=== PATIENT | female | born 1990 | race Caucasian/White ===

== ENCOUNTER → 2017-10-23 09:37 | Outpatient (CLI) | payer MEDICARE, SELFPAY ==
[2017-10-23 10:25] LABS: Hematocrit 46.7 % (37-47); Hemoglobin 15.1 g/dl (12.0-15.0); Mean Corp Hgb Conc 32.3 g/gl (32-36); Mean Corpuscular Hgb 29.6 pg (27.0-32.0); Mean Corpuscular Volume 91.6 fL (81-99); Mean Platelet Vol. 9.8 fl (6.2-12.0); Platelet Count 320 K/mm3 (150-450); RBC Distribution Width CV 13.2 % (11.6-14.6); RBC Distribution Width SD 44.4 fl (35.1-43.9); White Blood Count 12.5 K/mm3 (4.4-11.0)
[2017-10-23 10:26] LABS: Scan Indicated on CBC? Y/N NO
[2017-10-23 11:00] LABS: ALB/GLOB Ratio 0.9 RATIO (0.9-2.4); AST(SGOT) 14 U/L (15-37); Alanine Aminotransfer ALT/SGPT 19 U/L (13-56); Albumin, Serum 3.5 g/dL (3.2-5.0); Alkaline Phosphatase 57 U/L (45-117); Anion Gap 5 (5-15); BUN 8 mg/dL (7-18); Calcium,Total 8.6 mg/dL (8.5-10.1); Chloride 109 mmol/L (98-107); Creatinine, Serum 0.73 mg/dL (0.55-1.02); EST Glomerular Filtration Rate 102 mL/min (>60); Est Glom Filt Rate - Afr Amer 124 mL/min (>60); Globulin 3.8 g/dL (2.2-4.2); Glucose 81 mg/dL (74-106); Magnesium 2.1 mg/dL (1.6-2.6); Phosphorus 2.5 mg/dL (2.5-4.9); Potassium 3.7 mmol/L (3.5-5.1); Protein, Total 7.3 g/dL (6.4-8.2); Sodium Level 140 mmol/L (136-145)
[2017-10-24 09:52] LABS: Erythrocyte Sedimentation Rate 28 mm/hr (0-20)
== END ==
PROVIDERS: Family Provider Family Medicine; PCP Family Medicine; Visit Provider Nurse Practitioner Acute Care
DX: R56.9 Unspecified convulsions (principal); Z79.899 Other long term (current) drug therapy
CPT/HCPCS: 36415; 80053; 83735; 84100; 85027; 85652; 86140

== ENCOUNTER → 2017-11-02 13:11 | Outpatient (CLI) | payer MEDICARE, SELFPAY | PROVIDERS: Family Provider Family Medicine; PCP Family Medicine; Visit Provider Nurse Practitioner Acute Care | DX: G47.33 Obstructive sleep apnea (adult) (pediatric) (principal) | CPT/HCPCS: 98960; G0463 ==

== ENCOUNTER 2017-12-18 14:11 | Emergency (ER) | payer MEDICARE, SELFPAY ==
[2017-12-18 14:12] VITALS: BP 166/105; PULSE 104; RESP 16; TEMP 37; O2SAT 99
--- NOTE | 2017-12-18 15:58 | ED.DCSUM_ITS ---
- ER Visit Summary Date of Service: 12/18/17 Chief Complaint: Hand laceration History of Present Illness: The patient is a 27 F single laceration to lateral aspect of her right hand due to a broken glass. Unknown last tetanus. Physical Examination: Afebrile vital signs are stable There is a 3 cm flap-like laceration to the medial aspect of the right hand along the proximal little finger. Neurovascular intact distally no active bleeding Emergency Department Course and Treatment: Wound was locally anesthetized using 1% lidocaine. Is washed with Shur-Clens irrigated and explored. No foreign bodies were noted. The wound was closed using a total of 5 4-0 simple interrupted Ethilon sutures. Patient was advised that given the flap like laceration that some of the skin may not survive due to blood supply issues and she was okay with this. Stitches will need to be removed 10-14 days. Tetanus was updated with Adacel Impression: 1. 3 cm right hand laceration with repair 2. Tetanus update This note was generated with VoterTide dictation software. It may contain incorrect words, spelling, and punctuation that were not noted in review of the chart prior to signing ED Disposition - Plan for ED Patient: Disposition: Home or Assisted Living Chief Complaint: Laceration Instructions: ED Laceration Hand Referrals: Radha Calloway MD [Primary Care Provider] - 10-14 Days suture removal
[2017-12-18] MEDS: Diphth,Pertuss(Acell),Tet Vac 0.5 ML Vial IM (16:06)
[2017-12-18 16:16] VITALS: BP 108/63; PULSE 68; RESP 18; O2SAT 100
== END 2017-12-18 16:37 | disposition home or self-care (01) ==
PROVIDERS: Emergency Provider Emergency Medicine; Family Provider Family Medicine; PCP Family Medicine
DX: S61.411A Laceration without foreign body of right hand, initial encounter (principal); W25.XXXA Contact with sharp glass, initial encounter; Y93.9 Activity, unspecified; Y92.9 Unspecified place or not applicable; Y99.9 Unspecified external cause status; Z23 Encounter for immunization; R56.9 Unspecified convulsions; F31.9 Bipolar disorder, unspecified; Z72.0 Tobacco use; Z79.899 Other long term (current) drug therapy
CPT/HCPCS: 12002; 90471; 90715; 99284

== ENCOUNTER → 2018-05-21 07:24 | Outpatient (CLI) | payer MEDICARE, SELFPAY ==
--- NOTE | 2018-05-21 07:27 | CT_ITS ---
STUDY: CT ENTEROGRAPHY OF THE ABDOMEN AND PELVIS WITH CONTRAST REASON FOR EXAM: Female, 28 years old. Crohn's disease. RADIATION DOSAGE (If Supplied By Facility): CTDIvol = ( 22.35 ) mGy, DLP = ( 3172.10 ) mGycm TECHNIQUE: Transaxial images were obtained from the dome of the diaphragm to the symphysis pubis with Volumen oral contrast. 100CC ml of Isovue 370 contrast was administered. Sagittal and coronal images were reconstructed. Individualized dose optimization techniques were used for this CT. COMPARISON: CT of the abdomen and pelvis, June 08, 2014. FINDINGS: The visualized lung bases are unremarkable. The visualized portions of the heart are within normal limits. Normal liver. The gallbladder is partially contracted but otherwise unremarkable. There is no biliary ductal dilatation. Normal spleen. Normal pancreas. Normal bilateral adrenal glands. Normal right kidney. Normal left kidney. Normal bilateral ureters. Stomach is well distended. There is no evidence of wall thickening or mass. Small bowel is well-distended. There is no evidence of marked dilatation or focal stricture. The terminal ileum demonstrates mild wall thickening without stranding of the surrounding mesenteric fat there are scattered subcentimeter lymph nodes within the mesentery about the terminal ileum and within the cecal mesocolon. Normal colon. The appendix is visualized and appears normal. Normal abdominal aorta. Normal inferior vena cava. There is a single prominent retroperitoneal lymph node seen just low the left adrenal gland measuring 1.1 x 0.9 x 1.6 cm. Other smaller subcentimeter lymph nodes are seen in the region of the renal arteries. Normal urinary bladder. Ureter is is anteverted and tilted to the left. There are bilateral ovarian cysts. The right measures 2.1 x 1.4 x 1.7 cm. The left measures 2 x 1.4 x 1.7 cm. There is no pelvic lymphadenopathy. No free air or free fluid is seen within the peritoneal cavity. Normal abdominal wall. Minimal degenerative changes of the lower lumbar spine. CT/Abdomen/Pelvis WITH Contrast IMPRESSION: 1. Mild wall thickening of the terminal ileum. Findings suggest mild Crohn's disease. There is no evidence of stricture or dilatation. 2. Multiple small lymph nodes in the small bowel mesentery adjacent the terminal ileum. 3. Bilateral ovarian cysts. 4. Minimal degenerative changes of the lumbar spine. Electronically Signed: Kobe Cloud DO at 22:22 EDT Tel [phone], Service support ,
== END ==
PROVIDERS: Family Provider Family Medicine; PCP Family Medicine; Referring Provider Internal Medicine Gastroenterology; Visit Provider Internal Medicine Gastroenterology
DX: K50.019 Crohn's disease of small intestine with unspecified complications (principal)
CPT/HCPCS: 74177; Q9967

== ENCOUNTER → 2018-05-21 14:00 | Outpatient (CLI) | payer MEDICARE, SELFPAY | PROVIDERS: Family Provider Family Medicine; PCP Family Medicine; Visit Provider Nurse Practitioner Acute Care | DX: G47.33 Obstructive sleep apnea (adult) (pediatric) (principal) ==

== ENCOUNTER → 2019-01-17 20:14 | Outpatient (CLI) | payer MEDICARE, SELFPAY | PROVIDERS: Family Provider Family Medicine; PCP Family Medicine; Visit Provider Clinical Nurse Specialist Acute Care | DX: G47.33 Obstructive sleep apnea (adult) (pediatric) (principal); G47.10 Hypersomnia, unspecified | CPT/HCPCS: 95810 ==

== ENCOUNTER 2019-02-25 10:30 | Outpatient (RCR) | payer MEDICARE, SELFPAY ==
--- NOTE | 2019-01-17 14:08 | HP.PTEVAL_ITS ---
Patient's Visit Information CONY POWERS is a 28 year old F referred to Physical Therapy by Radha Calloway MD with a diagnosis of Recurrent L ankle sprains. Date of Evaluation: 01/17/19 Physical Therapist: Jg Stallworth, PT, ATC - Visit Plan Frequency: 2-3x /Week Duration: 4-6 Weeks Plan: L ankle stretching and strengthening, balance and prorio ex's, bike, and HEP - Subjective Findings: Pt reports she sprained her L ankle approximately one month ago. Pt reports she has sprained her ankles at least 11 tolled her times in the past. Pt reports she has had PT in the past for strengthening of her ankles, but she continues to sprain them bilaterally. Pt reports she is an [employer] by [employer] and has to stand on her feet for several days. Pt reports this episode occurred when she stepped onto a tree root and rolled her ankle. Pt reports she has had recent xrays that reveal no fractures. No tingling or numbness in LE's. No sleep difficulty secondary to pain. Pt reports she is back to work now and feeling much better. 2/10 pain at rest, 10/10 at worst. - Pain L ankle sprain Pain Intensity (Out of 10): 2 Pain Intensity Range: 10 - Objective Neuro: B LE sensation is WNL to lgiht touch. B LE patellar reflex= 1/3. Palpation: Pt is very sore on the ant talofib ligament. No obvious deformity. Minor swelling noted. Pt is also very sore on achilles tendon. ROM: R ankle DF= 0, PF= 65; L ankle DF= -8, PF= 55. MMT: R ankle 5/5 throughout, L ankle 4+/5 throughout. Girth at joint line: L ankle 28 cm, R ankle 26.5 cm - Goals Goal 1:: Decrease L ankle pain x 50% to aid with increasing tolerance for ambulation Goal Time Frame: 4-6 Weeks Goal 2:: Increase L ankle strength x 1 grade to aid with preventing future ankle sprains Goal Time Frame: 4-6 Weeks Goal 3:: Increase L ankle DF ROM x 10 degrees to aid with retoring a more normal gait Goal Time Frame: 4-6 Weeks Goal 4:: I with HEP Goal Time Frame: 4-6 Weeks - Rehabilitation Potential Physical Therapy Diagnosis: L ankle pain, weakness, and limited ROM secondary to recurrent L ankle sprains Rehabilitation Potential: Good - Anticipated Interventions Patient/Client Instruction: Educate patient on: Condition, Plan of Care For the Purpose of:: To improve self management Therapeutic Exercise to Include: Strength training, Endurance training, Balance training, Flexibilty training, Active ROM, Dynamic Lumbar Stabilization For the Purpose of:: To decrease pain, To increase ROM, To improve muscle performance and motor function Cryotherapy (ice pack, ice massage): Yes For the Purpose of:: To decrease pain Thank you for the opportunity to evaluate your patient. For Medicare and Medicare HMO plans, please review the plan of care and approve it. It will need to be FAXED BACK to us at [phone] for Medicare purposes. For Medicare only, by signing this I certify the plan of care. Please let me know if there are questions or concerns regarding this plan of care. Physician Signature: Date:
--- NOTE | 2019-02-25 10:52 | HP.PTDCSUM_ITS ---
HP - PT D/C Summary It has been my pleasure to treat CONY POWERS under orders from Radha Calloway MD, for the diagnosis of Recurrent L ankle sprains for a total of 7 visit(s). Discharge Date: Please see the following information for a summary of their discharge status. - Subjective Subjective: No pain this date. Pt is ready for discharge - Pain L ankle sprain Pain Intensity (Out of 10): 0 - Overall Improvement % Improvement: 100 - Objective Objective/Function: L ankle pain 0/10. L ankle ROM: DF= 10 degrees. L ankle MMT: 5/5 throughout. I with HEP. Rx goals achieved - Goals Goal 1:: Decrease L ankle pain x 50% to aid with increasing tolerance for ambulation Goal Progress: Goal Met Goal 2:: Increase L ankle strength x 1 grade to aid with preventing future ankle sprains Goal Progress: Goal Met Goal 3:: Increase L ankle DF ROM x 10 degrees to aid with retoring a more normal gait Goal Progress: Goal Met Goal 4:: I with HEP Goal Progress: Goal Met - Plan Plan: Discharge - D/C Information If there are questions or concerns regarding this patient's physical therapy, pl ease feel free to call me at [phone]. Thank you for the referral of this patient. Sincerely, Jg Stallworth, PT, ATC
== END 2019-02-25 11:02 | disposition home or self-care (01) ==
LOC: PT 10:30
PROVIDERS: Family Provider Family Medicine; PCP Family Medicine; Referring Provider Family Medicine; Visit Provider Family Medicine
DX: S93.409D Sprain of unspecified ligament of unspecified ankle, subsequent encounter (principal)
CPT/HCPCS: 97110; 97161; 97530

== ENCOUNTER → 2019-02-25 20:00 | Outpatient (CLI) | payer MEDICARE, SELFPAY | PROVIDERS: Family Provider Family Medicine; PCP Family Medicine; Referring Provider Clinical Nurse Specialist Acute Care; Visit Provider Clinical Nurse Specialist Acute Care | DX: G47.33 Obstructive sleep apnea (adult) (pediatric) (principal) | CPT/HCPCS: 95811 ==

== ENCOUNTER 2019-03-02 17:58 | Emergency (ER) | payer SELFPAY ==
[2019-03-02 17:59] VITALS: BP 114/91; PULSE 99; RESP 20; TEMP 36.3; O2SAT 97; BMI 40.5
--- NOTE | 2019-03-02 18:16 | ED.VIS.GEN ---
History of Present Illness Chief Complaint: Upper Extremity Injury Detail of Chief Complaint: Left shoulder pain Informant: Patient Onset: Days Context: Gradual Onset Current Severity: Mild Maximum Severity: Moderate Worsened by: Movement or palpation Narrative: Patient presents with left shoulder pain over the last 2 days. She states she woke Vishnu morning with pain. 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 She has difficulty with abduction. No paresthesias into the arm. She is right-hand dominant. Past Medical History - Allergies and Home Meds Allergies/Adverse Reactions: Allergies ALMONDS Allergy (Uncoded 03/02/19 17:59) Hives Primary Care Physician: Radha Calolway MD [Primary Care Provider] - Prior records reviewed: Yes Past Medical History: - - Reviewed Surgical History: no surgical history Smoking Status: Current every day smoker - Family History Maternal Family History: Reports: No pertinent history Review of Systems General: Denies: Chills, Fever Eyes: Denies: Visual changes - bilaterally ENT: Denies: Bilateral ear pain Cardiovascular: Denies: Chest pain Respiratory: Denies: Dyspnea, Cough Gastrointestinal: Denies: Abdominal pain Genitourinary: Denies: Dysuria Musculoskeletal: Reports: Myalgias, Arthralgias Skin: Denies: Rash Neurological: Denies: Headache Endocrine: Denies: Polyuria, Polydipsia Hematologic: Denies: Easy bruising Allergy: Denies: Uticaria Physical Exam Vital Signs/Narrative: Vital Signs Temp Pulse Resp BP Pulse Ox 03/02/19 17:59 97.4 F L 99 20 H 114/91 H 97 Inital Vital Signs reviewed: Yes General: Well nourished, Well developed ENT: Moist mucous membranes Cardiovascular: Regular rate, Regular rhythm Respiratory: No distress, CTA bilaterally Abdomen: Soft, Nontender Extremities: Tenderness - She has reproducible tenderness over the anterior, superior, and posterior shoulder. She has increased pain with abduction. She has strong distal pulses. There is no tenderness along the mid to distal humerus, elbow, or forearm. Skin: Normal color Neurological: Alert, Oriented x3 Psychological: Normal affect Diagnostic/Tx/Re-eval Impressions Shoulder X-Ray 03/02/19 18:20 IMPRESSION: Normal x-ray examination of the shoulder. Electronically Signed: Daniel Rudd MD at 18:37 EDT , Service support , 03/02/19 18:20 Shoulder min 2 Views [RAD] Stat - Medical Decision Making Patient states that she was seen in urgent care couple days ago for the same. They told her to watch for signs of chest pain or shortness of breath but she has not had any of these. She was given prescriptions for pain medication and muscle spasm medicine but patient states she has not yet filled these were taken them. Test results discussed with the patient. I instructed the importance of getting her prescriptions filled. She now states that she lost her insurance card and has to go to job [facility] family services tomorrow morning to get a copy of a new one. She will be given a single dose of naproxen and Flexeril here. ED Disposition - Plan for ED Patient: Disposition: Home or Assisted Living Diagnosis: Sprain of left shoulder Instructions: Shoulder Sprain Referrals: Radha Calloway MD [Primary Care Provider] - 1 Week if not improving
--- NOTE | 2019-03-02 18:20 | RAD_ITS ---
STUDY: X-RAY - LEFT SHOULDER REASON FOR EXAM: Female, 28 years old. Pain TECHNIQUE: 4 view(s) of the shoulder. COMPARISON: None. FINDINGS: Normal glenohumeral articulation. Normal acromioclavicular joint. Normal acromion. Normal humeral head and visualized proximal humerus. The soft tissue structures are unremarkable. Normal visualized pulmonary apex. RAD/Shoulder min 2 Views IMPRESSION: Normal x-ray examination of the shoulder. Electronically Signed: Daniel Rudd MD at 18:37 EDT , Service support ,
[2019-03-02] MEDS: cycloBENZAPRine HCl 10 MG Tablet PO (19:11)
[2019-03-02] MEDS: Naproxen 500 MG Tablet PO (19:11)
[2019-03-02 19:13] VITALS: BP 116/75; PULSE 82; RESP 16; O2SAT 98
== END 2019-03-02 19:14 | disposition home or self-care (01) ==
PROVIDERS: Emergency Provider Emergency Medicine; Family Provider Family Medicine; PCP Family Medicine
DX: S43.402A Unspecified sprain of left shoulder joint, initial encounter (principal); X58.XXXA Exposure to other specified factors, initial encounter; Y93.9 Activity, unspecified; Y92.9 Unspecified place or not applicable; Y99.9 Unspecified external cause status; F17.200 Nicotine dependence, unspecified, uncomplicated; Z79.899 Other long term (current) drug therapy
CPT/HCPCS: 73030; 99283

== ENCOUNTER 2019-03-30 06:47 | Emergency (ER) | payer MEDICARE, MEDICAID, SELFPAY ==
[2019-03-30 06:48] VITALS: BP 103/70; PULSE 75; RESP 18; TEMP 36.7; O2SAT 100; BMI 43.2
--- NOTE | 2019-03-30 07:30 | ED.VISSUMM ---
- ER Visit Summary Date of Service: 03/30/19 Chief Complaint: Back pain History of Present Illness: The patient is a 28 F history of degenerative disc disease in the lumbar spine, Crohn's, seizure history and mental illness. Patient states this morning she had low back pain. Denies any radiation to her legs. No bowel or bladder incontinence or retention. No fever. No weakness or numbness in her legs. No trauma. She is on no blood thinners. She is never had back surgery. Physical Examination: Young female no acute distress. Vital signs are stable and afebrile. H EENT exam unremarkable. Neck nontender. Lungs clear to auscultation bilaterally. Heart regular rhythm no murmur. Abdomen is soft and nontender. Normal bowel sounds no peritoneal signs. Patient is moving all 4 extremities. Neurovascular intact. 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 Normal 5 out of 5 dorsi plantar flexion. Full range of motion both upper and lower extremities. Normal sensation. No cauda equina. No saddle anesthesia. Negative straight leg raise bilaterally lower extremities. Back she has some mild reproducible tenderness of her lumbar spine. There is no ecchymosis or bruising. No redness or warmth. No deformity. No signs of trauma. Neurologic exam is normal. With again normal strength and sensation. No cauda equina. Test Results: None Emergency Department Course and Treatment: Examined history consistent with musculoskeletal back pain. Treatment Plan: Motrin for pain. Follow-up with your doctor if not improving. Disposition: Discharge Impression: Musculoskeletal low back pain History degenerative disc disease This note was generated with AdviseHub dictation software. It may contain incorrect words, spelling, and punctuation that were not noted in review of the chart prior to signing ED Disposition - Plan for ED Patient: Referrals: Radha Calloway MD [Primary Care Provider] -
--- NOTE | 2019-03-30 07:32 | ED.DEP ---
ED Disposition - Plan for ED Patient: Disposition: Home or Assisted Living Instructions: BACK AND NECK PAIN, General Referrals: Radha Calloway MD [Primary Care Provider] - 1 Week if not improving Additional Instructions: Motrin or ibuprofen 600 mg 3 times a day for pain. Follow-up with your doctor if not improving. Return if fever, leg weakness or numbness, bowel or bladder incontinence or unable to urinate or move your bowels.
== END 2019-03-30 07:40 | disposition home or self-care (01) ==
LOC: ED 07:33
PROVIDERS: Emergency Provider Emergency Medicine; Family Provider Family Medicine; PCP Family Medicine
DX: M54.5 Low back pain (principal); M51.36 Other intervertebral disc degeneration, lumbar region; K50.90 Crohn's disease, unspecified, without complications; R56.9 Unspecified convulsions; Z72.0 Tobacco use; Z79.899 Other long term (current) drug therapy
CPT/HCPCS: 99282

== ENCOUNTER → 2019-06-23 15:28 | Outpatient (CLI) | payer MEDICARE, MEDICAID, SELFPAY ==
--- NOTE | 2019-06-23 15:37 | RAD_ITS ---
STUDY: X-RAY - PELVIS REASON FOR EXAM: Female, 29 years old. Posterior and mid pelvic pain. TECHNIQUE: One view of the pelvis was obtained. COMPARISON: None. FINDINGS: There is a non-specific bowel gas pattern. Normal visualized soft tissue structures. Portions of the sacrum and iliac wings are obscured by bowel gas and/or stool. Normal visualized bilateral superior and inferior pubic rami. Normal pubic symphysis. Normal ischial tuberosities. Normal visualized right femoral head. Normal right acetabulum. Normal right hip joint. Normal visualized left femoral head. Normal left acetabulum. Normal left hip joint. RAD/Pelvis 1 or 2 Views IMPRESSION: Normal x-ray examination of the pelvis. Electronically Signed: Rocío Tovar MD at 1:29 EST , Service support ,
== END ==
PROVIDERS: Family Provider Family Medicine; PCP Family Medicine; Referring Provider Family Medicine; Visit Provider Family Medicine
DX: M54.9 Dorsalgia, unspecified (principal)
CPT/HCPCS: 72170

== ENCOUNTER 2019-08-06 11:30 | Outpatient (RCR) | payer MEDICARE, MEDICAID, SELFPAY ==
--- NOTE | 2019-07-03 16:29 | HP.PTEVAL ---
Patient's Visit Information CONY POWERS is a 29 year old F referred to Physical Therapy by Radha Calloway MD with a diagnosis of LOW BACK PAIN. Date of Evaluation: 07/03/19 Physical Therapist: Ilia Howard, PT, Cert MDT, OCS - Visit Plan Frequency: 2x /Week Duration: 4 Weeks Plan: NO ESTIM H/O SEIZURES. PT INTERVENTIONS CHARITY EX'S,DLS ABD/BACK,POSTURAL EX'S ,US /CP/MHO - Subjective Findings: This 29 y/o female presents to physical therapy with low back pain. Patient has had low back pain 6 weeks ,and had to go to ER twice due to pain.Located symmtrical pain worse on right side > than left. Aggraveting factors bending ,lifting,squatting,sitting. Alleviating factors walking,MEDS. Denies parathesia/tingling. Bowel/bladder -. Pain affects sleeping. No trauma, No prior treatment. Coughing/sneezing-. Patient pain affects ADLS',housework tasks. 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 Seen Dr Jarrell tried cortizone. SOCIAL: single. VOCATION: unemployed - Pain Bilateral Back Pain Intensity (Out of 10): 2 Pain Intensity Range: 10 - Objective POSTURE: mild foward posture. GAIT: reciprocal pattern. PALPATION: tender L-S. NEURO: denies parathesia/tingling,reflexes L3-4,L4-5,L5-S1 2/3. FLEXABLITY: hams miild hams tight. MMT: quads/hams 4/5,hip flexion 4-/5,ankle 4/5. LUMBAR ROM: flexion min loss ,extension min loss,side glides min loss. SYMMTRIES: alighn. MUSCULAR ENDURANCE TESTING: unble - Special Tests L/S Slump test left side: Negative L/S Slump test right side: Negative L/S Left Straight Leg Raise: Negative L/S Right Straight Leg Raise: Negative Lumbar Standing: Flexion - Mechanical Response: No effect Lumbar Standing: Flexion - Symptoms During Testing: Increases Lumbar Standing: Flexion - Symptoms After Testing: No worse Lumbar Standing: Extension - Mechanical Response: No effect Lumbar Standing: Extension - Symptoms During Testing: No effect Lumbar Standing: Extension - Symptoms After Testing: No effect Lumbar Standing: Right Side Glides - Mechanical Response: No effect Lumbar Standing: Right Side [place] - Symptoms During Testing: No effect Lumbar Standing: Right Side [place] - Symptoms After Testing: No effect Lumbar Standing: Left Side [place] - Mechanical Response: No effect Lumbar Standing: Left Side [place] - Symptoms During Testing: No effect Lumbar Standing: Left Side [place] - Symptoms After Testing: No effect Lumbar Lying: Flexion - Mechanical Response: No effect Lumbar Lying: Flexion - Symptoms During Testing: Increases Lumbar Lying: Flexion - Symptoms After Testing: No worse Lumbar Lying: Extension - Mechanical Response: No effect Lumbar Lying: Extension - Symptoms During Testing: Decreases Lumbar Lying: Extension - Symptoms After Testing: Better - Goals Goal 1:: Independant wiith HEP Goal Time Frame: 4-6 Weeks Goal 2:: Improve posture/body mechanics for ADL'S Goal Time Frame: 4-6 Weeks Goal 3:: Patient to decrease pain by 50% or > to improve function. Goal Time Frame: 4-6 Weeks Goal 4:: Patient to improve lumbar ROM for function of recovery. Goal Time Frame: 4-6 Weeks Goal 5:: Patient to improve back oestry score by 5 points or> to improve QOL. Goal Time Frame: 4-6 Weeks - Rehabilitation Potential Physical Therapy Diagnosis: This patient has possible lumbar derrangement with pain with bending ,better with extension,poor core muscular endurance impairs ADL's and housework tasks. Rehabilitation Potential: Good - Anticipated Interventions Patient/Client Instruction: Educate patient on: Condition, Plan of Care For the Purpose of:: To decrease pain, To increase ROM, To improve muscle performance and motor function, To improve ability to perform ADL's, To increase tolerance to activity/condition/position, To improve ability of physical actions for home/community/work/leisure, To improve health of tissue, To decrease soft tissue restriction, To increase flexibility/ROM, To improve ability to perform tasks related to life management Therapeutic Exercise to Include: Strength training, Body mechanics, Dynamic Lumbar Stabilization, Charity Exercises For the Purpose of:: To decrease pain, To increase ROM, To improve muscle performance and motor function, To improve ability to perform ADL's, To increase tolerance to activity/condition/position, To improve ability of physical actions for home/community/work/leisure, To improve health of tissue, To decrease soft tissue restriction, To increase flexibility/ROM, To improve ability to perform tasks related to life management Cryotherapy (ice pack, ice massage): Yes Thermo therapy (hot pack): Yes Ultrasound (thermal/non thermal): Yes For the Purpose of:: To decrease pain, To increase ROM, To improve nutrient delivery to tissue, To increase oxygenation perfusion, To improve health of tissue, To decrease soft tissue restriction Thank you for the opportunity to evaluate your patient. For Medicare and Medicare HMO plans, please review the plan of care and approve it. It will need to be FAXED BACK to us at [phone] for Medicare purposes. For Medicare only, by signing this I certify the plan of care. Please let me know if there are questions or concerns regarding this plan of care. Physician Signature: Date:
--- NOTE | 2019-10-28 09:04 | HP.PTDCSUM ---
It has been my pleasure to treat CONY POWERS referred by Dr. Radha Calloway MD, with the diagnosis of LOW BACK PAIN for a total of 9 visit(s). Discharge Date: Please see the following information for a summary of their discharge status. Subjective: This patient reports doing much better .. no PAIN Bilateral Back Pain Intensity (Out of 10): 0 % Improvement: 100 Objective/Function: POSTURE: MILD FOWARD POSTURE. GAIT: RECIPROCAL PATTERN. MMT: 4/5 BLE. LUMBAR ROM: WNL Goal 1:: Independant wiith HEP Goal 2:: Improve posture/body mechanics for ADL'S Goal 3:: Patient to decrease pain by 50% or > to improve function. Goal 4:: Patient to improve lumbar ROM for function of recovery. Goal 5:: Patient to improve back oestry score by 5 points or> to improve QOL. Plan: D/C TO [facility] If there are questions or concerns regarding this patient's physical therapy, please feel free to call me at [phone]. Thank you for the referral of this patient. Sincerely, Ilia Howard, PT, Cert MDT, OCS
== END 2019-08-06 19:00 | disposition home or self-care (01) ==
LOC: PT 11:30
PROVIDERS: Family Provider Family Medicine; PCP Family Medicine; Referring Provider Family Medicine; Visit Provider Family Medicine
DX: M54.5 Low back pain (principal)
CPT/HCPCS: 97035; 97110; 97162

== ENCOUNTER 2019-08-20 15:09 | Emergency (ER) | payer MEDICARE, MEDICAID, SELFPAY ==
[2019-08-20 15:10] VITALS: BP 131/81; PULSE 94; RESP 15; TEMP 36.1; O2SAT 94; BMI 43.2
--- NOTE | 2019-08-20 15:35 | RAD_ITS ---
STUDY: X-RAY CHEST REASON FOR EXAM: Female, 29 years old. COUGH TECHNIQUE: Single AP portable view of the chest. COMPARISON: None. FINDINGS: The lungs are clear and expanded. There is no demonstrated pleural abnormality. Normal size heart. Normal mediastinum and rosalie. Normal visualized pulmonary arteries. Normal visualized aortic arch and descending thoracic aorta. Normal visualized thoracic spine. Normal visualized ribs, clavicles, and shoulders. There is no demonstrated abnormality of the visualized soft tissue structures of the upper abdomen. RAD/Chest 1 View (Portable) IMPRESSION: Normal x-ray examination of the chest. Electronically Signed: Shady Butt, at 15:53 EST , Service support ,
[2019-08-20 16:51] VITALS: O2SAT 94
--- NOTE | 2019-08-20 17:17 | ED.DCSUM_ITS ---
- ER Visit Summary Date of Service: 08/20/19 Chief Complaint: Cough and back pain History of Present Illness: The patient is a [address] Calloway. She reports she has a cough began 1 week ago. She denies any fever, chills, shortness of breath. She reports her cough is productive yellow sputum without blood. She does report she has a slight sore throat. Patient reports that she has back pain again approximately 9 weeks ago. Is gradually gotten worse. States ripping/stabbing that is 7 out of 10 currently 10 out of 10 at worst. Is increased with movement. Is decreased with sitting down and Tylenol. States that it radiates to the front of her right leg. She denies any problems with her bowels or bladder. No groin numbness. Denies any history of back problems. She reports that August 07 she finished 6 weeks of physical therapy for her back and has not gotten any relief. She has not followed up with her primary care physician regarding this. Patient denies any injury to the onset of this. No fall, MVA, or change in activity. Physical Examination: Vitals: Stable. Afebrile. General: A&O x 3. NAD. Cardiovascular exam: Regular rate and rhythm, no murmur, rub or gallop. Respiratory exam: Clear to auscultation bilaterally. No wheezes or stridor. Abdominal exam: Soft, nontender, nondistended, normal bowel sounds. No peritoneal signs. Back: Diffuse moderate tenderness to palpation over the lumbar spine and the paraspinous musculature in the lumbar region. No point tenderness. Negative straight leg bilaterally. 5/5 DF, PF, EHL bilaterally. Normal sensation to light touch throughout. Extremity: No clubbing, cyanosis, or edema. Test Results: Clinical Impression(s) from Imaging Studies Chest X-Ray 08/20/19 15:35 IMPRESSION: Normal x-ray examination of the chest. Electronically Signed: Shady Butt, at 15:53 EST , Service support , Emergency Department Course and Treatment: Patient was treated with prednisone and naproxen. She is resting comfortably. Treatment Plan: This time I do not see an indication for antibiotics. She will be discharged on a 2-week taper of prednisone in hopes that this will help with her pain to her right leg that is radiating from her back. Also help with her wheezing. She has an inhaler at home already. She is instructed to use Tylenol and ibuprofen for pain. She instructed to use a TENS unit and moist heat. Follow-up Dr. Calloway in 1 week if not improving. The signs and symptoms of cauda equina syndrome were discussed. She was instructed return for these. Disposition: To home in improved and stable condition. Impression: 1. URI. 2. Low back pain, chronic. This note was generated with [employer] dictation software. It may contain incorrect words, spelling, and punctuation that were not noted in review of the chart prior to signing ED Disposition - Plan for ED Patient: Instructions: URI, Viral w/ Wheezing (Adult), BACK PAIN (Acute or Chronic) Prescriptions: Naproxen [Naprosyn] 500 mg PO BID #14 tablet Prednisone 10 mg PO DAILY #63 tablet Referrals: Radha Calloway MD [Primary Care Provider] - 1 Week if not improving
[2019-08-20] MEDS: Naproxen 250 MG Tablet 500 MG PO (17:23)
[2019-08-20] MEDS: predniSONE 20 MG Tablet 60 MG PO (17:24)
[2019-08-20 17:26] VITALS: O2SAT 94
[2019-08-20 18:05] VITALS: RESP 14
== END 2019-08-20 18:06 | disposition home or self-care (01) ==
PROVIDERS: Emergency Provider Emergency Medicine; PCP Family Medicine
DX: J06.9 Acute upper respiratory infection, unspecified (principal); M54.5 Low back pain; G89.29 Other chronic pain; G40.909 Epilepsy, unspecified, not intractable, without status epilepticus; Z72.0 Tobacco use
CPT/HCPCS: 71045; 94760; 99283

== ENCOUNTER 2019-09-21 10:10 | Emergency (ER) | payer MEDICARE, MEDICAID, SELFPAY ==
[2019-09-21 10:12] VITALS: BP 102/72; PULSE 84; RESP 17; TEMP 36.6; O2SAT 97; BMI 41.1
--- NOTE | 2019-09-21 10:23 | ED.DCSUM_ITS ---
- ER Visit Summary Date of Service: 09/21/19 Chief Complaint: [Neck pain] History of Present Illness: The patient is a 29 F [presents the emergency department complaining of pain was noted this morning when she woke up. Patient denies any trauma to her neck other than she was helping a friend move a dresse r as well as a mattress and box frame yesterday. Patient denies any direct trauma or falls. She states that the pain radiates around towards her right shoulder. At times the pain goes to the base of her skull. She denies any weakness in the extremities or paresthesias. Patient has pain with movement of the head especially to the left. Has not had symptoms like this before. Most recent illness was 3 to 4 weeks ago when she had a URI that she has gotten over she had been on 2 antibiotics at that point. Patient has history of PTSD, bipolar disorder, anxiety, depression, seizures, and history of Crohn's disease.] Physical Examination: [HEENT-PERRLA, EOMI. Cranial nerves II through XII grossly intact. TMs clear. Mucous membranes moist. No adenopathy. Neck-tiffanie ent has tenderness palpation over the right cervical paraspinal musculature and trapezius with spasm noted. Palpation reproduces her pain. Patient has pain with head rotation to the left and side bending to the left. No bony tenderness on exam. Cardiovascular-regular rate and rhythm without murmur or ectopy Lungs-clear to auscultation, chest wall stable without crepitus or subcu emphysema Abdomen-normoactive bowel sounds, soft, nontender, no rebound or rigidity, no peritoneal signs. Extremities-intact ?4, normal range of motion, normal pulses, atraumatic. Deep tendon reflexes are plus 2 out of 4 bilaterally in the upper and lower extremities. Normal strength.] Test Results: [None indicated] Emergency Department Course and Treatment: [] Treatment Plan: [Patient will be given a prescription for Flexeril, Naprosyn, and a few Wanchese for severe pain. Patient advised to follow-up with her primary care physician within next 5 to 7 days.] Disposition: [Discharged home in stable condition] Impression: [Torticollis] This note was generated with [employer] software. It may contain incorrect words, spelling, and punctuation that were not noted in review of the chart prior to signing ED Disposition - Plan for ED Patient: Referrals: Radha Calloway MD [Primary Care Provider] -
--- NOTE | 2019-09-21 10:26 | ED.DEP ---
ED Disposition - Plan for ED Patient: Instructions: NECK SPASM, No Trauma Prescriptions: cycloBENZAPRine HCl [Flexeril] 10 mg PO TID PRN #20 tab PRN Reason: Muscle Spasm Transmission Status: Pending to [facility] Naproxen [Naprosyn] 500 mg PO BID PRN #20 tab Transmission Status: Pending to [facility] Hydrocodone Bitart/Apap 5-325 [[place] 5MG-325MG] 1 tablet PO Q4H PRN PRN 2 Days #10 tablet PRN Reason: Pain Transmission Status: Received by [facility] Referrals: Radha Calloway MD [Primary Care Provider] - 5-7 Days
[2019-09-21 10:35] VITALS: RESP 16
--- NOTE | 2019-09-21 10:35 | ED.RN ---
REVIEWED D/C INSTRUCTIONS, FOLLOW UP CARE, PRESCRIPTIONS, AND S/S THAT WOULD WARRANT A RETURN TO THE ED WITH PT. PT VERBALIZED AN UNDERSTANDING AND DENIES FURTHER QUESTIONS FOR THIS RN. PT SKIN P/W/D, RESP EVEN AND UNLABORED, PT A&O X 3, NO DISTRESS NOTED. PT AMBULATED OUT OF ED, GAIT STEADY.
== END 2019-09-21 10:36 | disposition home or self-care (01) ==
LOC: ED 10:30
PROVIDERS: Emergency Provider Emergency Medicine; PCP Family Medicine
DX: M43.6 Torticollis (principal); K50.90 Crohn's disease, unspecified, without complications; G40.909 Epilepsy, unspecified, not intractable, without status epilepticus; F31.9 Bipolar disorder, unspecified; F43.10 Post-traumatic stress disorder, unspecified; Z72.0 Tobacco use
CPT/HCPCS: 99282

== ENCOUNTER → 2020-01-29 07:49 | Outpatient (CLI) | payer MEDICARE, MEDICAID, SELFPAY ==
[2019-10-30 16:06] VITALS: BMI 41.1
[2020-01-29 08:19] LABS: Hematocrit 44.7 % (37-47); Hemoglobin 14.4 g/dL (12.0-15.0); Mean Corp Hgb Conc 32.2 g/dL (32-36); Mean Corpuscular Hgb 30.3 pg (27.0-32.0); Mean Corpuscular Volume 94.1 fL (81-99); Platelet Count 309 K/mm3 (150-450); RBC Distribution Width CV 12.9 % (11.6-14.6); RBC Distribution Width SD 44.2 fl (35.1-43.9); Red Blood Count 4.75 M/mm3 (4.2-5.4); White Blood Count 13.8 K/mm3 (4.4-11.0)
[2020-01-29 09:11] LABS: ALB/GLOB Ratio 0.9 RATIO (0.9-2.4); AST(SGOT) 13 U/L (15-37); Alanine Aminotransfer ALT/SGPT 22 U/L (13-56); Albumin, Serum 3.3 g/dL (3.2-5.0); Alkaline Phosphatase 43 U/L (45-117); Anion Gap 6 (5-15); BUN 14 mg/dL (7-18); BUN/Creat Ratio 16.4 RATIO (10-20); Calcium,Total 8.5 mg/dL (8.5-10.1); Chloride 108 mmol/L (98-107); Creatinine, Serum 0.85 mg/dL (0.55-1.02); EST Glomerular Filtration Rate 84 mL/min (>60); Est Glom Filt Rate - Afr Amer 102 mL/min (>60); Globulin 3.8 g/dL (2.2-4.2); Glucose 87 mg/dL (74-106); Potassium 3.9 mmol/L (3.5-5.1); Protein, Total 7.1 g/dL (6.4-8.2); Sodium Level 141 mmol/L (136-145)
== END ==
PROVIDERS: PCP Family Medicine; Referring Provider Psychiatry & Neurology Neurology; Visit Provider Psychiatry & Neurology Neurology
DX: G40.909 Epilepsy, unspecified, not intractable, without status epilepticus (principal)
CPT/HCPCS: 36415; 80053; 85027

== ENCOUNTER 2020-01-30 14:14 | Emergency (ER) | payer MEDICARE, MEDICAID, SELFPAY ==
[2020-01-29 14:12] VITALS: BMI 41.1
[2020-01-30 14:15] VITALS: BP 136/67; PULSE 87; RESP 16; TEMP 36.2; O2SAT 97; BMI 38.0
--- NOTE | 2020-01-30 14:29 | ED.VIS.GEN ---
History of Present Illness Chief Complaint: Other, Pain/Inj Informant: Patient Onset: Days Context: Gradual Onset Current Severity: Mild Maximum Severity: Mild Narrative: Patient present secondary to right lower back pain, groin pain, and numbness to the right knee. She reports problems with her back and groin in the past. A few days ago it seemed to flareup on her again. Over the past 24 hours she has now developed numbness around her right knee. This is what prompted her visit today. She denies any recent trauma to her back. She states in the past has been on naproxen and Flexeril which helped her pain. - Past Medical History (1) Bipolar disorder Status: Chronic (2) Crohns disease Status: Chronic Comment: Diagnosing 2006 (3) Posttraumatic stress disorder Status: Chronic (4) Seizures Status: Chronic Past Medical History - Allergies and Home Meds Allergies/Adverse Reactions: Allergies ALMONDS Allergy (Uncoded 09/21/19 10:11) Hives Primary Care Physician: Radha Calloway MD [Primary Care Provider] - Prior records reviewed: Yes Surgical History: no surgical history Smoking Status: Current every day smoker - Family History Maternal Family History: Family History (Last Updated 10/30/19 @ 14:43 by Janine Green) Father Suicide Mother Diabetes OCD (obsessive compulsive disorder) Grandmother Diabetes Other Anxiety Arthritis Bowel disease Depression Epilepsy Family History: Reports: No pertinent history Review of Systems General: Denies: Chills, Fever Eyes: Denies: Visual changes - bilaterally ENT: Denies: Bilateral ear pain Cardiovascular: Denies: Chest pain Respiratory: Denies: Dyspnea, Cough Gastrointestinal: Denies: Abdominal pain, Nausea, Vomiting, Diarrhea Genitourinary: Denies: Dysuria Musculoskeletal: Reports: Back pain. Denies: Extremity Pain Neurological: Reports: Parasthesia. Denies: Weakness Hematologic: Denies: Easy bruising, Easy bleeding Allergy: Denies: Uticaria Physical Exam Vital Signs/Narrative: Vital Signs Temp Pulse Resp BP Pulse Ox 01/30/20 14:15 97.2 F L 87 16 136/67 H 97 Inital Vital Signs reviewed: Yes General: Well nourished, Well developed Head: Normocephalic ENT: Moist mucous membranes Neck: Supple Cardiovascular: Regular rate, Regular rhythm Respiratory: No distress, CTA bilaterally Abdomen: Soft, Nontender Back: - - Patient has reproducible tenderness over the right lower lumbar paraspinal muscles under the sciatic notch. Extremities: Nontender Skin: Normal color Neurological: Alert, Oriented x3, Normal Strength, - - Patient reports decreased incision to light touch around the right knee. She has good strength throughout. Strong distal pulses noted. Normal reflexes. Psychological: Normal affect Diagnostic/Tx/Re-eval - Medical Decision Making Patient appears to have lumbar radiculopathy symptoms. She will be treated with naproxen, Flexeril, and prednisone. ED Disposition - Plan for ED Patient: Disposition: Home or Assisted Living Diagnosis: Lumbar radiculopathy Instructions: ED LUMBAR RADICULOPATHY Prescriptions: Prednisone [Deltasone] 40 mg PO DAILY #10 tab Transmission Status: Pending to [facility] cycloBENZAPRine HCl [Flexeril] 10 mg PO TID PRN #20 tab PRN Reason: Muscle Spasm Transmission Status: Pending to [facility] Naproxen [Naprosyn] 500 mg PO BID PRN PRN #20 tab PRN Reason: Pain Score 4-10/10 Transmission Status: Pending to [facility] Referrals: Radha Calloway MD [Primary Care Provider] - 1 Week
[2020-01-30] MEDS: Naproxen 500 MG Tablet PO (14:38)
[2020-01-30] MEDS: cycloBENZAPRine HCl 10 MG Tablet PO (14:38)
[2020-01-30] MEDS: predniSONE 20 MG Tablet 60 MG PO (14:38)
[2020-01-30 14:44] VITALS: PULSE 66; RESP 17; O2SAT 95
== END 2020-01-30 14:47 | disposition home or self-care (01) ==
LOC: ED 14:42
PROVIDERS: Emergency Provider Emergency Medicine; PCP Family Medicine
DX: M54.16 Radiculopathy, lumbar region (principal); F31.9 Bipolar disorder, unspecified; F43.10 Post-traumatic stress disorder, unspecified; G40.909 Epilepsy, unspecified, not intractable, without status epilepticus; F17.200 Nicotine dependence, unspecified, uncomplicated
CPT/HCPCS: 99283

== ENCOUNTER 2020-02-05 15:04 | Emergency (ER) | payer MEDICARE, MEDICAID, SELFPAY ==
[2020-02-05 15:05] VITALS: BP 108/48; PULSE 83; RESP 18; TEMP 36.3; O2SAT 97; BMI 38.0
--- NOTE | 2020-02-05 16:11 | ED.VISSUMM ---
- ER Visit Summary Date of Service: 02/05/20 Chief Complaint: Lower back pain radiating down the right posterior leg. History of Present Illness: The patient is a 29 F 3 of PTSD, bipolar, Crohn's, degenerative disc disease and seizures. Patient states since January 29 she has had pain in her lower back and radiates down her right leg. Denies any bowel or bladder incontinence or retention. Denies any prior back surgery. She has had fall since this started due to her leg giving out. She is not on any blood thinners. Denies any IV drug abuse. She denies any fevers. Physical Examination: Young female no acute distress vital signs stable afebrile. H EENT exam unremarkable. Neck nontender. Lungs clear to auscultation bilateral. Heart regular rhythm no murmur. Abdomen soft nontender no bowel sounds no peritoneal signs. Extremities moves all 4. Neurovascular intact. Back spine nontender right SI joint tender. Neurologically she is awake alert with no focal motor or sensory deficits. Dorsi plantarflexion intact 5-5 with both feet. No cauda equina. No saddle anesthesia. Normal medial thigh sensation. She is able to lift either leg off the bed. There is no muscular atrophy. Straight leg raise bilaterally is negative. Test Results: None Emergency Department Course and Treatment: Patient previously diagnosed with sciatica which I agree with. She is already on Naprosyn and prednisone. She will follow-up with her primary care physician if this is not improving she may need an MRI to rule out herniated disc. There is no weakness currently in her right lower extremity and no signs of cauda equina. She was seen by her primary care physician several days ago we will follow-up with her next week. Treatment Plan: Naprosyn for pain inflammation. Prednisone for sciatica. Follow-up with your doctor. Return if bowel or bladder incontinence or feeling worse or fever. Disposition: Discharge Impression: Acute right sciatica This note was generated with [employer] dictation software. It may contain incorrect words, spelling, and punctuation that were not noted in review of the chart prior to signing ED Disposition - Plan for ED Patient: Referrals: Radha Calloway MD [Primary Care Provider] -
--- NOTE | 2020-02-05 16:13 | ED.DEP ---
ED Disposition - Plan for ED Patient: Disposition: Home or Assisted Living Instructions: Understanding Sciatica Referrals: Radha Calloway MD [Primary Care Provider] - 3-5 Days if not improving Additional Instructions: Your Naprosyn for pain and inflammation. Continue your prednisone to decrease inflammation in your back and sciatica. Follow-up with your doctor next week if not improving you may need an MRI of your lumbar spine to rule out acute disc inflammation impinging on your sciatic nerve. Follow-up with emergency [facility] if you have bowel or bladder incontinence or are unable to urinate or have a bowel movement.
== END 2020-02-05 16:28 | disposition home or self-care (01) ==
LOC: ED 16:15
PROVIDERS: Emergency Provider Emergency Medicine; PCP Family Medicine
DX: M54.41 Lumbago with sciatica, right side (principal); F31.9 Bipolar disorder, unspecified; F43.10 Post-traumatic stress disorder, unspecified; Z72.0 Tobacco use
CPT/HCPCS: 99282

== ENCOUNTER → 2020-09-23 13:00 | Outpatient (CLI) | payer MEDICAID, SELFPAY ==
[2020-09-17 10:40] VITALS: BMI 41.3
== END ==
PROVIDERS: PCP Family Medicine; Visit Provider Nurse Practitioner Acute Care
DX: G47.33 Obstructive sleep apnea (adult) (pediatric) (principal)
CPT/HCPCS: 98960; G0463

== ENCOUNTER 2020-11-13 15:50 | Emergency (ER) | payer MEDICARE, MEDICAID, SELFPAY ==
[2020-11-05 10:16] VITALS: BMI 41.3
[2020-11-13 15:50] VITALS: BP 116/68; PULSE 90; RESP 20; TEMP 36.1; O2SAT 99; BMI 39.4
--- NOTE | 2020-11-13 16:05 | RAD_ITS ---
STUDY: X-RAY - LEFT ANKLE REASON FOR EXAM: Female, 30 years old. Lateral ankle pain and swelling after twisting injury TECHNIQUE: 3 view(s) of the ankle. COMPARISON: None. FINDINGS: Normal visualized distal tibia and fibula. Normal medial and lateral malleoli. Normal tibiotalar articulation and ankle mortise. Normal visualized talus and calcaneus. The visualized subtalar, talonavicular, calcaneocuboid and tarsal articulations are normal. Lateral ankle soft tissue swelling. RAD/Ankle min 3 Views IMPRESSION: Lateral ankle soft tissue swelling without demonstrated fracture. Electronically Signed: Andrew Yañez MD ([place]) at 16:21 EDT , Service support ,
--- NOTE | 2020-11-13 16:11 | ED.DCSUM_ITS ---
History of Present Illness Chief Complaint: Lower Extremity Injury Narrative: Patient presents with left ankle pain. She sustained an inversion mechanism trying to step down from her camper. No knee pain no proximal fibular tenderness no foot pain no other injury. Past medical history: none Medications: Reviewed Social history: Noncontributory Review of systems: Musculoskeletal: Ankle pain as in HPI Skin: No abrasions or lacerations Neurological: No weakness or paresthesias Hematologic: No easy bleeding or easy bruising Physical exam General: Patient does not appear in significant distress . Head: Normocephalic, Atraumatic Neck: No C-spine tenderness Cardiovascular: Regular rate, Regular rhythm Respiratory: No distress, CTA bilaterally Back: Nontender, Normal Inspection. Extremities: There is left ankle lateral malleolus pain and edema. No proximal fibular tenderness. No proximal fifth metatarsal tenderness no foot pain. Skin: No abrasions, no lacerations Neurological: Normal strength and sensation Past Medical History - Allergies and Home Meds Allergies/Adverse Reactions: Allergies ALMONDS Allergy (Severe, Uncoded 11/13/20 15:50) [facility] Primary Care Physician: Radha Calloway MD [Primary Care Provider] - Surgical History: no surgical history Smoking Status: Heavy Smoker (>10/day) - Family History Maternal Family History: Family History (Last Reviewed 11/05/20 @ 10:23 by Iona Abraham NP, SURGERY ASSISTANT-C) Father Suicide Mother Diabetes OCD (obsessive compulsive disorder) Depression Bipolar disorder (manic depression) Grandmother Diabetes Uncle Bowel disease Grandfather Colon cancer Other Anxiety Arthritis Epilepsy Family History: Reports: No pertinent history Physical Exam Vital Signs/Narrative: Vital Signs Temp Pulse Resp BP Pulse Ox 11/13/20 15:50 96.9 F L 90 20 H 116/68 99 Diagnostic/Tx/Re-eval Left ankle x-ray interpreted by emergency doctor does not show any fracture there is normal alignment. - Medical Decision Making Patient has a normal x-ray. I will treat her symptomatically for an ankle sprain. ED Disposition - Plan for ED Patient: Disposition: Home or Assisted Living Diagnosis: Ankle sprain Instructions: ED Sprain Ankle W X Ray Prescriptions: Naproxen [Naprosyn] 500 mg PO BID PRN #20 tablet Transmission Status: Pending to [facility] Referrals: Radha Calloway MD [Primary Care Provider] - 2 Days
[2020-11-13 16:53] VITALS: BP 149/74; PULSE 88; RESP 18; O2SAT 98
== END 2020-11-13 16:54 | disposition home or self-care (01) ==
PROVIDERS: Emergency Provider Emergency Medicine; PCP Family Medicine
DX: S93.402A Sprain of unspecified ligament of left ankle, initial encounter (principal); X50.1XXA Overexertion from prolonged static or awkward postures, initial encounter; Y93.01 Activity, walking, marching and hiking; Y92.89 Other specified places as the place of occurrence of the external cause; Y99.9 Unspecified external cause status
CPT/HCPCS: 73610; 99282

== ENCOUNTER 2020-12-20 06:14 | Emergency (ER) | payer MEDICARE, MEDICAID, SELFPAY ==
[2020-12-20 06:15] VITALS: BP 153/125; PULSE 87; RESP 16; TEMP 36.1; O2SAT 98; BMI 40.9
--- NOTE | 2020-12-20 06:27 | EX.ED.DYSGE1 ---
HPI History of Present Illness Chief Complaint: Back Narrative Narrative: 30-year-old female presenting with right gluteal pain. She states it started yesterday while she was sitting around. She denies any injury. She states she was not doing any physical labor. She states that she has had back problems in the past but her back does not hurt today. It is only her gluteal region. Patient denies numbness or tingling. Patient states she did try Tylenol yesterday but this did not help. She has not tried ice, heat, stretching. She has no other complaints at this time [facility] Medical History Anemia Anxiety Arthritis Back problem Depression Dysmenorrhea Enuresis, nonorganic Lumbago Seizures Home Medications citalopram 20 mg PO DAILY 09/21/19 [History Last Taken Unknown] naproxen 500 mg PO BID PRN PRN #20 tab 01/30/20 [Rx Last Taken Unknown] albuterol sulfate 90 mcg/actuation aerosol inhaler 2 puff INHALATION Q4H PRN #8.5 g 07/15/20 [Rx Last Taken Unknown] cyclobenzaprine 10 mg PO TID PRN #20 tablet 12/20/20 [Rx Last Taken Unknown] naproxen [Naprosyn] 500 mg PO BID PRN #20 tab 12/20/20 [Rx Last Taken Unknown] Allergy/AdvReac Type Severity Reaction Status Date / Time ALMONDS Allergy Severe Hives Uncoded 12/20/20 06:20 Family History Father Suicide Mother Diabetes OCD (obsessive compulsive disorder) Depression Bipolar disorder (manic depression) Grandmother Diabetes Uncle Bowel disease Grandfather Colon cancer maternal - 2004 Other Anxiety Arthritis Epilepsy Surgical History History of cystoscopy History of wisdom tooth extraction Social History Smoking Status: Heavy Smoker (>10/day) Tobacco: How many years used: 5 alcohol intake: current details: social on weekends ROS ROS ED Constitutional Constitutional ED: Denies chills, fever(s) or sweats Eyes Eyes: Denies blurry vision or change in vision ENT ENT ED: Denies ear pain, rhinorrhea or sore throat Cardiovascular Cardiovascular: Denies chest pain, palpitations or racing heartbeat Respiratory/Chest Respiratory/Chest: Denies cough, dyspnea or sputum Gastrointestinal Gastrointestinal: Denies abdominal pain, constipation, diarrhea or vomiting Genitourinary Genitourinary ED: Denies dysuria, hematuria or urinary frequency Musculoskeletal Musculoskeletal: Reports other Details: Right gluteal pain ; Denies arthralgias, myalgias or neck pain Integumentary Denies abscess, Abrasions or rash Neurologic Neurologic: Denies headache(s), paresthesias or weakness Psychiatric Psychiatric: Denies anxiety, depression, suicidal ideation or suicidal thoughts Endocrine Endocrinology: Denies polydipsia or polyuria EXAM Physical Exam Const Vital Signs: 12/20/20 06:15 Temperature 96.9 F L Temperature Source Temporal Pulse Rate 87 Respiratory Rate 16 Blood Pressure 153/125 H Blood Pressure Mean 134 Pulse Ox 98 Oxygen Delivery Method Room Air General Appearance ED: Negative for pallor HEENT Reports normocephalic, head/scalp atraumatic and moist mucous membranes Eyes PERRL and EOMs intact bilaterally Resp normal respiratory effort and clear to auscultation bilaterally Auscultation: Negative for rales, rhonchi or wheezes Cardio regular rate and regular rhythm GI normal to inspection, nondistended, normoactive bowel sounds and non-distended Auscultation: normoactive bowel sounds Palpation: soft Narrative: Deferred Back/Spine Thoracic Spine / Upper Back: Negative for thoracic spinal tenderness Lumbar Spine / Lower Back: Negative for lumbar spinal tenderness Extremity normal to inspection Extremity Narrative: Focal tenderness and right gluteal region. No ecchymosis or rash. Patient has 5/5 strength in the bilateral lower extremities. Sensation is intact. Neuro oriented x3 and CN's II-XII intact bilaterally Sensorium / Orientation: alert Motor Exam: strength 5/5 throughout Psych mental status grossly normal Attitude: No agitated Skin no rashes or lesions noted and no wounds General Skin Exam: Negative for jaundice or pallor MDM MDM MDM Narrative Medical decision making narrative: Patient presenting with right gluteal pain. She has focal tenderness in this area. She does not have any back pain. She has minimal difficulty with straight leg raise test. He is ambulatory without antalgic gait. This could possibly be early sciatica. I do not believe the patient needs any tests or imaging. I will start her on Naprosyn and Flexeril. She is given instructions to ice, heat, stretch as well. She should follow-up with her PCP to ensure resolution. Impression 1. Sciatica Discharge Plan Triage Chief Complaint: Back ED Provider: Provider,Ed Physician Dx/Rx/DC Orders Instructions: ED Sciatica Prescriptions: New cyclobenzaprine 10 mg tablet 10 mg PO TID PRN (Reason: Muscle Spasm) Qty: 20 RF: 0 naproxen [Naprosyn] 500 mg tablet 500 mg PO BID PRN (Reason: pain) Qty: 20 RF: 0 No Action albuterol sulfate 90 mcg/actuation HFA aerosol inhaler 2 puff INHALATION Q4H PRN (Reason: shortness of breath or wheezing) Qty: 8.5 RF: 3 citalopram 20 MG tablet 20 mg PO DAILY RF: 0 naproxen 500 MG tablet 500 mg PO BID PRN PRN (Reason: Pain Score 4-10/10) Qty: 20 RF: 0 Primary Care Provider: Radha Calloway Referrals: Radha Calloway MD [Primary Care Provider] - Disposition Disposition: Home, self care
[2020-12-20] MEDS: Naproxen 500 MG Tablet PO (06:29)
[2020-12-20] MEDS: cycloBENZAPRine HCl 10 MG Tablet PO (06:29)
[2020-12-20 06:58] VITALS: BP 148/90; PULSE 82; RESP 18; O2SAT 97
== END 2020-12-20 06:59 | disposition home or self-care (01) ==
LOC: ED 06:54
PROVIDERS: Emergency Provider Student in an Organized Health Care Education/Training Program; PCP Family Medicine
DX: M54.41 Lumbago with sciatica, right side (principal); F17.200 Nicotine dependence, unspecified, uncomplicated
CPT/HCPCS: 99283

== ENCOUNTER 2021-01-26 16:00 | Outpatient (RCR) | payer MEDICAID, MEDICARE, SELFPAY ==
--- NOTE | 2020-12-29 09:26 | HP.PTEVAL ---
Patient's Visit Information CONY POWERS is a 30 year old F referred to Physical Therapy by Dr. Radha Calloway MD with a diagnosis of Left Ankle Sprain. Date of Evaluation: 12/29/20 Physical Therapist: Barbara Hughes DPT - Visit Plan Frequency: 2x /Week Duration: 4 Weeks Plan: Focus on ankle stabilization and stability. HEP Given IE: ankle ROM- DF/PF/Inv/Ever/Circles/Alphabet- VASO with ice for edema - Subjective Chronic ankle sprainer between the two she has had 14 ankle sprains. This time she was helping a friend open a camper and twisted the left ankle- happened November 13. Had a few x-rays taken at the ER- pt her in a CAM walker. Then was told by Dr. Calloway who put her in an air cast. 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 Does not wear it at home or sleep with it on. Worst: 4/10 Agg: over doing it, inversion. Best: 0/10 Eases: lift it up off the ground and hold it there. The pain is on the lateral malleolus and the medial heel. Describes the pain as whacking toe into a corner. No N/T in the foot. Goals: get the pain to go away and get movement back. Sleep: not disturbed. PMHx/Meds: no changes. - Objective Posture: Fh, RS- can correct with verbal cues but does not maintain. Gait: slightly antalgic- decreased stance on the left with poor heel/toe pattern. HR/TR: able but reports discomfort with toe raise. SLS: weight shift but unable to SLS without UE A. Sensation: WFL to gross touch bilateral. Girth: Malls: 26.5 cm Figure 4: 54 cm Mets: 23 cm. Flex: Gastroc: severe, Solues: severe, Hamstring: severe. ROM: DF: 5 degrees from neutral, PF: 60 degrees, Inv: 30 degrees Ever: 20 degrees. Strength: Core: fair, Hip: 4-/5, Knee:5/5, Ankle: 4/5 throughout with discomfort - Goals Goal 1:: Patient will be I with HEP and progression Goal Time Frame: 4-6 Weeks Goal 2:: Patient will ambulate >300 feet with a normalized gait pattern Goal Time Frame: 4-6 Weeks Goal 3:: Patient will SLS for 30 sec without LOB Goal Time Frame: 4-6 Weeks Goal 4:: Patient will report no pain for 1 week with all ADL's and work related tasks Goal Time Frame: 4-6 Weeks - Rehabilitation Potential Physical Therapy Diagnosis: Patient presents with hypomobility s/p ankle sprain. She has decreased ROM, strength, proprioception, flexibility and muscular endurance leading to abnormal gait and decreased ability to perform ADL's. Rehabilitation Potential: Fair - Anticipated Interventions Patient/Client Instruction: Educate patient on: Benefits of Fitness Program Therapeutic Exercise to Include: Strength training, Endurance training, Balance training, Agility training, Body mechanics, Postural training, Flexibilty training, Gait and locomotor training, Neuromotor development, Dynamic Lumbar Stabilization For the Purpose of:: To improve muscle performance and motor function TENS: Yes Cryotherapy (ice pack, ice massage): Yes Thermo therapy (hot pack): Yes Ultrasound (thermal/non thermal): Yes Thank you for the opportunity to evaluate your patient. For Medicare and Medicare HMO plans, please review the plan of care and approve it. It will need to be FAXED BACK to us at [phone] for Medicare purposes. For Medicare only, by signing this I certify the plan of care. Please let me know if there are questions or concerns regarding this plan of care. Physician Signature: Date:
--- NOTE | 2021-01-26 16:17 | HP.PTDCSUM ---
It has been my pleasure to treat CONY POWERS referred by Dr. Radha Calloway MD, with the diagnosis of Left Ankle Sprain for a total of 12 visit(s). Discharge Date: Please see the following information for a summary of their discharge status. Subjective: Patient reports that she is back to all normal stuff without the brace. She has little pains in the lateral ankle- Worst: 3/10 goes away quickly. Left ankle Pain Intensity (Out of 10): 0 % Improvement: 100 Objective/Function: Posture: Fh, RS- can correct with verbal cues but does not maintain. Gait: no deviation noted- good arm swing and trunk rotation. HR/TR: able without weight shift. SLS: 30 sec without LOB Sensation: WFL to gross touch bilateral. Flex: Gastroc: moderate, Solues: moderate Hamstring: moderate. ROM: DF: 10 degrees, PF: 60 degrees, Inv: 30 degrees Ever: 20 degrees. Strength: Core: fair, Hip: 4/5, Knee:5/5, Ankle: 5/5 Goal 1:: Patient will be I with HEP and progression Goal Progress: Goal Met Goal 2:: Patient will ambulate >300 feet with a normalized gait pattern Goal Progress: Goal Met Goal 3:: Patient will SLS for 30 sec without LOB Goal Progress: Goal Met Goal 4:: Patient will report no pain for 1 week with all ADL's and work related tasks Goal Progress: Goal Met Plan: 01/26/2021: Discharge to home exercise program. Focus on ankle stabilization and stability - VASO with ice for edema If there are questions or concerns regarding this patient's physical therapy, please feel free to call me at [phone]. Thank you for the referral of this patient. Sincerely, HERMAN AranaT
== END 2021-01-26 19:00 | disposition home or self-care (01) ==
LOC: PT 16:00
PROVIDERS: PCP Family Medicine; Referring Provider Family Medicine; Visit Provider Family Medicine
DX: S93.402D Sprain of unspecified ligament of left ankle, subsequent encounter (principal)
CPT/HCPCS: 97016; 97110; 97161; 97164

== ENCOUNTER 2021-02-03 07:51 | Emergency (ER) | payer MEDICARE, MEDICAID, SELFPAY ==
[2021-02-03 07:52] VITALS: BP 117/63; PULSE 89; RESP 16; TEMP 36.7; O2SAT 99; BMI 39.2
--- NOTE | 2021-02-03 08:06 | EX.ED.GENINJ ---
HPI History of Present Illness Chief Complaint: Back Narrative Narrative: 30-year-old female presenting for complaint of neck and upper back pain radiating to the trapezius and left shoulder. She states she has limited range of motion of the left shoulder secondary to spasming in the trapezius. Patient states she fell a few weeks ago and landed on the shoulder and since that time she has had some symptoms but recently she has been packing to move and this is exacerbated it. She denies any head injury. She states that she sprained her ankle but this is resolved. [facility] Medical History Anemia Anxiety Arthritis Back problem Depression Dysmenorrhea Enuresis, nonorganic Lumbago Seizures Home Medications citalopram 20 mg PO DAILY 09/21/19 [History Last Taken Unknown] naproxen 500 mg PO BID PRN PRN #20 tab 01/30/20 [Rx Last Taken Unknown] albuterol sulfate 90 mcg/actuation aerosol inhaler 2 puff INHALATION Q4H PRN #8.5 g 07/15/20 [Rx Last Taken Unknown] cyclobenzaprine 10 mg PO TID PRN #20 tablet 12/20/20 [Rx Last Taken Unknown] adalimumab [Humira] 40 mg SUBCUT QWEEK 02/03/21 [History Last Taken Unknown] tizanidine [Zanaflex] 4 mg PO QHS PRN #14 cap 02/03/21 [Rx Last Taken Unknown] Allergy/AdvReac Type Severity Reaction Status Date / Time ALMONDS Allergy Severe Hives Uncoded 02/03/21 07:54 Family History Father Suicide Mother Diabetes OCD (obsessive compulsive disorder) Depression Bipolar disorder (manic depression) Grandmother Diabetes Uncle Bowel disease Grandfather Colon cancer maternal - 2004 Other Anxiety Arthritis Epilepsy Surgical History History of cystoscopy History of wisdom tooth extraction Social History Smoking Status: Heavy Smoker (>10/day) Tobacco: How many years used: 5 alcohol intake: current details: social on weekends ROS ROS ED Constitutional Constitutional ED: Denies fever(s) or subjective Eyes Eyes: Denies blurry vision or change in vision ENT ENT ED: Denies rhinorrhea or sore throat Cardiovascular Cardiovascular: Denies chest pain or palpitations Respiratory/Chest Respiratory/Chest: Denies cough or dyspnea Gastrointestinal Gastrointestinal: Denies abdominal pain, nausea or vomiting Genitourinary Genitourinary ED: Denies dysuria or hematuria Musculoskeletal Musculoskeletal: Reports back pain, neck pain and other Details: Left shoulder pain Integumentary Denies abscess or rash Neurologic Neurologic: Reports paresthesias LUE; Denies headache(s) Psychiatric Psychiatric: Denies anxiety or depression EXAM Physical Exam Const Vital Signs: 02/03/21 07:52 Temperature 98.1 F Temperature Source Temporal Pulse Rate 89 Respiratory Rate 16 Blood Pressure 117/63 Blood Pressure Mean 81 Pulse Ox 99 Oxygen Delivery Method Room Air Positive well nourished General Appearance ED: NAD HEENT atraumatic; Negative for tenderness Eyes PERRL and EOMs intact bilaterally Neck full ROM Neck Narrative: Tenderness palpation left cervical paraspinal musculature extending into the trapezius. Resp normal respiratory effort and clear to auscultation bilaterally Cardio regular rhythm Rate: regular rate Back/Spine Thoracic Spine / Upper Back: paraspinal muscle tenderness left Lumbar Spine / Lower Back: normal to inspection Extremity normal to inspection Extremity Narrative: Patient has limited range of motion in flexion of the left shoulder as well as abduction. Sensation is intact. Neuro oriented x3 Sensorium / Orientation: alert Psych mental status grossly normal and thought process normal Skin no rashes or lesions noted and no wounds MDM MDM MDM Narrative Medical decision making narrative: Patient presents with left upper back and shoulder pain. On exam she does have tenderness in the trapezius and the left paraspinal cervical musculature as well as the left thoracic paraspinal musculature. I did obtain x-rays of the cervical spine, left shoulder, thoracic spine and on my interpretation these are all negative for acute pathophysiology. The radiologist does agree patient counseled on findings. Patient will be given a prescription for muscle relaxers for home. She is counseled to follow-up with her primary care physician for physical therapy. She is given return precautions. Impression: 1. Cervical radiculopathy 2. Thoracic strain 3. Shoulder contusion Lab Data Attestation: I reviewed the patient's lab results. Radiography Diagnostic Testing: Radiology Impression Cervical Spine X-Ray 02/03/21 08:15 IMPRESSION: Normal x-ray examination of the visualized cervical spine. Electronically Signed: Prateek Ramos MD at 8:52 EDT Tel , Service support , Shoulder X-Ray 02/03/21 08:15 IMPRESSION: Normal x-ray examination of the shoulder. Electronically Signed: Prateek Ramos MD at 8:55 EDT Tel , Service support , Thoracic Spine X-Ray 02/03/21 08:15 IMPRESSION: Mild dextro scoliosis. Electronically Signed: Prateek Ramos MD at 8:56 EDT Tel , Service support , Discharge Plan Triage Chief Complaint: Back ED Provider: Tom Chau Dx/Rx/DC Orders Instructions: ED Back and Neck Pain, General, ED Radiculopathy, Cervical Prescriptions: New tizanidine [Zanaflex] 4 mg capsule 4 mg PO QHS PRN (Reason: muscle spasticity) Qty: 14 RF: 0 No Action albuterol sulfate 90 mcg/actuation HFA aerosol inhaler 2 puff INHALATION Q4H PRN (Reason: shortness of breath or wheezing) Qty: 8.5 RF: 3 citalopram 20 MG tablet 20 mg PO DAILY RF: 0 naproxen 500 MG tablet 500 mg PO BID PRN PRN (Reason: Pain Score 4-10/10) Qty: 20 RF: 0 cyclobenzaprine 10 mg tablet 10 mg PO TID PRN (Reason: Muscle Spasm) Qty: 20 RF: 0 Humira 40 mg/0.8 mL Syringe Kit 40 mg SUBCUT QWEEK RF: 0 Primary Care Provider: Radha Calloway Referrals: Radha Calloway MD [Primary Care Provider] - Disposition Disposition: Home, Self Care
--- NOTE | 2021-02-03 08:15 | RAD_ITS ---
STUDY: X-RAY - LEFT SHOULDER REASON FOR EXAM: Female, 30 years old. shoulder pain TECHNIQUE: 4 view(s) of the shoulder. COMPARISON: 03/02/2019 FINDINGS: Normal glenohumeral articulation. Normal acromioclavicular joint. Normal acromion. Normal humeral head and visualized proximal humerus. The soft tissue structures are unremarkable. Normal visualized pulmonary apex. RAD/Shoulder min 2 Views IMPRESSION: Normal x-ray examination of the shoulder. Electronically Signed: Prateek Ramos MD at 8:55 EDT Tel , Service support ,
--- NOTE | 2021-02-03 08:15 | RAD_ITS ---
STUDY: X-RAY - THORACIC SPINE REASON FOR EXAM: Female, 30 years old. back pain TECHNIQUE: 3 view(s) of the thoracic spine were obtained. COMPARISON: None. FINDINGS: Normal kyphosis of the thoracic spine. Mild dextroscoliosis of lower thoracic spine. Normal thoracic vertebrae and endplates. Normal disc space heights. The soft tissue structures are unremarkable. RAD/Thoracic Spine 3 Views IMPRESSION: Mild dextro scoliosis. Electronically Signed: Prateek Ramos MD at 8:56 EDT Tel , Service support ,
--- NOTE | 2021-02-03 08:15 | RAD_ITS ---
STUDY: X-RAY - CERVICAL SPINE REASON FOR EXAM: Female, 30 years old. neck pain TECHNIQUE: 5 view(s) of the cervical spine were obtained. COMPARISON: None FINDINGS: Normal anterior atlantoaxial articulation. Normal odontoid process. Normal cervical lordosis. Normal vertebral bodies and endplates. Normal disc space heights. Normal visualized intervertebral neuroforamina. The soft tissue structures are unremarkable. RAD/Cerv Spine 4 or 5 Views IMPRESSION: Normal x-ray examination of the visualized cervical spine. Electronically Signed: Prateek Ramos MD at 8:52 EDT Tel , Service support ,
== END 2021-02-03 09:39 | disposition home or self-care (01) ==
PROVIDERS: Emergency Provider Student in an Organized Health Care Education/Training Program; PCP Family Medicine
DX: M54.12 Radiculopathy, cervical region (principal); S29.012A Strain of muscle and tendon of back wall of thorax, initial encounter; S40.012A Contusion of left shoulder, initial encounter; F32.9 Major depressive disorder, single episode, unspecified; F17.200 Nicotine dependence, unspecified, uncomplicated; X58.XXXA Exposure to other specified factors, initial encounter; Z79.899 Other long term (current) drug therapy
CPT/HCPCS: 72050; 72072; 73030; 99282

== ENCOUNTER → 2021-04-07 20:00 | Outpatient (CLI) | payer MEDICARE, SELFPAY | PROVIDERS: PCP Family Medicine; Visit Provider Nurse Practitioner Acute Care | DX: G47.33 Obstructive sleep apnea (adult) (pediatric) (principal) | CPT/HCPCS: 95811 ==

== ENCOUNTER 2021-06-19 15:00 | Emergency (ER) | payer MEDICARE, MEDICAID, SELFPAY ==
[2021-06-19 15:01] VITALS: BP 115/98; PULSE 91; RESP 18; TEMP 36.8; O2SAT 99; BMI 38.5
--- NOTE | 2021-06-19 15:22 | EX.ED.DYSGE1 ---
HPI History of Present Illness Chief Complaint: Chest Other Narrative Narrative: Patient presents with chest wall pain that has been constant for a week worse with movement. She was helping someone load a big toilet into a truck before this started. She also has some thoracic back pain. She has no fever chills cough or congestion, she has no pleuritic component. No radiation of the pain. No other injuries. PFSH PFS Medical History Anemia Anxiety Arthritis Back problem Bipolar disorder Crohns disease Depression Dysmenorrhea Enuresis, nonorganic Lumbago Seizures Home Medications citalopram 20 mg PO DAILY 09/21/19 [History Last Taken Unknown] naproxen 500 mg PO BID PRN PRN #20 tab 01/30/20 [Rx Last Taken Unknown] albuterol sulfate 90 mcg/actuation aerosol inhaler 2 puff INHALATION Q4H PRN #8.5 g 07/15/20 [Rx Last Taken Unknown] cyclobenzaprine 10 mg PO TID PRN #20 tablet 12/20/20 [Rx Last Taken Unknown] adalimumab [Humira] 40 mg SUBCUT QWEEK 02/03/21 [History Last Taken Unknown] tizanidine [Zanaflex] 4 mg PO QHS PRN #14 cap 02/03/21 [Rx Last Taken Unknown] prednisone 40 mg PO DAILY #10 tab 06/19/21 [Rx Last Taken Unknown] tizanidine 4 mg PO Q8H PRN #20 tab 06/19/21 [Rx Last Taken Unknown] Allergy/AdvReac Type Severity Reaction Status Date / Time ALMONDS Allergy Severe Hives Uncoded 03/24/21 13:39 Family History Father Suicide Mother Diabetes OCD (obsessive compulsive disorder) Depression Bipolar disorder (manic depression) Grandmother Diabetes Uncle Bowel disease Grandfather Colon cancer maternal - 2003 Other Anxiety Arthritis Epilepsy Surgical History History of cystoscopy History of wisdom tooth extraction Social History Smoking Status: Heavy Smoker (>10/day) Tobacco: How many years used: 5 alcohol intake: current details: social on weekends substance use type: does not use what type of physical activity do you participate in: none ROS ROS ED ROS Narrative Past medical history: Reviewed, consistent for history of seizures, history of Crohn's disease Medications: Reviewed Social history: Noncontributory Review of systems: All systems negative except as indicated General: No fever Eyes: No visual changes ENT: No upper airway congestion, normal voice Neck: No neck pain Cardiovascular: No palpitations or near syncope Chest wall: Chest wall pain as in HPI Respiratory: No shortness of breath or cough Gastrointestinal: No abdominal pain, nausea vomiting or diarrhea Genitourinary: No dysuria Musculoskeletal: Upper back pain as in HPI Skin: No rash Neurological: No memory loss, confusion or any focal weakness Psych: No recent behavioral changes Hematologic: No easy bleeding or easy bruising EXAM Physical Exam Narrative Exam Narrative: Physical exam General: Well nourished, Well developed, No Acute Distress Head: Normocephalic, Atraumatic Eyes: Conjunctiva not pale ENT: Moist mucous membranes Neck: Supple, Nontender, No lymphadenopathy Cardiovascular: Regular rate, Regular rhythm Chest wall: She has reproducible chest wall pain bilateral chest wall region. No obvious contusions seen. Respiratory: No distress, CTA bilaterally Abdomen: Soft, Nontender, Nondistended Back: Bilateral upper thoracic, upper trapezius tenderness to palpation. Extremities: Nontender, No edema Skin: Normal color, No rash Neurological: Alert, Normal Strength, Normal Sensation Psychological: Normal affect Const Vital Signs: 06/19/21 15:01 Temperature 98.3 F Temperature Source Temporal Pulse Rate 91 Respiratory Rate 18 Blood Pressure 115/98 H Blood Pressure Mean 103 Pulse Ox 99 Oxygen Delivery Method Room Air MDM MDM MDM Narrative Medical decision making narrative: Patient has an unremarkable exam, this is all chest wall related I will treat as such. She does have Crohn's and intermittent epigastric pain I am reluctant to give her NSAIDs. Thus I will treat with muscle relaxants and a small amount of prednisone. Discharge Plan Triage Chief Complaint: Chest Other Other Complaint: Abd Pain ED Provider: Yunior Jain Dx/Rx/DC Orders Clinical Impression: Acute chest wall pain, Acute thoracic myofascial strain Instructions: ED Back Sprain/Strain Prescriptions: New prednisone 20 mg tablet 40 mg PO DAILY Qty: 10 RF: 0 tizanidine 4 mg tablet 4 mg PO Q8H PRN (Reason: muscle spasticity) Qty: 20 RF: 0 No Action albuterol sulfate 90 mcg/actuation HFA aerosol inhaler 2 puff INHALATION Q4H PRN (Reason: shortness of breath or wheezing) Qty: 8.5 RF: 3 citalopram 20 MG tablet 20 mg PO DAILY RF: 0 naproxen 500 MG tablet 500 mg PO BID PRN PRN (Reason: Pain Score 4-10/10) Qty: 20 RF: 0 cyclobenzaprine 10 mg tablet 10 mg PO TID PRN (Reason: Muscle Spasm) Qty: 20 RF: 0 Humira 40 mg/0.8 mL Syringe Kit 40 mg SUBCUT QWEEK RF: 0 tizanidine [Zanaflex] 4 mg capsule 4 mg PO QHS PRN (Reason: muscle spasticity) Qty: 14 RF: 0 Primary Care Provider: Radha Calloway Referrals: Radha Calloway MD [Primary Care Provider] - 3-5 Days Disposition Disposition: Home, Self Care
[2021-06-19 15:46] VITALS: RESP 16
== END 2021-06-19 15:47 | disposition home or self-care (01) ==
PROVIDERS: Emergency Provider Emergency Medicine; PCP Family Medicine
DX: R07.89 Other chest pain (principal); S29.012A Strain of muscle and tendon of back wall of thorax, initial encounter; X50.0XXA Overexertion from strenuous movement or load, initial encounter; Y93.89 Activity, other specified; Y92.9 Unspecified place or not applicable; Y99.9 Unspecified external cause status; K50.90 Crohn's disease, unspecified, without complications; M19.90 Unspecified osteoarthritis, unspecified site; F31.9 Bipolar disorder, unspecified; F41.9 Anxiety disorder, unspecified; F17.200 Nicotine dependence, unspecified, uncomplicated; Z79.899 Other long term (current) drug therapy
CPT/HCPCS: 99282

== ENCOUNTER → 2021-07-13 14:27 | Outpatient (CLI) | payer MEDICARE, MEDICAID, SELFPAY | PROVIDERS: PCP Family Medicine; Referring Provider Family Medicine; Visit Provider Family Medicine | DX: L03.119 Cellulitis of unspecified part of limb (principal) | CPT/HCPCS: 87070; 87205 ==

== ENCOUNTER → 2021-07-13 14:28 | Outpatient (CLI) | payer MEDICARE, MEDICAID, SELFPAY ==
[2021-07-13 17:54] LABS: Absolute Lymphocyte Count 3.13 X10^3/uL (0.83-4.51); Absolute Neutrophil Count 12.4 X10^3/uL (2.0-7.7); Basophil# 0.05 X10^3/uL; Basophil% 0.3 % (0-1); Eosinophil# 0.32 X10^3/uL; Eosinophils% 1.9 % (0-5); Hematocrit 42.5 % (37-47); Hemoglobin 13.7 g/dL (12.0-15.0); Lymphocyte # 3.13 X10^3/ul (0.83-4.51); Lymphocyte % 18.2 % (19-41); Mean Corp Hgb Conc 32.2 g/dL (32-36); Mean Corpuscular Hgb 28.8 pg (27.0-32.0); Mean Corpuscular Volume 89.3 fL (81-99); Mean Platelet Vol. 9.6 fl (6.2-12.0); Monocyte# 1.23 X10^3/uL; Monocyte% 7.1 % (0-10); NRBC Flagged by Analyzer 0 % (0-5); Neutrophil # 12.39 X10^3/uL (2.7-7.7); Platelet Count 522 K/mm3 (150-450); RBC Distribution Width CV 12.2 % (11.6-14.6); RBC Distribution Width SD 40.2 fl (35.1-43.9); Red Blood Count 4.76 M/mm3 (4.2-5.4); White Blood Count 17.2 K/mm3 (4.4-11.0)
[2021-07-13 18:05] LABS: Erythrocyte Sedimentation Rate 46 mm/hr (0-30)
[2021-07-13 18:28] LABS: ALB/GLOB Ratio 0.6 RATIO (0.9-2.4); AST(SGOT) 5 U/L (15-37); Alanine Aminotransfer ALT/SGPT 19 U/L (13-56); Alkaline Phosphatase 57 U/L (45-117); Anion Gap 7 (5-15); BUN 7 mg/dL (7-18); Calcium,Total 9.4 mg/dL (8.5-10.1); Chloride 105 mmol/L (98-107); Creatinine, Serum 0.87 mg/dL (0.55-1.02); EST Glomerular Filtration Rate 81 mL/min (>60); Est Glom Filt Rate - Afr Amer 98 mL/min (>60); Globulin 4.7 g/dL (2.2-4.2); Glucose 76 mg/dL (74-106); LDH 122 U/L (84-246); Potassium 3.7 mmol/L (3.5-5.1); Protein, Total 7.7 g/dL (6.4-8.2); Sodium Level 140 mmol/L (136-145)
[2021-07-16 11:08] LABS: Cytoplasmic Ab (C-ANCA) <1:20 titer (Neg:<1:20); Endomysial Antibody IgA Negative (Negative); Immunoglobulin A 167 mg/dL (87-352)
[2021-07-16 11:46] LABS: Perinuclear Ab (P-ANCA) <1:20 titer (Neg:<1:20); t-Transglutaminase IgA <2 U/mL (0-3)
== END ==
PROVIDERS: PCP Family Medicine; Referring Provider Internal Medicine Gastroenterology; Visit Provider Internal Medicine Gastroenterology
DX: K50.90 Crohn's disease, unspecified, without complications (principal); F43.10 Post-traumatic stress disorder, unspecified; L03.119 Cellulitis of unspecified part of limb
CPT/HCPCS: 36415; 80053; 82784; 83516; 83615; 85025; 85652; 86140; 86255; 86256; 87070; 87205

== ENCOUNTER → 2021-07-21 | Outpatient (CLI) | payer MEDICARE, MEDICAID, SELFPAY ==
[2021-07-26 09:28] LABS: Calprotectin, Stool 1229 ug/g (0-120)
== END | disposition home or self-care (01) ==
LOC: LABSPEC 16:08
PROVIDERS: PCP Family Medicine; Referring Provider Internal Medicine Gastroenterology; Visit Provider Internal Medicine Gastroenterology
DX: K50.90 Crohn's disease, unspecified, without complications (principal); R19.7 Diarrhea, unspecified
CPT/HCPCS: 83630; 83993; 87177; 87209; 87329; 87493; 87506

== ENCOUNTER 2021-07-28 09:43 | Day surgery (SDC) | payer MEDICARE, MEDICAID, SELFPAY ==
[2021-07-28] VITALS (7 sets, daily range): BP systolic 86–135; BP diastolic 49–84; PULSE 56–77; RESP 15–18; TEMP 35.6–36.4; O2SAT 99–100; BMI 36.3
--- NOTE | 2021-07-28 | IMM_PTH ---
PATIENT: CONY POWERS LOC: EN U#:[id number] AGE/SX: 31/F ROOM: RE07/28/[address]: Dr. Juan Alberto King DO : 1990 BED: DIS: 07/28/2021 SPEC #: [id number] RECD: 08/01/21 12:28 STATUS: NARCISA REQ #: [id number] PILAR: 07/28/21 00:[address]: Juan Alberto King DEPT: IMMUNOHISTOCHEMISTRY RECD BY: Ivory Goncalves ENTERED: 08/01/21 12:28 SP TYPE: IMMUNO OTHR DR: Dr. Radha Calloway MD Tissues: B - Pylorus Procedures: H Pylori (initial) PHYSICIAN & INSTITUTION [place] [id number] SPECIMEN INFORMATION: Tissue Source: B ? Pylorus biopsy Clinical Info: Crohn?s disease Specimen Number: [id number] CPT code: 16986 METHODOLOGY: Deparaffinized sections of prefer/formalin-fixed tissue or PAP/DQ stained slides are incubated with monoclonal/polyclonal antibodies/oligonucleotide probes. Localization is made via biotin free immunoperoxidase method. Appropriate controls are performed and reacted as expected. Results on target cell population are indicated in the following table: RESULTS: ANTIBODY / CLONE RESULT Block B H Pylori (polyclonal) negative These tests were developed and their performance characteristics determined by [facility]. They may not have been cleared or approved by the U.S. Food and Drug Administration. The FDA has determined that such clearance or approval is not necessary. The above immunohistochemical/dualISH markers are ordered and reviewed by the Pathologist. INTERPRETATION: B. Pylorus biopsy: Negative for Helicobacter pylori organisms. ANNY:mary 08/02/2021
[2021-07-28 10:19] LABS: Internal QC Validated? YES +Cl - CLEAR BKGD
[2021-07-28] MEDS: Lactated Ringers 1,000 ML 15 ML IV (10:19)
[2021-07-28 10:20] LABS: Pregnancy, Urine Negative Negative
--- NOTE | 2021-07-28 10:29 | PCM.HP.BLA ---
History and Physical Date of Admission: 07/28/21 1 F who presents to the office today for further management of Crohn's disease. She was diagnosed with Crohn's disease in 2009. She was on oral medicines such as mesalamine based medicines and she has been on prednisone. When those medicines stopped working she was put on Humira. She has a history of migraine headaches and her original home theater specialist was not put her on Entyvio. However due to her history of migraines that option was not pursued. Apparently she may have disease in the stomach as well as her small bowel and colon.. Three weeks ago she began having loose stools with mucous and some blood, stomach discomfort. She is a little concerned about her appetite is much reduced. Pepto-bismol helps control symptoms during flare. Was previously being seen by home theater specialist who had her using Humira. She has two pens left and she takes every two weeks. She did have an eight week break in treatment, restarted injection two weeks prior to today. She also has a seizure disorder that caused previous GI to be very selective in treatment options. Last colonoscopy 05/2020 with finding of mild flare that GI was not concerned about. Sees Dr. 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 ROS Gastro GI: Positive for abdominal pain, bloating, change in bowel habits, constipation, diarrhea and Blood in stool Musc Musculoskeletal: Positive for joint pain, back pain, muscle cramps, stiffness and Arthritis Psych Psychiatric: Positive for anxiety, Positive for depression, Positive for Behavioral Problems and Positive for obsessions/compulsions Exam Const General: cooperative and comfortable Nutritional Appearance: average body habitus and well nourished [facility] Head: normal to inspection Ears: hearing grossly normal bilaterally Nose: external nose normal Face and sinus: normal facial exam Mouth: oral mucosae normal Throat: posterior oropharynx normal Eyes General: appearance normal, both eyes and all related structures Neck Neck: normal visual inspection Chest Chest palpation & inspection: normal inspection of the chest and normal palpation of entire chest wall Resp Effort & Inspection: normal respiratory effort Auscultation: Bilateral: Clear to Auscultation Cardio Palpation: normal PMI Rate: regular rate Rhythm: regular rhythm GI Inspection: normal to inspection Auscultation: normal bowel sounds Percussion: normal to percussion Palpation: no hepatosplenomegaly Skin General: no rashes or lesions noted Neuro General: patient alert Extrem General: normal to inspection Psych Affect: normal affect Quality Reporting Tobacco Screening ([facility] 138) Smoking Status: Heavy Smoker (>10/day) Assessment and Plan Assessment and Plan (1) Crohns disease: Status: Chronic Comment: Diagnosing 2006 Orders: Orders: Comprehensive Metabolic Profil Today CRP Today LDH Today CBC W/Diff, Automated Today Erythrocyte Sed Rate Today ANCA Today Celiac Disease Profile Today Plan - Dr. Avendano Friend, DO: We will get a EGD and colonoscopy. Today we will get a CBC, CMP, LDH, CRP, fecal lactoferrin, ANCA, celiac profile, IBD SGI. He may put her back on steroids prior to us undergone colonoscopy and we will possibly increase her Humira to weekly pending her lab work today. I have re-examined the patient. There are no clinical changes since date of exam.
--- NOTE | 2021-07-28 10:45 | EGD_PTH ---
PATIENT: CONY POWERS LOC: EN U#:[id number] AGE/SX: 31/F ROOM: RE07/28/[address]: Dr. Juan Alberto King DO : 1990 BED: DIS: 07/28/2021 SPEC #: [id number] RECD: 07/28/21 12:48 STATUS: NARCISA REJanay #: [id number] PILAR: 07/28/21 10:[address]: Juan Alberto King DEPT: SURGICAL PATHOLOGY RECD BY: Cheyenne Veras ENTERED: 07/28/21 13:21 SP TYPE: EGD BIOPSY [facility] DR: Dr. Radha Calloway MD Tissues: A - Duodenum, NOS B - Pylorus C - Esophagus, NOS D - Ileum, NOS E - COLON BIOPSY F - Sigmoid colon biopsy Procedures: Special Stain Group II Surgery Specimen Level IV Alcian Blue/PAS (control) HEADER OPERATION: Colonoscopy, EGD ([facility] [place]) PRE-OP DIAGNOSIS: Crohn?s disease TISSUE SUBMITTED: A ? Duodenum biopsy, B ? Pylorus biopsy, C ? Distal esophagus biopsy, D ? Terminal ileum biopsy, E ? Random colon biopsy, F ? Rectosigmoid polyp MICROSCOPIC DIAGNOSIS A. Duodenum, biopsy: Fragments of small intestinal mucosa, no pathologic diagnosis. B. Pylorus, biopsy: Chronic active gastritis. Focal granuloma formation. See comment. C. Distal esophagus, biopsy: Fragments of gastroesophageal mucosa with moderate chronic inflammation. Intestinal metaplasia (goblet cell metaplasia) not identified. See comment. D. Terminal ileum, biopsy: Moderate chronic active ileitis. See microscopic description and comment. E. Colon, random biopsy: Focal moderate chronic active colitis. See microscopic description and comment. F. Rectosigmoid polyp, biopsy: Fragments of hyperplastic polyp with focal chronic active colitis and granuloma formation. SJ:mary 08/01/2021 COMMENT B. The results of immunohistochemistry for Helicobacter pylori will be reported separately ([id number]). C. Alcian blue/PAS stain with matched control is used in the evaluation of the specimen. D & E. The findings are consistent with inflammatory bowel disease (Crohn?s disease). Correlation with clinical, endoscopic findings and appropriate follow up are necessary. MICROSCOPIC DESCRIPTION Slides are reviewed. D. The specimen shows fragments of small intestinal mucosa with focal ulceration, lymphoid aggregate formation, acute and chronic inflammatory cell infiltrates in the lamina propria, cryptitis and crypt abscesses. Granulomas are not seen. No evidence of dysplasia. E. The specimen shows fragments of colonic mucosa with moderate acute and chronic inflammatory cell infiltrate in the lamina propria, cryptitis, crypt abscesses, granuloma formation and lymphoid aggregates. Minimal glandular distortion is noted. No evidence of dysplasia. GROSS DESCRIPTION A - Received in fixative is one container labeled with the patient's name and designated duodenum biopsy. The specimen consists of multiple irregular fragments of light ferguson soft tissue that in aggregate measure 1 x 0.3 x 0.1 cm. The specimen is totally submitted in one cassette. B - Received in fixative is one container labeled with the patient's name and designated pylorus biopsy. The specimen consists of two irregular fragments of light ferguson soft tissue that in aggregate measure 0.5 x 0.3 x 0.1 cm. The specimen is totally submitted in one cassette. C - Received in fixative is one container labeled with the patient's name and designated distal esophagus biopsy. The specimen consists of two irregular fragments of light ferguson soft tissue that in aggregate measure 0.8 x 0.3 x 0.1 cm. The specimen is totally submitted in one cassette. D - Received in fixative is one container labeled with the patient's name and designated terminal ileum biopsy. The specimen consists of multiple irregular fragments of light ferguson soft tissue that in aggregate measure 2 x 0.5 x 0.1 cm. The specimen is totally submitted in one cassette. E - Received in fixative is one container labeled with the patient's name and designated random colonic biopsy. The specimen consists of multiple irregular fragments of light ferguson soft tissue that in aggregate measure 2 x 0.5 x 0.1 cm. The specimen is totally submitted in one cassette. F - Received in fixative is one container labeled with the patient's name and designated rectosigmoid polyp. The specimen consists of a piece of ferguson-pink polyp measuring 0.5 x 0.5 x 0.3 cm. Also present in the container is a smaller piece of ferguson-pink soft tissue measuring 0.3 x 0.2 x 0.1 cm. The entire specimen is submitted in one cassette. / ANNY:mary 07/28/21 TC:2 CPT: 53719 x6, 38802
--- NOTE | 2021-07-28 11:28 | OP.EGD_ITS ---
Patient Name: Penny Hart Procedure Date: 07/28/2021 10:34 AM Date of : 1990 Age: 31 Procedure: Upper GI endoscopy Indications: Epigastric abdominal pain Providers: Juan Alberto King DO Referring MD: Juan Alberto King DO Medicines: See the Anesthesia note for documentation of the administered medications Patient Profile: This is a 31 year old female. Refer to note in patient chart for documentation of history and physical. Patient has symptoms of acute abdominal cramping. She is status post colonoscopy for biopsy within the past three years. Complications: No immediate complications. Procedure: Pre-Anesthesia Assessment: - Prior to the procedure, a History and Physical was performed, and patient medications and allergies were reviewed. The patient is competent. The risks and benefits of the procedure and the sedation options and risks were discussed with the patient. All questions were answered and informed consent was obtained. Patient identification and proposed procedure were verified by the physician in the pre-procedure area. Mental Status Examination: alert and oriented. Airway Examination: normal oropharyngeal airway and neck mobility. Respiratory Examination: clear to auscultation. CV Examination: normal. Prophylactic Antibiotics: The patient does not require prophylactic antibiotics. Prior Anticoagulants: The patient has taken no previous anticoagulant or antiplatelet agents. ASA Grade Assessment: II - A patient with mild systemic disease. After reviewing the risks and benefits, the patient was deemed in satisfactory condition to undergo the procedure. The anesthesia plan was to use moderate sedation / analgesia (conscious sedation). Immediately prior to administration of medications, the patient was re-assessed for adequacy to receive sedatives. The heart rate, respiratory rate, oxygen saturations, blood pressure, adequacy of pulmonary ventilation, and response to care were monitored throughout the procedure. The physical status of the patient was re-assessed after the procedure. After obtaining informed consent, the endoscope was passed under direct vision. Throughout the procedure, the patient's blood pressure, pulse, and oxygen saturations were monitored continuously. The colonoscope was introduced through the mouth, and advanced to the second part of duodenum. The upper GI endoscopy was accomplished without difficulty. The patient tolerated the procedure well. Moderate Sedation: Moderate (conscious) sedation was administered by the endoscopy nurse and supervised by the endoscopist. The patient's oxygen saturation, heart rate, blood pressure and response to care were monitored. Total physician intraservice time was 15 minutes. Scope In: 10:48:32 AM Scope Out: 10:55:46 AM Total Procedure Duration Time 0 hours 7 minutes 14 seconds Findings: LA Grade A (one or more mucosal breaks less than 5 mm, not extending between tops of 2 mucosal folds) esophagitis with no bleeding was found 34 to 35 cm from the incisors. Biopsies were taken with a cold forceps for histology. Verification of patient identification for the specimen was done. Estimated blood loss was minimal. Diffuse moderately erythematous mucosa without bleeding was found in the stomach. Biopsies were taken with a cold forceps for histology. Patchy mildly erythematous mucosa without active bleeding and with no stigmata of bleeding was found in the duodenal bulb. Biopsies were taken with a cold forceps for histology. Verification of patient identification for the specimen was done. Estimated blood loss was minimal. Impression: - LA Grade A reflux esophagitis. Biopsied. - Erythematous mucosa in the stomach. Biopsied. - Erythematous duodenopathy. Biopsied. Recommendation: - Discharge patient to home. - Resume previous diet. - Continue present medications. - Await pathology results. - Repeat upper endoscopy in 1 year for surveillance. - Return to GI office in 1 week. Procedure Code(s): --- Professional --- 61351, Esophagogastroduodenoscopy, flexible, transoral; with biopsy, single or multiple 52451, 59, Moderate sedation services provided by the same physician or other qualified health healthcare social worker performing the diagnostic or therapeutic service that the sedation supports, requiring the presence of an independent trained observer to assist in the monitoring of the patient's level of consciousness and physiological status; initial 15 minutes of intraservice time, patient age 5 years or older CPT copyright 2017 [employer]. All rights reserved. The codes documented in this report are preliminary and upon district manager in training review may be revised to meet current compliance requirements. Juan Alberto King DO 07/28/2021 11:28:10 AM This report has been signed electronically. Number of Addenda: 1 Note Initiated On: 07/28/2021 10:34 AM Addendum Number: 1 Addendum Date: 04/05/2022 7:32:02 AM MAC was used instead of moderate sedation for the patient. Juan Alberto King DO 04/05/2022 7:32:16 AM This report has been signed electronically.
--- NOTE | 2021-07-28 11:29 | OP.CCLET_ITS ---
04/05/2022 Radha Calloway [address] [place] [address] Re : Upper GI endoscopy procedure for Penny Hart Dear Dr. Calloway This procedure was performed on June. My impressions and recommendations are as follows: Impressions : - LA Grade A reflux esophagitis. Biopsied. - Erythematous mucosa in the stomach. Biopsied. - Erythematous duodenopathy. Biopsied. Recommendations : - Discharge patient to home. - Resume previous diet. - Continue present medications. - Await pathology results. - Repeat upper endoscopy in 1 year for surveillance. - Return to GI office in 1 week. My findings are described in the full procedure note, which is enclosed. If I can be of further assistance, please feel free to contact me at . Sincerely, Juan Alberto King, 07/28/2021 11:28:10 AM This report has been signed electronically.
--- NOTE | 2021-07-28 11:45 | OP.CCLET_ITS ---
04/05/2022 Radha [address]ay [address] [place] [address] Re : Colonoscopy procedure for Penny Farfanterson Dear Dr. Calloway This procedure was performed on June. My impressions and recommendations are as follows: Impressions : - Simple Endoscopic Score for Crohn's Disease: 40, mucosal inflammatory changes secondary to Crohn's disease, with ileitis and colitis. Biopsied. - Multiple ulcers in the terminal ileum. Biopsied. Recommendations : - Discharge patient to home. - Resume previous diet today. - Use Imuran (azathioprine) 1 mg/kg PO daily for 3 months. - Repeat colonoscopy in 1 year for surveillance based on pathology results. - Continue present medications. My findings are described in the full procedure note, which is enclosed. If I can be of further assistance, please feel free to contact me at . Sincerely, Juan Alberto King, 07/28/2021 11:44:53 AM This report has been signed electronically.
--- NOTE | 2021-07-28 11:45 | OP.COLON_ITS ---
Patient Name: Penny Hart Procedure Date: 07/28/2021 10:55 AM Date of : 1990 Age: 31 Procedure: Colonoscopy Indications: Ulcerative colitis Providers: Juan Alberto King DO Referring MD: Juan Alberto King DO Medicines: See the Anesthesia note for documentation of the administered medications Patient Profile: This is a 31 year old female. Refer to note in patient chart for documentation of history and physical. Patient has symptoms of acute abdominal cramping. She is status post colonoscopy for biopsy within the past three years. She is status post colonoscopy for biopsy. Last Colonoscopy: 3 years ago. Complications: No immediate complications. Procedure: Pre-Anesthesia Assessment: - Prior to the procedure, a History and Physical was performed, and patient medications and allergies were reviewed. The patient is competent. The risks and benefits of the procedure and the sedation options and risks were discussed with the patient. All questions were answered and informed consent was obtained. Patient identification and proposed procedure were verified by the physician in the pre-procedure area. Mental Status Examination: alert and oriented. Airway Examination: normal oropharyngeal airway and neck mobility. Respiratory Examination: clear to auscultation. CV Examination: normal. Prophylactic Antibiotics: The patient does not require prophylactic antibiotics. Prior Anticoagulants: The patient has taken no previous anticoagulant or antiplatelet agents. ASA Grade Assessment: II - A patient with mild systemic disease. After reviewing the risks and benefits, the patient was deemed in satisfactory condition to undergo the procedure. The anesthesia plan was to use moderate sedation / analgesia (conscious sedation). Immediately prior to administration of medications, the patient was re-assessed for adequacy to receive sedatives. The heart rate, respiratory rate, oxygen saturations, blood pressure, adequacy of pulmonary ventilation, and response to care were monitored throughout the procedure. The physical status of the patient was re-assessed after the procedure. After I obtained informed consent, the scope was passed under direct vision. Throughout the procedure, the patient's blood pressure, pulse, and oxygen saturations were monitored continuously. The colonoscope was introduced through the anus and advanced to 15 cm into the ileum. The colonoscopy was performed without difficulty. The patient tolerated the procedure well. The quality of the bowel preparation was good. Moderate Sedation: Moderate (conscious) sedation was administered by the endoscopy nurse and supervised by the endoscopist. The patient's oxygen saturation, heart rate, blood pressure and response to care were monitored. Total physician intraservice time was 15 minutes. Scope In: 10:59:36 AM Scope Withdrawal Time 0 hours 16 minutes 16 seconds Scope Out: 11:19:43 AM Total Procedure Duration Time 0 hours 20 minutes 7 seconds Findings: The perianal and digital rectal examinations were normal. The Simple Endoscopic Score for Crohn's Disease was determined based on the endoscopic appearance of the mucosa in the following segments: - Ileum: Findings include ulcers greater than 2 cm in size, greater than 30% ulcerated surfaces, greater than 75% of surfaces affected and multiple narrowings that can be passed. Segment score: 11. - Right Colon: Findings include ulcers greater than 2 cm in size, greater than 30% ulcerated surfaces, greater than 75% of surfaces affected and a single narrowing that can be passed. Segment score: 10. - Transverse Colon: Findings include ulcers greater than 2 cm in size, greater than 30% ulcerated surfaces, 50-75% of surfaces affected and multiple narrowings that can be passed. Segment score: 10. - Left Colon: Findings include large ulcers 0.5-2 cm in size, greater than 30% ulcerated surfaces, 50-75% of surfaces affected and multiple narrowings that can be passed. Segment score: 9. - Rectum: Findings include no ulcers present, no ulcerated surfaces, no affected surfaces and no narrowings. Segment score: 0. - Total SES-CD aggregate score: 40. Biopsies were taken with a cold forceps for histology. Verification of patient identification for the specimen was done. Estimated blood loss was minimal. The terminal ileum contained multiple eight mm ulcers. No bleeding was present. No stigmata of recent bleeding were seen. Biopsies were taken with a cold forceps for histology. Estimated blood loss was minimal. A 9 mm polyp was found in the recto-sigmoid colon. The polyp was sessile. The polyp was removed with a hot snare. Resection and retrieval were complete. Verification of patient identification for the specimen was done. Estimated blood loss was minimal. Impression: - Simple Endoscopic Score for Crohn's Disease: 40, mucosal inflammatory changes secondary to Crohn's disease, with ileitis and colitis. Biopsied. - Multiple ulcers in the terminal ileum. Biopsied. Recommendation: - Discharge patient to home. - Resume previous diet today. - Use Imuran (azathioprine) 1 mg/kg PO daily for 3 months. - Repeat colonoscopy in 1 year for surveillance based on pathology results. - Continue present medications. Procedure Code(s): --- Professional --- 91908, Colonoscopy, flexible; with removal of tumor(s), polyp(s), or other lesion(s) by snare technique 23302, 59, Colonoscopy, flexible; with biopsy, single or multiple 86379, 59, Moderate sedation services provided by the same physician or other qualified health infant caregiver performing the diagnostic or therapeutic service that the sedation supports, requiring the presence of an independent trained observer to assist in the monitoring of the patient's level of consciousness and physiological status; initial 15 minutes of intraservice time, patient age 5 years or older CPT copyright 2017 [employer] [place] [employer]. All rights reserved. The codes documented in this report are preliminary and upon medical field representative review may be revised to meet current compliance requirements. Juan Alberto King DO 07/28/2021 11:44:53 AM This report has been signed electronically. Number of Addenda: 1 Note Initiated On: 07/28/2021 10:55 AM Addendum Number: 1 Addendum Date: 04/05/2022 7:32:26 AM MAC was used instead of moderate sedation for the patient. Juan Alberto King DO 04/05/2022 7:32:30 AM This report has been signed electronically.
== END 2021-07-28 12:35 | disposition home or self-care (01) ==
LOC: EN 09:45 → AC 09:45
PROVIDERS: Anesthesiology; PCP Family Medicine; Referring Provider Internal Medicine Gastroenterology; Visit Provider Internal Medicine Gastroenterology
PROC: 0DJD8ZZ Inspection of Lower Intestinal Tract, Via Natural or Artificial Opening Endoscopic (ICD-10-PCS; CPT 45378; principal; 2021-07-28 10:40)
DX: K21.00 Gastro-esophageal reflux disease with esophagitis, without bleeding (principal); K29.50 Unspecified chronic gastritis without bleeding; K50.80 Crohn's disease of both small and large intestine without complications; K31.89 Other diseases of stomach and duodenum; K63.5 Polyp of colon; K62.1 Rectal polyp; G40.909 Epilepsy, unspecified, not intractable, without status epilepticus; M19.90 Unspecified osteoarthritis, unspecified site; F31.9 Bipolar disorder, unspecified; F41.9 Anxiety disorder, unspecified; F17.200 Nicotine dependence, unspecified, uncomplicated; Z79.899 Other long term (current) drug therapy; Z20.822 Contact with and (suspected) exposure to COVID-19
CPT/HCPCS: 43239; 45380; 45385; 81025; 87426; 88305; 88313; 88342; C9803; J7120; J2405

== ENCOUNTER 2021-08-11 15:33 | Outpatient (CLI) | payer MEDICARE, MEDICAID, SELFPAY ==
[2021-08-11 16:11] LABS: Erythrocyte Sedimentation Rate 26 mm/hr (0-30)
[2021-08-11 16:13] LABS: Absolute Neutrophil Count 14.8 X10^3/uL (2.0-7.7); Basophil# 0.07 X10^3/uL; Basophil% 0.4 % (0-1); Eosinophil# 0.21 X10^3/uL; Eosinophils% 1.1 % (0-5); Hematocrit 42.4 % (37-47); Hemoglobin 13.2 g/dL (12.0-15.0); Lymphocyte % 13.6 % (19-41); Mean Corp Hgb Conc 31.1 g/dL (32-36); Mean Corpuscular Hgb 28.6 pg (27.0-32.0); Mean Platelet Vol. 9.9 fl (6.2-12.0); Monocyte# 1.25 X10^3/uL; Monocyte% 6.5 % (0-10); NRBC Flagged by Analyzer 0 % (0-5); Neutrophil # 14.78 X10^3/uL (2.7-7.7); Platelet Count 394 K/mm3 (150-450); RBC Distribution Width CV 14.7 % (11.6-14.6); RBC Distribution Width SD 49.2 fl (35.1-43.9); Red Blood Count 4.61 M/mm3 (4.2-5.4); White Blood Count 19.2 K/mm3 (4.4-11.0)
[2021-08-11 16:58] LABS: ALB/GLOB Ratio 0.8 RATIO (0.9-2.4); AST(SGOT) 7 U/L (15-37); Alanine Aminotransfer ALT/SGPT 35 U/L (13-56); Albumin, Serum 3.2 g/dL (3.2-5.0); Alkaline Phosphatase 46 U/L (45-117); Amylase 39 U/L (25-115); Anion Gap 6 (5-15); BUN 14 mg/dL (7-18); BUN/Creat Ratio 17.7 RATIO (10-20); Calcium,Total 8.9 mg/dL (8.5-10.1); Chloride 107 mmol/L (98-107); Creatinine, Serum 0.79 mg/dL (0.55-1.02); EST Glomerular Filtration Rate 91 mL/min (>60); Est Glom Filt Rate - Afr Amer 110 mL/min (>60); Glucose 97 mg/dL (74-106); Lipase 101 U/L (73-393); Potassium 4.2 mmol/L (3.5-5.1); Protein, Total 7.2 g/dL (6.4-8.2); Sodium Level 140 mmol/L (136-145)
== END 2021-08-11 23:59 | disposition short-term general hospital (02) ==
LOC: LAB 15:35
PROVIDERS: PCP Family Medicine; Visit Provider Internal Medicine Gastroenterology
DX: K50.90 Crohn's disease, unspecified, without complications (principal); F43.10 Post-traumatic stress disorder, unspecified
CPT/HCPCS: 36415; 80053; 82150; 83690; 85025; 85652

== ENCOUNTER 2021-08-12 11:57 | Outpatient (CLI) | payer MEDICARE, MEDICAID, SELFPAY | END 2021-08-12 23:59 | disposition short-term general hospital (02) | LOC: LAB 11:59 | PROVIDERS: PCP Family Medicine; Visit Provider Internal Medicine Gastroenterology | DX: K50.90 Crohn's disease, unspecified, without complications (principal) ==

== ENCOUNTER 2021-08-13 07:10 | Outpatient (CLI) | payer MEDICARE, MEDICAID, SELFPAY | END 2021-08-13 23:59 | disposition short-term general hospital (02) | PROVIDERS: PCP Family Medicine; Visit Provider Internal Medicine Gastroenterology | DX: R56.9 Unspecified convulsions (principal) ==

== ENCOUNTER 2021-09-23 11:32 | Outpatient (CLI) | payer MEDICARE, MEDICAID, SELFPAY ==
[2021-09-23 12:31] LABS: Absolute Lymphocyte Count 2.98 X10^3/uL (0.83-4.51); Absolute Neutrophil Count 9.7 X10^3/uL (2.0-7.7); Basophil# 0.05 X10^3/uL; Basophil% 0.4 % (0-1); Eosinophil# 0.23 X10^3/uL; Eosinophils% 1.6 % (0-5); Hematocrit 43.9 % (37-47); Hemoglobin 14.6 g/dL (12.0-15.0); Lymphocyte # 2.98 X10^3/ul (0.83-4.51); Lymphocyte % 21.3 % (19-41); Mean Corp Hgb Conc 33.3 g/dL (32-36); Mean Corpuscular Hgb 31.6 pg (27.0-32.0); Mean Platelet Vol. 10.4 fl (6.2-12.0); Monocyte# 0.94 X10^3/uL; Monocyte% 6.7 % (0-10); NRBC Flagged by Analyzer 0 % (0-5); Neutrophil # 9.71 X10^3/uL (2.7-7.7); Neutrophil % 69.2 % (47-70); Platelet Count 315 K/mm3 (150-450); RBC Distribution Width CV 17.2 % (11.6-14.6); RBC Distribution Width SD 59.4 fl (35.1-43.9); Red Blood Count 4.62 M/mm3 (4.2-5.4)
[2021-09-23 12:49] LABS: Hemoglobin A1c 5.2 % (3.8-5.6)
[2021-09-23 12:53] LABS: AST(SGOT) 13 U/L (15-37); Alanine Aminotransfer ALT/SGPT 27 U/L (13-56); Albumin, Serum 3.5 g/dL (3.2-5.0); Alkaline Phosphatase 42 U/L (45-117); Amylase 26 U/L (25-115); Anion Gap 3 (5-15); BUN 12 mg/dL (7-18); BUN/Creat Ratio 14.1 RATIO (10-20); CRP 7.97 mg/L (0.0-3.0); Calcium,Total 8.7 mg/dL (8.5-10.1); Chloride 107 mmol/L (98-107); Creatinine, Serum 0.85 mg/dL (0.55-1.02); EST Glomerular Filtration Rate 83 mL/min (>60); Est Glom Filt Rate - Afr Amer 100 mL/min (>60); Globulin 3.6 g/dL (2.2-4.2); Glucose 108 mg/dL (74-106); Lipase 60 U/L (73-393); Potassium 3.5 mmol/L (3.5-5.1); Protein, Total 7.1 g/dL (6.4-8.2); Sodium Level 141 mmol/L (136-145)
== END 2021-09-23 23:59 | disposition home or self-care (01) ==
PROVIDERS: PCP Family Medicine; Referring Provider Internal Medicine Gastroenterology; Visit Provider Internal Medicine Gastroenterology
DX: K50.90 Crohn's disease, unspecified, without complications (principal); E11.9 Type 2 diabetes mellitus without complications; F43.10 Post-traumatic stress disorder, unspecified
CPT/HCPCS: 36415; 80053; 82150; 83036; 83690; 85025; 86140

== ENCOUNTER 2022-01-05 12:30 | Outpatient (RCR) | payer MEDICARE, MEDICAID, SELFPAY ==
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
--- NOTE | 2022-01-05 12:45 | HP.PTDCSUM_ITS ---
It has been my pleasure to treat CONY POWERS referred by CHILO Howe, with the diagnosis of Right Hip Pain for a total of 8 visit(s). Discharge Date: Please see the following information for a summary of their discharge status. Subjective: Patient reports that she is doing okay, the hip pain comes and goes. She feels better when she is here- she is doing exercises and it helps but it comes back. She plans to go back to the [facility] on the 10 of January- and she is seeing Dr. Gold and ortho. R hip Pain Intensity (Out of 10): 4 % Improvement: 50 Objective/Function: Posture: FH, RS- can correct with verbal and tactile cues. Gait: no deviation noted. Transfers: sit to stand without UE A. HR/TR: able without UE A. SLS: 30 sec without LOB with mild hip drop. ROM: Lumbar: WFL in all planest, Hip/Knee/Ankle: WFL- no pain. Strength: Core: Fair, Hip: 4+/5 Knee: 5/5 Ankle: 5/5. Flex: HS: severe, Gastroc: mod. Palpation: tender along PSOAS, ASIS and glut med. - Special Tests. R Hip Scour: Positive. R Hip AVERY - Intraarticular Pathology: Positive. R Hip FADDIR - Labrum: Positive. R Hip Trendelenberg - Glut Medius: Positive Goal 1:: Patient will be I with HEP and progression Goal Progress: Goal Met Goal 2:: Patient will demo full lumbar ROM without pain Goal Progress: Goal Met Goal 3:: Patient will maintain proper posture t/o tx session to demo increased core s/s Goal Progress: Progressing Goal 4:: Patient will report 80% improvement Goal Progress: Progressing Plan: Discharge to [facility] If there are questions or concerns regarding this patient's physical therapy, please feel free to call me at [phone]. Thank you for the referral of this patient. Sincerely, Barbara Hughes, ODALIS Balance/Gait/Functional tests - Balance/Special Test Scores Lower Extremity Functional Score: 79
== END 2022-01-05 19:00 | disposition home or self-care (01) ==
LOC: PT 12:30
PROVIDERS: PCP Family Medicine; Referring Provider Physician Assistant; Visit Provider Physician Assistant
DX: M25.551 Pain in right hip (principal); M53.3 Sacrococcygeal disorders, not elsewhere classified
CPT/HCPCS: 97110; 97140; 97161; 97164

== ENCOUNTER 2022-01-28 11:23 | Emergency (ER) | payer MEDICARE, MEDICAID, SELFPAY ==
[2022-01-28 11:24] VITALS: BP 116/65; PULSE 82; RESP 17; TEMP 36.3; O2SAT 97; BMI 36.3
--- NOTE | 2022-01-28 11:58 | CT_ITS ---
STUDY: CT BRAIN WITHOUT CONTRAST REASON FOR EXAM: Female, 31 years old. Severe headache RADIATION DOSAGE (If Supplied By Facility): CTDIvol = ( 44.99 ) mGy, DLP = ( 762.36 ) mGycm TECHNIQUE: Transaxial CT imaging of the brain was performed without administration of intravenous contrast material. Individualized dose optimization techniques were used for this CT. COMPARISON: No relevant priors. FINDINGS: Normal soft tissue structures. Normal calvarium. Normal size ventricles and extra-axial spaces for the patient''s age. Normal white matter tracts of the cerebral hemispheres. Normal basal ganglia and thalami. Normal brainstem. Normal cerebellum. There is no intracranial hemorrhage. There are no findings of an acute ischemic infarction. Normal visualized paranasal sinuses. CT/Brain/Head without Contrast IMPRESSION: Normal unenhanced CT scan of the brain. Electronically Signed: Slim Gonzalez MD at 13:09 EDT ,
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
[2022-01-28] MEDS: Ketorolac 60 MG/2 ML Vial IM (13:36)
== END 2022-01-28 13:55 | disposition home or self-care (01) ==
PROVIDERS: Emergency Provider Emergency Medicine; PCP Family Medicine; Visit Provider Emergency Medicine
DX: R51.9 Headache, unspecified (principal); F17.200 Nicotine dependence, unspecified, uncomplicated
CPT/HCPCS: 70450; 96372; 99283

== ENCOUNTER → 2022-02-13 | Outpatient (CLI) | payer MEDICARE, MEDICAID, SELFPAY ==
[2022-02-13 17:29] LABS: Absolute Neutrophil Count 7.1 X10^3/uL (2.0-7.7); Basophil# 0.02 X10^3/uL; Basophil% 0.2 % (0-1); Eosinophil# 0.13 X10^3/uL; Eosinophils% 1.1 % (0-5); Hematocrit 46.1 % (37-47); Mean Corp Hgb Conc 32.5 g/dL (32-36); Mean Corpuscular Hgb 30.1 pg (27.0-32.0); Mean Corpuscular Volume 92.6 fL (81-99); Mean Platelet Vol. 10.7 fl (6.2-12.0); Monocyte# 0.95 X10^3/uL; Monocyte% 7.8 % (0-10); NRBC Flagged by Analyzer 0 % (0-5); Neutrophil # 7.13 X10^3/uL (2.7-7.7); Neutrophil % 58.3 % (47-70); Platelet Count 306 K/mm3 (150-450); RBC Distribution Width CV 13.2 % (11.6-14.6); RBC Distribution Width SD 45.1 fl (35.1-43.9); Red Blood Count 4.98 M/mm3 (4.2-5.4); White Blood Count 12.2 K/mm3 (4.4-11.0)
[2022-02-13 18:05] LABS: Blast 12.2 % (0-0); Erythrocyte Sedimentation Rate 12 mm/hr (0-30)
[2022-02-13 21:39] LABS: ALB/GLOB Ratio 1.1 RATIO (0.9-2.4); AST(SGOT) 15 U/L (15-37); Alanine Aminotransfer ALT/SGPT 26 U/L (13-56); Albumin, Serum 3.8 g/dL (3.2-5.0); Alkaline Phosphatase 50 U/L (45-117); Anion Gap 9 (5-15); BUN 10 mg/dL (7-18); BUN/Creat Ratio 12.5 RATIO (10-20); CRP 9.63 mg/L (0.0-3.0); Calcium,Total 9.2 mg/dL (8.5-10.1); Chloride 107 mmol/L (98-107); EST Glomerular Filtration Rate 89 mL/min (>60); Est Glom Filt Rate - Afr Amer 108 mL/min (>60); Globulin 3.6 g/dL (2.2-4.2); Glucose 70 mg/dL (74-106); Potassium 4.1 mmol/L (3.5-5.1); Protein, Total 7.4 g/dL (6.4-8.2); Sodium Level 142 mmol/L (136-145)
== END | disposition home or self-care (01) ==
LOC: LAB 14:38
PROVIDERS: PCP Family Medicine; Visit Provider Internal Medicine Gastroenterology
DX: D72.9 Disorder of white blood cells, unspecified (principal); K50.90 Crohn's disease, unspecified, without complications
CPT/HCPCS: 36415; 80053; 85025; 85652; 86140

== ENCOUNTER 2022-02-14 10:01 | Emergency (ER) | payer MEDICARE, MEDICAID, SELFPAY ==
[2022-02-14 10:01] VITALS: BP 119/75; PULSE 78; RESP 18; TEMP 36.8; O2SAT 98
[2022-02-14 10:02] VITALS: BP 114/79; PULSE 85; RESP 20; TEMP 36.2; O2SAT 98; BMI 36.4
--- NOTE | 2022-02-14 10:23 | EDS_ITS ---
HPI History of Present Illness Chief Complaint: Abn Labs Informant: patient Narrative Narrative: Patient is a 31-year-old female with history of Crohn's disease, seizures, PTSD, epilepsy and bipolar disorder presenting with abnormal lab values. Patient had routine CBC performed by Dr. King, her fashion designer, because of chronic Imuran and Humira therapy which showed elevated blast cells, 12%. He had spoken to Dr. Mccracken, hematology oncology, who states that he would be repeated and if her blast cells were greater than 5% she would need to be transferred for assessment of acute myelocytic leukemia. Patient herself has no complaints. She states she been feeling well. Denies any night sweats, weight loss appetite changes or any other acute complaints. [facility] Medical History Anemia Anxiety Arthritis Asthma Back problem Bipolar disorder CPAP (continuous positive airway pressure) dependence Crohns disease Depression Dysmenorrhea Enuresis, nonorganic Epilepsy, unspecified, not intractable, without status epilepticus History of Crohn's disease Juvenile arthritis Lumbago Seizures Seizures Sleep apnea Wears glasses Home Medications sucralfate 100 mg/mL oral suspension (Carafate) 10 ml PO QAC #1,000 mL 08/01/21 [Rx Last Taken Unknown] azathioprine 100 mg tablet 150 mg PO DAILY 30 days #45 tabs 08/11/21 [Rx Last Taken Unknown] albuterol sulfate 90 mcg/actuation aerosol inhaler 2 puff inhalation Q4H PRN shortness of breath or wheezing #8.5 grams 12/15/21 [Rx Last Taken Unknown] Humira 40 mg/0.8 mL subcutaneous syringe kit (adalimumab) See Rx Instructions .Route .COMPLEX #2 ea 01/16/22 [Rx Last Taken 02/07/22] naproxen 500 mg tablet 500 mg PO BID #14 tabs 01/28/22 [Rx Last Taken Unknown] Allergy/AdvReac Type Severity Reaction Status Date / Time ALMONDS Allergy Severe Hives Uncoded 02/14/22 10:33 Family History Father Suicide Mother Diabetes OCD (obsessive compulsive disorder) Depression Bipolar disorder (manic depression) Grandmother Diabetes Uncle Bowel disease Grandfather Colon cancer maternal - 2003 Other Anxiety Arthritis Epilepsy Surgical History History of cystoscopy History of wisdom tooth extraction Social History Smoking Status: Current every day smoker tobacco type: cigarettes Tobacco: How many years used: 5 alcohol intake: current details: social on weekends substance use type: does not use what type of physical activity do you participate in: none ROS ROS ED Constitutional Constitutional ED: Denies chills, fever(s), subjective, sweats or weight loss Eyes Eyes: Denies change in vision ENT ENT ED: Denies sore throat Cardiovascular Cardiovascular: Denies chest pain Respiratory/Chest Respiratory/Chest: Denies cough Gastrointestinal Gastrointestinal: Denies abdominal pain, nausea or vomiting Genitourinary Genitourinary ED: Denies dysuria Musculoskeletal Musculoskeletal: Denies arthralgias or myalgias Integumentary Denies rash Neurologic Neurologic: Denies headache(s) or weakness Psychiatric Psychiatric: Denies anxiety Hematologic/Lymphatic Hematologic/Lymphatic: Denies easy bleeding or easy bruising EXAM Physical Exam Const Vital Signs: 02/14/22 10:02 02/14/22 10:01 02/14/22 10:31 Temperature 97.2 F L 98.2 F Temperature Source Oral Oral Pulse Rate 85 78 Respiratory Rate 20 H 18 Respiratory Effort Normal Non-Labored Respiratory Pattern Normal Blood Pressure 114/79 119/75 Blood Pressure Mean 90 89 Pulse Ox 98 98 Oxygen Delivery Method Room Air Room Air 02/14/22 12:05 Temperature Temperature Source Pulse Rate Respiratory Rate 16 Respiratory Effort Respiratory Pattern Blood Pressure 122/49 H Blood Pressure Mean Pulse Ox Oxygen Delivery Method Positive well nourished and well developed General Appearance ED: well developed and NAD HEENT Reports moist mucous membranes Eyes PERRL and EOMs intact bilaterally Neck no lymphadenopathy and supple Chest Wall inspection of chest normal and palpation of chest normal Resp normal respiratory effort and clear to auscultation bilaterally Cardio regular rate, regular rhythm and no murmurs GI normal to inspection, nondistended, normoactive bowel sounds Extremity normal to inspection General Extremety ED: Negative for edema or tenderness General Extremity: Negative for edema Neuro oriented x3 Sensory Exam: No sensory level loss detected Motor Exam: Negative for general weakness Psych mental status grossly normal Skin no rashes or lesions noted and no wounds MDM MDM MDM Narrative Medical decision making narrative: Patient is evaluated for abnormal blasts cells on outpatient laboratory findings. She is at increased risk of AML because of her Imuran therapy. Repeat manual differential however is normal with no circulating blasts jo-ann reciated. Case discussed with Manisha Emery, practitioner on-call for oncology hematology. She reviewed the results as well. Agree that this time patient does not have findings concerning for AML. Will discharge with outpatient hematology follow-up. Patient informed of these findings as well as her GI doctor. She is counseled return precautions. She is discharged home in stable condition. Lab Data Attestation: I reviewed the patient's lab results. Labs: Laboratory Results - last 24 hr 02/14/22 02/14/22 10:25 10:25 WBC 11.1 H RBC 4.95 Hgb 15.0 Hct 45.3 MCV 91.5 MCH 30.3 MCHC 33.1 RDW Std Deviation 43.8 RDW Coeff of Lauren 13.1 Plt Count 286 MPV 10.0 Immature Gran % (Auto) 0.400 Neut % (Auto) 57.3 Lymph % (Auto) 32.0 [place] % (Auto) 8.9 Eos % (Auto) 1.1 Baso % (Auto) 0.3 Absolute Neuts (auto) 6.4 Absolute Lymphs (auto) 3.54 Nucleated RBC % 0 Diff Path Review Reviewed Sodium 140 Potassium 3.9 Chloride 107 Carbon Dioxide 27.0 Anion Gap 6 BUN 11 Creatinine 0.84 Estim Creat Clear Calc 105.90 Est GFR (MDRD) Af Amer 103 Est GFR (MDRD) Non-Af 85 BUN/Creatinine Ratio 13.2 Glucose 91 Uric Acid 6.2 H Calcium 9.3 Discharge Plan Triage Chief Complaint: Abn Labs ED Provider: Megan Toledo Dx/Rx/DC Orders Clinical Impression: Abnormal laboratory test Instructions: ED No Diagnosis Prescriptions: No Action azathioprine 100 mg tablet 150 mg PO DAILY 30 Days Qty: 45 3RF albuterol sulfate 90 mcg/actuation HFA aerosol inhaler 2 puff INHALATION Q4H PRN (Reason: shortness of breath or wheezing) Qty: 8.5 3RF Rx Instructions: administer with spacer naproxen 500 mg tablet 500 mg PO BID Qty: 14 0RF sucralfate [Carafate] 100 mg/mL suspension 10 ml PO QAC Qty: 1000 0RF Rx Instructions: take three times a day, one hour prior to meals on an empty stomach for thirty days. Humira 40 mg/0.8 mL syringe kit See Rx Instructions .ROUTE .COMPLEX Qty: 2 12RF Dose Instruction: Give 40mg as a subcutaneous injection every 14 days. Use as directed by prescriber. *See Enclosed Instructions for Use of Injection Device* PROTECT FROM LIGHT Rx Instructions: Give 40mg as a subcutaneous injection every 14 days. Use as directed by prescriber. *See Enclosed Instructions for Use of Injection Device* PROTECT FROM LIGHT Primary Care Provider: Radha Calloway Referrals: Rad[facility]alloway MD [Primary Care Provider[facility] - 1-2 Weeks Activity Restrictions/Additional Instructions: Your blast cells were normal on the lab work today. Please follow-up outpatient with hematology for further monitoring. You have been given the information to call. You are safe to go home today. No signs of cancer in your blood work today. Disposition Disposition: Home, Self Care Discharge Date/Time: 02/14/22 12:05
[2022-02-14 10:32] LABS: Absolute Lymphocyte Count 3.54 X10^3/uL (0.83-4.51); Absolute Neutrophil Count 6.4 X10^3/uL (2.0-7.7); Basophil# 0.03 X10^3/uL; Basophil% 0.3 % (0-1); Eosinophil# 0.12 X10^3/uL; Eosinophils% 1.1 % (0-5); Hematocrit 45.3 % (37-47); Lymphocyte # 3.54 X10^3/ul (0.83-4.51); Mean Corp Hgb Conc 33.1 g/dL (32-36); Mean Corpuscular Hgb 30.3 pg (27.0-32.0); Mean Corpuscular Volume 91.5 fL (81-99); Monocyte# 0.98 X10^3/uL; Monocyte% 8.9 % (0-10); NRBC Flagged by Analyzer 0 % (0-5); Neutrophil # 6.35 X10^3/uL (2.7-7.7); Neutrophil % 57.3 % (47-70); Platelet Count 286 K/mm3 (150-450); RBC Distribution Width CV 13.1 % (11.6-14.6); RBC Distribution Width SD 43.8 fl (35.1-43.9); Red Blood Count 4.95 M/mm3 (4.2-5.4); White Blood Count 11.1 K/mm3 (4.4-11.0)
[2022-02-14 10:49] LABS: Anion Gap 6 (5-15); BUN 11 mg/dL (7-18); BUN/Creat Ratio 13.2 RATIO (10-20); Calcium,Total 9.3 mg/dL (8.5-10.1); Chloride 107 mmol/L (98-107); Creatinine, Serum 0.84 mg/dL (0.55-1.02); EST Glomerular Filtration Rate 85 mL/min (>60); Est Glom Filt Rate - Afr Amer 103 mL/min (>60); Glucose 91 mg/dL (74-106); Potassium 3.9 mmol/L (3.5-5.1); Sodium Level 140 mmol/L (136-145); Uric Acid 6.2 mg/dL (2.6-6.0)
[2022-02-14 11:26] LABS: Pathologist Review Reviewed
--- NOTE | 2022-02-14 11:39 | NURSING ---
PAGED DR TAYLOR FOR DR HERRING
[2022-02-14 12:05] VITALS: BP 122/49; RESP 16
== END 2022-02-14 12:05 | disposition home or self-care (01) ==
PROVIDERS: Emergency Provider Emergency Medicine; PCP Family Medicine; Visit Provider Emergency Medicine
DX: R79.89 Other specified abnormal findings of blood chemistry (principal); F31.9 Bipolar disorder, unspecified; G40.909 Epilepsy, unspecified, not intractable, without status epilepticus; J45.909 Unspecified asthma, uncomplicated; F17.210 Nicotine dependence, cigarettes, uncomplicated; Z79.899 Other long term (current) drug therapy
CPT/HCPCS: 80048; 84550; 85025; 99282

== ENCOUNTER 2022-03-31 16:27 | Emergency (ER) | payer MEDICARE, SELFPAY ==
[2022-03-31 16:28] VITALS: BP 110/69; PULSE 80; RESP 16; TEMP 36.1; O2SAT 98; BMI 36.3
[2022-03-31 17:19] LABS: Anion Gap 5 (5-15); BUN 11 mg/dL (7-18); BUN/Creat Ratio 10.2 RATIO (10-20); Calcium,Total 10.2 mg/dL (8.5-10.1); Chloride 109 mmol/L (98-107); Creatinine, Serum 1.08 mg/dL (0.55-1.02); EST Glomerular Filtration Rate 63 mL/min (>60); Est Glom Filt Rate - Afr Amer 76 mL/min (>60); Estimated Creatinine Clearance 82.37 ml/min; Glucose 138 mg/dL (74-106); Sodium Level 141 mmol/L (136-145)
[2022-03-31 17:23] LABS: Absolute Neutrophil Count 28.5 X10^3/uL (2.0-7.7); Basophil# 0.13 X10^3/uL; Basophil% 0.4 % (0-1); Eosinophil# 0.14 X10^3/uL; Eosinophils% 0.4 % (0-5); Hemoglobin 17.8 g/dL (12.0-15.0); Lymphocyte % 7.1 % (19-41); Mean Corpuscular Hgb 30.6 pg (27.0-32.0); Mean Corpuscular Volume 92.8 fL (81-99); Mean Platelet Vol. 9.8 fl (6.2-12.0); Monocyte# 2.18 X10^3/uL; Monocyte% 6.5 % (0-10); NRBC Flagged by Analyzer 0 % (0-5); Neutrophil # 28.45 X10^3/uL (2.7-7.7); Neutrophil % 84.5 % (47-70); POSITIVE COUNT YES; POSITIVE DIFFERENTIAL YES; Platelet Count 410 K/mm3 (150-450); RBC Distribution Width SD 43.8 fl (35.1-43.9); Red Blood Count 5.82 M/mm3 (4.2-5.4)
[2022-03-31 17:38] LABS: White Blood Count 33.7 K/mm3 (4.4-11.0)
[2022-03-31 17:41] LABS: Differential Indicated SCAN CRITERIA MET
[2022-03-31 18:10] LABS: Internal QC Validated? YES +Cl - CLEAR BKGD; Pregnancy, Serum, hCG Quali. NEGATIVE Negative
[2022-03-31 18:16] LABS: Color, Urine Yellow (Yellow); Glucose, Dipstick Normal (Normal); Ketone-Dipstick 15 mg/dl (Negative); Leukocyte Esterase-Dipstick 25 /ul (Negative); Nitrite-Dipstick Negative (Negative); Occult Blood-Urine 150 /ul (Negative); Protein-Dipstick 30 mg/dl (Negative); Urine Clarity Cloudy (Clear); Urine Urobilinogen 1 mg/dl (Normal)
[2022-03-31 18:17] LABS: Differential Comment SCANNED
[2022-03-31 18:19] LABS: Urine Bilirubin Dipstick 1 mg/dL (Negative)
[2022-03-31 18:26] LABS: Bacteria 2+ /hpf (None Seen); Red Blood Cells-Urine 10-25 SEEN /hpf (0-5); Squamous Epithelial Cells - UA 5-10 SEEN /hpf (5-10); White Blood Cells 0-5 SEEN /hpf (0-5)
[2022-03-31 18:27] LABS: Mucous, Urine 3+ /hpf (<or=2+)
--- NOTE | 2022-03-31 19:13 | CT_ITS ---
STUDY: CT ABDOMEN AND PELVIS WITH CONTRAST REASON FOR EXAM: Female, 31 years old. abdominal pain RADIATION DOSAGE (If Supplied By Facility): CTDIvol = ( 19.91 ) mGy, DLP = ( 1196.80 ) mGycm TECHNIQUE: Transaxial images were obtained from the dome of the diaphragm to the symphysis pubis without oral contrast. IV 100mL Isovue-[id number] was administered. Sagittal and coronal images were reconstructed. Individualized dose optimization techniques were used for this CT. COMPARISON: None. FINDINGS: The visualized lung bases are unremarkable. The visualized portions of the heart are within normal limits. Normal liver. Normal gallbladder and extrahepatic biliary system. Normal spleen. Normal pancreas. Normal bilateral adrenal glands. Normal right kidney. Normal left kidney. Normal visualized stomach. Normal small intestine. Normal colon. The appendix is visualized and appears normal. Normal abdominal aorta. Normal inferior vena cava. Normal retroperitoneum. Normal urinary bladder. Normal abdominal wall. Normal osseous structures. CT/Abdomen/Pelvis W IV Cont ONLY IMPRESSION: Normal enhanced CT of the abdomen and pelvis. Electronically Signed: Prateek Ramos MD at 19:57 EDT ,
--- NOTE | 2022-03-31 19:14 | EDS_ITS ---
HPI History of Present Illness Chief Complaint: General Illness Informant: patient Narrative Narrative: 31-year-old female with history of Crohn's disease, neutrophilic leukocytosis, PTSD, bipolar disorder and seizure disorder on chronic Humira and azathioprine presenting with diarrhea. Patient states that on Sunday of this week (4 days ago) she had sudden onset of extensive watery diarrhea. She was better throughout the week but then again had an episode of profuse watery diarrhea but this time she also had sweating, chills, nausea and dry heaves. Patient notes that she was on a course of prednisone a week ago and before that was on a course of antibiotics for cyst on her buttocks that her primary care doctor had lanced. Patient spoke to her GI office of Dr. King and was instructed to come to the ER for further evaluation. Patient states she has no pain or discomfort at this time. Does feel dehydrated. No other complaints. Denies any history of any abdominal surgeries. Denies any known history of C. difficile. 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 [facility] Medical History Anemia Anxiety Arthritis Asthma Back problem Bipolar disorder CPAP (continuous positive airway pressure) dependence Crohns disease Depression Dysmenorrhea Enuresis, nonorganic Epilepsy, unspecified, not intractable, without status epilepticus History of Crohn's disease Juvenile arthritis Lumbago Seizures Seizures Sleep apnea Wears glasses Home Medications albuterol sulfate 90 mcg/actuation aerosol inhaler 2 puff inhalation Q4H PRN shortness of breath or wheezing #8.5 grams 12/15/21 [Rx Last Taken Unknown] Humira 40 mg/0.8 mL subcutaneous syringe kit (adalimumab) See Rx Instructions .Route .COMPLEX #2 ea 01/16/22 [Rx Last Taken 02/07/22] naproxen 500 mg tablet 500 mg PO BID #14 tabs 01/28/22 [Rx Last Taken Unknown] hyoscyamine sulfate 0.125 mg tablet 0.125 mg PO Q6H PRN dyspepsia #60 tabs 03/28/22 [Rx Last Taken Unknown] ondansetron HCl 4 mg tablet 4 mg PO Q6H PRN nausea and vomiting #60 tabs 03/28/22 [Rx Last Taken Unknown] vancomycin 250 mg capsule 500 mg PO Q6H 14 days #112 caps 03/31/22 [Rx Last Taken Unknown] Allergy/AdvReac Type Severity Reaction Status Date / Time Food Allergies: Uncoded Allergy Hives Verified 03/31/22 18:00 Family History Father Suicide Mother Diabetes OCD (obsessive compulsive disorder) Depression Bipolar disorder (manic depression) Grandmother Diabetes Uncle Bowel disease Grandfather Colon cancer maternal - 2004 Other Anxiety Arthritis Epilepsy Surgical History History of cystoscopy History of wisdom tooth extraction Social History Smoking Status: Current every day smoker tobacco type: cigarettes Tobacco: How many years used: 5 alcohol intake: current details: social on weekends substance use type: does not use what type of physical activity do you participate in: none ROS ROS ED Constitutional Constitutional ED: Reports chills and sweats; Denies fever(s) Eyes Eyes: Denies blurry vision ENT ENT ED: Denies rhinorrhea Cardiovascular Cardiovascular: Denies chest pain or palpitations Respiratory/Chest Respiratory/Chest: Denies cough Gastrointestinal Gastrointestinal: Reports diarrhea, nausea and vomiting; Denies abdominal pain Genitourinary Genitourinary ED: Denies dysuria or hematuria Musculoskeletal Musculoskeletal: Denies arthralgias or myalgias Integumentary Denies rash Neurologic Neurologic: Denies headache(s) or weakness Psychiatric Psychiatric: Reports anxiety EXAM Physical Exam Const Vital Signs: 03/31/22 16:28 03/31/22 18:27 Temperature 96.9 F L Temperature Source Temporal Pulse Rate 80 Respiratory Rate 16 Respiratory Pattern Normal Blood Pressure 110/69 Blood Pressure Mean 82 Pulse Ox 98 Oxygen Delivery Method Room Air Positive well nourished and well developed General Appearance ED: well developed and NAD; Negative for pallor HEENT Reports dry mucous membranes Negative for trauma Mouth ED: Yes dry mucous membranes Mouth: dry mucous membranes Eyes PERRL and EOMs intact bilaterally Neck supple Neck Narrative: No meningeal signs Chest Wall inspection of chest normal Resp normal respiratory effort and clear to auscultation bilaterally Cardio regular rate, regular rhythm and no murmurs GI non-tender and non-distended GI Narrative: Normal rectum. No perirectal abscess appreciated. Auscultation: hyperactive bowel sounds Palpation: soft; Negative for tender Back/Spine no CVA tenderness Extremity normal to inspection General Extremety ED: Negative for edema or tenderness General Extremity: Negative for edema Neuro oriented x3 Sensorium / Orientation: alert Motor Exam: Negative for general weakness Psych mental status grossly normal Skin no rashes or lesions noted and no wounds General Skin Exam: Negative for jaundice or pallor MDM MDM MDM Narrative Medical decision making narrative: Evaluated for intermittent episodes of diarrhea. She really has no other complaints. Her medical history slightly complicated as she is on immunosuppressants and has Crohn's disease. Physical exam is remarkable only for some signs of dehydration. Abdomen is soft and nontender. She has hyperactive bowel sounds. Lab work shows significant leukocytosis of with a white blood cell count of 33.7. She is also slightly hemoconcentrated with a hemoglobin of 17.8. Platelets are 410. Creatinine minimally elevated at 1.08 which is mildly above her baseline of 0.8. Patient is given IV fluids in the ER. Urinalysis shows contamination as well as some red blood cells but otherwise normal. Lactate is normal at 0.8. CT the abdomen pelvis does not show any acute intra-abdominal pathology especially no signs of colitis, diverticulitis or abdominal abscess. Stool studies sent as I have a high suspicion for C. difficile given her leukocytosis, diarrhea and recent antibiotics. Lactoferrin is elevated. Case discussed with her GI doctor, Dr. King, we will empirically start her on oral vancomycin. Stool studies are pending. She is given return precautions to the ER. She will follow-up with her GI doctor otherwise. She is counseled on drinking lots of fluids as well as electrolytes given her diarrhea. She verbalizes agreement understand this plan and states she prefer to start treatment outpatient. Patient discharged home in stable condition. Lab Data Attestation: I reviewed the patient's lab results. Labs: Laboratory Results - last 24 hr 03/31/22 03/31/22 03/31/22 17:02 17:02 17:02 WBC 33.7 H* RBC 5.82 H Hgb 17.8 H Hct 54.0 H MCV 92.8 MCH 30.6 MCHC 33.0 RDW Std Deviation 43.8 RDW Coeff of Lauren 13.0 Plt Count 410 MPV 9.8 Immature Gran % (Auto) 1.100 H Neut % (Auto) 84.5 H Lymph % (Auto) 7.1 L Frederick % (Auto) 6.5 Eos % (Auto) 0.4 Baso % (Auto) 0.4 Absolute Neuts (auto) 28.5 H Absolute Lymphs (auto) 2.40 Nucleated RBC % 0 Differential Comment SCANNED Diff Path Review May foll Sodium 141 Potassium 4.0 Chloride 109 H Carbon Dioxide 27.0 Anion Gap 5 BUN 11 Creatinine 1.08 H Estim Creat Clear Calc 82.37 Est GFR (MDRD) Af Amer 76 Est GFR (MDRD) Non-Af 63 BUN/Creatinine Ratio 10.2 Glucose 138 H Lactic Acid Calcium 10.2 H Serum , Qual NEGATIVE Urine Color Urine Clarity Urine pH Ur Specific [place] Urine Protein Urine Glucose (UA) Urine Ketones Urine Occult Blood Urine Nitrite Urine Bilirubin Urine Urobilinogen Ur Leukocyte Esterase Urine RBC Urine WBC Ur Squamous Epith Cells Urine Bacteria Urine Mucus 03/31/22 03/31/22 18:00 19:20 WBC RBC Hgb Hct MCV MCH MCHC RDW Std Deviation RDW Coeff of Lauren Plt Count MPV Immature Gran % (Auto) Neut % (Auto) Lymph % (Auto) Frederick % (Auto) Eos % (Auto) Baso % (Auto) Absolute Neuts (auto) Absolute Lymphs (auto) Nucleated RBC % Differential Comment Diff Path Review Sodium Potassium Chloride Carbon Dioxide Anion Gap BUN Creatinine Estim Creat Clear Calc Est GFR (MDRD) Af Amer Est GFR (MDRD) Non-Af BUN/Creatinine Ratio Glucose Lactic Acid 0.8 Calcium Serum , Qual Urine Color Yellow Urine Clarity Cloudy Urine pH 5.0 Ur Specific Stoughton 1.030 Urine Protein 30 H Urine Glucose (UA) Normal Urine Ketones 15 H Urine Occult Blood 150 H Urine Nitrite Negative Urine Bilirubin 1 H Urine Urobilinogen 1 H Ur Leukocyte Esterase 25 H Urine RBC 10-25 SEEN Urine WBC 0-5 SEEN Ur Squamous Epith Cells 5-10 SEEN Urine Bacteria 2+ Urine Mucus 3+ Radiography Diagnostic Testing: Clinical Impression(s) from Imaging Studies Abdomen/Pelvis CT 03/31/22 19:13 IMPRESSION: Normal enhanced CT of the abdomen and pelvis. Electronically Signed: Prateek Ramos MD at 19:57 EDT , Discharge Plan Triage Chief Complaint: General Illness ED Provider: Megan Toledo Dx/Rx/DC Orders Clinical Impression: Diarrhea, Leukocytosis (leucocytosis), History of Crohn's disease Instructions: C diff, ED Diarrhea, Unknown Cause Prescriptions: New vancomycin 250 mg capsule 500 mg PO Q6H 14 Days Qty: 112 0RF No Action albuterol sulfate 90 mcg/actuation HFA aerosol inhaler 2 puff INHALATION Q4H PRN (Reason: shortness of breath or wheezing) Qty: 8.5 3RF Rx Instructions: administer with spacer naproxen 500 mg tablet 500 mg PO BID Qty: 14 0RF Humira 40 mg/0.8 mL syringe kit See Rx Instructions .ROUTE .COMPLEX Qty: 2 12RF Dose Instruction: Give 40mg as a subcutaneous injection every 14 days. Use as directed by prescriber. *See Enclosed Instructions for Use of Injection Device* PROTECT FROM LIGHT Rx Instructions: Give 40mg as a subcutaneous injection every 14 days. Use as directed by prescriber. *See Enclosed Instructions for Use of Injection Device* PROTECT FROM LIGHT ondansetron HCl 4 mg tablet 4 mg PO Q6H PRN (Reason: nausea and vomiting) Qty: 60 2RF Rx Instructions: take every six hours until symptoms are controlled then just as needed. hyoscyamine sulfate 0.125 mg tablet 0.125 mg PO Q6H PRN (Reason: dyspepsia) Qty: 60 2RF Primary Care Provider: Radha Calloway Referrals: Radha Calloway MD [Primary Care Provider] - Juan Alberto King DO [Med Staff - Active Staff] - 3-5 Days if not improving Activity Restrictions/Additional Instructions: Take Pepto-Bismol as needed for diarrhea. You will be treated for C. difficile even though your stool culture is not back. Follow-up with Dr. King. Do not take Imodium unless instructed to by Dr. King. Make sure you are drinking lots of fluids and electrolyte solution with potassium in it. Disposition Disposition: Home, Self Care
[2022-03-31] MEDS: 0.9% Normal Saline 1,000 ML 999 ML IV (19:20)
[2022-03-31 20:03] LABS: Lactic Acid 0.8 mmol/L (0.4-1.9)
[2022-03-31] MEDS: Vancomycin HCl 250 MG Capsule 500 MG PO (21:49)
[2022-03-31 21:52] VITALS: BP 115/67; PULSE 72; RESP 16; O2SAT 97
[2022-04-04 13:41] LABS: Pathologist Review Reviewed
== END 2022-03-31 21:52 | disposition home or self-care (01) ==
PROVIDERS: Emergency Provider Emergency Medicine; PCP Family Medicine; Visit Provider Emergency Medicine
DX: R19.7 Diarrhea, unspecified (principal); K50.90 Crohn's disease, unspecified, without complications; D72.829 Elevated white blood cell count, unspecified; F17.210 Nicotine dependence, cigarettes, uncomplicated; G47.30 Sleep apnea, unspecified; Z79.899 Other long term (current) drug therapy
CPT/HCPCS: 74177; 80048; 81001; 83605; 83630; 84703; 85025; 87177; 87209; 87493; 87506; 99284; J7030; A4216

== ENCOUNTER → 2022-04-24 | Outpatient (CLI) | payer MEDICARE, MEDICAID, SELFPAY ==
--- NOTE | 2022-04-24 10:40 | RAD_ITS ---
CLINICAL HISTORY: Female, 31 years old. Chronic right hip pain. PROCEDURE: ARTHROGRAM - RIGHT HIP. CONSENT: The procedure as well as the benefits and possible complications including infection and bleeding were explained to the patient. Informed consent was obtained. FLUOROSCOPY TIME (if supplied): (1 minute and 12 seconds) minutes/seconds Injection Information: 10 cc of dilute MRI contrast. Number of images obtained: 1 TECHNIQUE: (All elements of maximal sterile barrier technique followed, including US elements as applicable) The patient was in the supine position. The overlying skin was prepped and draped in the usual sterile fashion. Following local anesthetic application and under direct fluoroscopic guidance, a 22-gauge spinal needle was placed into the hip joint. 2 cc of ISOVUE 300 was injected for confirmation. Following this, 10 cc of dilute MRI contrast was injected. The patient tolerated the procedure well. RAD/Arthrogram Hip w/ MRI IMPRESSION: Right hip arthrogram for MRI imaging. The patient tolerated the procedure well. Electronically Signed: Shady Butt MD at 12:14 EDT ,
--- NOTE | 2022-04-24 10:50 | MRI_ITS ---
STUDY: MR RIGHT HIP ARTHROGRAPHY REASON FOR EXAM: Right hip pain and catching for 6 months or more. TECHNIQUE: Standardized fat and water weighted pulse sequences were obtained in all 3 orthogonal planes after intra-articular instillation of 0.8 mL of dilute gadolinium. COMPARISON: Radiographs 12/05/2021. FINDINGS: Normal hip joint without articular joint space narrowing. Normal acetabulum. There is a tear of the anterosuperior labrum (T1 sagittal images 8-10) and superior labrum (T1 coronal images 12, 13). Normal femoral head. Normal femoral neck and intratrochanteric region. Normal gluteus minimus, medius and iliopsoas tendons and distal insertions. There is no trochanteric, iliopsoas or iliopectineal bursitis. Normal visualized superior and inferior pubic rami. Normal ischial tuberosity. Normal origin of the hamstring tendons. Normal visualized iliac wing. Normal visualized soft tissue structures of the pelvis. MRI/Lower Ext/Jt Only/W Contrast IMPRESSION: Right labral tear. Electronically Signed: Nishant West MD at 13:43 EDT ,
[2022-04-24] MEDS: Lidocaine 2% (5ml sdv) 5 ML VIAL.MPF INFILT (11:01)
[2022-04-24] MEDS: Gadoterate Meglumine Diluted 10 ML, Iopamidol 5 ML, Lidocaine 1% (20 ml mdv) 5 ML, Epin... INTRAARTIC (11:03)
== END | disposition home or self-care (01) ==
LOC: RAD 10:35
PROVIDERS: PCP Family Medicine; Referring Provider Physician Assistant; Visit Provider Physician Assistant
DX: S73.191A Other sprain of right hip, initial encounter (principal); X58.XXXA Exposure to other specified factors, initial encounter; G89.29 Other chronic pain
CPT/HCPCS: 27093; 73722; 77002; Q9967

== ENCOUNTER → 2022-04-26 | Outpatient (CLI) | payer MEDICARE, MEDICAID, SELFPAY ==
[2022-04-26 16:21] LABS: Absolute Lymphocyte Count 3.95 X10^3/uL (0.83-4.51); Absolute Neutrophil Count 8.2 X10^3/uL (2.0-7.7); Basophil# 0.04 X10^3/uL; Basophil% 0.3 % (0-1); Eosinophil# 0.16 X10^3/uL; Eosinophils% 1.2 % (0-5); Hematocrit 44.3 % (37-47); Hemoglobin 14.9 g/dL (12.0-15.0); Lymphocyte # 3.95 X10^3/ul (0.83-4.51); Lymphocyte % 29.3 % (19-41); Mean Corp Hgb Conc 33.6 g/dL (32-36); Mean Corpuscular Hgb 30.8 pg (27.0-32.0); Mean Corpuscular Volume 91.7 fL (81-99); Mean Platelet Vol. 9.8 fl (6.2-12.0); Monocyte# 1.06 X10^3/uL; Monocyte% 7.9 % (0-10); NRBC Flagged by Analyzer 0 % (0-5); Neutrophil # 8.21 X10^3/uL (2.7-7.7); Neutrophil % 60.9 % (47-70); Platelet Count 316 K/mm3 (150-450); RBC Distribution Width CV 13.2 % (11.6-14.6); RBC Distribution Width SD 44.3 fl (35.1-43.9); Red Blood Count 4.83 M/mm3 (4.2-5.4); White Blood Count 13.5 K/mm3 (4.4-11.0)
[2022-04-26 16:30] LABS: Erythrocyte Sedimentation Rate 22 mm/hr (0-30)
[2022-04-26 16:53] LABS: ALB/GLOB Ratio 0.9 RATIO (0.9-2.4); AST(SGOT) 15 U/L (15-37); Alanine Aminotransfer ALT/SGPT 21 U/L (13-56); Albumin, Serum 3.5 g/dL (3.2-5.0); Alkaline Phosphatase 49 U/L (45-117); Anion Gap 6 (5-15); BUN 11 mg/dL (7-18); BUN/Creat Ratio 12.7 RATIO (10-20); Calcium,Total 9.3 mg/dL (8.5-10.1); Chloride 107 mmol/L (98-107); Creatinine, Serum 0.87 mg/dL (0.55-1.02); EST Glomerular Filtration Rate 81 mL/min (>60); Est Glom Filt Rate - Afr Amer 98 mL/min (>60); Globulin 3.7 g/dL (2.2-4.2); Glucose 81 mg/dL (74-106); Protein, Total 7.2 g/dL (6.4-8.2); Sodium Level 142 mmol/L (136-145)
== END | disposition home or self-care (01) ==
PROVIDERS: PCP Family Medicine; Visit Provider Internal Medicine Gastroenterology
DX: D72.9 Disorder of white blood cells, unspecified (principal); K50.90 Crohn's disease, unspecified, without complications
CPT/HCPCS: 36415; 80053; 85025; 85652; 86140

== ENCOUNTER → 2022-08-02 | Outpatient (CLI) | payer MEDICARE, MEDICAID, SELFPAY ==
--- NOTE | 2022-08-02 16:18 | RAD_ITS ---
STUDY: XR Hand Min 3 Views REASON FOR EXAM: Female, 32 years old. rheumatoid arthritis TECHNIQUE: XR Hand Min 3 Views LEFT COMPARISON: None. FINDINGS: Normal radiocarpal articulation. Normal distal radioulnar joint. Normal visualized carpal bones. Normal carpal articulations Normal carpometacarpal articulation of the thumb. Normal second through fifth carpometacarpal joints. Normal metacarpi. Normal metacarpophalangeal joint of the thumb. Normal interphalangeal joint of the thumb. Normal proximal and distal phalanges of the thumb. Normal metacarpophalangeal joints of the second through fifth fingers. Normal proximal and distal interphalangeal joints of the second through fifth fingers. Normal phalanges of the second through fifth fingers. The soft tissue structures are unremarkable. RAD/Hand Min 3 Views IMPRESSION: There are no acute findings. Electronically Signed: Jg Lopez MD at 18:09 EST ,
--- NOTE | 2022-08-02 16:28 | RAD_ITS ---
STUDY: XR Hand Min 3 Views REASON FOR EXAM: Female, 32 years old. rheumatoid arthritis TECHNIQUE: XR Hand Min 3 Views RIGHT COMPARISON: None. FINDINGS: Normal radiocarpal articulation. Normal distal radioulnar joint. Normal visualized carpal bones. Normal carpal articulations Normal carpometacarpal articulation of the thumb. Normal second through fifth carpometacarpal joints. Normal metacarpi. Normal metacarpophalangeal joint of the thumb. Normal interphalangeal joint of the thumb. Normal proximal and distal phalanges of the thumb. Normal metacarpophalangeal joints of the second through fifth fingers. Normal proximal and distal interphalangeal joints of the second through fifth fingers. Normal phalanges of the second through fifth fingers. The soft tissue structures are unremarkable. RAD/Hand Min 3 Views IMPRESSION: There are no acute findings. Electronically Signed: Jg Lopez MD at 18:09 EST ,
[2022-08-02 17:12] LABS: Absolute Lymphocyte Count 3.26 X10^3/uL (0.83-4.51); Basophil# 0.03 X10^3/uL; Basophil% 0.2 % (0-1); Eosinophil# 0.19 X10^3/uL; Eosinophils% 1.5 % (0-5); Hemoglobin 14.4 g/dL (12.0-15.0); Lymphocyte # 3.26 X10^3/ul (0.83-4.51); Lymphocyte % 25.9 % (19-41); Mean Corp Hgb Conc 32.7 g/dL (32-36); Mean Corpuscular Volume 94.8 fL (81-99); Mean Platelet Vol. 10.1 fl (6.2-12.0); Monocyte# 1.08 X10^3/uL; Monocyte% 8.6 % (0-10); NRBC Flagged by Analyzer 0 % (0-5); Neutrophil # 7.97 X10^3/uL (2.7-7.7); Neutrophil % 63.5 % (47-70); Platelet Count 321 K/mm3 (150-450); RBC Distribution Width CV 13.1 % (11.6-14.6); RBC Distribution Width SD 45.7 fl (35.1-43.9); Red Blood Count 4.64 M/mm3 (4.2-5.4); White Blood Count 12.6 K/mm3 (4.4-11.0)
[2022-08-02 17:24] LABS: Erythrocyte Sedimentation Rate 15 mm/hr (0-30)
[2022-08-02 17:32] LABS: CRP 7.01 mg/L (0.0-3.0)
== END | disposition home or self-care (01) ==
PROVIDERS: PCP Family Medicine; Referring Provider Internal Medicine Gastroenterology; Visit Provider Internal Medicine Gastroenterology
DX: D72.9 Disorder of white blood cells, unspecified (principal); K50.90 Crohn's disease, unspecified, without complications; M06.9 Rheumatoid arthritis, unspecified
CPT/HCPCS: 36415; 73130; 85025; 85652; 86140

== ENCOUNTER → 2022-11-20 | Outpatient (CLI) | payer MEDICARE, MEDICAID, SELFPAY | END | disposition home or self-care (01) | LOC: LABSPEC 16:13 | PROVIDERS: PCP Family Medicine; Visit Provider Internal Medicine Gastroenterology | DX: L02.31 Cutaneous abscess of buttock (principal) | CPT/HCPCS: 87070; 87075; 87077; 87205 ==

== ENCOUNTER 2023-06-14 19:56 | Emergency (ER) | payer MEDICARE, MEDICAID, SELFPAY ==
[2023-06-14 19:58] VITALS: BP 101/60; PULSE 70; RESP 18; TEMP 36.8; O2SAT 99; BMI 33.6
--- NOTE | 2023-06-14 20:01 | RAD_ITS ---
INDICATION: PAIN EXAMINATION/TECHNIQUE: X-RAY - RIGHT XR Wrist Min 3 Views COMPARISON: XR right hand August 02, 2022. FINDINGS: 3 views of the right wrist were obtained. No acute fracture identified. RAD/Wrist min 3 Views IMPRESSION: No acute fracture identified. Electronically Signed: Vick Dial MD at 20:43 EST ,
--- NOTE | 2023-06-14 23:59 | ED.RN ---
CALLED AT [phone], NO ANSWER
== END 2023-06-14 23:56 | disposition left against medical advice (07) ==
LOC: ED 06-15 00:05
PROVIDERS: PCP Family Medicine
DX: Z53.21 Procedure and treatment not carried out due to patient leaving prior to being seen by health care provider (principal)
CPT/HCPCS: 73110

== ENCOUNTER → 2023-09-26 | Outpatient (CLI) | payer MEDICARE, MEDICAID, SELFPAY ==
[2023-09-26 14:52] LABS: Erythrocyte Sedimentation Rate 13 mm/hr (0-30)
[2023-09-26 14:54] LABS: Absolute Lymphocyte Count 3.25 X10^3/uL (0.83-4.51); Absolute Neutrophil Count 8.1 X10^3/uL (2.0-7.7); Basophil# 0.04 X10^3/uL; Basophil% 0.3 % (0-1); Eosinophil# 0.18 X10^3/uL; Eosinophils% 1.4 % (0-5); Hematocrit 45.5 % (37-47); Hemoglobin 14.4 g/dL (12.0-15.0); Lymphocyte # 3.25 X10^3/ul (0.83-4.51); Lymphocyte % 25.9 % (19-41); Mean Corp Hgb Conc 31.6 g/dL (32-36); Mean Corpuscular Hgb 29.3 pg (27.0-32.0); Mean Corpuscular Volume 92.7 fL (81-99); Mean Platelet Vol. 9.5 fl (6.2-12.0); Monocyte% 7.2 % (0-10); NRBC Flagged by Analyzer 0 % (0-5); Neutrophil # 8.12 X10^3/uL (2.7-7.7); Neutrophil % 64.8 % (47-70); Platelet Count 404 K/mm3 (150-450); RBC Distribution Width CV 13.2 % (11.6-14.6); RBC Distribution Width SD 45.2 fl (35.1-43.9); Red Blood Count 4.91 M/mm3 (4.2-5.4); White Blood Count 12.5 K/mm3 (4.4-11.0)
[2023-09-26 15:09] LABS: ALB/GLOB Ratio 0.8 RATIO (0.9-2.4); AST(SGOT) 8 U/L (15-37); Alanine Aminotransfer ALT/SGPT 14 U/L (13-56); Albumin, Serum 3.3 g/dL (3.2-5.0); Alkaline Phosphatase 55 U/L (45-117); Anion Gap 4 (5-15); BUN 9 mg/dL (7-18); BUN/Creat Ratio 10.1 RATIO (10-20); CRP 9.03 mg/L (0.0-3.0); Calcium,Total 8.8 mg/dL (8.5-10.1); Chloride 108 mmol/L (98-107); Creatinine, Serum 0.89 mg/dL (0.55-1.02); EST Glomerular Filtration Rate 78 mL/min (>60); Est Glom Filt Rate - Afr Amer 94 mL/min (>60); Globulin 3.9 g/dL (2.2-4.2); Glucose 65 mg/dL (74-106); LDH 144 U/L (84-246); Protein, Total 7.2 g/dL (6.4-8.2); Sodium Level 141 mmol/L (136-145)
--- OUTSIDE RECORDS SUMMARY | 2023-09-26 23:13 | XMS RPT_ITS | CCD ---
Author Name Unknown Address [address] [place] [address] Organization [facility] Care Team Providers Care Spot Worker Name Role Phone Radha Calloway Primary Care Provider [phone] Allergies Allergy Classification Reported Allergen(s) Allergy Type Date of Onset Reaction(s) Facility (2 sources) almond allergenic extract; Translations: [ALMOND] Drug Allergy 01-24-2012 [facility] Work Phone: Medications Completed/Discontinued Medications Medication Drug Class(es) Dates Sig (Normalized) Sig (Original) 0.8 ml adalimumab 50 mg/ml auto-injector (1 source) Tumor Necrosis Factor Tiffany Start: 07-07-2021 Adalimumab (HUMIRA PEN) 40 mg/0.8 mL Indications: Crohn's disease of small intestine without complication (HCC) Inject 1 pen (40mg) subcutaneously every other week. 2 Each 2 07/07/2021 Active Problems Active Problems Problem Classification Problem Date Documented Da te Episodic/Chronic Asthma (1 source) Exercise-induced asthma; Translations: [Exercise induced bronchospasm] Onset: 06-24-2018 06-24-2018 Chronic Genitourinary symptoms and ill-defined conditions (1 source) Nocturnal enuresis; Translations: [Nocturnal enuresis] Onset: 03-08-2015 03-08-2015 Chronic Mood disorders (1 source) Bipolar I disorder; Translations: [Bipolar disorder, unspecified] Onset: 06-24-2018 08-25-2020 Chronic Osteoarthritis (1 source) Arthritis; Translations: [Unspecified osteoarthritis, unspecified site] Onset: 06-24-2018 06-24-2018 Chronic Other nervous system disorders (1 source) Paresthesia of hand ; Translations: [Anesthesia of skin] 06-14-2023 Episodic Other nutritional; endocrine; and metabolic disorders (1 source) Morbid obesity; Translations: [Morbid (severe) obesity due to excess calories] Onset: 08-25-2020 08-25-2020 Chronic Regional enteritis and ulcerative colitis (1 source) Crohn's disease of colon; Translations: [Crohn's disease of large intestine without complications] Onset: 06-24-2018 06-24-2018 Chronic Residual codes; unclassified (1 source) Sleep apnea; Translations: [Sleep apnea, unspecified] Onset: 06-24-2018 06-24-2018 Chronic Past or Other Problems Problem Classification Problem Date Documented Da te Episodic/Chronic Epilepsy; convulsions (1 source) Seizure; Translations: [Unspecified convulsions] Onset: 06-24-2018 06-24-2018 Episodic Residual codes; unclassified (1 source) FH: Malignant hyperpyrexia; Translations: [Family history of other specified conditions] Onset: 08-25-2020 08-25-2020 Episodic Results Test Name Value Interpretation Reference Range Facil ity Encounters Encounter Date Encounter Type Care Provider Facility Start: 06-14-2023 End: 06-14-2023 ambulatory RADHA PRAKASH CALLOWAY Facility:[facility] Start: 06-14-2023 End: 06-14-2023 Patient encounter procedure Joanna Freitas APRN.GYM MANAGER Work Phone: [facility] Plan of Treatment Date Care Activity Detail Author Start: 12-19-2027 Urine microalbumin profile DTa P,Tdap,Td Vaccine (8 - Td or Tdap) [facility] Start: 03-30-2023 Influenza vaccination Influenza Vacc ine (#1) [facility] Start: 07-30-2022 Depression Assessment Depression Ass essment [facility] Start: 2021 HPV Testing HPV Testing [facility] Start: 2012 Pap Testing Pap Testing [facility] Start: 2010 Hepatitis A Vaccine (1 of 2 - Risk 2-dose series) Hepatitis A Vaccine (1 of 2 - Risk 2-dose series) [facility] Start: 2010 Shingrix Vaccine (1 of 2) Shingrix V accine (1 of 2) [facility] Start: 2009 Annual PCP Team Watch Train Inspector meño Disease Visit Annual PCP Team Chronic Disease Visit [facility] Start: 2009 Hepatitis C Screening Hepatitis C Sc reening [facility] Start: 2009 HIV Screening HIV Screening [facility] Start: 2009 Spirometry Spirometry [facility] Start: 2001 Meningococcal B Vacc ine: Consider Based On Risk (1 of 4 - Increased Risk) Meningococcal B Vaccine: Consider Based On Risk (1 of 4 - Increased Risk) [facility] Start: 1997 Pneumococcal vaccination Pneum ococcal Vaccine (1 - PCV) [facility] Start: 1996 Covid-19 Vaccine (#1) Covid-19 Vacci ne (#1) [facility] Immunizations Immunization Date Immunization Notes Care Provider Fa wilner 12-18-2017 tetanus toxoid, redu khalif diphtheria toxoid, and acellular pertussis vaccine, adsorbed Joanna Zena WATCH BAND ASSEMBLER.GYM MANAGER Work Phone: [facility] 06-24-2007 influenza virus vacc ine, whole virus Joanna Zena WATCH BAND ASSEMBLER.GYM MANAGER Work Phone: [facility] 06-24-2007 influenza virus vacc ine, unspecified formulation Joanna Zena WATCH BAND ASSEMBLER.GYM MANAGER Work Phone: [facility] 02-16-2006 tetanus toxoid, redu khalif diphtheria toxoid, and acellular pertussis vaccine, adsorbed Joanna Zena WATCH BAND ASSEMBLER.GYM MANAGER Work Phone: [facility] 02-16-2006 varicella virus vaccine Peyman a Zena WATCH BAND ASSEMBLER.GYM MANAGER Work Phone: [facility] 01-03-2006 varicella virus vaccine Peyman a Zena WATCH BAND ASSEMBLER.GYM MANAGER Work Phone: [facility] 12-04-2005 hepatitis B vaccine, pediatric or pediatric/adolescent dosage Joanna Zena WATCH BAND ASSEMBLER.GYM MANAGER Work Phone: [facility] 07-07-2005 hepatitis B vaccine, pediatric or pediatric/adolescent dosage Joanna Zena WATCH BAND ASSEMBLER.GYM MANAGER Work Phone: [facility] 06-05-2005 hepatitis B vaccine, pediatric or pediatric/adolescent dosage Joanna Zena WATCH BAND ASSEMBLER.GYM MANAGER Work Phone: [facility] 09-12-1996 diphtheria, tetanus toxoids and acellular pertussis vaccine, unspecified formulation Joanna Zena WATCH BAND ASSEMBLER.GYM MANAGER Work Phone: [facility] 09-12-1996 measles, mumps and rubella virus vaccine Joanna Zena WATCH BAND ASSEMBLER.GYM MANAGER Work Phone: [facility] 09-12-1996 trivalent poliovirus vaccine, live, oral Joanna Zena WATCH BAND ASSEMBLER.GYM MANAGER Work Phone: [facility] 03-31-1993 diphtheria, tetanus toxoids and pertussis vaccine Joanna Zena WATCH BAND ASSEMBLER.GYM MANAGER Work Phone: [facility] 03-31-1993 trivalent poliovirus vaccine, live, oral Joanna Zena WATCH BAND ASSEMBLER.GYM MANAGER Work Phone: [facility] 09-02-1992 diphtheria, tetanus toxoids and pertussis vaccine Joanna Zena WATCH BAND ASSEMBLER.GYM MANAGER Work Phone: [facility] 09-02-1992 haemophilus influenz ae type b vaccine, conjugate unspecified formulation Joanna Zena WATCH BAND ASSEMBLER.GYM MANAGER Work Phone: [facility] 09-02-1992 measles, mumps and rubella virus vaccine Joanna Zena WATCH BAND ASSEMBLER.GYM MANAGER Work Phone: [facility] 1991 diphtheria, tetanus toxoids and pertussis vaccine Joanna Zena WATCH BAND ASSEMBLER.GYM MANAGER Work Phone: [facility] 1991 haemophilus influenz ae type b vaccine, conjugate unspecified formulation Joanna Zena WATCH BAND ASSEMBLER.GYM MANAGER Work Phone: [facility] 1991 trivalent poliovirus vaccine, live, oral Joanna Zena WATCH BAND ASSEMBLER.GYM MANAGER Work Phone: [facility] 1991 diphtheria, tetanus toxoids and pertussis vaccine Joanna Zena WATCH BAND ASSEMBLER.GYM MANAGER Work Phone: [facility] 1991 haemophilus influenz ae type b vaccine, conjugate unspecified formulation Joanna Zena WATCH BAND ASSEMBLER.GYM MANAGER Work Phone: [facility] 1991 trivalent poliovirus vaccine, live, oral Joanna Zena WATCH BAND ASSEMBLER.GYM MANAGER Work Phone: [facility] Payers Date Payer Category Payer Medicaid [facility] MEDICAID [employer]C ARE [facility] MEDICAID [id number] 2020-Present [phone] [address] [place] [address] Medicaid [id number] 2020 Medicare [facility] MEDICARE MYC ARE [facility] MEDICARE [id number] 2020-Present [phone] [address] [place] [address] Medicare [id number] 2020 Medicare [id number] Social History Date Type Detail Facility Start: 10-22-2020 [facility] History of tobacco use Cigarette Smoker [facility] Start: 07-07-2020 End: 10-22-2020 Cigarettes smoked current (pack per day) - Reported 1 [facility] Start: 10-22-2020 Tobacco use and exposure Smoke less tobacco non-user [facility] Start: 10-22-2020 Alcohol intake Current drinke r of alcohol (finding) [facility] Start: 07-07-2020 End: 10-22-2020 Tobacco use panel [facility] National Score (1-10 0), lower number is lower risk Not on file [facility] Start: 10-22-2020 Tobacco Comment Pt has cut claritza k to 1/2 pack daily. [facility] Start: 06-24-2018 Alcohol Comment on weekends only [facility] Start: 1991 Sex Assigned At Not on file [facility] Progress note 06-14-2023 Note Date & Type Note Facility 06-14-2023 Note HNO ID: [id number] Author: Joanna Freitas APRN.GYM MANAGER Service: ? Author Type: Nurse Practitioner Type: Progress Notes Filed: 06/14/2023 7:37 PM Note Text: Triage Note: WOO Powers is a 33 year old female who presents today for CC of numbness, tingling, and lack of function of right hand. Patient has full use of left hand, and no ROM, cold to touch. Cap refill delayed. LMP 07/27/2020 Social History Tobacco Use Smoking status: Every Day Packs/day: 1.00 Years: 10.00 Additional pack years: 0.00 Total pack years: 10.00 Types: Cigarettes Smokeless tobacco: Never Tobacco comments: Pt has cut back to 1/2 pack daily. Vaping Use Vaping Use: Never used Substance Use Topics Alcohol use: Yes Alcohol/week: 25.0 standard drinks of alcohol Types: 10 Cans of Beer (12oz) per week Comment: on weekends only Drug use: No PAST MEDICAL HISTORY Diagnosis Date Arthritis Asthma Complication of anesthesia Crohn's colitis (HCC) Depression Manic depression (HCC) Seizure disorder (HCC) Seizures (HCC) Sleep apnea 06/24/2018 Snoring I have confirmed and edited as necessary, the [facility] ASSESSMENT/PLAN: 1. Numbness and tingling in right hand - ICD9: 782.0, ICD10: R20.0, R20.2 Due to nature of patient's complaint and lack of investigative tools available at [facility], recommend patient be seen at nearest ED for further work up of right hand numbness, lack of ROM, cold to touch. Patient given directions to [place] ED. Diagnosis and treatment plan were discussed and questions were answered to the patient's satisfaction. Pt acknowledged understanding of concepts and follow up plan. Specific signs and symptoms that would indicate the need for higher level of care were discussed in detail warranting prompt ER evaluation. Joanna Freitas APRN.HOMER [facility] History of Present illness Narrative 06-14-2023 Joanna Freitas APRN.GYM MANAGER - 06/14/2023 7:30 PM EST Note Date & Type Note Facility 06-14-2023 History of Presen t illness Narrative Triage Note: WOO Powers is a 33 year old female who presents today for CC of numbness, tingling, and lack of function of right hand. Patient has full use of left hand, and no ROM, cold to touch. Cap refill delayed. LMP 07/27/2020 Social History Tobacco Use Smoking status: Every Day Packs/day: 1.00 Years: 10.00 Additional pack years: 0.00 Total pack years: 10.00 Types: Cigarettes Smokeless tobacco: Never Tobacco comments: Pt has cut back to 1/2 pack daily. Vaping Use Vaping Use: Never used Substance Use Topics Alcohol use: Yes Alcohol/week: 25.0 standard drinks of alcohol Types: 10 Cans of Beer (12oz) per week Comment: on weekends only Drug use: No PAST MEDICAL HISTORY Diagnosis Date Arthritis Asthma Complication of anesthesia Crohn's colitis (HCC) Depression Manic depression (HCC) Seizure disorder (HCC) Seizures (HCC) Sleep apnea 06/24/2018 Snoring I have confirmed and edited as necessary, the [facility] ASSESSMENT/PLAN: 1. Numbness and tingling in right hand - ICD9: 782.0, ICD10: R20.0, R20.2 Due to nature of patient's complaint and lack of investigative tools available at [facility], recommend patient be seen at nearest ED for further work up of right hand numbness, lack of ROM, cold to touch. Patient given directions to [place] ED. Diagnosis and treatment plan were discussed and questions were answered to the patient's satisfaction. Pt acknowledged understanding of concepts and follow up plan. Specific signs and symptoms that would indicate the need for higher level of care were discussed in detail warranting prompt ER evaluation. Joanna Freitas APRN.CNP documented in this encounter [facility] Evaluation note Note Date & Type Note Facility documented in this encounter [facility] Summary Purpose Family History No Family History Records Found Advance Directives No Advanced Directives Records Found Additional Source Comments Source Comments (unrecognize d section and content) In the event this informatio n is protected by the Federal Confidentiality of Alcohol and Drug Abuse Patient Records regulations: The Federal rules restrict any use of the information to criminally investigate or prosecute any alcohol or drug abuse patient.[facility] Care Teams (unrecognized sec tion and content) INFORMATION SOURCE (unrecogn ized section and content) FOR RECORDS PERTAINING TO PATIENTS WHO ARE OR HAVE BEEN ENROLLED IN A CHEMICAL DEPENDENCY/SUBSTANCEABUSE PROGRAM, SOME INFORMATION MAY BE OMITTED. This clinical summary was aggregated from multiple sources. Caution should be exercised in using it in the provision of clinical care. This summary normalizes information from multiple sources, and as a consequence, information in this document may materially change the coding, format and clinical context of patient data. In addition, data may be omitted in some cases. CLINICAL DECISIONS SHOULD BE BASED ON THE PRIMARY CLINICAL RECORDS. [employer] [facility]. provides no warranty or guarantee of the accuracy or completeness of information in this document.
[2023-09-28 17:07] LABS: QNTFERON TB Mitogen Value > 10.00 IU/mL (.); QNTFERON TB Nil Value 0 IU/mL (.); QNTFERON TB1+ Ag Value 0 IU/mL (.); QNTFERON TB2+ Ag Value 0 IU/mL (.); QNTIFERON TB Positive Criteria Negative (Negative)
[2023-10-02 01:07] LABS: Calprotectin, Stool 609 ug/g (0-120)
== END | disposition home or self-care (01) ==
PROVIDERS: PCP Family Medicine; Referring Provider Internal Medicine Gastroenterology; Visit Provider Internal Medicine Gastroenterology
DX: K50.90 Crohn's disease, unspecified, without complications (principal); D72.9 Disorder of white blood cells, unspecified
CPT/HCPCS: 36415; 80053; 83615; 83630; 83993; 85025; 85652; 86140; 86480

== ENCOUNTER → 2024-01-23 | Outpatient (CLI) | payer MEDICARE, MEDICAID, SELFPAY ==
[2024-01-23 12:29] LABS: Erythrocyte Sedimentation Rate 4 mm/hr (0-30)
[2024-01-23 12:58] LABS: CRP 5.58 mg/L (0.0-3.0)
== END | disposition home or self-care (01) ==
PROVIDERS: PCP Family Medicine; Referring Provider Internal Medicine Gastroenterology; Visit Provider Internal Medicine Gastroenterology
DX: K50.90 Crohn's disease, unspecified, without complications (principal)
CPT/HCPCS: 36415; 85652; 86140

== ENCOUNTER → 2024-04-24 | Outpatient (CLI) | payer MEDICARE, MEDICAID, SELFPAY ==
[2024-02-18] VITALS (16 sets, daily range): BP systolic 72–101; BP diastolic 53–77; PULSE 38–68; RESP 14–18; TEMP 36.1–36.4; O2SAT 99–100; BMI 32.5
--- NOTE | 2024-02-18 09:32 | PCM.PRE.AN2 ---
ASA Classification* ASA Classification ASA Classification: 2 Assessment & Plan Anesthesia* Anesthesia Assessment Anesthesia Assessment: Discussed sedation and/or anesthesia options, risks, benefits, and alternatives with patient/parents/legal guardian/POA. Questions invited. The patient/parents/legal guardian/POA seems to understand and agrees to proceed with anesthesia plan. Reviewed the physical assessment, medical history, allergy history and patient home medications list prior to surgery/procedure/anesthetic and documented any changes. Performed airway and anesthesia risk assessments. Anesthesia Type Anesthesia Type: MAC Anesthesia Focused Assessment* Temperature: 97 F Pulse Rate: 68 Blood Pressure: 101/76 Respiratory Rate: 16 Pulse Ox: 100 Airway Assessment Mouth opens: >3 cm Mallampati Score: II Focused Labs Anesthesia Preop lab: CBC WBC 12.5 K/mm3 (4.4-11.0) H 09/26/23 14:06 RBC 4.91 M/mm3 (4.2-5.4) 09/26/23 14:06 Hgb 14.4 g/dL (12.0-15.0) 09/26/23 14:06 Hct 45.5 % (37-47) 09/26/23 14:06 Plt Count 404 K/mm3 (150-450) 09/26/23 14:06 CHEMISTRY Potassium 4.0 mmol/L (3.5-5.1) 09/26/23 14:06 Sodium 141 mmol/L (136-145) 09/26/23 14:06 Magnesium 2.1 mg/dL (1.6-2.6) 10/23/17 09:46 Phosphorus 2.5 mg/dL (2.5-4.9) 10/23/17 09:46 BUN 9 mg/dL (7-18) 09/26/23 14:06 Creatinine 0.89 mg/dL (0.55-1.02) 09/26/23 14:06 Glucose 65 mg/dL (74-106) L 09/26/23 14:06 TSH 2.24 uIU/mL (0.358-3.74) 06/25/15 11:29 COAG PT 12.3 SECONDS (11.7-14.9) 12/21/15 10:00 Urine Test Negative Negative 07/28/21 10:00 Pre-Assessment Diagnosis/Proposed Procedure Planned Operative Procedure(s): Colonoscopy,EGD Anesthesia History Anesthesia History - contact center manager: Anesthesia History - contact center manager Hx Hospitalization No 02/14/24 10:44 Any Problems With Anesthesia No 02/14/24 10:44 Cholinesterase deficiency No 02/14/24 10:44 You/Your Family Experience Yes: COUSIN 4 GENERATIONS 02/14/24 10:44 fever (hyperthermia) with AGO Relationship MAT UNCLE & GRANDMOTHERS 12/05/23 12:55 SIDE Recent Exposure to Contagious No 02/18/24 09:29 Disease Does patient have nerve No 02/14/24 10:44 stimulator Patient instructed to have device shut off --Does patient have Pacemaker No 02/18/24 09:29 or ICD? When Was Last Pacemaker Check QUESTION #4 FULL TEXT: You/Your Family Experience fever (hyperthermia) with Anesthesia Last Oral Intake Last Oral intake: Last Oral Intake NPO since Meds taken in AM with sips of water? 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 - contact center manager: PONV - contact center manager Female Yes 02/14/24 10:44 HX of Motion Sickness No 02/14/24 10:44 HX of N/V After Surgery No 02/14/24 10:44 Non-Smoker No 02/14/24 10:44 Duration of Surgery greater Yes 02/14/24 10:44 than 60 minutes Number of Risk Factors 2 02/14/24 10:44 PONV Score Moderate Risk 02/14/24 10:44 Height & Weight Height & Weight: Anesthesia: Height & Weight Height 5 ft 10 in 02/18/24 09:29 Weight: 102.8 kg 02/18/24 09:29 Body Mass Index (BMI) 32.5 02/18/24 09:29 Respiratory Assessment Respiratory Assessment - contact center manager: Respiratory Tract Infection Hx - contact center manager Hx Respiratory Tract Infection No 02/14/24 10:44 STOP Sleep Apnea STOP Sleep Apnea - contact center manager: STOP Sleep Apnea - contact center manager Hx Hypertension No 02/14/24 10:44 Hx Sleep Apnea Yes 02/14/24 10:44 CPAP Yes 02/14/24 10:44 BIPAP No 02/14/24 10:44 Do you snore loudly (louder than talking or can be heard Do you often feel tired/ fatigued/ sleepy during daytime? Has anyone observed you stop breathing during sleep? STOP Results Positive 02/14/24 10:44 QUESTION #5 FULL TEXT : Do you snore loudly (louder than talking or can be heard through closed doors)? Tobacco Use History Tobacco Use History - contact center manager: Tobacco Use History - contact center manager Tobacco Use Cigarettes 12/22/22 09:18 Smoking Status Current every day smoker 02/14/24 10:44 Hx Tobacco Use Yes 02/14/24 10:44 Years Smoking Packs Smoked per Day Smoking Cessation Date was within the last 15 years Hx Smoking Cessation Date Hx Smoking Cessation No 02/14/24 10:44 Counseling Hematologic Medial History Hematologic Hx - contact center manager: Hematologic Medical Hx - signal constructor Hx of Blood Transfusion No 02/14/24 10:44 Hx of Transfusion in last 3 No 02/14/24 10:44 Months Date of Last Transfusion (if within last 3 months) Ever experience any problems No 02/14/24 10:44 with transfusion(s)? Specify any problems Hx of Preganancy in last 3 No 02/14/24 10:44 Months Nurse Filling Out Transfusion ANGEL 02/14/24 10:44 & Questions: Date: 02/14/24 02/14/24 10:44 Time: 10:46 02/14/24 10:44 Patient unable to answer at this time (ie. confused, unrespo /Reproduction History /Reproductive History - contact center manager: /Reproductive Hx- contact center manager Hx Now No 02/14/24 10:44 Gestational Age (in weeks): EDC: Hx Hx Para Hx Section SAB No 02/14/24 10:44 Active Medications Active Medications: Current Medications Generic Name Dose Route Start Last Admin Trade Name Freq PRN Reason Stop Dose Admin Lactated Ringer's 1,000 mls @ 15 mls/hr 02/18/24 09:30 IV .Q48H SHANAE PFSH Medical History Bipolar disorder Juvenile arthritis Epilepsy, unspecified, not intractable, without status epilepticus Seizures Wears glasses History of Crohn's disease CPAP (continuous positive airway pressure) dependence Sleep apnea Asthma Anxiety Depression Lumbago Dysmenorrhea Enuresis, nonorganic Seizures Back problem Arthritis Anemia Crohns disease Bipolar disorder Home Medications ?Medication ?Instructions ?Recorded ?Last Taken ?Type albuterol sulfate 90 mcg/actuation 2 puff inhalation Q4H PRN 12/15/21 Unknown Rx aerosol inhaler shortness of breath or wheezing #8.5 grams Humira 40 mg/0.8 mL subcutaneous See Rx Instructions .Route 08/01/23 Unknown Rx syringe kit (adalimumab) .COMPLEX #2 ea budesonide 3 mg 6 mg (2 x 3 mg) PO DAILY #60 ea 02/05/24 Unknown Rx capsule,delayed,extended release Allergy/AdvReac Type Severity Reaction Status Date / Time almond (almonds) Allergy Severe Anaphylaxis Verified 02/18/24 09:28 Family History Father Suicide Mother Diabetes OCD (obsessive compulsive disorder) Depression Bipolar disorder (manic depression) Grandmother Diabetes Uncle Bowel disease Grandfather Colon cancer maternal - 2003 Other Anxiety Arthritis Epilepsy Surgical History (Updated 02/14/24 @ 10:44 by Estelita Sexton) History of esophagogastroduodenoscopy (EGD) History of colonoscopy History of bladder surgery History of wisdom tooth extraction History of cystoscopy Social History Smoking Status: Current every day smoker tobacco type: cigarettes Tobacco: How many years used: 5 second hand exposure: No alcohol intake: current details: social on weekends substance use type: does not use what type of physical activity do you participate in: none martin/religious: None seatbelt use: always Review of Systems (Anesthesia) ROS Narrative System reviewed and no additional complaints, except as documented.
[2024-02-18] MEDS: Lactated Ringers 1,000 ML 15 ML IV ×2 (09:35→11:51)
[2024-02-18 09:37] LABS: Internal QC Validated? YES +Cl - CLEAR BKGD; Pregnancy, Urine Negative Negative; Record Kit Lot#,Urine Preg HCG0000772476
--- NOTE | 2024-02-18 09:43 | PCM.HP.BLA ---
History and Physical Date of Admission: 02/18/24 PENNY POWERS, is a 33 F who presents to the office today for follow up. [facility] established 07.04.21 to establish care for Crohn?s disease diagnosed in 2009. Maintained on oral medications until they stopped working and she was started on Humira Q2W. [place] preferred, however her migraine history prevented this. At time of presentation she was having a flare with symptoms of loose stools with mucous and blood and stomach discomfort.? EGD and colonoscopy 07.28.21.?EGD LA grade A reflux esophagitis; Erythematous mucosa in stomach, gastritis and duodenopathy; focal granuloma formation of pylorus. H.Pylori negative.? Colonoscopy Endoscopic Crohn?s disease score 40 with ileitis and colitis; Multiple ulcers in TI; chronic, active colitis; hyperplastic polyp of RS colon. Pathology findings consistent with Crohn?s Disease.? OV 08.11.21 Diarrhea has resolved since the start of prednisone. She did not increase Humira to weekly as updating phone call was not completed due to phone issues. Continues PPI and Carafate therapy without side effects.?Start Azathioprine? OV 09.22.21 with continued improvement: Notes positive weight loss, PO intake improvement, solid stools.? Biochemical workup 09.23.21 CBC WBC elevated 14.0, CMP, LFT, AST , Alk phos decreased 42, CRP elevated 7.97, lipase decreased 60.? OV 11.21.21 Reports that her stomach is feeling well, diarrhea has resolved for the last couple of months. Continues to take Humira Qweek, azathioprine. Reports pain/discomfort in her knees, has a history of juvenile arthritis. Knows that L knee has no fluid sac. PCP discussed who felt it was r/t inflammation; Penny does not feel this presents as typical inflammation to her. Recently received her new CPAP; since receipt of this she has had multiple episodes of bedwetting which is worse since starting CPAP.? OV 02.13.22 experienced interruption of therapy r/t pharmacy delivery and has had some tenesmus with urgency without bleed or diarrhea.?Bloodwork performed after office visit with concern r/t WBC 12.2 and 12.2 blast cells; cardiac technician consulted and recommendation made to go to ED.? [facility] ED 02.14.22 with normal bloodwork and she was discharged home.? [facility] ED 03.31.22 with watery diarrhea with sweating, chills, nausea and dry heaves.?Vancomycin.? OV 04.26.22 continues with Humira weekly and feels she is doing well.? OV 08.02.22 Humira reduced to QOW and she is doing well without return of symptoms.? OV 11.20.22 she is having some pain following lancing of abscess on buttock. Reports some intentional weight loss. Denies vision changes, joint pain, loose stools, abdominal pain. ? ? ESR/CRP? Butch/Lact? Humira/Ab? WBC/Blast? 07.13.21 46/71.9? 1229/+? --/--? 17.2/--? Humira QW. ANCA, celiac WNL? 08.11.21 26/--? --/--? --/--? 19.2/--? Start Aza. IBD Crohn?s +? 02.13.22? --/--? --/--? 12.12.2? 09.28.22 22/12.5? --/+? 3.2/none? 13.5/--? 08.02.22 157.01? --/--? 3.4/none? 12.6/--? Humira changed to QOW? 09.26.23 13H9.03 H609/+ 2. H12.5/-- 01.23.24H5.58 --/-- pending --/-- ? ? OV 04.11.23 Pt doing very well since last visit. Denies abdominal pain, nausea, and diarrhea. Some intermittent cramping but overall is very well. OV 11.21.23 Pt says she is doing well. Denies abdominal pain, nausea, and diarrhea. Has not needed to take zofran. Continues taking Humira. OV 02.01.24 pt reports that for the past four days she has been having 1-2 liquid stools a day; pt thinks it is something she ate, but is unsure; denies blood in the stool. Pt reports that her next Humira injection is 02/03. Pt reports that she occasionally feels like bread and other sticky foods feel like they are getting stuck in her throat, would like an EGD. ROS Const Constitutional: No fatigue, fever(s) or weight change ENT ENT: No difficulty swallowing Gastro GI: Positive for change in bowel habits and diarrhea; No abdominal pain, belching, bloating, change in stool character, coffee ground emesis, constipation, cramping, heartburn, difficulty swallowing, feeling full early, excessive flatus, incontinent of stools, Vomiting blood/hematemesis, Blood in stool, loose stools, Black,tarry stools, nausea/dyspepsia, pain with swallowing, vomiting or other Musc Musculoskeletal: Positive for joint pain, back pain and stiffness Skin Skin: No yellowing of the eye or itchy eyes Psych Psychiatric: Positive for anxiety, Positive for depression and Positive for Behavioral Problems Endo Endocrine: No fatigue or weight change Aller/Imm Allergy/Immunologic: No itchy eyes Mulugeta/Lymp Hematologic/Lymphatic: No easy bleeding or easy bruising Exam Const General: cooperative and comfortable Nutritional Appearance: average body habitus and well nourished [facility] Head: normal to inspection Ears: hearing grossly normal bilaterally Nose: external nose normal Face and sinus: normal facial exam Mouth: oral mucosae normal Throat: posterior oropharynx normal Eyes General: appearance normal, both eyes and all related structures Neck Neck: normal visual inspection Chest Chest palpation & inspection: normal inspection of the chest and normal palpation of entire chest wall Resp Effort & Inspection: normal respiratory effort Auscultation: Bilateral: Clear to Auscultation Cardio Palpation: normal PMI Rate: regular rate Rhythm: regular rhythm GI Inspection: normal to inspection Auscultation: normal bowel sounds Percussion: normal to percussion Palpation: no hepatosplenomegaly Skin General: no rashes or lesions noted Neuro General: patient alert Extrem General: normal to inspection Psych Affect: normal affect Assessment and Plan Assessment and Plan (1) Crohns disease: Status: Chronic Comment: Diagnosed 2006 Plan: Severe Crohn's disease affecting the small bowel and colon. She is not na?ve to steroids and has been on Humira q. weekly up until 3 months ago when we switchedHer Humira dosing back to every other week. She is possibly experiencing some extraintestinal manifestations of Crohn's disease with bilateral left and right hand pain. There is not much swelling but there is stiffness of bilateral hands. Her Stelara levels were low at a level 2 and she had an antibody level 43. We will try to get her on Stelara therapy and we will start her on a temporary course of budesonide therapy. She will be scheduled to have a repeat colonoscopy in the next month. (2) Hand pain: Status: Acute Plan: I think her arthritis like pain is secondary to her Crohn's disease. (3) Dysphagia: Status: Acute Plan: We will get an upper endoscopy. I have examined the patient and the H&P has been reviewed. There are no clinical changes since date of exam.
--- NOTE | 2024-02-18 10:30 | COLBX_PTH ---
PATIENT: CONY POWERS LOC: [facility] [place] U#:[id number] AGE/SX: 33/F ROOM: RE04/24/[address]: Dr. Juan Alberto King DO : 1990 BED: DIS: 04/24/2024 SPEC #: [id number] RECD: 02/18/24 12:35 STATUS: NARCISA REJanay #: [id number] PILAR: 02/18/24 10:[address]: Juan Alberto King DEPT: SURGICAL PATHOLOGY RECD BY: Julia Minaya ENTERED: 02/18/24 13:35 SP TYPE: COLON BX OTHR DR: Dr. Radha Calloway MD Tissues: A - Duodenum, NOS B - Esophagus, NOS C - Ileum, NOS Procedures: Surgery Specimen Level IV HEADER OPERATION: Colonoscopy, EGD biopsy, dilatation terminal ileum PRE-OP DIAGNOSIS: Crohn's disease, hand pain, dysphagia TISSUE SUBMITTED: A- Duodenum biopsy, B- Distal esophagus biopsy, C- Terminal ileum biopsy MICROSCOPIC DIAGNOSIS A. Duodenum, biopsy: No pathologic change. B. Distal esophagus, biopsy: Gastroesophageal junctional mucosa with mild chronic inflammation. Focal changes of reflux. No evidence of goblet cell metaplasia. See comment. C. Terminal ileum, biopsy: Fibrinopurulent material suggestive of ulceration. Acute enteritis. No evidence of dysplasia. AM/ 02/19/2024 COMMENT B. Alcian blue/PAS stain with matched control is used in the evaluation of the specimen. MICROSCOPIC DESCRIPTION Slides are reviewed. GROSS DESCRIPTION A. Received in fixative is one container labeled with the patient's name and designated Duodenum biopsy. The specimen consists of multiple irregular fragments of light ferguson soft tissue that in aggregate measure 1.0 x 0.3 x 0.1 cm. The specimen is totally submitted in one cassette. B. Received in fixative is one container labeled with the patient's name and designated Distal esophagus biopsy. The specimen consists of two irregular fragments of light ferguson soft tissue that in aggregate measure 0.8 x 0.3 x 0.1 cm. The specimen is totally submitted in one cassette. C. Received in fixative is one container labeled with the patient's name and designated Terminal ileum. The specimen consists of multiple irregular fragments of light ferguson soft tissue that in aggregate measure 1.0 x 0.3 x 0.1 cm. The specimen is totally submitted in one cassette. ANNY/ 02/18/2024 TC:2 CPT:46944o9,25074
--- NOTE | 2024-02-18 11:20 | OP.EGD_ITS ---
Patient Name: Penny Hart Procedure Date: 02/18/2024 10:33 AM Date of : 1990 Age: 33 Procedure: Upper GI endoscopy Indications: Dysphagia Providers: Juan Alberto King DO Referring MD: Radha Calloway Medicines: Monitored Anesthesia Care Patient Profile: This is a 33 year old female. Refer to note in patient chart for documentation of history and physical. Patient has symptoms of acute epigastric abdominal pain, chronic epigastric abdominal pain and chronic dysphagia. Complications: No immediate complications. Procedure: Pre-Anesthesia Assessment: - Prior to the procedure, a History and Physical was performed, and patient medications and allergies were reviewed. The risks and benefits of the procedure and the sedation options and risks were discussed with the patient. All questions were answered and informed consent was obtained. Patient identification and proposed procedure were verified by the physician in the pre-procedure area. Mental Status Examination: normal. Prophylactic Antibiotics: The patient does not require prophylactic antibiotics. Prior Anticoagulants: The patient has taken no anticoagulant or antiplatelet agents. ASA Grade Assessment: II - A patient with mild systemic disease. After reviewing the risks and benefits, the patient was deemed in satisfactory condition to undergo the procedure. The anesthesia plan was to use monitored anesthesia care (MAC). Immediately prior to administration of medications, the patient was re-assessed for adequacy to receive sedatives. The heart rate, respiratory rate, oxygen saturations, blood pressure, adequacy of pulmonary ventilation, and response to care were monitored throughout the procedure. The physical status of the patient was re-assessed after the procedure. After obtaining informed consent, the endoscope was passed under direct vision. Throughout the procedure, the patient's blood pressure, pulse, and oxygen saturations were monitored continuously. The Colonoscope was introduced through the mouth, and advanced to the second part of duodenum. The upper GI endoscopy was accomplished without difficulty. The patient tolerated the procedure well. Scope In: 10:41:46 AM Scope Out: 10:48:07 AM Total Procedure Duration Time 0 hours 6 minutes 21 seconds Findings: LA Grade B (one or more mucosal breaks greater than 5 mm, not extending between the tops of two mucosal folds) esophagitis with no bleeding was found 37 to 39 cm from the incisors. Biopsies were taken with a cold forceps for histology. Verification of patient identification for the specimen was done. Estimated blood loss was minimal. Patchy mildly erythematous mucosa without bleeding was found in the gastric body. Biopsies were taken with a cold forceps for histology. Verification of patient identification for the specimen was done. Estimated blood loss was minimal. Biopsies were taken with a cold forceps for Helicobacter pylori testing. Verification of patient identification for the specimen was done. Estimated blood loss was minimal. Patchy mildly erythematous mucosa without active bleeding and with no stigmata of bleeding was found in the duodenal bulb. Biopsies were taken with a cold forceps for histology. Verification of patient identification for the specimen was done. Estimated blood loss was minimal. Impression: - LA Grade B reflux esophagitis with no bleeding. Biopsied. - Erythematous mucosa in the gastric body. Biopsied. - Erythematous duodenopathy. Biopsied. Recommendation: - Discharge patient to home. - Resume previous diet. - Continue present medications. - Await pathology results. Procedure Code(s): --- Professional --- 45818, Esophagogastroduodenoscopy, flexible, transoral; with biopsy, single or multiple CPT copyright 2021 [employer]. All rights reserved. The codes documented in this report are preliminary and upon entertainment usher review may be revised to meet current compliance requirements. Juan Alberto King DO 02/18/2024 11:20:27 AM This report has been signed electronically. Number of Addenda: 0 Note Initiated On: 02/18/2024 10:33 AM
--- NOTE | 2024-02-18 11:21 | OP.CCLET_ITS ---
02/18/2024 Radha Calloway [address] [place] [address] Re : Upper GI endoscopy procedure for Penny Groveron Dear Dr. Calloway This procedure was performed on Sunday, February 18, 2024. My impressions and recommendations are as follows: Impressions : - LA Grade B reflux esophagitis with no bleeding. Biopsied. - Erythematous mucosa in the gastric body. Biopsied. - Erythematous duodenopathy. Biopsied. Recommendations : - Discharge patient to home. - Resume previous diet. - Continue present medications. - Await pathology results. My findings are described in the full procedure note, which is enclosed. If I can be of further assistance, please feel free to contact me at . Sincerely, Juan Alberto King, 02/18/2024 11:20:27 AM This report has been signed electronically.
--- NOTE | 2024-02-18 11:23 | PCM.POST.ANE ---
Anesthesia: Postop Eval I Current Vital Signs Temperature: 97.1 F Pulse Rate: 54 Blood Pressure: 91/77 Respiratory Rate: 16 Pulse Ox: 100 Oxygen Delivery Method: Room Air Assessment Airway patent: Yes Spontaneous unlabored respirations: Yes Mental status: Awake and Calm nausea: No Vomiting: No Anesthesia Complication: No Fluid Hydration Crystalloid volume administer (ml): 800 Total IV fluid infused: 800 Progress Note Anesthesia document: Postop Eval 1 completed: Yes
--- NOTE | 2024-02-18 11:41 | OP.COLON_ITS ---
Patient Name: Penny Hart Procedure Date: 02/18/2024 10:48 AM Date of : 1990 Age: 33 Procedure: Colonoscopy Indications: Crohn's disease of the small bowel Providers: Juan Alberto King DO Referring MD: Radha Calloway Medicines: Monitored Anesthesia Care Patient Profile: This is a 33 year old female. Refer to note in patient chart for documentation of history and physical. Patient has symptoms of acute epigastric abdominal pain, chronic epigastric abdominal pain and chronic dysphagia. Last Colonoscopy: 1 year ago. Complications: No immediate complications. Procedure: Pre-Anesthesia Assessment: - Prior to the procedure, a History and Physical was performed, and patient medications and allergies were reviewed. The risks and benefits of the procedure and the sedation options and risks were discussed with the patient. All questions were answered and informed consent was obtained. Patient identification and proposed procedure were verified by the physician in the pre-procedure area. Mental Status Examination: normal. Prophylactic Antibiotics: The patient does not require prophylactic antibiotics. Prior Anticoagulants: The patient has taken no anticoagulant or antiplatelet agents. ASA Grade Assessment: II - A patient with mild systemic disease. After reviewing the risks and benefits, the patient was deemed in satisfactory condition to undergo the procedure. The anesthesia plan was to use monitored anesthesia care (MAC). Immediately prior to administration of medications, the patient was re-assessed for adequacy to receive sedatives. The heart rate, respiratory rate, oxygen saturations, blood pressure, adequacy of pulmonary ventilation, and response to care were monitored throughout the procedure. The physical status of the patient was re-assessed after the procedure. After I obtained informed consent, the scope was passed under direct vision. Throughout the procedure, the patient's blood pressure, pulse, and oxygen saturations were monitored continuously. The Colonoscope was introduced through the anus and advanced to the terminal ileum. The colonoscopy was performed without difficulty. The patient tolerated the procedure well. The quality of the bowel preparation was fair. The terminal ileum, ileocecal valve, appendiceal orifice, and rectum were photographed. Scope In: 10:49:51 AM Scope Withdrawal Time 0 hours 20 minutes 57 seconds Scope Out: 11:14:08 AM Total Procedure Duration Time 0 hours 24 minutes 17 seconds Findings: The perianal and digital rectal examinations were normal. Stool was found in the rectum, in the recto-sigmoid colon, in the sigmoid colon, in the transverse colon and in the cecum. The exam was otherwise without abnormality. Diffuse inflammation characterized by congestion (edema), erosions, erythema, friability and linear erosions was found in the mid ileum, in the distal ileum and in the terminal ileum. The inflammation was moderate in severity. Biopsies were taken with a cold forceps for histology. Verification of patient identification for the specimen was done. A TTS dilator was passed through the scope. Dilation with a 15 mm colonic balloon dilator was performed. The dilation site was examined and showed moderate mucosal disruption. Estimated blood loss: none. Impression: - Preparation of the colon was fair. - Stool in the rectum, in the recto-sigmoid colon, in the sigmoid colon, in the transverse colon and in the cecum. - The examination was otherwise normal. - Inflammatory bowel disease. Inflammation was found. This was moderate in severity. Biopsied. Dilated. Recommendation: - Discharge patient to home. - Diflucan (fluconazole) 100 mg PO daily for 2 weeks. - Flagyl (metronidazole) 500 mg PO QID for 2 weeks. - Nystatin cream per rectum twice a day for 2 weeks. - Repeat colonoscopy in 1 year for surveillance. - Continue present medications. Procedure Code(s): --- Professional --- 93390, Colonoscopy, flexible; with transendoscopic balloon dilation 72191, Colonoscopy, flexible; with biopsy, single or multiple CPT copyright 2021 [employer]. All rights reserved. The codes documented in this report are preliminary and upon remote medical coder review may be revised to meet current compliance requirements. Juan Alberto King DO 02/18/2024 11:41:10 AM This report has been signed electronically. Number of Addenda: 0 Note Initiated On: 02/18/2024 10:48 AM
--- NOTE | 2024-02-18 11:41 | OP.CCLET_ITS ---
02/18/2024 Radha Calloway [address] [place] [address] Re : Colonoscopy procedure for Penny Hart Dear Dr. Calloway This procedure was performed on Sunday, February 18, 2024. My impressions and recommendations are as follows: Impressions : - Preparation of the colon was fair. - Stool in the rectum, in the recto-sigmoid colon, in the sigmoid colon, in the transverse colon and in the cecum. - The examination was otherwise normal. - Inflammatory bowel disease. Inflammation was found. This was moderate in severity. Biopsied. Dilated. Recommendations : - Discharge patient to home. - Diflucan (fluconazole) 100 mg PO daily for 2 weeks. - Flagyl (metronidazole) 500 mg PO QID for 2 weeks. - Nystatin cream per rectum twice a day for 2 weeks. - Repeat colonoscopy in 1 year for surveillance. - Continue present medications. My findings are described in the full procedure note, which is enclosed. If I can be of further assistance, please feel free to contact me at . Sincerely, Juan Alberto King, 02/18/2024 11:41:10 AM This report has been signed electronically.
--- NOTE | 2024-02-18 15:02 | PCM.POSTANE2 ---
Anesthesia Postop Eval I Sum Postop Eval Completion status Anesthesia document: Postop Eval 1 completed: Yes Anesthesia Postop Eval I Summary Anesthesia Postop Eval I Summary: Anesthesia Postop Eval I: Assessment Summary Airway patent Yes 02/18/24 11:24 [email or web address] Spontaneous unlabored Yes 02/18/24 11:24 [email or web address] respirations Mental status Awake,Calm 02/18/24 11:24 [email or web address] nausea No 02/18/24 11:24 [email or web address] Vomiting No 02/18/24 11:24 [email or web address] Anesthesia Postop Eval I: Fluid Summary Crystalloid volume administer 800 02/18/24 11:24 [email or web address] (ml) Colloids volume administered ( ml) Blood Product volume administered (ml) Total IV fluid infused 800 02/18/24 11:24 [email or web address] Anesthesia Postop Eval I: Summary Notes Anesthesia Complication No 02/18/24 11:24 [email or web address] Anesthesia Complication Comment: Post-operative progress note Anesthesia: Postop Eval II Evaluation Mental status: Awake and Calm Pain Level: 0 nausea: No Vomiting: No Complications Anesthesia Complication: No
== END | disposition home or self-care (01) ==
LOC: EN 02-18 09:05 → AC 02-18 09:06 → SDC 10:58
PROVIDERS: Anesthesiology; PCP Family Medicine; Referring Provider Family Medicine; Visit Provider Internal Medicine Gastroenterology
PROC: 0DJD8ZZ Inspection of Lower Intestinal Tract, Via Natural or Artificial Opening Endoscopic (ICD-10-PCS; CPT 45378; principal; 2024-02-18 10:25)
DX: K50.90 Crohn's disease, unspecified, without complications (principal); K21.00 Gastro-esophageal reflux disease with esophagitis, without bleeding; R13.10 Dysphagia, unspecified; J45.909 Unspecified asthma, uncomplicated; G47.33 Obstructive sleep apnea (adult) (pediatric); F17.200 Nicotine dependence, unspecified, uncomplicated; K31.89 Other diseases of stomach and duodenum; Z79.51 Long term (current) use of inhaled steroids
CPT/HCPCS: 45380; 45386; 43239; 81025; 88305; J7120; J2405

== ENCOUNTER 2024-08-05 13:00 | Outpatient (RCR) | payer MEDICARE, MEDICAID, SELFPAY ==
--- NOTE | 2024-05-19 12:40 | HP.PTEVAL_ITS ---
Patient's Visit Information Visit Information Visit Information: CONY POWERS is a 34 year old F referred to Physical Therapy by TUNG Dickson with a diagnosis of . Date of Evaluation: 05/16/24 Physical Therapist: Aguilar Pavon DPT Visit Plan Frequency: 2x /Week Duration: 6 Weeks Plan: WBin% x1 week (), 100% x1 week (may 22) in CAM boot 1) calf stretching, HS stretching 2) ankle and knee ROM (circles, bike) 3) banded ankle strengthening, OKC hip and knee strength 4) once given go ahead we can progress to CKC exercises Subjective Subjective: Pt is here today for her initial evaluation with diagnosis of oblique fx of R fibula. Pt. reports falling on Apr 04 while working, she also had a high ankle sprain as well. Pt. was NWBing for the last month and just started to be 50% WBing last week. She reports minimal pain currently, but does have some pain at her R ankle. Pt. is using B crutches currently with good use. Pt. is hopeful to get back to all work and recreational activities without limitations. Pain R ankle: Pain Intensity (Out of 10): 2 Pain Intensity Range: 0 and 3 R lateral leg: Pain Intensity (Out of 10): 1 Pain Intensity Range: 0 and 2 Objective Objective: POSTURE: Pt. Balance/Special Test Scores Lower Extremity Functional Score: 57 Anticipated Interventions Patient/Client Instruction: Educate patient on: Condition, Plan of Care, Risk Factors and Benefits of Fitness Program For the Purpose of:: To facilitate caregiver knowledge, To improve self management, To prevent re-injury, To improve ability to perform tasks related to life management and To improve tolerance to ADL's Therapeutic Exercise to Include: Strength training, Power training, Balance training, Postural training, Flexibilty training, Gait and locomotor training, Passive ROM and Active ROM For the Purpose of:: To decrease pain, To decrease swelling/inflammation, To increase ROM, To improve nutrient delivery to tissue, To increase oxygenation perfusion, To improve muscle performance and motor function, To improve ability to perform ADL's, To increase tolerance to activity/condition/position, To improve performance and independence with ADL's and To decrease level of supervision to perform tasks Cryotherapy (ice pack, ice massage): Yes For the Purpose of:: To decrease pain, To decrease swelling/inflammation and To increase ROM Text: Thank you for the opportunity to evaluate your patient. For Medicare and Medicare HMO plans, please review the plan of care and approve it. It will need to be FAXED BACK to us at [phone] for Medicare purposes. For Medicare only, by signing this I certify the plan of care. Please let me know if there are questions or concerns regarding this plan of care. Physician Signature: Dat e:
== END 2024-08-05 19:00 | disposition home or self-care (01) ==
LOC: PT 13:00
PROVIDERS: PCP Family Medicine; Referring Provider Nurse Practitioner Family; Visit Provider Nurse Practitioner Family
DX: S82.434D Nondisplaced oblique fracture of shaft of right fibula, subsequent encounter for closed fracture with routine healing (principal)
CPT/HCPCS: 97110; 97116; 97140; 97161; 97530

== ENCOUNTER → 2024-08-06 | Outpatient (CLI) | payer MEDICARE, MEDICAID, SELFPAY ==
[2024-08-06 16:09] LABS: Erythrocyte Sedimentation Rate 12 mm/hr (0-30)
[2024-08-06 16:35] LABS: CRP < 2.90 mg/L (0.0-3.0)
== END | disposition home or self-care (01) ==
PROVIDERS: PCP Family Medicine; Referring Provider Student in an Organized Health Care Education/Training Program; Visit Provider Student in an Organized Health Care Education/Training Program
DX: K50.90 Crohn's disease, unspecified, without complications (principal)
CPT/HCPCS: 36415; 85652; 86140

== ENCOUNTER → 2024-08-11 | Outpatient (CLI) | payer MEDICARE, MEDICAID, SELFPAY ==
[2024-08-14 08:10] LABS: Calprotectin, Stool 1360 ug/g (0-120)
== END | disposition home or self-care (01) ==
LOC: LABSPEC 14:12
PROVIDERS: PCP Family Medicine; Referring Provider Internal Medicine Gastroenterology; Visit Provider Internal Medicine Gastroenterology
DX: K50.90 Crohn's disease, unspecified, without complications (principal)
CPT/HCPCS: 83993

== ENCOUNTER → 2024-11-20 | Outpatient (CLI) | payer MEDICARE, MEDICAID, SELFPAY ==
--- NOTE | 2024-11-20 11:02 | US_ITS ---
PROCEDURE: ABDOMEN LIMITED 11/20/2024 REASON FOR EXAM: SMALL CYSTIC FEELING LESION TECHNIQUE: Targeted ultrasound of the right upper quadrant. One-week history of nontender palpable lump. PATIENT PREPARATION: Per protocol FINDINGS: In the right upper quadrant corresponding to the palpable lump, there is a 1.8 cm x 1.8 cm 1 cm slightly echogenic nodule suggestive of lipoma. Adjacent to this a similar-appearing nodule measuring 1.2 cm x 1 cm x 0.8 cm seen. US/Abdomen Limited IMPRESSION: Palpable lumps in the right upper quadrant most likely represent small lipomas. Reading Location: [place] [id number]
== END | disposition home or self-care (01) ==
LOC: US 11:00
PROVIDERS: PCP Family Medicine; Referring Provider Family Medicine; Visit Provider Family Medicine
DX: R22.2 Localized swelling, mass and lump, trunk (principal)
CPT/HCPCS: 76705

== ENCOUNTER 2024-12-05 09:54 | Outpatient (CLI) | payer MEDICARE, MEDICAID, SELFPAY ==
[2024-12-05 10:08] VITALS: BP 95/50; PULSE 76; RESP 16; TEMP 35.7; O2SAT 100; BMI 30.7
[2024-12-05] MEDS: 0.9% NaCl IVPB Med Flush (100mL) 15 ML IV (10:20)
[2024-12-05] MEDS: 0.9% NaCl Peripheral Flush Adult IV (10:20)
[2024-12-05] MEDS: Risankizumab-rzza 600 MG in Dextrose 5%-Water (100mL Bag) 100 ML 110 MG IV (10:33)
[2024-12-05 12:05] VITALS: BP 83/47; PULSE 64; RESP 16
== END 2024-12-05 23:59 | disposition home or self-care (01) ==
LOC: MEDOUTP 09:55
PROVIDERS: PCP Family Medicine; Referring Provider Student in an Organized Health Care Education/Training Program; Visit Provider Student in an Organized Health Care Education/Training Program
DX: K50.90 Crohn's disease, unspecified, without complications (principal)
CPT/HCPCS: 96365; A4216; J2327

== ENCOUNTER 2025-01-02 09:54 | Outpatient (CLI) | payer MEDICARE, MEDICAID, SELFPAY ==
[2025-01-02 10:06] VITALS: BP 101/60; PULSE 62; RESP 16; TEMP 35.9; O2SAT 100; BMI 30.7
[2025-01-02] MEDS: 0.9% NaCl IVPB Med Flush (100mL) 15 ML IV (10:17)
[2025-01-02] MEDS: 0.9% NaCl Peripheral Flush Adult IV (10:17)
[2025-01-02] MEDS: Risankizumab-rzza 600 MG in Dextrose 5%-Water (100mL Bag) 100 ML 110 MG IV (10:28)
[2025-01-02 11:53] VITALS: BP 113/62; PULSE 55; RESP 16; TEMP 36.3; O2SAT 100
== END 2025-01-02 23:59 | disposition home or self-care (01) ==
LOC: MEDOUTP 09:54
PROVIDERS: PCP Family Medicine; Referring Provider Student in an Organized Health Care Education/Training Program; Visit Provider Student in an Organized Health Care Education/Training Program
DX: K50.90 Crohn's disease, unspecified, without complications (principal)
CPT/HCPCS: 96365; A4216; J2327

== ENCOUNTER 2025-01-09 11:39 | Day surgery (SDC) | payer MEDICARE, MEDICAID, SELFPAY ==
--- NOTE | 2025-01-09 11:46 | PCM.PRE.AN2 ---
ASA Classification* ASA Classification ASA Classification: 3 Assessment & Plan Anesthesia* Anesthesia Assessment Anesthesia Assessment: Discussed sedation and/or anesthesia options, risks, benefits, and alternatives with patient/parents/legal guardian/POA. Questions invited. The patient/parents/legal guardian/POA seems to understand and agrees to proceed with anesthesia plan. Reviewed the physical assessment, medical history, allergy history and patient home medications list prior to surgery/procedure/anesthetic and documented any changes. Performed airway and anesthesia risk assessments. Anesthesia Type Anesthesia Type: MAC Anesthesia Focused Assessment* Airway Assessment Mouth opens: >3 cm Mallampati Score: II Comment: Family history of anesthetic complications. Consider MH precautions. Labs Anesthesia Preop lab: CBC WBC 12.5 K/mm3 (4.4-11.0) H 09/26/23 14:06 09/26/23 RBC 4.91 M/mm3 (4.2-5.4) 09/26/23 14:06 09/26/23 Hgb 14.4 g/dL (12.0-15.0) 09/26/23 14:06 09/26/23 Hct 45.5 % (37-47) 09/26/23 14:06 09/26/23 Plt Count 404 K/mm3 (150-450) 09/26/23 14:06 09/26/23 CHEMISTRY Potassium 4.0 mmol/L (3.5-5.1) 09/26/23 14:06 09/26/23 Sodium 141 mmol/L (136-145) 09/26/23 14:06 09/26/23 Magnesium 2.1 mg/dL (1.6-2.6) 10/23/17 09:46 10/23/17 Phosphorus 2.5 mg/dL (2.5-4.9) 10/23/17 09:46 10/23/17 BUN 9 mg/dL (7-18) 09/26/23 14:06 09/26/23 Creatinine 0.89 mg/dL (0.55-1.02) 09/26/23 14:06 09/26/23 Glucose 65 mg/dL (74-106) L 09/26/23 14:06 09/26/23 TSH 2.24 uIU/mL (0.358-3.74) 06/25/15 11:29 06/25/15 COAG PT 12.3 SECONDS (11.7-14.9) 12/21/15 10:00 12/21/15 Urine Test Negative Negative 02/18/24 09:20 02/18/24 Pre-Assessment Diagnosis/Proposed Procedure Planned Operative Procedure(s): EGD Anesthesia History 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 When Was Last Pacemaker Check QUESTION #4 FULL TEXT: You/Your Family Experience fever (hyperthermia) with Anesthesia Last Oral Intake Last Oral intake: Last Oral Intake NPO since Meds taken in AM with sips of water? 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 Female Yes 01/06/25 13:43 HX of Motion Sickness No 01/06/25 13:43 HX of N/V After Surgery No 01/06/25 13:43 Non-Smoker No 01/06/25 13:43 Duration of Surgery greater No 01/06/25 13:43 than 60 minutes Number of Risk Factors 1 01/06/25 13:43 PONV Score Low Risk 01/06/25 13:43 Height & Weight Height & Weight: Anesthesia: Height & Weight Height 5 ft 10 in 01/08/25 10:03 Respiratory Assessment Respiratory Assessment - warble saw operator: Respiratory Tract Infection Hx - warble saw operator Hx Respiratory Tract Infection No 01/08/25 10:03 STOP Sleep Apnea STOP Sleep Apnea - warble saw operator: STOP Sleep Apnea - warble saw operator Hx Hypertension No 01/08/25 10:03 Hx Sleep Apnea Yes 01/08/25 10:03 CPAP Yes 01/08/25 10:03 BIPAP No 01/08/25 10:03 Do you snore loudly (louder than talking or can be heard Do you often feel tired/ fatigued/ sleepy during daytime? Has anyone observed you stop breathing during sleep? STOP Results Positive 01/06/25 13:43 QUESTION #5 FULL TEXT : Do you snore loudly (louder than talking or can be heard through closed doors)? 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 Specify any problems Hx of Preganancy in last 3 N/A 01/06/25 13:43 Months Nurse Filling Out Transfusion NBUCHER 01/06/25 13:43 & Questions: Date: 01/06/25 01/06/25 13:43 Time: 13:45 01/06/25 13:43 Patient unable to answer at this time (ie. confused, unrespo /Reproduction History /Reproductive History - warble saw operator: /Reproductive Hx- warble saw operator Hx Now Gestational Age (in weeks): EDC: Hx Hx Para Hx Section SAB No 01/08/25 10:03 Active Medications Active Medications: Current Medications Generic Name Dose Route Start Last Admin Trade Name Freq PRN Reason Stop Dose Admin Lactated Ringer's 1,000 mls @ 15 mls/hr 01/09/25 11:45 IV .Q48H SHANAE PFSH Medical History Bipolar disorder Juvenile arthritis Epilepsy, unspecified, not intractable, without status epilepticus Seizures Wears glasses History of Crohn's disease CPAP (continuous positive airway pressure) dependence Sleep apnea Asthma Anxiety Depression Lumbago Dysmenorrhea Enuresis, nonorganic Seizures Back problem Arthritis Anemia Crohns disease Bipolar disorder Home Medications ?Medication ?Instructions ?Recorded ?Last Taken ?Type albuterol sulfate 90 mcg/actuation 2 puff inhalation Q4H PRN 12/15/21 Unknown Rx aerosol inhaler shortness of breath or wheezing #8.5 grams fluconazole 100 mg tablet 100 mg PO DAILY #14 tabs 02/18/24 Unknown Rx metronidazole 500 mg tablet 500 mg PO TID #56 tabs 02/18/24 Unknown Rx Skyrizi 600mg/ 10ml 600 mg IV .COMPLEX #10 mL 10/23/24 Unknown Rx pantoprazole 40 mg tablet,delayed 40 mg PO BID #60 tabs 11/19/24 Unknown Rx release Allergy/AdvReac Type Severity Reaction Status Date / Time almond (almonds) Allergy Severe Anaphylaxis Verified 01/06/25 13:41 Family History Father Suicide Mother Diabetes OCD (obsessive compulsive disorder) Depression Bipolar disorder (manic depression) Grandmother Diabetes Uncle Bowel disease Grandfather Colon cancer maternal - 2004 Other Anxiety Arthritis Epilepsy Surgical History History of esophagogastroduodenoscopy (EGD) History of colonoscopy History of bladder surgery History of wisdom tooth extraction History of cystoscopy Social History Smoking Status: Current every day smoker tobacco type: cigarettes Tobacco: How many years used: 5 second hand exposure: No alcohol intake: current details: social on weekends substance use type: does not use what type of physical activity do you participate in: none martin/latter day: None seatbelt use: always Review of Systems (Anesthesia) ROS Narrative System reviewed and no additional complaints, except as documented.
[2025-01-09 11:50] VITALS: BP 101/56; PULSE 59; RESP 16; TEMP 37; O2SAT 99; BMI 33.4
[2025-01-09 12:13] LABS: Internal QC Validated? YES +Cl - CLEAR BKGD; Pregnancy, Urine Negative Negative
[2025-01-09] MEDS: Lactated Ringers 1,000 ML 15 ML IV (12:20)
--- NOTE | 2025-01-09 12:45 | EGD_PTH ---
PATIENT: CONY POWERS LOC: EN U#:[id number] AGE/SX: 34/F ROOM: RE01/09/[address]: Dr. Juan Alberto King DO : 1990 BED: DIS: 01/09/2025 SPEC #: [id number] RECD: 01/09/25 15:59 STATUS: NARCISA REJanay #: [id number] PILAR: 01/09/25 12:[address]: Juan Alberto King DEPT: SURGICAL PATHOLOGY RECD BY: Casa [facility] ENTERED: 01/12/25 08:35 SP TYPE: EGD BIOPSY LYUDMILA DR: Dr. Radha Calloway MD Tissues: A - Esophagus, NOS B - Duodenum, NOS Procedures: Surgery Specimen Level IV HEADER OPERATION: EGD and biopsy and dilatation PRE-OP DIAGNOSIS: Dysphagia TISSUE SUBMITTED: A- Random esophagus biopsy, B- Duodenum biopsy MICROSCOPIC DIAGNOSIS A. Esophagus, random biopsy: Squamous mucosa with reactive changes Columnar mucosa, negative for goblet cell metaplasia. B. Duodenum, biopsy: Normal villous morphology with Arelis gland hyperplasia, gastric mucin cell metaplasia, and mild acute inflammation, suggestive of peptic injury. Negative for increased intraepithelial lymphocytes. MICROSCOPIC DESCRIPTION Slides are reviewed. GROSS DESCRIPTION A. Received in fixative is one container labeled with the patient's name and designated Random esophagus biopsy. The specimen consists of two irregular fragments of light ferguson soft tissue that in aggregate measure 0.5 and 0.7 cm. The specimen is totally submitted in one cassette. B. Received in fixative is one container labeled with the patient's name and designated Duodenum biopsy. The specimen consists of two irregular fragments of light ferguson soft tissue that in aggregate each measuring 0.5 cm. The specimen is totally submitted in one cassette. ID 01/12/2025 CPT:39436v9
--- NOTE | 2025-01-09 13:17 | PCM.HP.STD ---
HPI - General General Date of Admission: 01/09/25 Date of Service: 01/09/25 Chief Complaint: Dysphagia HPI Narrative CONY POWERS, is a 34 F who presents I established in 2020 for Crohns disease diagnosed in 2009 treated with oral medications and then transitioned to Humira. EGD and colonoscopy 07.28.21. EGD LA grade A reflux esophagitis; Erythematous mucosa in stomach, gastritis and duodenopathy; focal granuloma formation of pylorus. H.Pylori negative. Colonoscopy Endoscopic Crohn?s disease score 40 with ileitis and colitis; Multiple ulcers in TI; chronic, active colitis; hyperplastic polyp of RS colon. Pathology findings consistent with Crohn?s Disease. Last OV 1.. Pt doing well with no flares in her disease. Occasional issues with swallowing. Feels Humira working well for her. Calprotectin 1..25; 1360 CRP 1.8.25; <2.9 ESR 1.8.25; 12 *Attempted to contact pt regarding recommendation to switch biologic therapy due to uncontrolled inflammation and antibodies to Humira. Last OV 10.23.24 Pt continues to episodes of urgent loose stools. This is not happening on a daily basis. She continues to have difficulty with swallowing. PPI is no longer helping with this. Start Skyrizi, EGD and increase PPI. EGD; not yet completed OV 01.08.25 Pt has had two infusions of the Skyrizi so far and her next one is next month. She denies any diarrhea or blood in her stool. She feels it may be working well. [facility] Medical History Bipolar disorder Juvenile arthritis Epilepsy, unspecified, not intractable, without status epilepticus Seizures Wears glasses History of Crohn's disease CPAP (continuous positive airway pressure) dependence Sleep apnea Asthma Anxiety Depression Lumbago Dysmenorrhea Enuresis, nonorganic Seizures Back problem Arthritis Anemia Crohns disease Bipolar disorder Home Medications ?Medication ?Instructions ?Recorded ?Last Taken ?Type albuterol sulfate 90 mcg/actuation 2 puff inhalation Q4H PRN 12/15/21 Unknown Rx aerosol inhaler shortness of breath or wheezing #8.5 grams fluconazole 100 mg tablet 100 mg PO DAILY #14 tabs 02/18/24 Unknown Rx metronidazole 500 mg tablet 500 mg PO TID #56 tabs 02/18/24 Unknown Rx Skyrizi 600mg/ 10ml 600 mg IV .COMPLEX #10 mL 10/23/24 Unknown Rx pantoprazole 40 mg tablet,delayed 40 mg PO BID #60 tabs 11/19/24 Unknown Rx release Allergy/AdvReac Type Severity Reaction Status Date / Time almond (almonds) Allergy Severe Anaphylaxis Verified 01/06/25 13:41 Family History Father Suicide Mother Diabetes OCD (obsessive compulsive disorder) Depression Bipolar disorder (manic depression) Grandmother Diabetes Uncle Bowel disease Grandfather Colon cancer maternal - 2004 Other Anxiety Arthritis Epilepsy Surgical History History of esophagogastroduodenoscopy (EGD) History of colonoscopy History of bladder surgery History of wisdom tooth extraction History of cystoscopy Social History Smoking Status: Current every day smoker tobacco type: cigarettes Tobacco: How many years used: 5 second hand exposure: No alcohol intake: current details: social on weekends substance use type: does not use what type of physical activity do you participate in: none martin/pentecostalism: None seatbelt use: always ROS Constitutional Constitutional: Denies fatigue, fever(s), poor appetite, weight gain or weight loss Gastrointestinal Gastrointestinal: Denies belching, bloating, change in bowel habits, change in stool character, chewing difficulty, coffee ground emesis, constipation, cramping, diarrhea, dyspepsia, dysphagia, early satiety, excessive flatus, fecal incontinence, heartburn, hematemesis, hematochezia, hemorrhoids, loose stools, melena, nausea, odynophagia, rectal bleeding, tenesmus, vomiting or weight changes Vital Signs Vital Signs Vital Signs: 01/09/25 11:50 01/09/25 11:50 Temperature 98.6 F Temperature Source Temporal Pulse Rate 59 L Respiratory Rate 16 Respiratory Pattern Normal Blood Pressure 101/56 L Blood Pressure Mean 71 Blood Pressure Source Monitor Blood Pressure Position Supine Blood Pressure Location Right Arm Pulse Ox 99 Oxygen Delivery Method Room Air Weight Weight: 233 lb 11.04 oz Body Mass Index (BMI) 33.4 Physical Exam Const alert, oriented x3, no apparent distress and healthy appearing General Appearance: cooperative GI normal to inspection, nondistended, normoactive bowel sounds, soft to palpation, non-tender and non-distended Percussion: normal to percussion Rectal Exam: deferred Results Lab / Micro Data Labs: Laboratory Results - last 24 hr 01/09/25 11:50: Urine Test Negative Assessment & Plan Assessment/Plan (1) Dysphagia: PLAN: Assessment and Plan Assessment and Plan (1) Dysphagia: Status: Acute Plan: Cony is a 34 yo female pt here today for f/u regarding her Crohns. Pt was diagnosed in 2006 and has been in Humira since 2011. Pt recently developed antibodies and calprotectin in the 1000s. Humira discontinued and she was started on Skyrizi. She has had two infusions so far and feels well. Her next infusion is in one month and then well start with injections q8 weeks. Will re check calprotectin, ESR, and CRP at f/u after she has been on skyrizi for three months. She has been having intermittent issues with swallowing issues and was scheduled for EGD following her last appointment. She is having the EGD tomorrow and will update her regarding results after. -Continue Skyrizi -Repeat Calprotectin, ESR and CRP in 3 months -EGD -f/u in 6 months (2) Crohns disease: Status: Chronic Comment: Diagnosed 2006
--- NOTE | 2025-01-09 13:46 | OP.CCLET_ITS ---
01/09/2025 Radha Calloway [address] [place] [address] Re : Upper GI endoscopy procedure for Penny Hart Dear Dr. Calloway This procedure was performed on Thursday, January 09, 2025. My impressions and recommendations are as follows: Impressions : - Abnormal esophageal motility. Biopsied. Dilated. - No gross lesions in the entire stomach. - Duodenitis. Biopsied. Recommendations : - Discharge patient to home. - Resume previous diet. - Continue present medications. - Await pathology results. My findings are described in the full procedure note, which is enclosed. If I can be of further assistance, please feel free to contact me at . Sincerely, Juan Alberto King, 01/09/2025 1:46:11 PM This report has been signed electronically.
--- NOTE | 2025-01-09 13:46 | OP.EGD_ITS ---
Patient Name: Penny Hart Procedure Date: 01/09/2025 1:25 PM Date of : 1990 Age: 34 Procedure: Upper GI endoscopy Indications: Dysphagia Providers: Juan Alberto King DO Referring MD: Radha Calloway Medicines: Monitored Anesthesia Care Patient Profile: This is a 34 year old female. Refer to note in patient chart for documentation of history and physical. Refer to note in patient chart for documentation of history and physical. Patient has symptoms of dysphagia with both liquids and solids. Complications: No immediate complications. Procedure: Pre-Anesthesia Assessment: - Prior to the procedure, a History and Physical was performed, and patient medications and allergies were reviewed. The patient is competent. The risks and benefits of the procedure and the sedation options and risks were discussed with the patient. All questions were answered and informed consent was obtained. Patient identification and proposed procedure were verified by the physician in the pre-procedure area. Mental Status Examination: alert and oriented. Airway Examination: normal oropharyngeal airway and neck mobility. Respiratory Examination: clear to auscultation. CV Examination: normal. Prophylactic Antibiotics: The patient does not require prophylactic antibiotics. Prior Anticoagulants: The patient has taken no anticoagulant or antiplatelet agents except for NSAID medication. ASA Grade Assessment: II - A patient with mild systemic disease. After reviewing the risks and benefits, the patient was deemed in satisfactory condition to undergo the procedure. The anesthesia plan was to use monitored anesthesia care (MAC). Immediately prior to administration of medications, the patient was re-assessed for adequacy to receive sedatives. The heart rate, respiratory rate, oxygen saturations, blood pressure, adequacy of pulmonary ventilation, and response to care were monitored throughout the procedure. The physical status of the patient was re-assessed after the procedure. After obtaining informed consent, the endoscope was passed under direct vision. Throughout the procedure, the patient's blood pressure, pulse, and oxygen saturations were monitored continuously. The gastroscope was introduced through the mouth, and advanced to the fourth part of the duodenum. Small bowel enteroscopy was deemed necessary. The upper GI endoscopy was accomplished without difficulty. The patient tolerated the procedure well. Scope In: 1:35:03 PM Scope Out: 1:40:17 PM Total Procedure Duration Time 0 hours 5 minutes 14 seconds Findings: Abnormal motility was noted in the esophagus. The cricopharyngeus was abnormal. There are extra peristaltic waves in the esophageal body. The distal esophagus/lower esophageal sphincter is spastic, but gives up passage to the endoscope. Tertiary peristaltic waves are noted. Biopsies were taken with a cold forceps for histology. Verification of patient identification for the specimen was done. Estimated blood loss was minimal. A guidewire was placed and the scope was withdrawn. Dilation was performed with a Savary dilator with no resistance at 60 Fr. The dilation site was examined and showed moderate improvement in luminal narrowing. Estimated blood loss was minimal. No gross lesions were noted in the entire examined stomach. Patchy moderate inflammation characterized by congestion (edema) and friability was found in the entire duodenum. Biopsies were taken with a cold forceps for histology. Verification of patient identification for the specimen was done. Estimated blood loss was minimal. Impression: - Abnormal esophageal motility. Biopsied. Dilated. - No gross lesions in the entire stomach. - Duodenitis. Biopsied. Recommendation: - Discharge patient to home. - Resume previous diet. - Continue present medications. - Await pathology results. Procedure Code(s): --- Professional --- 63337, Esophagogastroduodenoscopy, flexible, transoral; with insertion of guide wire followed by passage of dilator(s) through esophagus over guide wire [id number], 59,51, Small intestinal endoscopy, enteroscopy beyond second portion of duodenum, not including ileum; with biopsy, single or multiple CPT copyright 2021 [employer]. All rights reserved. The codes documented in this report are preliminary and upon wet process head miller review may be revised to meet current compliance requirements. Juan Alberto King DO 01/09/2025 1:46:11 PM This report has been signed electronically. Number of Addenda: 0 Note Initiated On: 01/09/2025 1:25 PM
[2025-01-09 13:48] VITALS: BP 101/56; BP 116/95; PULSE 68; RESP 16; TEMP 36.6; O2SAT 98
[2025-01-09 13:50] VITALS: BP 101/56; BP 106/58; PULSE 62; RESP 16; O2SAT 99
[2025-01-09 13:55] VITALS: BP 101/56; BP 107/54; PULSE 61; RESP 16; TEMP 36.2; O2SAT 97
--- NOTE | 2025-01-09 13:56 | PCM.POST.ANE ---
Anesthesia: Postop Eval I Current Vital Signs Temperature: 97.9 F Pulse Rate: 64 Blood Pressure: 116/95 Respiratory Rate: 16 Pulse Ox: 98 Oxygen Delivery Method: Room Air Assessment Airway patent: Yes Spontaneous unlabored respirations: Yes Mental status: Awake and Calm nausea: No Vomiting: No Anesthesia Complication: No Fluid Hydration Crystalloid volume administer (ml): 300 Total IV fluid infused: 300 Progress Note Anesthesia document: Postop Eval 1 completed: Yes
[2025-01-09 13:57] VITALS: BP 116/95; PULSE 64; RESP 16; TEMP 36.6; O2SAT 98
[2025-01-09 14:14] VITALS: BP 101/56
--- NOTE | 2025-01-09 14:39 | PCM.POSTANE2 ---
Anesthesia Postop Eval I Sum Postop Eval Completion status Anesthesia document: Postop Eval 1 completed: Yes Anesthesia Postop Eval I Summary Anesthesia Postop Eval I Summary: Anesthesia Postop Eval I: Assessment Summary Airway patent Yes 01/09/25 13:57 [email or web address] Spontaneous unlabored Yes 01/09/25 13:57 [email or web address] respirations Mental status Awake,Calm 01/09/25 13:57 [email or web address] nausea No 01/09/25 13:57 [email or web address] Vomiting No 01/09/25 13:57 [email or web address] Anesthesia Postop Eval I: Fluid Summary Crystalloid volume administer 300 01/09/25 13:57 [email or web address] (ml) Colloids volume administered ( ml) Blood Product volume administered (ml) Total IV fluid infused 300 01/09/25 13:57 [email or web address] Anesthesia Postop Eval I: Summary Notes Anesthesia Complication No 01/09/25 13:57 [email or web address] Anesthesia Complication Comment: Post-operative progress note Anesthesia: Postop Eval II Evaluation Mental status: Awake Pain Level: 0 nausea: No Vomiting: No
--- OUTSIDE RECORDS SUMMARY | 2025-01-09 19:08 | XMS RPT_ITS | CCD ---
Author Organization [facility] Care Team Providers Care Records Analysis Manager Name Role Phone Dr. Radha Calloway Primary Care Provider Dr. Karlos Thornton Attending Provider Dr. Karlos Thornton Referring Provider Dr. Radha Calloway Referring Provider 1([facility])[phone] Dr. Juan Alberto Rutledge Attending Provider 1([facility])[phone] CHILO Mandujano Attending Provider 1([facility])[phone] Dr. Cecilio Veliz Attending Provider 1([facility])[phone] Leigh RESTAURANT CREW PERSON, RESTAURANT CREW PERSON-C [place]ona Attending Provider [phone] Dr. Radha Calloway Primary Care Provider Dr. Radha Calloway Referring Provider Dr. Juan Alberto Rutledge Attending Provider 1([facility])[phone] Dr. Natalia Gold Attending Provider Dr. Radha Calloway Primary Care Provider Dr. Radha Calloway Referring Provider Dr. Juan Alberto Rutledge Attending Provider [phone] Nicola Gonsalves Attending Provider Dr. Radha Calloway Primary Care Provider Dr. Radha Calloway Referring Provider CHILO Mandujano Attending Provider Dr. Christian Rincon Attending Provider Dr. Radha Calloway Primary Care Provider Dr. Radha Calloway Referring Provider [phone] Dr. Christian Rincon Attending Provider 1([facility])[phone] Dr. Juan Alberto Rutledge Attending Provider 1([facility])[phone] CHILO Mandujano Attending Provider 1([facility])[phone] Dr. Nicola Gonsalves Attending Provider 1([facility])[phone] Karlos Thornton Attending Provider 1([facility])[phone] Dr. Karlos Thornton Referring Provider 1([facility])[phone] Dr. Radha Calloway Primary Care Provider 1([facility])[phone] Dr. Radha Calloway Referring Provider 1([facility])[phone] Dr. Juan Alberto Rutledge Attending Provider 1([facility])[phone] Dr. Devin Naranjo Attending Provider 1([facility])[phone] Dr. Radha Calloway Primary Care Provider 1([facility])[phone] Dr. Radha Calloway Referring Provider 1([facility])[phone] Dr. Natalia Gold Attending Provider 1([facility])[phone] Juan Alberto Rutledge Attending Provider 1([facility])[phone] Dr. Christian Rincon Attending Provider 1([facility])[phone] Brodie, Radha Prakash Primary Care Provider BRODIE, RADHA PRAKASH Primary Care Unavailable Radha Calloway MD Primary Care Provider MARYJANELLIFF, RADHA PRAKASH Primary Care Unavailable WHITMAN, CARO M Referring Unavailable JOLLIFF, RADHA PRAKASH Primary Care Unavailable WHITMAN, CARO M Referring Unavailable JOLLIFF, RADHA PRAKASH Primary Care Unavailable WHITMAN, CARO M Referring Unavailable JOLLIFF, RADHA PRAKASH Primary Care Unavailable WHITMAN, CARO M Referring Unavailable JOLLIFF, RADHA PRAKASH Primary Care Unavailable WHITMAN, CARO M Referring Unavailable JOLLIFF, RADHA PRAKASH Primary Care Unavailable WHITMAN, CARO M Referring Unavailable JOLLIFF, RADHA PRAKASH Primary Care Unavailable WHITMAN, CARO M Referring Unavailable JOLLIFF, RADHA PRAKASH Primary Care Unavailable LEB, DELILAH B Referring Unavailable JOLLIFF, RADHA PRAKASH Primary Care Unavailable LEB, DELILAH B Referring Unavailable JOLLIFF, RADHA PRAKASH Primary Care Unavailable Dr. Radha Calloway MD Primary Care Provider [phone] J Carlos RESTAURANT CREW PERSON-CCaro Attending Provider [phone] J Carlos RESTAURANT CREW PERSON-CCaro Referring Provider Dr. Radha Calloway MD Referring Provider Chio Plaza Attending Provider Chio Plaza Referring Provider Fernando KEVIN, Dr. Avendano Attending Provider Dr. Juan Alberto Rutledge DO Referring Provider TIM DELILAH B Referring Unavailable JOLLIFF, RADHA PRAKASH Primary Care Unavailable LEB, DELILAH B Referring Unavailable JOLLIFF, RADHA PRAKASH Primary Care Unavailable LEB DELILAH B Referring Unavailable JOLLIFF, RADHA PRAKASH Primary Care Unavailable CARO WHITMAN Attending Unavailable JOLLIFF, RADHA PRAKASH Primary Care Unavailable CARO WHITMAN Attending Unavailable JOLLIFF, RADHA PRAKASH Primary Care Unavailable CARO WHITMAN Attending Unavailable JOLLIFF, RADHA PRAKASH Primary Care Unavailable CARO WHITMAN Attending Unavailable JOLLIFF, RADHA PRAKASH Primary Care Unavailable CARO WHITMAN Attending Unavailable JOLLIFF, RADHA PRAKASH Primary Care Unavailable CARO WHITMAN Attending Unavailable JOLLIFF, RADHA PRAKASH Primary Care Unavailable LEB DELILAH B Attending Unavailable JOLLIFF, RADHA PRAKASH Primary Care Unavailable LEB, DELILAH B Attending Unavailable JOLLIFF, RADHA PRAKASH Primary Care Unavailable LEB DELILAH B Attending Unavailable JOLLIFF, RADHA PRAKASH Primary Care Unavailable Dr. Radha Calloway MD Attending Provider Dr. Radha Calloway MD Primary Care Provider Dr. Radha Calloway MD Referring Provider Chio Plaza Attending Provider Chio Plaza Referring Provider Dr. Radha Calloway MD Primary Care Provider Radha Calloway Primary Care Unavailable Chio Patel Attending Unavailable Chio Patel Referring Unavailable Jolliff, Radha S Primary Care Unavailable Jolliff, Radha S Referring Unavailable Friend, Juan Alberto Attending Unavailable GuilhermenasovChio Attending Unavailable Jolliff, Radha S Primary Care Unavailable AtanasovChio Referring Unavailable Jolliff, Radha S Referring Unavailable Jolliff, Radha S Primary Care Unavailable Friend, Juan Alberto Attending Unavailable Jolliff, Radha S Primary Care Unavailable Friend, Juan Alberto Attending Unavailable Friend, Juan Alberto Referring Unavailable Jolliff, Radha S Primary Care Unavailable Jolliff, Radha S Referring Unavailable Friend, Juan Alberto Attending Unavailable Jolliff, Radha S Referring Unavailable Jolliff, Radha S Primary Care Unavailable Atanasov, Chio Attending Unavailable Jolliff, Radha S Referring Unavailable Jolliff, Radha S Primary Care Unavailable Atanasov, Chio Attending Unavailable Jolliff, Radha S Primary Care Unavailable Jolliff, Radha S Referring Unavailable Friend, Juan Alberto Attending Unavailable Friend, Juan Alberto Consulting Unavailable Jolliff, Radha S Primary Care Unavailable Caro Whitman Attending Unavailable Caro Whitman Referring Unavailable AtanasovChio Referring Unavailable Jolliff, Radha S Primary Care Unavailable AtanasovChio Attending Unavailable Jolliff, Radha S Primary Care Unavailable Friend, Juan Alberto Attending Unavailable Friend, Juan Alberto Referring Unavailable Jolliff, Radha S Referring Unavailable Jolliff, Radha S Attending Unavailable Jolliff, Radha S Primary Care Unavailable Friend Dr. Juan Alberto KEVIN Attending Provider Friend Dr. Juan Alberto KEVIN Other Provider Allergies Allergy Classification Reported Allergen(s) Allergy Type Date of Onset Reaction(s) Facility (1 source) Food Allergies: Uncoded Allergy to substance 2 [facility] Work Phone: (20 sources) almond allergenic extract; Translations: [ALMOND] Drug Allergy 0 [facility] (20 sources) Food Extracts; Translations: [FOOD EXTRACTS] Allergy to substance 2 [facility] (3 sources) almond allergenic extract; Translations: [ALMOND EXTRACT] Drug Allergy [address] (1 source) almond allergenic extract Drug Allergy [address] [facility] Repository Medications Current Medications Medication Drug Class(es) Dates Sig (Normalized) Sig (Original) [id number] 200 actuat albuterol 0.09 mg/actuat metered dose inhaler (20 sources) beta2-Adrenergic Agonist Start: 12-15-2021 take 1 puff(s) by inhalation every four hours Albuterol Sulfate Active 2 PUFF INHALATION Q4H .December 15, 2021 1:12pm administer with spacer Start: 07-15-2020 End: 12-15-2021 Albuterol Sulfate 90 mcg/act uation HFA aerosol inhaler Active 2 NMA INHALATION Q4H as needed for shortness of breath or wheezing .December 15, 2021 1:12pm administer with spacer Start: 07-15-2020 End: 12-15-2021 take 1 puff(s) by inhalation every four hours Albuterol Sulfate Active 2 PUFF INHALATION Q4H .December 15, 2021 12:12pm administer with spacer albuterol 90 mcg /actuation inhaler Inhale 2 puffs. Active Comment on above: Inhale 2 Puffs as in structed as needed. azaTHIOprine (20 sources) Purine Antimetabolite Start: take 150 mg by mouth once daily Azathioprine Active 150 MG PO DAILY 45 August 11, 2021 4:20pm Start: 08-11-2021 End: 03-31-2022 take 1 tablet by mouth once daily Azathioprine 100 mg tablet Discontinued 150 mg PO DAILY 45 August 11, 2021 1:00am March 31, 2022 4:02pm Start: 08-11-2021 End: 03-31-2022 take 150 mg by mouth once daily Azathioprine Discontin ued 150 MG PO DAILY 45 August 11, 2021 12:00am March 31, 2022 3:02pm Start: 08-11-2021 End: 03-31-2022 take 150 mg by mouth once daily Azathioprine Discontin ued 150 MG PO DAILY 45 August 11, 2021 1:00am March 31, 2022 4:02pm Start: 08-11-2021 take 150 mg by mouth once casandra y Azathioprine Active 150 MG PO DAILY 45 August 11, 2021 1:00am Start: 07-28-2021 End: 08-10-2021 take 1 tablet by mouth once daily Azathioprine 50 mg tablet Discontinued 100 mg PO DAILY July 28, 2021 1:00am August 10, 2021 2:56pm Start: 07-28-2021 End: 08-10-2021 take 100 mg by mouth once daily Azathioprine Discontin ued 100 MG PO DAILY July 28, 2021 12:00am August 10, 2021 1:56pm cyclobenzaprine hydrochloride 5 mg oral tablet (14 sources) Muscle Relaxant Start: 04-02-2024 End: 08-07-2024 take 1 tablet by mouth three times daily cyclobenzaprine (Flexeril) 5 mg tablet Take 1 tablet (5 mg) by mouth 3 times a day. 04/02/2024 08/07/2024 Discontinued (Therapy completed) Start: 06-21-2019 take 1 tablet by jesus th three times daily as needed for muscle spasms cyclobenzaprine (FLEXERIL) 10 mg tablet Indications: Right hip pain , Acute right-sided low back pain without sciatica Take 1 tablet by mouth three times daily as needed for Muscle Spasm. 20 tablet 0 06/21/2019 Active Comment on above: Take 1 tablet by jesus th three times daily as needed for Muscle Spasm. diclofenac sodium 0.01 mg/mg topical gel (2 sources) Nonsteroidal Anti-inflammatory Drug Start: 09-20-19 diclofenac sodium (Voltaren) 1 % gel Indications: osteoarthritis Apply 4.5 inches (4 g) topically 4 times a day as needed (PAIN, STIFFNESS, AND SWELLING). 100 g 1 09/20/2024 Active fluconazole 100 mg oral tablet (6 sources) Azole Antifungal Start: 02-18-20 24 take 1 tablet by mouth once daily Fluconazole 100 mg tablet Active 100 mg PO DAILY February 18, 2024 12:00am ibuprofen 600 mg oral tablet (2 sources) Nonsteroidal Anti-inflammatory Drug Start: 09-20-19 25 take 1 tablet by mouth every eight hours for pain ibuprofen 600 mg tablet Indications: pain Take 1 tablet (600 mg) by mouth every 8 hours if needed for mild pain (1 - 3). 28 tablet 1 09/20/2024 Active meloxicam 15 mg oral tablet (13 sources) Nonsteroidal Anti-inflammatory Drug Start: 04-02-20 End: 08-07-19 take 1 tablet by mouth once daily as needed for pain meloxicam (Mobic) 15 mg tablet Indications: Nondisplaced oblique fracture of shaft of right fibula, initial encounter for closed fracture , Moderate ankle sprain, right, initial encounter Take 1 tablet (15 mg) by mouth once daily as needed for mild pain (1 - 3). 30 tablet 1 04/24/2024 08/07/2024 Discontinued (Therapy completed) metroNIDAZOLE 500 mg oral tablet (20 sources) Nitroimidazole Antimicrobial Start: 02-18-20 take 1 tablet by mouth three times daily Metronidazole 500 mg tablet Active 500 mg PO THREE TIMES A DAY 56 February 18, 2024 12:00am Start: 03-28-2014 End: 03-29-2014 take 1 tablet by mouth every eight hours Metronidazole 500 MG tablet Discontinued 500 mg PO Q8H 10 March 28, 2014 12:00am March 29, 2014 9:49am Skyrizi 600mg/ 10ml (6 sources) Start: 10-23-2024 Skyrizi 600mg/ 10ml Active 600 mg IV .COMPLEX October 23, 2024 12:00am 600 mg intravenously at week 0, 4, 8 for Crohn's Disease K50.90 Completed/Discontinued Medications Medication Drug Class(es) Dates Sig (Normalized) Sig (Original) acetaminophen 325 mg / HYDROcodone bitartrate 5 mg oral tablet (17 sources) Opioid Agonist Start: 09-21-2019 End: 09-23-2019 Hydrocodone-Acetami nophen 1 TABLET tablet Discontinued 1 {tbl} PO EVERY 4 HOURS NEEDED as needed for Pain 10 2 September 21, 2019 September 22, 2019 1:00am September 23, 2019 1:09am Start: 09-21-2019 End: 09-23-2019 take 1 tablet by mouth every four hours as needed Hydrocodone-Acetaminophen Discontinued 1 TABLET PO EVERY 4 HOURS NEEDED 10 2 September 21, 2019 September 23, 2019 12:09am acetaminophen 325 mg / oxyCODONE hydrochloride 5 mg oral tablet (20 sources) Opioid Agonist Start: 03-28-2014 End: 03-29-2014 Oxycodone-Acetaminophen 1 TABLET tablet Discontinued 1 {tbl} PO EVERY 6 HOURS NEEDED as needed for Pain March 28, 2014 12:00am March 29, 2014 9:47am Start: 03-28-2014 End: 03-29-2014 take 1 tablet by mouth every six hours as needed Oxycodone-Acetaminophen Discontinued 1 TABLET PO EVERY 6 HOURS NEEDED March 27, 2014 11:00pm March 29, 2014 8:47am Start: 03-15-2014 End: 03-29-2014 Oxycodone-Acetaminophen 1 TA BLET tablet Discontinued 1 - 2 {tbl} PO EVERY 4 HOURS NEEDED as needed for Pain March 15, 2014 12:00am March 29, 2014 9:46am Start: 03-15-2014 End: 03-29-2014 take 1 tablet by mouth every four hours as needed Oxycodone-Acetaminophen Discontinued 1 - 2 TABLET PO EVERY 4 HOURS NEEDED March 14, 2014 11:00pm March 29, 2014 8:46am 0.8 ml adalimumab 50 mg/ml prefilled syringe (20 sources) Tumor Necrosis Factor Tiffany Start: 01-16-2022 End: 12-05-2024 Adalimumab (Humira) 40 mg/0.8 mL syringe kit Discontinued 0 .ROUTE .COMPLEX September 15, 2024 2:51pm December 05, 2024 10:06am Give 40mg as a subcutaneous injection every 14 days. Use as directed by prescriber. *See Enclosed Instructions for Use of Injection Device* PROTECT FROM LIGHT Start: 07-07-2021 Adalimumab (HU FELICITY PEN) 40 mg/0.8 mL Indications: Crohn's disease of small intestine without complication (HCC) Inject 1 pen (40mg) subcutaneously every other week. 2 Each 2 07/07/2021 Active Start: 02-03-2021 End: 01-16-2022 Adalimumab (Humira) 40 mg/0. 8 mL Syringe Kit Discontinued 40 mg SC EVERY WEEK February 03, 2021 12:00am January 16, 2022 11:36am every two weeks. Comment on above: Inject 1 pen (40mg) subcutaneously every other week. bisacodyl 5 mg delayed release oral tablet (17 sources) Stimulant Laxative Start: End: take 1 tablet by mouth once Bisacodyl 5 mg tablet,delayed release (DR/EC) Discontinued 5 mg PO ONCE 4 July 05, 2021 1:00am August 01, 2021 6:03pm as directed for bowel prep budesonide 3 mg delayed release oral capsule (6 sources) Corticosteroid Start: 024 End: take 2 capsules by mouth once daily Budesonide 3 mg capsule,delayed,exte nd.release Discontinued 6 mg PO DAILY February 05, 2024 12:00am August 06, 2024 3:12pm ciprofloxacin 500 mg oral tablet (17 sources) Quinolone Antimicrobial Start: 014 End: take 1 tablet by mouth twice daily Ciprofloxacin Hcl 500 MG tablet Discontinued 500 mg PO TWICE A DAY March 28, 2014 12:00am March 29, 2014 9:49am citalopram 20 mg oral tablet (17 sources) Serotonin Reuptake Inhibitor Start: End: take 1 tablet by mouth once daily Citalopram (Celexa) 20 MG tablet Discontinued 20 mg PO DAILY September 21, 2019 1:00am August 10, 2021 3:08pm CPAP (1 source) CPAP dicyclomine hydrochloride 20 mg oral tablet (18 sources) Anticholinergic Start: 016 take 1 tablet by mouth at bedtime dicyclomine (BENTYL) 20 mg tablet take 1 tablet by mouth before meals and at bedtime 120 tablet 2 05/11/2016 Active Start: 03-15-2014 End: 03-29-2014 take 1 tablet by mouth four times daily as needed for pain Dicyclomine (Bentyl) 20 MG tablet Discontinued 20 mg PO 4 TIMES DAILY as needed for Abdominal Pain March 15, 2014 12:00am March 29, 2014 9:46am Comment on above: take 1 tablet by jesus th before meals and at bedtime fluticasone propionate 0.05 mg/actuat metered dose nasal spray (1 source) Corticosteroid Start: take 2 spray(s) by mouth once daily fluticasone (FLONASE) 50 mcg/actuation nasal spray Use 2 Sprays in each nostril once daily. Rinse mouth after use. 1 Bottle 0 10/23/2018 Active Comment on above: Use 2 Sprays in each nostril once daily. Rinse mouth after use. hyoscyamine sulfate 0.125 mg oral tablet (13 sources) Start: End: take 1 tablet by mouth every six hours as needed Hyoscyamine Sulfate 0.125 mg tablet Discontinued 0.125 mg PO EVERY 6 HOURS as needed for dyspepsia 60 March 28, 2022 12:00am December 05, 2023 12:54pm 1 ml ketorolac tromethamine 30 mg/ml injection (1 source) Nonsteroidal Anti-inflammatory Drug, Cyclooxygenase Inhibitor Start: End: inject 30 mg by intramuscular injection once 30 mg, intramuscular, Once, On Sun04/04/24 at 1355, For 1 dose lacosamide 50 mg oral tablet (20 sources) Anti-epileptic Agent Start: End: take 1 tablet by mouth twice daily Lacosamide (Vimpat) 50 mg Tablet Discontinued 50 mg PO TWICE A DAY June 19, 2021 1:00am August 10, 2021 3:08pm Start: 09-25-2016 take 1 tablet by jesus th twice daily VIMPAT 100 mg tab Take 100 mg by mouth twice daily. 0 09/25/2016 Active Start: 01-11-2014 End: 10-30-2019 take 1 tablet by mouth twice daily Lacosamide 50 MG tablet Discontinued 50 mg PO TWICE A DAY January 11, 2014 12:00am October 30, 2019 4:23pm Comment on above: Take 100 mg by mouth twice daily. naproxen 500 mg oral tablet (20 sources) Nonsteroidal Anti-inflammatory Drug Start: 2 End: take 1 tablet by mouth twice daily as needed for pain Naproxen 500 mg tablet Discontinued 500 mg PO TWICE A DAY as needed for pain December 05, 2023 12:00am February 14, 2024 10:33am Start: 10-28-2013 End: 03-29-2014 take 1 tablet by mouth twice daily as needed Naproxen 500 MG tablet Discontinued 500 mg PO TWICE DAILY NEEDED October 28, 2013 12:00am March 29, 2014 9:46am nystatin 100 unt/mg topical ointment (6 sources) Polyene Antifungal Start: 02-18-2024 End: 03-03-2024 Nystatin 100,000 unit/gram ointment Discontinued 1 NMA TOPICAL TWICE A DAY 30 14 Sue 22nd, 2024 12:00am March 02, 2024 12:00am March 03, 2024 12:03am apply to rectum twice a day x 2 weeks ondansetron 4 mg oral tablet (14 sources) Serotonin-3 Receptor Antagonist Start: 03-28-2022 End: 12-05-2023 Ondansetron Hcl 4 mg tablet Discontinued 4 mg PO EVERY 6 HOURS as needed for nausea and vomiting 60 March 28, 2022 12:00am December 05, 2023 12:54pm take every six hours until symptoms are controlled then just as needed. Start: 04-30-2014 take 1 tablet by jesus th every eight hours as needed for nausea and nausea ondansetron (ZOFRAN) 4 mg tablet Indications: Nausea Take 1 tablet by mouth every 8 hours as needed for Nausea/Vomiting. 10 tablet 0 04/30/2014 Active Comment on above: Take 1 tablet by jesus th every 8 hours as needed for Nausea/Vomiting. pantoprazole 40 mg delayed release oral tablet (20 sources) Proton Pump Inhibitor Start: 08-06-19 End: 11-20-19 take 1 tablet by mouth twice daily Pantoprazole 40 mg tablet,delayed release (DR/EC) Discontinued 40 mg PO TWICE A DAY 60 October 23, 2024 3:20pm November 19, 2024 3:29pm Start: 08-06-2024 End: 10-23-2024 take 1 tablet by mouth once daily Pantoprazole 40 mg tablet,delayed release (DR/EC) Discontinued 40 mg PO daily 60 August 06, 2024 1:00am October 23, 2024 3:20pm Start: 08-01-2021 End: 10-24-2021 Pantoprazole (Protonix) 40 m g tablet,delayed release (DR/EC) Discontinued 40 mg PO DAILY 60 August 01, 2021 1:00am October 24, 2021 5:48pm take two times a day for eight weeks then once a day for eight weeks. polyethylene glycol 3350 45775 mg powder for oral solution (17 sources) Osmotic Laxative Start: 07-05-2021 End: 08-01-2021 Polyethylene Glycol 3350 (Miralax) 17 gram/dose powder Discontinued 17 g PO DAILY 238 July 05, 2021 1:00am August 01, 2021 6:03pm as directed for bowel prep predniSONE 20 mg oral tablet (20 sources) Start: 08-01-2021 End: 12-05-2021 take 1 tablet by mouth twice daily Prednisone 20 mg tablet Discontinued 20 mg PO TWICE A DAY 60 August 01, 2021 1:00am December 05, 2021 10:41am Start: 06-19-2021 End: 07-13-2021 take 2 tablets by mouth once daily Prednisone 20 mg tablet Discontinued 40 mg PO DAILY June 19, 2021 1:00am July 13, 2021 1:04pm Start: 06-19-2021 End: 07-13-2021 take 40 mg by mouth once daily Prednisone Discontinued 40 MG PO DAILY June 19, 2021 12:00am July 13, 2021 12:04pm Start: 03-28-2014 End: 03-29-2014 take 2 tablets by mouth once daily Prednisone 10 MG tablet Discontinued 20 mg PO DAILY March 28, 2014 6:33am March 29, 2014 9:51am Start: 03-28-2014 End: 03-29-2014 take 20 mg by mouth once daily Prednisone Discontinued 20 MG PO DAILY March 28, 2014 5:33am March 29, 2014 8:51am Start: 03-28-2014 End: 03-29-2014 take 1 tablet by mouth once daily Prednisone 50 MG tablet Discontinued 50 mg PO DAILY 5 March 28, 2014 12:00am March 29, 2014 9:47am Start: 03-15-2014 End: 03-29-2014 take 6 tablets by mouth once daily, then take 4 tablets by mouth once daily, then take 2 tablets by mouth once daily, then take 1 tablet by mouth once daily Prednisone 10 MG tablet Discontinued 10 mg PO DAILY 48 March 15, 2014 12:00am March 29, 2014 9:49am 6 po qd x 3 days, 4 po qd x 3 days, 2 po qd x 3 days, 1 po qd x 3 days sucralfate 100 mg/ml oral suspension (17 sources) Aluminum Complex Start: 08-01-2021 End: 03-31-2022 Sucralfate (Carafate) 100 mg/mL suspension Discontinued 10 mL PO before meals 1000 August 01, 2021 1:00am March 31, 2022 4:00pm take three times a day, one hour prior to meals on an empty stomach for thirty days. tiZANidine 4 mg oral tablet (17 sources) Central alpha-2 Adrenergic Agonist Start: 06-19-2021 End: 07-13-2021 take 1 tablet by mouth every eight hours as needed Tizanidine 4 mg tablet Discontinued 4 mg PO Q8H as needed for muscle spasticity June 19, 2021 1:00am July 13, 2021 1:04pm vancomycin 250 mg oral capsule (13 sources) Glycopeptide Antibacterial Start: 03-31-2022 End: 04-25-2022 take 2 capsules by mouth every six hours Vancomycin 250 mg capsule Discontinued 500 mg PO EVERY 6 HOURS 112 March 31, 2022 12:00am April 25, 2022 2:36pm Start: 03-31-2022 End: 04-25-2022 take 500 mg by mouth every six hours Vancomycin Discontinued 500 MG PO EVERY 6 HOURS 112 March 30, 2022 11:00pm April 25, 2022 1:36pm zonisamide 100 mg oral capsule (20 sources) Anti-epileptic Agent Start: 10-30-2019 End: 06-03-2020 take 1 capsule by mouth twice daily Zonisamide 100 mg capsule Discontinued 100 mg PO TWICE A DAY 60 January 29, 2020 12:00am June 03, 2020 2:20pm Problems Active Problems Problem Classification Problem Date Documented Da te Episodic/Chronic Anxiety disorders (20 sources) Posttraumatic stress disorder; Translations: [Post-traumatic stress disorder, unspecified] Chronic Asthma (20 sources) Asthma; Translations: [Unspecified asthma, uncomplicated] Onset: 06-24-2018 Chronic Diseases of white blood cells (20 sources) Neutrophilia; 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 Epilepsy; convulsions (20 sources) Epilepsy, not refractory; Translations: [Epilepsy, unspecified, not intractable, without status epilepticus] Chronic Epilepsy; convulsions (20 sources) Seizure; Translations: [Unspecified convulsions] Onset: 06-24-2018 08-18-2021 Episodic Comment on above: LAST SEIZURE 2012 Fracture of lower limb (20 sources) Closed fracture of shaft of fibula; Translations: [Nondisplaced oblique fracture of shaft of right fibula, initial encounter for closed fracture] Onset: 04-04-2024 05-02-2024 Episodic Genitourinary symptoms and ill-defined conditions (1 source) Nocturnal enuresis; Translations: [Nocturnal enuresis] Onset: 03-08-2015 03-08-2015 Chronic Headache; including migraine (16 sources) Headache; Translations: [Headache] 02-05-2022 Episodic Mood disorders (18 sources) Bipolar disorder; Translations: [Bipolar I disorder] Onset: 06-24-2018 03-28-2021 Chronic Nonspecific chest pain (17 sources) Chest wall pain; Translations: [Other chest pain] 06-27-2021 Episodic Osteoarthritis (1 source) Arthritis; Translations: [Unspecified osteoarthritis, unspecified site] Onset: 06-24-2018 06-24-2018 Chronic Other acquired deformities (17 sources) Scoliosis deformity of spine; Translations: [Scoliosis, unspecified] 06-27-2021 Chronic Other acquired deformities (7 sources) Scoliosis, unspecified; Translations: [Scoliosis [and kyphoscoliosis], idiopathic] Chronic Other bone disease and musculoskeletal deformities (20 sources) Segmental and somatic dysfunction; Translations: [Segmental and somatic dysfunction of cervical region] 03-28-2021 Episodic Other bone disease and musculoskeletal deformities (7 sources) Segmental and somatic dysfunction of cervical region; Translations: [Nonallopathic lesions, cervical region] Episodic Other bone disease and musculoskeletal deformities (7 sources) Segmental and somatic dysfunction of lumbar region; Translations: [Nonallopathic lesions, lumbar region] Episodic Other bone disease and musculoskeletal deformities (7 sources) Segmental and somatic dysfunction of pelvic region; Translations: [Nonallopathic lesions, pelvic region] Episodic Other bone disease and musculoskeletal deformities (7 sources) Segmental and somatic dysfunction of thoracic region; Translations: [Nonallopathic lesions, thoracic region] Episodic Other connective tissue disease (10 sources) Hand pain; Translations: [Pain in unspecified hand] 08-02-2022 Episodic Other connective tissue disease (4 sources) Pain in unspecified hand; Translations: [Pain in limb] 08-02-2022 Episodic Other gastrointestinal disorders (13 sources) History of Crohns disease; Translations: [Personal history of other diseases of the digestive system] 04-08-2022 Episodic Other gastrointestinal disorders (13 sources) Diarrhea; Translations: [Diarrhea, unspecified] 04-08-2022 Episodic Other gastrointestinal disorders (14 sources) Dysphagia; Translations: [Dysphagia, unspecified] 11-21-2023 Episodic Other gastrointestinal disorders (1 source) Dysphagia, unspecified; Translations: [Dysphagia, unspecified] Onset: 10-23-2024 Episodic Other injuries and conditions due to external causes (1 source) H/O: fracture; Translations: [Personal history of (healed) traumatic fracture] 2024 Episodic Other nervous system disorders (1 source) Paresthesia of hand ; Translations: [Anesthesia of skin] 06-14-2023 Episodic Other non-traumatic joint disorders (20 sources) Hip pain; Translations: [Pain in unspecified hip] 01-11-2022 Episodic Other non-traumatic joint disorders (5 sources) Pain in unspecified hip; Translations: [Pain in joint, pelvic region and thigh] Episodic Other non-traumatic joint disorders (16 sources) Enthesopathy of hip region; Translations: [Other specified joint disorders, right hip] 01-11-2022 Episodic Other non-traumatic joint disorders (7 sources) Other specified joint disorders, right hip; Translations: [Enthesopathy of hip region] Episodic Other non-traumatic joint disorders (7 sources) Pain in right hip; Translations: [Pain in joint, pelvic region and thigh] Episodic Other nutritional; endocrine; and metabolic disorders (17 sources) Body mass index 30+ - obesity; Translations: [Body mass index (BMI) 39.0-39.9, adult] 03-24-2021 Chronic Other nutritional; endocrine; and metabolic disorders (5 sources) Body mass index (BMI) 39.0-39.9, adult; Translations: [Body Mass Index 39.0-39.9, adult] Chronic Other nutritional; endocrine; and metabolic disorders (1 source) Morbid obesity; Translations: [Morbid (severe) obesity due to excess calories] Onset: 08-25-2020 08-25-2020 Chronic Other skin disorders (1 source) Localized swelling, mass and lump, trunk; Translations: [Localized swelling, mass and lump, trunk] Onset: 11-25-2024 Episodic Regional enteritis and ulcerative colitis (20 sources) Crohn's disease; Translations: [Crohn's disease, unspecified, without complications] Onset: 06-24-2018 Chronic Comment on above: Diagnosed 2007 Residual codes; unclassified (17 sources) Obstructive sleep apnea syndrome; Translations: [Obstructive sleep apnea (adult) (pediatric)] 03-24-2021 Chronic Residual codes; unclassified (7 sources) Obstructive sleep apnea (adult) (pediatric); Translations: [Obstructive sleep apnea (adult)(pediatric)] Chronic Residual codes; unclassified (1 source) Sleep apnea; Translations: [Sleep apnea, unspecified] Onset: 06-24-2018 06-24-2018 Chronic Skin and subcutaneous tissue infections (10 sources) Abscess of buttock; Translations: [Cutaneous abscess of buttock] 11-20-2022 Episodic Spondylosis; intervertebral disc disorders; other back problems (20 sources) Sacroiliac disorder; Translations: [Sacrococcygeal disorders, not elsewhere classified] Episodic Sprains and strains (20 sources) Sprain of ankle; Translations: [Sprain of unspecified ligament of unspecified ankle, initial encounter] Onset: 04-09-2024 05-04-2022 Episodic Substance-related disorders (19 sources) Nicotine dependence; Translations: [Nicotine dependence, cigarettes, uncomplicated] Chronic Unclassified (1 source) Sprain of right ankle 05-28-2024 Unclassified (5 sources) Injury of right ankle 08-07-2024 Past or Other Problems Problem Classification Problem Date Documented Da te Episodic/Chronic Other injuries and conditions due to external causes (20 sources) Injury of right ankle; Translations: [Unspecified injury of right ankle, initial encounter] Onset: 04-09-2024 04-09-2024 Episodic Other injuries and conditions due to external causes (4 sources) Unspecified injury of right ankle, sequela; Translations: [Unspecified injury of right ankle, sequela] Onset: 08-07-2024 Episodic Other injuries and conditions due to external causes (2 sources) Personal history of (healed) traumatic fracture; Translations: [Personal history of (healed) traumatic fracture] Onset: 2024 Episodic Other injuries and conditions due to external causes (2 sources) Unspecified injury of right ankle, initial encounter; Translations: [Unspecified injury of right ankle, initial encounter] Onset: 04-09-2024 Episodic Other injuries and conditions due to external causes (2 sources) Fracture of bone; Translations: [Fracture] Onset: 05-27-2024 Episodic Residual codes; unclassified (1 source) FH: Malignant hyperpyrexia; Translations: [Family history of other specified conditions] Onset: 08-25-2020 08-25-2020 Episodic Residual codes; unclassified (2 sources) Pain; Translations: [Pain] Onset: 04-09-2024 Episodic Results Test Name Value Interpretation Reference Range Facility Urine testOrdered By: Nahun Tucker on 01-09-2025 HCG ( test) Ql (U) Negative [facility] Comment on above: Very dilute urine sp ecimens, as indicated by a low specificgravity, may not contain billing customer service representative levels of hCG. If is still suspected, a first morning urinespecimen should be collected 48 hours later and tested. Abdomen Limitedon 11-20-2024 Abdomen Limited [facility] Imaging Services [address] [place], [place] [address] Abdomen Limited MR#: [id number] Acct: [id number] Name: CONY HART Rep #: [id number] : 1990 F 34 From: Shady jordan MD PCP: Dr. Radha Calloway MD Status: [facility] CLI Study: Abdomen Limited Date of Exam: 11/20/24 Exam# [id number] Ordering Dr: Radha Calloway MD PROCEDURE: ABDOMEN LIMITED 11/20/2024 REASON FOR EXAM: SMALL CYSTIC FEELING LESION TECHNIQUE: Targeted ultrasound of the right upper quadrant. One-week history of nontender palpable lump. PATIENT PREPARATION: Per protocol FINDINGS: In the right upper quadrant corresponding to the palpable lump, there is a 1.8 cm x 1.8 cm 1 cm slightly echogenic nodule suggestive of lipoma. Adjacent to this a similar-appearing nodule measuring 1.2 cm x 1 cm x 0.8 cm seen. US/Abdomen Limited IMPRESSION: Palpable lumps in the right upper quadrant most likely represent small lipomas. Reading Location: [facility] CC: Dr. Radha Calloway MD Logistics Lead: Signed [facility] POINT OF CARE ULTRASOUND NO CHARGEon 11-12-2024 POINT OF CARE ULTRASOUND NO CHARGE These images are not reportable by radiology and will not be interpreted by Radiologists. [facility] US Abdomenon 11-12-2024 These images are not reportable by radiology and will not be interpreted by Radiologists. IMAGING Gastroenterology Visit Repor ton 10-23-2024 Gastroenterology Visit Report [facility] [address] [place] [address] OFFICE VISIT Date of Service: 10/23/24 MR#: [id number] Acct: [id number] Name: CONY HRAT Rep #: [id number] : 1990 Provider: CHILO Dao Age/Sex: 34/F Location: [facility] Status: Signed Intake Vital Signs 02/18/24 09:29 Height 5 ft 10 in Intake Visit Reasons: medication refills Chief Complaint: Crohns disease Allergies almond (almonds) Allergy (Severe, Verified 02/18/24 09:28) Anaphylaxis Have you fallen in the past year?: No Nurse's Note: OV 10.23.24 Pt here for a f/u. Pt would like to discuss medications to manage her Crohns. Pt also reports pantoprazole seems to not be working as well. [facility] Medical History Bipolar disorder Juvenile arthritis Epilepsy, unspecified, not intractable, without status epilepticus Seizures Wears glasses History of Crohn's disease CPAP (continuous positive airway pressure) dependence Sleep apnea Asthma Anxiety Depression Lumbago Dysmenorrhea Enuresis, nonorganic Seizures Back problem Arthritis Anemia Crohns disease Bipolar disorder Surgical History (Updated 02/14/24 @ 10:44 by Estelita Sexton) History of esophagogastroduodenoscopy (EGD) History of colonoscopy History of bladder surgery History of wisdom tooth extraction History of cystoscopy Family History Father Suicide Mother Diabetes OCD (obsessive compulsive disorder) Depression Bipolar disorder (manic depression) Grandmother Diabetes Uncle Bowel disease Grandfather Colon cancer maternal - 2004 Other Anxiety Arthritis Epilepsy Social History Smoking Status: Current every day smoker tobacco type: cigarettes Tobacco: How many years used: 5 second hand exposure: No alcohol intake: current details: social on weekends substance use type: does not use what type of physical activity do you participate in: none martin/zoroastrianism: None seatbelt use: always HPI HPI Chief Complaint: Crohns disease Details: CONY HART, is a 34 F who presents to the office today for f/u. [facility] established in 2020 for Crohns disease diagnosed in 2009 treated with oral medications and then transitioned to Humira. EGD and colonoscopy 07.28.21. EGD LA grade A reflux esophagitis; Erythematous mucosa in stomach, gastritis and duodenopathy; focal granuloma formation of pylorus. H.Pylori negative. Colonoscopy Endoscopic Crohn???s disease score 40 with ileitis and colitis; Multiple ulcers in TI; chronic, active colitis; hyperplastic polyp of RS colon. Pathology findings consistent with Crohn???s Disease. Last OV 1..25 Pt doing well with no flares in her disease. Occasional issues with swallowing. Feels Humira working well for her. Calprotectin 1.13.25; 1360 CRP 1.8.25; <2.9 ESR 1.8.25; 12 *Attempted to contact pt regarding recommendation to switch biologic therapy due to uncontrolled inflammation and antibodies to Humira. OV 10.23.24 Pt continues to episodes of urgent loose stools. This is not happening on a daily basis. She continues to have difficulty with swallowing. PPI is no longer helping with this. ROS Const Constitutional: No fatigue, fever(s) or weight change ENT ENT: Positive for difficulty swallowing Gastro GI: Positive for diarrhea and difficulty swallowing; No abdominal pain, belching, bloating, change in bowel habits, change in stool character, coffee ground emesis, constipation, cramping, heartburn, feeling full early, excessive flatus, incontinent of stools, Vomiting blood/hematemesis, Blood in stool, loose stools, Black,tarry stools, nausea/dyspepsia, pain with swallowing, vomiting or other Musc Musculoskeletal: Positive for joint pain, back pain and stiffness Skin Skin: No yellowing of the eye or itchy eyes Psych Psychiatric: Positive for anxiety and No depression Endo Endocrine: No fatigue or weight change Aller/Imm Allergy/Immunologic: No itchy eyes Mulugeta/Lymp Hematologic/Lymphatic: No easy bleeding or easy bruising Exam Const General: cooperative and comfortable Nutritional Appearance: average body habitus and well nourished HENMT Head: normal to inspection Ears: hearing grossly normal bilaterally Nose: external nose normal Face and sinus: normal facial exam Eyes General: appearance normal, both eyes and all related structures Neck Neck: normal visual inspection Chest Chest palpation inspection: normal inspection of the chest and normal palpation of entire chest wall Resp Effort Inspection: normal respiratory effort Auscultation: Bilateral: Clear to Auscultation Cardio Palpation: normal PMI Rate: re (more content not included)... Normal [facility] POINT OF CARE ULTRASOUND NO CHARGEon 09-18-2024 POINT OF CARE ULTRASOUND NO CHARGE These images are not reportable by radiology and will not be interpreted by Radiologists. Normal [facility] US Abdomenon 09-18-2024 These images are not reportable by radiology and will not be interpreted by Radiologists. IMAGING XR ANKLE RIGHT 3+ VIEWSon XR ANKLE RIGHT 3+ VIEWS Interpreted By: Adalberto Lugo, STUDY: XR TIBIA FIBULA RIGHT 2 VIEWS; XR ANKLE RIGHT 3+ VIEWS; ; 09/18/2024 1:36 pm; 09/18/2024 1:35 pm INDICATION: Signs/Symptoms:OBLIQUE FRACTURE OF SHAFT OF RIGHT FIBULA; Signs/Symptoms:RIGHT ANKLE PAIN. ,S82.434S Nondisplaced oblique fracture of shaft of right fibula, sequela; ,S99.911S Unspecified injury of right ankle, sequela COMPARISON: 08/07/2024 ACCESSION NUMBER(S): [id number]; [id number] ORDERING CLINICIAN: DELILAH ARANDA FINDINGS: There is new soft tissue swelling of the upper pretibial region compared to the prior study. RIGHT TIBIA/FIBULA: There is redemonstration of a nondisplaced oblique fracture of the proximal fibular metadiaphysis with increased bony bridging since Sunday or study. No new acute or healing fractures of the tibia or fibula. RIGHT ANKLE: No acute fracture. The ankle mortise is symmetric without medial or lateral clear space widening. The tibiotalar and subtalar joints are intact. IMPRESSION: Interval subtotal healing of nondisplaced proximal fibular fracture. New soft tissue swelling in the upper pretibial region. Correlate for recent interval trauma to the upper leg. MACRO: None. Signed by: Adalberto Lugo 09/19/2024 9:17 PM Dictation workstation: [id number] [facility] XR TIBIA FIBULA RIGHT 2 VIEW Son 09-18-2024 XR TIBIA FIBULA RIGHT 2 VIEWS Interpreted By: Adalberto Lugo, STUDY: XR TIBIA FIBULA RIGHT 2 VIEWS; XR ANKLE RIGHT 3+ VIEWS; ; 09/18/2024 1:36 pm; 09/18/2024 1:35 pm INDICATION: Signs/Symptoms:OBLIQUE FRACTURE OF SHAFT OF RIGHT FIBULA; Signs/Symptoms:RIGHT ANKLE PAIN. ,S82.434S Nondisplaced oblique fracture of shaft of right fibula, sequela; ,S99.911S Unspecified injury of right ankle, sequela COMPARISON: 08/07/2024 ACCESSION NUMBER(S): [id number]; [id number] ORDERING CLINICIAN: DELILAH ARANDA FINDINGS: There is new soft tissue swelling of the upper pretibial region compared to the prior study. RIGHT TIBIA/FIBULA: There is redemonstration of a nondisplaced oblique fracture of the proximal fibular metadiaphysis with increased bony bridging since Sunday or study. No new acute or healing fractures of the tibia or fibula. RIGHT ANKLE: No acute fracture. The ankle mortise is symmetric without medial or lateral clear space widening. The tibiotalar and subtalar joints are intact. IMPRESSION: Interval subtotal healing of nondisplaced proximal fibular fracture. New soft tissue swelling in the upper pretibial region. Correlate for recent interval trauma to the upper leg. MACRO: None. Signed by: Adalberto Lugo 09/19/2024 9:17 PM Dictation workstation: [id number] [facility] [id number] 08-19-2024 [facility] Misc. COMMENT Normal . [facility] Comment on above: Order Comment: SER/R F [id number] ADL Result Comment: Test Ordered: [id number] Adalimumab Drug + Antibody Adalimumab Drug Level 3.7 ug/mL ES Reference Range: . Quantitation Limit: <0.6 ug/mL Results of 0.6 or higher indicate detection of adalimumab. Comments: - The optimal drug concentration depends upon patient- specific factors including the disease and desired therapeutic endpoint. - Maintenance trough concentrations >=7.5 may correspond to higher remission rates.(1) - Mucosal healing may be more likely in patients with maintenance trough levels >8.14.(2) - In rheumatoid arthritis, trough levels of 5-8 are associated with clinical (EULAR) response.(3) - This assay measures the antibody-unbound (free) fraction of adalimumab when serum anti-adalimumab antibodies are present. Anti-Adalimumab Antibody 35 ng/mL ES Reference Range: . Interpretation: The above result is a LOW Antibody titer Quantitation Limit: <25 ng/mL. Results of 25 or higher indicate detection of anti- adalimumab antibodies. 25 - 100 ng/mL: LOW titer 101 - 300 ng/mL: INTERMEDIATE titer 301 or greater ng/mL: HIGH titer Comments: - Anti-drug antibody levels should be interpreted in the context of the concomitant free drug trough concentration. - Low anti-drug antibodies may be transient while high titers are likely to be more consequential.(4-6) - Some immunogenicity is reversible. Elimination of intermediate titer (and even some high titer) anti-adalimumab antibodies has been achieved with dose escalation and/or methotrexate or 6-MP.(7) - This anti-adalimumab antibody assay is drug tolerant, and all positive results are verified for anti-drug specificity by a confirmatory test. References: 1. Melissa N, et al. AGA Review on TDM in IBD. Gastroenterol 2017;153:835-857. 2. Angela E, et al. J Crohns Col 2016;10(5):510-515. 3. Pouw MF, et al. Giovana Rheum Dis 2015;74:513-518. 4. Bartelds GM, et al. ANAM 2011;305(14):9501-9081. 5. Chandrakant C, et al. J Clin Gastroenterol 2016; 50:482-489. 6. Yanai H, et al. Clin Gastroenterol Hepatol 2015; 13(3):522-530. 7. Joel A, et al. Gastroenterol 2019;156(6):S-617. These tests were developed and their performance characteristics determined by [employer]. They have not been cleared or approved by the Food and Drug Administration. However, these electrochemiluminescence immunoassay (ECLIA) measurements of adalimumab and anti-adalimumab antibody (constituting DoseASSURE ADL) have been developed and validated in accordance with CLIA (Clinical Laboratory Improvement Amendments) and the FDA Guidance document, Assay Development and Validation for Immunogenicity Testing of Therapeutic Protein Products (2019). Performed at: [facility] - [facility] [address] [place] [id number] Hog Cutter: Dixon Young MD, Phone: [phone] Performed at: [address] [id number] Hog Cutter: Elian Torres PhD, Phone: [phone] Performed By: #### L 501.6710, L3410.9999, L101.9900 #### [facility] [address] [place], [address] Calprotectin, Stoolon [address] 1360 ug/g Abnormal 0-[address] [facility] Comment on above: Result Comment: Re sults verified by repeat testing Concentration Interpretation Follow-Up < 5 - 50 ug/g Normal None >50 -120 ug/g Borderline Re-evaluate in 4-6 weeks >120 ug/g Abnormal Repeat as clinically indicated Performed at: [address] [id number] Hog Cutter: So Jaffe MD, Phone: [phone] Performed By: #### L 7000.0700 #### [facility] [address], [address] Calprotectin stoolOrdered By : Juan Alberto Rutledge on 08-11-2024 Calprotectin stool 1360 ug/g High 0-120 [facility] Comment on above: Results verified b y repeat testingConcentration Interpretation Follow-Up< 5 - 50 ug/g Normal None>50 -120 ug/g Borderline Re-evaluate in 4-6 weeks >120 ug/g Abnormal Repeat as clinically indicatedPerformed at: [address] [id number] Director: So Jaffe MD, Phone: [phone] Stool Calprotectin 1360 ug/g High 0-120 [facility] Comment on above: Results verified b y repeat testingConcentration Interpretation Follow-Up< 5 - 50 ug/g Normal None>50 -120 ug/g Borderline Re-evaluate in 4-6 weeks >120 ug/g Abnormal Repeat as clinically indicatedPerformed at: [facility] - [facility] [address] [place], [place] [id number] Director: So Jaffe MD, Phone: [phone] POINT OF CARE ULTRASOUND NO CHARGEon 08-07-2024 POINT OF CARE ULTRASOUND NO CHARGE These images are not reportable by radiology and will not be interpreted by Radiologists. Normal [facility] US Abdomenon 08-07-2024 These images are not reportable by radiology and will not be interpreted by Radiologists. IMAGING XR ANKLE RIGHT 3+ VIEWSon XR ANKLE RIGHT 3+ VIEWS Interpreted By: Von Wheeler, STUDY: XR TIBIA FIBULA RIGHT 2 VIEWS; XR ANKLE RIGHT 3+ VIEWS INDICATION: Signs/Symptoms:PAIN AFTER A FRACTURE; Signs/Symptoms:FOLLOW UP ON PAIN AFTER A FRACTURE. COMPARISON: June 20, 2024 ACCESSION NUMBER(S): [id number]; [id number] ORDERING CLINICIAN: DELILAH ARANDA FINDINGS: Nondisplaced fracture of the right proximal fibular metaphysis unchanged in alignment. Right ankle alignment normal. Mortise intact. IMPRESSION: Nondisplaced right proximal fibular fracture similar to prior exam. Signed by: Von Wheeler 08/08/2024 6:10 PM Dictation workstation: [id number] [facility] XR TIBIA FIBULA RIGHT 2 VIEW Son 08-07-2024 XR TIBIA FIBULA RIGHT 2 VIEWS Interpreted By: Von Wheeler, STUDY: XR TIBIA FIBULA RIGHT 2 VIEWS; XR ANKLE RIGHT 3+ VIEWS INDICATION: Signs/Symptoms:PAIN AFTER A FRACTURE; Signs/Symptoms:FOLLOW UP ON PAIN AFTER A FRACTURE. COMPARISON: June 20, 2024 ACCESSION NUMBER(S): [id number]; [id number] ORDERING CLINICIAN: DELILAH ARANDA FINDINGS: Nondisplaced fracture of the right proximal fibular metaphysis unchanged in alignment. Right ankle alignment normal. Mortise intact. IMPRESSION: Nondisplaced right proximal fibular fracture similar to prior exam. Signed by: Von Wheeler 08/08/2024 6:10 PM Dictation workstation: [id number] [facility] Comment on above: Order Comment: DATE OF INJURY 04/04/2024 C-reactive protein measureme nt by high sensitivity methodOrdered By: Chio Patel on 08-06-2024 C-Reactive Protein Extended Range < 2.90 mg/L 0.0-3.[address] [facility] Comment on above: C-Reactive Protein ( CRP) provides useful information for thediagnosis, therapy and monitoring of inflammatory processesand associated diseases. For the evaluation of Relative Riskfor Cardiovascular Disease, a High Sensitivity CRP (HSCRP)should be ordered. CRPon 08-06-2024 C-REACTIVE PROT < 2.90 Normal 0.0-3.[address] [facility] Comment on above: Result Comment: C-Re active Protein (CRP) provides useful information for the diagnosis, therapy and monitoring of inflammatory processes and associated diseases. For the evaluation of Relative Risk for Cardiovascular Disease, a High Sensitivity CRP (HSCRP) should be ordered. Performed By: #### L 501.6710, L3410.9999, L101.9900 #### [facility] [address] [place], [address] Erythrocyte Sed Rateon 08-06 SED RATE 12 mm/hr Normal 0-[address] [facility] Comment on above: Performed By: #### L 501.6710, L3410.9999, L101.9900 #### [facility] [address] [place], [address] Erythrocyte sedimentation ra teOrdered By: Chio Patel on 08-06-2024 ESR (Bld) [Velocity] 12 mm/h 0-[address] [facility] Gastroenterology Visit Repor ton 08-06-2024 Gastroenterology Visit Report [facility] [address] [place] [address] OFFICE VISIT Date of Service: 08/06/24 MR#: [id number] Acct: [id number] Name: CONY HART Rep #: [id number] : 1990 Provider: CHILO Dao Age/Sex: 34/F Location: [facility] Status: Signed Intake Vital Signs 06/14/23 19:58 02/18/24 09:29 Height 5 ft 10 in 5 ft 10 in Intake Visit Reasons: 6 Month f/u Chief Complaint: Crohns disease Allergies almond (almonds) Allergy (Severe, Verified 02/18/24 09:28) Anaphylaxis Medications ???Medication ???Instructions ???Recorded ???Confirmed ???Type albuterol sulfate 90 mcg/actuation 2 puff inhalation Q4H PRN 12/15/21 02/14/24 Rx aerosol inhaler shortness of breath or wheezing #8.5 grams Humira 40 mg/0.8 mL subcutaneous See Rx Instructions .Route 08/01/23 08/06/24 Rx syringe kit (adalimumab) .COMPLEX #2 ea fluconazole 100 mg tablet 100 mg PO DAILY #14 tabs 02/18/24 Rx metronidazole 500 mg tablet 500 mg PO TID #56 tabs 02/18/24 Rx pantoprazole 40 mg tablet,delayed 40 mg PO QDAY #60 tabs 08/06/24 08/06/24 Rx release Patient : No Have you fallen in the past year?: Yes Nurse's Note: OV 08.06.24 Pt here for a f/u. Pt reports trouble swallowing daily. Reports she feeling fine otherwise. Denies abdominal pain, N/V/C. Continues Humira. [facility] Medical History Bipolar disorder Juvenile arthritis Epilepsy, unspecified, not intractable, without status epilepticus Seizures Wears glasses History of Crohn's disease CPAP (continuous positive airway pressure) dependence Sleep apnea Asthma Anxiety Depression Lumbago Dysmenorrhea Enuresis, nonorganic Seizures Back problem Arthritis Anemia Crohns disease Bipolar disorder Surgical History (Updated 02/14/24 @ 10:44 by Estelita Sexton) History of esophagogastroduodenoscopy (EGD) History of colonoscopy History of bladder surgery History of wisdom tooth extraction History of cystoscopy Family History Father Suicide Mother Diabetes OCD (obsessive compulsive disorder) Depression Bipolar disorder (manic depression) Grandmother Diabetes Uncle Bowel disease Grandfather Colon cancer maternal - 2004 Other Anxiety Arthritis Epilepsy Social History Smoking Status: Current every day smoker tobacco type: cigarettes Tobacco: How many years used: 5 second hand exposure: No alcohol intake: current details: social on weekends substance use type: does not use what type of physical activity do you participate in: none martin/zoroastrianism: None seatbelt use: always HPI HPI Chief Complaint: Crohns disease Details: CONY HART, is a 34 F who presents to the office today for f/u. [facility] established 07.04.21 to establish care for Crohn???s disease diagnosed in 2009. Maintained on oral medications until they stopped working and she was started on Humira Q2W. Entyvio preferred, however her migraine history prevented this. At time of presentation she was having a flare with symptoms of loose stools with mucous and blood and stomach discomfort.??? EGD and colonoscopy 07.28.21.???EGD LA grade A reflux esophagitis; Erythematous mucosa in stomach, gastritis and duodenopathy; focal granuloma formation of pylorus. H.Pylori negative.??? Colonoscopy Endoscopic Crohn???s disease score 40 with ileitis and colitis; Multiple ulcers in TI; chronic, active colitis; hyperplastic polyp of RS colon. Pathology findings consistent with Crohn???s Disease.??? OV 08.11.21 Diarrhea has resolved since the start of prednisone. She did not increase Humira to weekly as updating phone call was not completed due to phone issues. Continues PPI and Carafate therapy without side effects.???Start Azathioprine??? OV 09.22.21 with continued improvement: Notes positive weight loss, PO intake improvement, solid stools.??? Biochemical workup 09.23.21 CBC WBC elevated 14.0, CMP, LFT, AST [id number], Alk phos decreased 42, CRP elevated 7.97, lipase decreased 60.??? OV 11.21.21 Reports that her stomach is feeling well, diarrhea has resolved for the last couple of months. Continues to take Humira Qweek, azathioprine. Reports pain/discomfort in her knees, has a history of juvenile arthritis. Knows that L knee has no fluid sac. PCP discussed who felt it was r/t inflammation; Cony does not feel this presents as typical inflammation to her. Recently received her new CPAP; since receipt of this she has had multiple episodes of bedwetting which is worse since starting CPAP.??? OV 7.18.22 experienced interruption of therapy r/t pharmacy delivery and has had some tenesmus with urgency without bleed or diarrhea.??? (more content not included)... Normal [facility] No Panel InformationOrdered By: Chio Patel on 08-06-2024 Miscellaneous Test COMMENT . [facility] Comment on above: Test Ordered: [id number] Adalimumab Drug + AntibodyAdalimumab Drug Level 3.7 ug/mL ES Reference Range: .Quantitation Limit: <0.6 ug/mLResults of 0.6 or higher indicate detection of adalimumab.Comments: - The optimal drug concentration depends upon patient- specific factors including the disease and desired therapeutic endpoint. - Maintenance trough concentrations >=7.5 may correspond to higher remission rates.(1) - Mucosal healing may be more likely in patients with maintenance trough levels >8.14.(2) - In rheumatoid arthritis, trough levels of 5-8 are associated with clinical (EULAR) response.(3) - This assay measures the antibody-unbound (free) fraction of adalimumab when serum anti-adalimumab antibodies are present.Anti-Adalimumab Antibody 35 ng/mL ES Reference Range: . Interpretation: The above result is a LOW Antibody titer Quantitation Limit: <25 ng/mL. Results of 25 or higher indicate detection of anti- adalimumab antibodies. 25 - 100 ng/mL: LOW titer 101 - 300 ng/mL: INTERMEDIATE titer 301 or greater ng/mL: HIGH titerComments: - Anti-drug antibody levels should be interpreted in the context of the concomitant free drug trough concentration. - Low anti-drug antibodies may be transient while high titers are likely to be more consequential.(4-6) - Some immunogenicity is reversible. Elimination of intermediate titer (and even some high titer) anti-adalimumab antibodies has been achieved with dose escalation and/or methotrexate or 6-MP.(7) - This anti-adalimumab antibody assay is drug tolerant, and all positive results are verified for anti-drug specificity by a confirmatory test.References:1. Melissa Zamudio, et al. AGA Review on TDM in IBD. Gastroenterol 2017;153:835-857.2. Angela Gupta et al. J Crohns Col 2016;10(5):510-515.3. Sherlyw MF, et al. Giovana Rheum Dis 2015;74:513-518.4. Bartelds GM, et al. ANAM 2011;305(14):2767-9758.5. Chandrakant Allan et al. J Clin Gastroenterol 2016; 50:482-489.6. Yanai H, et al. Clin Gastroenterol Hepatol 2015; 13(3):522-530.7. Joel A, et al. Gastroenterol 2019;156(6):S-617.These tests were developed and their performancecharacteristics determined by [employer]. They have not beencleared or approved by the Food and Drug Administration.However, these electrochemiluminescence immunoassay (ECLIA)measurements of adalimumab and anti-adalimumab antibody(constituting DoseASSURE ADL) have been developed andvalidated in accordance with CLIA (Clinical LaboratoryImprovement Amendments) and the FDA Guidance document, AssayDevelopment and Validation for Immunogenicity Testing ofTherapeutic Protein Products (2019).Performed at: [facility] [address] [id number] Director: Dixon Young MD, Phone: [phone] at: [facility] [id number] Director: Elian Torres PhD, Phone: [phone] XR TIBIA FIBULA RIGHT 2 VIEW Son 06-20-2024 XR TIBIA FIBULA RIGHT 2 VIEWS Interpreted By: Von Wheeler, STUDY: XR TIBIA FIBULA RIGHT 2 VIEWS INDICATION: Signs/Symptoms:S/P FRACTURE. COMPARISON: May 27 ACCESSION NUMBER(S): [id number] ORDERING CLINICIAN: CARO WHITMAN FINDINGS: Oblique nondisplaced fracture right proximal fibula unchanged in alignment. No additional new findings. IMPRESSION: Unchanged appearance right proximal fibular fracture. Signed by: Von Wheeler 06/21/2024 9:28 AM Dictation workstation: [id number] [facility] XR TIBIA FIBULA RIGHT 2 VIEW Son 05-27-2024 XR TIBIA FIBULA RIGHT 2 VIEWS Interpreted By: Von Wheeler, STUDY: XR TIBIA FIBULA RIGHT 2 VIEWS INDICATION: Signs/Symptoms:follow up fracture. COMPARISON: May 06 ACCESSION NUMBER(S): [id number] ORDERING CLINICIAN: CARO WHITMAN FINDINGS: Healed nondisplaced oblique right proximal fibular metaphyseal fracture unchanged. No new findings. IMPRESSION: Unchanged appearance right proximal fibular fracture. Signed by: Von Wheeler 05/31/2024 7:43 AM Dictation workstation: [id number] [facility] Inital Evaluation (1) - PTon 05-19-2024 Inital Evaluation (1) - PT [facility] Physical Therapy [facility] [address] [place] [address] / REHABILITATION SERVICES INITIAL EVALUATION MR#: [id number] Acct: [id number] Name: CONY HART Rep #: [id number] : 1990 34 From: Aguilar SUTTONT Referring Dr.: TUNG Dickson Status: REG RCR Insurance: [facility] [employer] Patient's Visit Information Visit Information Visit Information: CONY HART is a 34 year old F referred to Physical Therapy by TUNG Dickson with a diagnosis of . Date of Evaluation: 05/16/24 Physical Therapist: Aguilar Pavon DPT Visit Plan Frequency: 2x /Week Duration: 6 Weeks Plan: WBin% x1 week (), 100% x1 week (may 22) in CAM boot 1) calf stretching, HS stretching 2) ankle and knee ROM (circles, bike) 3) banded ankle strengthening, OKC hip and knee strength 4) once given go ahead we can progress to CKC exercises Subjective Subjective: Pt is here today for her initial evaluation with diagnosis of oblique fx of R fibula. Pt. reports falling on Apr 04 while working, she also had a high ankle sprain as well. Pt. was NWBing for the last month and just started to be 50% WBing last week. She reports minimal pain currently, but does have some pain at her R ankle. Pt. is using B crutches currently with good use. Pt. is hopeful to get back to all work and recreational activities without limitations. Pain R ankle: Pain Intensity (Out of 10): 2 Pain Intensity Range: 0 and 3 R lateral leg: Pain Intensity (Out of 10): 1 Pain Intensity Range: 0 and 2 Objective Objective: POSTURE: Pt. Balance/Special Test Scores Lower Extremity Functional Score: 57 Anticipated Interventions Patient/Client Instruction: Educate patient on: Condition, Plan of Care, Risk Factors and Benefits of Fitness Program For the Purpose of:: To facilitate caregiver knowledge, To improve self management, To prevent re- injury, To improve ability to perform tasks related to life management and To improve tolerance to ADL's Therapeutic Exercise to Include: Strength training, Power training, Balance training, Postural training, Flexibilty training, Gait and locomotor training, Passive ROM and Active ROM For the Purpose of:: To decrease pain, To decrease swelling/inflammation, To increase ROM, To improve nutrient delivery to tissue, To increase oxygenation perfusion, To improve muscle performance and motor function, To improve ability to perform ADL's, To increase tolerance to activity/condition/position, To improve performance and independence with ADL's and To decrease level of supervision to perform tasks Cryotherapy (ice pack, ice massage): Yes For the Purpose of:: To decrease pain, To decrease swelling/inflammation and To increase ROM Text: Thank you for the opportunity to evaluate your patient. For Medicare and Medicare HMO plans, please review the plan of care and approve it. It will need to be FAXED BACK to us at [phone] for Medicare purposes. For Medicare only, by signing this I certify the plan of care. Please let me know if there are questions or concerns regarding this plan of care. Physician Signature: D ate: 05/19/24 1240 CC: TUNG Whitman; Dr. Radha Calloway MD CLS Signed Normal [facility] XR TIBIA FIBULA RIGHT 2 VIEW Son 2024 XR TIBIA FIBULA RIGHT 2 VIEWS Interpreted By: Steph Neff, STUDY: Right tibia and fibula, two views INDICATION: Signs/Symptoms:fracture follow up. COMPARISON: 04/23/2024. ACCESSION NUMBER(S): [id number] ORDERING CLINICIAN: CARO WHITMAN FINDINGS: Healing nondisplaced proximal fibular spiral fracture with increase in amount of bridging callus. No new fracture or malalignment. No significant degenerative changes. Visualized knee and ankle joints are unremarkable. Soft tissues are unremarkable. IMPRESSION: Healing nondisplaced proximal fibular fracture in anatomic alignment. MACRO: None. Signed by: Steph Neff 05/07/2024 7:28 PM Dictation workstation: [id number] [facility] MR ANKLE RIGHT WO IV CONTRAS Ton 05-02-2024 MR ANKLE RIGHT WO IV CONTRAST Interpreted By: Von Wheeler, STUDY: MR ANKLE RIGHT WO IV CONTRAST; INDICATION: Signs/Symptoms:pain, swelling. COMPARISON: April 23, 2024 ACCESSION NUMBER(S): [id number] ORDERING CLINICIAN: CARO WHITMAN TECHNIQUE: Routine multiplanar multisequential MRI right ankle without contrast. FINDINGS: Osseous contusion posterior malleolus right distal tibia of the articular surface. No fracture line seen. Additional medial malleolar small osseous contusion. Small osseous contusion of the anterior aspect of the talar neck medially. Thickened and irregular edematous anterior inferior tibiofibular ligament with some edema extending into the distal tibiofibular syndesmosis consistent with a mild component of high ankle sprain. No gross widening or complete disruption. No other acute ligamentous injury. Small amount of split type tearing of the peroneus brevis at the level of the lateral malleolus. Mild Achilles tendinosis without tear. No significant arthrosis. No talar chondral defects. Moderate degree of circumferential subcutaneous edema about the right ankle. No focal fluid collections. No other tendon tear. IMPRESSION: Findings consistent with mild high ankle sprain with partial tear of the anterior inferior tibiofibular ligament and some mild edema of the distal tibiofibular syndesmosis. Osseous contusions of the posterior malleolus and medial malleolus of the distal tibia. Mild amount of split type tearing peroneus brevis. Subcutaneous soft tissue edema. Signed by: Von Wheeler 05/04/2024 7:30 AM Dictation workstation: [id number] [facility] XR ANKLE RIGHT 2 VIEWSon XR ANKLE RIGHT 2 VIEWS Interpreted By: Steph eNff, STUDY: Right ankle, two views. INDICATION: Signs/Symptoms:FRACTURE. COMPARISON: 04/09/2024 ACCESSION NUMBER(S): [id number] ORDERING CLINICIAN: CARO WHITMAN FINDINGS: No acute fracture or malalignment. The ankle mortise is normally aligned. No significant degenerative changes. Mild nonspecific ankle soft tissue swelling. IMPRESSION: 1. Mild nonspecific ankle soft tissue swelling. No acute fracture or malalignment. MACRO: None. Signed by: Steph Neff 04/24/2024 7:19 PM Dictation workstation: [id number] [facility] XR TIBIA FIBULA RIGHT 2 VIEW Son 04-23-2024 XR TIBIA FIBULA RIGHT 2 VIEWS Interpreted By: Steph Neff, STUDY: Right tibia and fibula, two views INDICATION: Signs/Symptoms:FRACTURE. COMPARISON: 04/04/2024. ACCESSION NUMBER(S): [id number] ORDERING CLINICIAN: CARO WHITMAN FINDINGS: Unchanged nondisplaced oblique/spiral fracture of the proximal fibula with lucencies and cortical step-off. No significant interval healing appreciated. No new fracture or malalignment. Right knee and ankle joint spaces are maintained. Soft tissues are unremarkable. IMPRESSION: 1. Unchanged oblique/spiral fracture of the proximal fibula without significant interval healing appreciated. MACRO: None. Signed by: Steph Neff 04/24/2024 7:20 PM Dictation workstation: [id number] [facility] XR ANKLE RIGHT 3+ VIEWSon XR ANKLE RIGHT 3+ VIEWS Interpreted By: Genny Peñaloza, STUDY: XR ANKLE RIGHT 3+ VIEWS; 04/09/2024 11:59 am INDICATION: Signs/Symptoms:pain, injury, swelling. COMPARISON: None. ACCESSION NUMBER(S): [id number] ORDERING CLINICIAN: CARO WHITMAN FINDINGS: There is no evidence of acute fracture or dislocation. Ankle mortise is preserved. Diffuse soft tissue swelling is seen. No evidence for radiopaque foreign body. IMPRESSION: No acute fracture or dislocation. Diffuse soft tissue swelling. MACRO: None Signed by: Genny Peñaloza 04/10/2024 8:13 PM Dictation workstation: [id number] [facility] No Panel Informationon 04-04 Radiology Study observation (narrative) [facility] Work Phone: XR FEMUR RIGHT 2+ VIEWSon XR FEMUR RIGHT 2+ VIEWS Interpreted By: Kiki Narayan, STUDY: XR FEMUR RIGHT 2+ VIEWS; ; 04/04/2024 12:51 pm INDICATION: Signs/Symptoms:pain. COMPARISON: None. ACCESSION NUMBER(S): [id number] ORDERING CLINICIAN: FRAN REEVES FINDINGS: AP and lateral views were obtained. No fracture, dislocation or bone destruction is noted. Hip and knee joints are intact. IMPRESSION: No acute osseous abnormality MACRO: None Signed by: Kiki Narayan 04/04/2024 1:20 PM Dictation workstation: [id number] [facility] XR Femur - right 2 Viewson 0 04-04-2024 No acute osseous abn ormality MACRO: None Signed by: Kiki Narayan 04/04/2024 1:20 PM Dictation workstation: [id number] [facility] Interpreted By: Kiki Hall STUDY: XR FEMUR RIGHT 2+ VIEWS; ; 04/04/2024 12:51 pm INDICATION: Signs/Symptoms:pain. COMPARISON: None. ACCESSION NUMBER(S): [id number] ORDERING CLINICIAN: FRAN REEVES FINDINGS: AP and lateral views were obtained. No fracture, dislocation or bone destruction is noted. Hip and knee joints are intact. [facility] Kiki Narayan MD - 04/04/2024 Interpreted By: Kiki Narayan STUDY: XR FEMUR RIGHT 2+ VIEWS; ; 04/04/2024 12:51 pm INDICATION: Signs/Symptoms:pain. COMPARISON: None. ACCESSION NUMBER(S): [id number] ORDERING CLINICIAN: FRAN REEVES FINDINGS: AP and lateral views were obtained. No fracture, dislocation or bone destruction is noted. Hip and knee joints are intact. IMPRESSION: No acute osseous abnormality MACRO: None Signed by: Kiki Narayan 04/04/2024 1:20 PM Dictation workstation: [id number] [facility] Work Phone: [facility] Work Phone: XR TIBIA FIBULA RIGHT 2 VIEW Son 04-04-2024 XR TIBIA FIBULA RIGHT 2 VIEWS Interpreted By: Kiki Narayan, STUDY: XR TIBIA FIBULA RIGHT 2 VIEWS; ; 04/04/2024 12:51 pm INDICATION: Signs/Symptoms:pain. COMPARISON: None. ACCESSION NUMBER(S): [id number] ORDERING CLINICIAN: FRAN REEVES FINDINGS: AP and lateral views were obtained. Oblique nondisplaced fractures present proximal shaft of the fibula. No fracture is noted in the tibia. Ankle and knee joints are intact. IMPRESSION: Nondisplaced oblique fracture proximal shaft of the right fibula MACRO: None Signed by: Kiki Narayan 04/04/2024 1:21 PM Dictation workstation: [id number] [facility] XR Tibia and Fibula - right 2 Viewson 04-04-2024 Nondisplaced oblique fracture proximal shaft of the right fibula MACRO: None Signed by: Kiki Narayan 04/04/2024 1:21 PM Dictation workstation: [id number] [facility] Interpreted By: Kiki Hall, STUDY: XR TIBIA FIBULA RIGHT 2 VIEWS; ; 04/04/2024 12:51 pm INDICATION: Signs/Symptoms:pain. COMPARISON: None. ACCESSION NUMBER(S): [id number] ORDERING CLINICIAN: FRAN REEVES FINDINGS: AP and lateral views were obtained. Oblique nondisplaced fractures present proximal shaft of the fibula. No fracture is noted in the tibia. Ankle and knee joints are intact. [facility] Kiki Narayan MD - 04/04/2024 Interpreted By: Kiki Narayan, STUDY: XR TIBIA FIBULA RIGHT 2 VIEWS; ; 04/04/2024 12:51 pm INDICATION: Signs/Symptoms:pain. COMPARISON: None. ACCESSION NUMBER(S): [id number] ORDERING CLINICIAN: FRAN REEVES FINDINGS: AP and lateral views were obtained. Oblique nondisplaced fractures present proximal shaft of the fibula. No fracture is noted in the tibia. Ankle and knee joints are intact. IMPRESSION: Nondisplaced oblique fracture proximal shaft of the right fibula MACRO: None Signed by: Kiki Narayan 04/04/2024 1:21 PM Dictation workstation: [id number] [facility] Work Phone: XR Tibia and Fibula - right 2 ViewsOrdered By: Kiki Narayan on 04-04-2024 [facility] Work Phone: Colonoscopy Reporton 024 Colonoscopy Report [facility] Medical Records Department [address] [place] [address] Colonoscopy Report MR#: [id number] Acct: [id number] Name: CONY HART Rep #: [id number] : 1990 33 From: Juan Alberto Rutledge DO PCP: Dr. Radha Calloway MD Status:[facility] Patient Name: Cony Hart Procedure Date: 02/18/2024 10:48 AM Date of : 1990 Age: 33 Procedure: Colonoscopy Indications: Crohn's disease of the small bowel Providers: Juan Alberto Rutledge DO Referring MD: Radha Calloway Medicines: Monitored Anesthesia Care Patient Profile: This is a 33 year old female. Refer to note in patient chart for documentation of history and physical. Patient has symptoms of acute epigastric abdominal pain, chronic epigastric abdominal pain and chronic dysphagia. Last Colonoscopy: 1 year ago. Complications: No immediate complications. Procedure: Pre-Anesthesia Assessment: - Prior to the procedure, a History and Physical was performed, and patient medications and allergies were reviewed. The risks and benefits of the procedure and the sedation options and risks were discussed with the patient. All questions were answered and informed consent was obtained. Patient identification and proposed procedure were verified by the physician in the pre-procedure area. Mental Status Examination: normal. Prophylactic Antibiotics: The patient does not require prophylactic antibiotics. Prior Anticoagulants: The patient has taken no anticoagulant or antiplatelet agents. ASA Grade Assessment: II - A patient with mild systemic disease. After reviewing the risks and benefits, the patient was deemed in satisfactory condition to undergo the procedure. The anesthesia plan was to use monitored anesthesia care (MAC). Immediately prior to administration of medications, the patient was re-assessed for adequacy to receive sedatives. The heart rate, respiratory rate, oxygen saturations, blood pressure, adequacy of pulmonary ventilation, and response to care were monitored throughout the procedure. The physical status of the patient was re-assessed after the procedure. After I obtained informed consent, the scope was passed under direct vision. Throughout the procedure, the patient's blood pressure, pulse, and oxygen saturations were monitored continuously. The Colonoscope was introduced through the anus and advanced to the terminal ileum. The colonoscopy was performed without difficulty. The patient tolerated the procedure well. The quality of the bowel preparation was fair. The terminal ileum, ileocecal valve, appendiceal orifice, and rectum were photographed. Scope In: 10:49:51 AM Scope Withdrawal Time 0 hours 20 minutes 57 seconds Scope Out: 11:14:08 AM Total Procedure Duration Time 0 hours 24 minutes 17 seconds Findings: The perianal and digital rectal examinations were normal. Stool was found in the rectum, in the recto-sigmoid colon, in the sigmoid colon, in the transverse colon and in the cecum. The exam was otherwise without abnormality. Diffuse inflammation characterized by congestion (edema), erosions, erythema, friability and linear erosions was found in the mid ileum, in the distal ileum and in the terminal ileum. The inflammation was moderate in severity. Biopsies were taken with a cold forceps for histology. Verification of patient identification for the specimen was done. A TTS dilator was passed through the scope. Dilation with a 15 mm colonic balloon dilator was performed. The dilation site was examined and showed moderate mucosal disruption. Estimated blood loss: none. Impression: - Preparation of the colon was fair. - Stool in the rectum, in the recto-sigmoid colon, in the sigmoid colon, in the transverse colon and in the cecum. - The examination was otherwise normal. - Inflammatory bowel disease. Inflammation was found. This was moderate in severity. Biopsied. Dilated. Recommendation: - Discharge patient to home. - Diflucan (fluconazole) 100 mg PO daily for 2 weeks. - Flagyl (metronidazole) 500 mg PO QID for 2 weeks. - Nystatin cream per rectum twice a day for 2 weeks. - Repeat colonoscopy in 1 year for surveillance. - Continue present medications. Procedure Code(s): --- Professional --- 23151, Colonoscopy, flexible; with transendoscopic balloon dilation 85395, Colonoscopy, flexible; with biopsy, single or multiple CPT copyright 2021 [employer]. All rights reserved. The codes documented in this report are preliminary and upon planting material unloader review may be revised to meet current compliance requirements. Juan Alberto Rutledge DO 02/18/2024 11:41:10 AM This report has been signed electronically. Number of Addenda: 0 Note Initiated On: 02/18/2024 10:48 AM 02/18/24 1141 Date R (more content not included)... Normal [facility] EGD Reporton 02-18-2024 EGD Report [facility] Medical Records Department [address] [place] [address] EGD Report MR#: [id number] Acct: [id number] Name: CONY HART Rep #: [id number] : 1990 33 From: Juan Alberto Rutledge DO PCP: Dr. Radha Calloway MD Status:[facility] Patient Name: Cony Hart Procedure Date: 02/18/2024 10:33 AM Date of : 1990 Age: 33 Procedure: Upper GI endoscopy Indications: Dysphagia Providers: Juan Alberto Rutledge DO Referring MD: Radha Calloway Medicines: Monitored Anesthesia Care Patient Profile: This is a 33 year old female. Refer to note in patient chart for documentation of history and physical. Patient has symptoms of acute epigastric abdominal pain, chronic epigastric abdominal pain and chronic dysphagia. Complications: No immediate complications. Procedure: Pre-Anesthesia Assessment: - Prior to the procedure, a History and Physical was performed, and patient medications and allergies were reviewed. The risks and benefits of the procedure and the sedation options and risks were discussed with the patient. All questions were answered and informed consent was obtained. Patient identification and proposed procedure were verified by the physician in the pre-procedure area. Mental Status Examination: normal. Prophylactic Antibiotics: The patient does not require prophylactic antibiotics. Prior Anticoagulants: The patient has taken no anticoagulant or antiplatelet agents. ASA Grade Assessment: II - A patient with mild systemic disease. After reviewing the risks and benefits, the patient was deemed in satisfactory condition to undergo the procedure. The anesthesia plan was to use monitored anesthesia care (MAC). Immediately prior to administration of medications, the patient was re-assessed for adequacy to receive sedatives. The heart rate, respiratory rate, oxygen saturations, blood pressure, adequacy of pulmonary ventilation, and response to care were monitored throughout the procedure. The physical status of the patient was re-assessed after the procedure. After obtaining informed consent, the endoscope was passed under direct vision. Throughout the procedure, the patient's blood pressure, pulse, and oxygen saturations were monitored continuously. The Colonoscope was introduced through the mouth, and advanced to the second part of duodenum. The upper GI endoscopy was accomplished without difficulty. The patient tolerated the procedure well. Scope In: 10:41:46 AM Scope Out: 10:48:07 AM Total Procedure Duration Time 0 hours 6 minutes 21 seconds Findings: LA Grade B (one or more mucosal breaks greater than 5 mm, not extending between the tops of two mucosal folds) esophagitis with no bleeding was found 37 to 39 cm from the incisors. Biopsies were taken with a cold forceps for histology. Verification of patient identification for the specimen was done. Estimated blood loss was minimal. Patchy mildly erythematous mucosa without bleeding was found in the gastric body. Biopsies were taken with a cold forceps for histology. Verification of patient identification for the specimen was done. Estimated blood loss was minimal. Biopsies were taken with a cold forceps for Helicobacter pylori testing. Verification of patient identification for the specimen was done. Estimated blood loss was minimal. Patchy mildly erythematous mucosa without active bleeding and with no stigmata of bleeding was found in the duodenal bulb. Biopsies were taken with a cold forceps for histology. Verification of patient identification for the specimen was done. Estimated blood loss was minimal. Impression: - LA Grade B reflux esophagitis with no bleeding. Biopsied. - Erythematous mucosa in the gastric body. Biopsied. - Erythematous duodenopathy. Biopsied. Recommendation: - Discharge patient to home. - Resume previous diet. - Continue present medications. - Await pathology results. Procedure Code(s): --- Professional --- 28464, Esophagogastroduodenoscopy, flexible, transoral; with biopsy, single or multiple CPT copyright 2021 [employer]. All rights reserved. The codes documented in this report are preliminary and upon planting material unloader review may be revised to meet current compliance requirements. Juan Alberto Rutledge DO 02/18/2024 11:20:27 AM This report has been signed electronically. Number of Addenda: 0 Note Initiated On: 02/18/2024 10:33 AM 02/18/24 1120 Date Juan Alberto Rutledge DO Cosignkarina Signature: Date (if indicated) CC: Dr. Radha Calloway MD; Juan Alberto Rutledge DO Date Dictated: 02/18/24 1033 Date Transcribed: Logistics Lead: RF Signed [facility] MR/POSTOP.[facility] 02-18-2024 MR/POSTOP.[facility] Medical Records Department [address] [place] [address] Anesthesia Postop Eval I 02/18/241122 MR#: [id number] Acct: [id number] Name: CONY HART Rep #: [id number] : 1990 33 From: Amor Sandoval PCP: Dr. Radha Calloway MD Status:[facility] Y Race: C Location: [place] [address] Anesthesia: Postop Eval I Current Vital Signs Temperature: 97.1 F Pulse Rate: 54 Blood Pressure: 91/77 Respiratory Rate: 16 Pulse Ox: 100 Oxygen Delivery Method: Room Air Assessment Airway patent: Yes Spontaneous unlabored respirations: Yes Mental status: Awake and Calm nausea: No Vomiting: No Anesthesia Complication: No Fluid Hydration Crystalloid volume administer (ml): 800 Total IV fluid infused: 800 Progress Note Anesthesia document: Postop Eval 1 completed: Yes 02/18/241123 Date Amor Lee Signature: Date CC: Signed Normal [facility] MR/VNNAYECU1sl 02-18-2024 MR/POSTOPAN2 [facility] Medical Records Department [address] [place] [address] Anesthesia Postop Eval II 02/18/24 1502 MR#: [id number] Acct: [id number] Name: CONY HART Rep #: [id number] : 1990 33 From: Silvino Trevino MD PCP: Dr. Radha Callowya MD Status:[facility] Y Race: C Location: [place] Anesthesia Postop Eval I Sum Postop Eval Completion status Anesthesia document: Postop Eval 1 completed: Yes Anesthesia Postop Eval I Summary Anesthesia Postop Eval I Summary: Anesthesia Postop Eval I: Assessment Summary Airway patent Yes 02/18/24 11:24 [email or web address] Spontaneous unlabored Yes 02/18/24 11:24 [email or web address] respirations Mental status Awake,Calm 02/18/24 11:24 [email or web address] nausea No 02/18/24 11:24 [email or web address] Vomiting No 02/18/24 11:24 [email or web address] Anesthesia Postop Eval I: Fluid Summary Crystalloid volume administer 800 02/18/24 11:24 [email or web address] (ml) Colloids volume administered ( ml) Blood Product volume administered (ml) Total IV fluid infused 800 02/18/24 11:24 [email or web address] Anesthesia Postop Eval I: Summary Notes Anesthesia Complication No 02/18/24 11:24 [email or web address] Anesthesia Complication Comment: Post-operative progress note Anesthesia: Postop Eval II Evaluation Mental status: Awake and Calm Pain Level: 0 nausea: No Vomiting: No Complications Anesthesia Complication: No 02/18/24 1513 Date Silvino Lee Signature: Date CC: Signed Normal [facility] ,Urineon 02-18-2024 Beta HCG ( test) Ql (U) Negative Normal [facility] Comment on above: Result Comment: Very dilute urine specimens, as indicated by a low specific gravity, may not contain billing customer service representative levels of hCG. If is still suspected, a first morning urine specimen should be collected 48 hours later and tested. Performed By: #### L 400.7600 #### [facility] Laboratory [address] [place], [address] Surgery Specimen Level Chalo 02-18-2024 Surgery Specimen Level IV -- Patient Age/Sex Location Account Attending Physician -- CONY HART 33/ EN [id number] Juan Alberto Rutledge DO -- Specimen: [id number] Received: 02/18/24 Status: NARCISA Lovett Num: [id number] Spec Type: COLON BX Subm Dr: Juan Alberto Rutledge, HEADER OPERATION: Colonoscopy, EGD biopsy, dilatation terminal ileum PRE-OP DIAGNOSIS: Crohn's disease, hand pain, dysphagia TISSUE SUBMITTED: A- Duodenum biopsy, B- Distal esophagus biopsy, C- Terminal ileum biopsy -- MICROSCOPIC DIAGNOSIS A. Duodenum, biopsy: No pathologic change. B. Distal esophagus, biopsy: Gastroesophageal junctional mucosa with mild chronic inflammation. Focal changes of reflux. No evidence of goblet cell metaplasia. See comment. C. Terminal ileum, biopsy: Fibrinopurulent material suggestive of ulceration. Acute enteritis. No evidence of dysplasia. / 02/19/2024 COMMENT B. Alcian blue/PAS stain with matched control is used in the evaluation of the specimen. MICROSCOPIC DESCRIPTION Slides are reviewed. GROSS DESCRIPTION A. Received in fixative is one container labeled with the patient's name and designated Duodenum biopsy. The specimen consists of multiple irregular fragments of light ferguson soft tissue that in aggregate measure 1.0 x 0.3 x 0.1 cm. The specimen is totally submitted in one cassette. B. Received in fixative is one container labeled with the patient's name and designated Distal esophagus biopsy. The specimen consists of two irregular fragments of light ferguson soft tissue that in aggregate measure 0.8 x 0.3 x 0.1 cm. The specimen is totally submitted in one cassette. C. Received in fixative is one container labeled with the patient's name and designated Terminal ileum. The specimen consists of multiple irregular fragments of light ferguson soft tissue that in aggregate measure 1.0 x 0.3 x 0.1 cm. The specimen is totally submitted in one cassette. / 02/18/2024 TC:2 CPT:80539i5,96196 -- Patient Age/Sex Location Account Attending Physician -- CONY HART 33/F EN [id number] Juan Alberto Rutledge DO -- Signed (signature on file) Dr. Franck Bran DO 02/19/24 1330 -- Normal [facility] Comment on above: Performed By: #### Donya LOPEZ #### [facility] [address] [place], [address] Miscellaneous Lab Procedureo n 02-04-2024 MIS LAB TEST Normal [facility] Comment on above: Order Comment: SER/R F [id number]/AntiAdalimumab Result Comment: Scan caleb image report available in EMR Performed By: #### L 101.9900, L501.6710, L801.1541 #### [facility] [address] [place], [address] Gastroenterology Visit Repor ton 02-01-2024 Gastroenterology Visit Report [facility] [address] [place] [address] OFFICE VISIT Date of Service: 02/01/24 MR#: [id number] Acct: [id number] Name: CONY HART Rep #: [id number] : 1990 Provider: Juan Alberto Rutledge DO Age/Sex: 33/F Location: [facility] Status: Signed Intake Vital Signs 06/14/23 19:58 Height 5 ft 10 in Intake Visit Reasons: Follow Up Allergies almond (almonds) Allergy (Severe, Verified 12/05/23 12:53) Anaphylaxis Medications ???Medication ???Instructions ???Recorded ???Confirmed ???Type albuterol sulfate 90 mcg/actuation 2 puff inhalation Q4H PRN 12/15/21 02/01/24 Rx aerosol inhaler shortness of breath or wheezing #8.5 grams Humira 40 mg/0.8 mL subcutaneous See Rx Instructions .Route 08/01/23 02/01/24 Rx syringe kit (adalimumab) .COMPLEX #2 ea naproxen 500 mg tablet 500 mg PO BID PRN pain 12/05/23 02/01/24 History PFSH Medical History (Updated 12/05/23 @ 13:01 by Angela Holman) Bipolar disorder Juvenile arthritis Epilepsy, unspecified, not intractable, without status epilepticus Seizures Wears glasses History of Crohn's disease CPAP (continuous positive airway pressure) dependence Sleep apnea Asthma Anxiety Depression Lumbago Dysmenorrhea Enuresis, nonorganic Seizures Back problem Arthritis Anemia Crohns disease Bipolar disorder Surgical History History of wisdom tooth extraction History of cystoscopy Family History Father Suicide Mother Diabetes OCD (obsessive compulsive disorder) Depression Bipolar disorder (manic depression) Grandmother Diabetes Uncle Bowel disease Grandfather Colon cancer maternal - 2004 Other Anxiety Arthritis Epilepsy Social History Smoking Status: Current every day smoker tobacco type: cigarettes Tobacco: How many years used: 5 second hand exposure: No alcohol intake: current details: social on weekends substance use type: does not use what type of physical activity do you participate in: none martin/zoroastrianism: None seatbelt use: always HPI HPI Details: CONY HART, is a 33 F who presents to the office today for follow up. [facility] established 07.04.21 to establish care for Crohn???s disease diagnosed in 2009. Maintained on oral medications until they stopped working and she was started on Humira Q2W. Entyvio preferred, however her migraine history prevented this. At time of presentation she was having a flare with symptoms of loose stools with mucous and blood and stomach discomfort.??? EGD and colonoscopy 07.28.21.???EGD LA grade A reflux esophagitis; Erythematous mucosa in stomach, gastritis and duodenopathy; focal granuloma formation of pylorus. H.Pylori negative.??? Colonoscopy Endoscopic Crohn???s disease score 40 with ileitis and colitis; Multiple ulcers in TI; chronic, active colitis; hyperplastic polyp of RS colon. Pathology findings consistent with Crohn???s Disease.??? OV 08.11.21 Diarrhea has resolved since the start of prednisone. She did not increase Humira to weekly as updating phone call was not completed due to phone issues. Continues PPI and Carafate therapy without side effects.???Start Azathioprine??? OV 09.22.21 with continued improvement: Notes positive weight loss, PO intake improvement, solid stools.??? Biochemical workup 09.23.21 CBC WBC elevated 14.0, CMP, LFT, AST [id number], Alk phos decreased 42, CRP elevated 7.97, lipase decreased 60.??? OV 11.21.21 Reports that her stomach is feeling well, diarrhea has resolved for the last couple of months. Continues to take Humira Qweek, azathioprine. Reports pain/discomfort in her knees, has a history of juvenile arthritis. Knows that L knee has no fluid sac. PCP discussed who felt it was r/t inflammation; Cony does not feel this presents as typical inflammation to her. Recently received her new CPAP; since receipt of this she has had multiple episodes of bedwetting which is worse since starting CPAP.??? OV 7.22 experienced interruption of therapy r/t pharmacy delivery and has had some tenesmus with urgency without bleed or diarrhea.?Bloodwork performed after office visit with concern r/t WBC 12.2 and 12.2 blast cells; power station operator consulted and recommendation made to go to ED.??? [facility] ED 7 with normal bloodwork and she was discharged home.??? [facility] ED 9.. with watery diarrhea with sweating, chills, nausea and dry heaves.???Vancomycin.??? OV 9.22 continues with Humira weekly and feels she is doing well.??? OV 1.4.23 Humira reduced to QOW and she is doing well without return of symptoms.??? OV 4..23 she is having some pain following angus (more content not included)... Normal [facility] CRPon 01-23-2024 C-REACTIVE PROT 5.58 mg/L High 0.0-3.[address] [facility] Comment on above: Result Comment: C-Re active Protein (CRP) provides useful information for the diagnosis, therapy and monitoring of inflammatory processes and associated diseases. For the evaluation of Relative Risk for Cardiovascular Disease, a High Sensitivity CRP (HSCRP) should be ordered. Performed By: #### L 101.9900, L501.6710, L801.1541 #### [facility] [address] [place], [address] Erythrocyte Sed Rateon 06-26 -2024 SED RATE 4 mm/hr Normal 0-[address] [facility] Comment on above: Performed By: #### L 101.9900, L501.6710, L801.1541 #### [facility] [address] [place], [address] Absolute lymphocyte countOrd ered By: Juan Alberto Rutledge on 09-26-2023 Lymphocytes Auto (Unsp spec) [#/Vol] 3.25 10*3/uL 0.83-4.[address] [facility] Automated lymphocyte count a s percentage of total leukocytesOrdered By: Juan Alberto Rutledge on 09-26-2023 Lymphocytes/100 WBC Auto (Unsp spec) 25.9 % 19-[address] [facility] Basophil percentageOrdered B y: Juan Alberto Rutledge on 09-26-2023 Basophils/100 WBC (Bld) 0.3 % 0-[address] [facility] Bilirubin [Mass/Vol] 0.20 mg/dL 0.20-1.[address] [facility] Comment on above: For patients on eltr ombopag therapy, use of Dimension Bowdle TBIL is not recommended. Chloride [Moles/Vol] 108 mmol/L 98-[address] [facility] Eosinophils/100 WBC (Bld) 1.4 % 0-[address] [facility] Glucose [Mass/Vol] 65 mg/dL 74-106 [facility] Hemoglobin (Bld) [Mass/Vol] 14.4 g/dL 12.0-15.[address] [facility] LDH [Catalytic activity/Vol] 144 U/L 84-[address] [facility] Monocytes/100 WBC (Bld) 7.2 % 0-[address] [facility] Neutrophils (Bld) [#/Vol] 8.1 10*3/uL 2.0-7.[address] [facility] Neutrophils/100 WBC (Bld) 64.8 % 47-[address] [facility] Potassium [Moles/Vol] 4.0 mmol/L 3.5-5.[address] [facility] Protein [Mass/Vol] 7.2 g/dL 6.4-8.2 [facility] Sodium [Moles/Vol] 141 mmol/L 136-145 [facility] WBC (Bld) [#/Vol] 12.5 10*3/uL 4.4-11.0 [facility] Determination of erythrocyte mean corpuscular volume (MCV)Ordered By: Juan Alberto Rutledge on 09-26-2023 MCV (RBC) [Entitic vol] 92.7 fL 81-[address] [facility] Erythrocyte distribution wid th ratioOrdered By: Juan Alberto Rutledge on 09-26-2023 Erythrocyte distribution width (RBC) [Ratio] 13.2 % 11.6-14.[address] [facility] Erythrocyte distribution wid th standard deviationOrdered By: Juan Alberto Rutledge on 09-26-2023 Erythrocyte distribution width (RBC) [Entitic vol] 45.2 fL 35.1-43.[address] [facility] Erythrocyte sedimentation ra teOrdered By: Juan Alberto Rutledge on 09-26-2023 ESR (Bld) [Velocity] 13 mm/h 0-[address] [facility] Hematocrit Auto (Bld) [Volum e fraction]Ordered By: Juan Alberto Rutledge on 09-26-2023 Hematocrit (Bld) [Volume fraction] 45.5 % 37-[address] [facility] Immature granulocytes/100 WB C Auto (Bld)Ordered By: Juan Albertojuliane Rutledge on 09-26-2023 Immature granulocytes/100 WBC (Bld) 0.400 % 0.0-0.[address] [facility] Comment on above: IG% - Immature Granu locytes (promyelocytes, myelocytes and metamyelocytes) > 1% indicates that a LEFT SHIFT is Present. Laboratory - Chemistry and C hemistry - challengeOrdered By: Juan Alberto Rutledge on 09-26-2023 Albumin/Globulin [Mass ratio] 0.8 {ratio} 0.9-2.[address] [facility] ALP [Catalytic activity/Vol] 55 U/L 45-[address] [facility] ALT [Catalytic activity/Vol] 14 U/L 13-[address] [facility] CO2 [Moles/Vol] 29.0 mmol/L 21.0-32.[address] [facility] Globulin (S) [Mass/Vol] 3.9 g/dL 2.2-4.[address] [facility] Urea nitrogen/Creatinine [Mass ratio] 10.1 mg/mg 10-[address] [facility] Laboratory - Hematology and Cell countsOrdered By: Juan Alberto Rutledge on 09-26-2023 MCH (RBC) [Entitic mass] 29.3 pg 27.0-32.[address] [facility] MCHC (RBC) [Mass/Vol] 31.6 g/dL 32-[address] [facility] Nucleated RBC/100 WBC (Bld) [Ratio] 0 % 0-[address] [facility] Platelet mean volume (Bld) [Entitic vol] 9.5 fL 6.2-12.[address] [facility] Platelets (Bld) [#/Vol] 404 10*3/uL 150-[address] [facility] No Panel InformationOrdered By: Juan Alberto Rutledge on 09-26-2023 C-Reactive Protein Extended Range 9.03 mg/L 0.0-3.[address] [facility] Comment on above: C-Reactive Protein ( CRP) provides useful information for thediagnosis, therapy and monitoring of inflammatory processesand associated diseases. For the evaluation of Relative Riskfor Cardiovascular Disease, a High Sensitivity CRP (HSCRP)should be ordered. Estimated GFR (MDRD) Amer 94 mL/min >[address] [facility] Comment on above: GFR Calc Estimated GFR (MDRD) Non-Af Amer 78 mL/min >[address] [facility] Comment on above: Non- GFR Calc Qualitative QuantiFERON-TB g old in tube testOrdered By: Juan Alberto Rutledge on 09-26-2023 M. tuberculosis tuberculin stim IFN-g Ql (Bld) 0 IU/mL . [facility] RBC Auto (Bld) [#/Vol]Ordere d By: Juan Alberto Rutledge on 09-26-2023 RBC (Bld) [#/Vol] 4.91 10*6/uL 4.2-5.4 [facility] Serum or plasma calcium rosa maria urement (mass/volume)Ordered By: Juan Alberto Rutledge on 09-26-2023 Calcium [Mass/Vol] 8.8 mg/dL 8.5-10.1 [facility] Serum or plasma creatinine m easurement (mass/volume)Ordered By: Juan Alberto Rutledge on 09-26-2023 Creatinine [Mass/Vol] 0.89 mg/dL 0.55-1.[address] [facility] Comment on above: The validity of the calculated GFR & GFRAA in patients over 70 years has not been determined. Clinical correlation is essential. Serum or plasma urea nitroge n measurement (mass/volume)Ordered By: Juan Alberto Rutledge on 09-26-2023 Urea nitrogen [Mass/Vol] 9 mg/dL 7-[address] [facility] Stool lactoferrin detection by immunoassayOrdered By: Juan Alberto Rutledge on 09-26-2023 Lactoferrin IA Ql (Stl) [facility] Thin prep Papanicolaou smear with manual screeningOrdered By: Juan Alberto Rutledge on 09-26-2023 Thin prep Papanicolaou smear with manual screening 3.3 g/dL 3.2-5.[address] [facility] Thin prep Papanicolaou smear with manual screening 8 U/L 15-[address] [facility] Thin prep Papanicolaou smear with manual screening 4 5-[address] [facility] Thin prep Papanicolaou smear with manual screening Comment . [facility] Comment on above: QuantiFERON-TB Gold Plus is a qualitative indirect test forM tuberculosis infection (including disease) and isintended for use in conjunction with risk assessment,radiography, and other medical and diagnostic evaluations.The QuantiFERON-TB Gold Plus result is determined bysubtracting the Nil value from either TB antigen (Ag)value. The Mitogen tube serves as a control for the test. Thin prep Papanicolaou smear with manual screening 0 IU/mL . [facility] Thin prep Papanicolaou smear with manual screening > 10.00 IU/mL . [facility] Thin prep Papanicolaou smear with manual screening Negative Negative [facility] Comment on above: No response to M tub erculosis antigens detected.Infection with M tuberculosis is unlikely, but high riskindividuals should be considered for additional testing(ATS/IDSA/CDC Clinical Practice Guidelines, 2017). Thereference range is an Antigen minus Nil result of <0.35IU/mL.The specimen received for QuantiFERON testing was incubatedby the ordering institution. Specific procedures outlinedin our Directory of Services and in the package insert forthe QuantiFERON Gold (In Tube) test must be followed toenable for proper stimulation of cells for the productionof interferon gamma. Chemiluminescence immunoassaymethodologyPerformed at: [facility] [id number] Director: Elian Torres PhD, Phone: [phone] Prashanth 06-14-2023 CNOV Office Visit (UCWSTR ) CONY HART ([id number]) 1990 F Date Time Provider Department 06/14/23 7:30 PM JOANNA FREITAS [facility] During your visit today, we recorded the following information about you: Joanna Freitas APRN.[facility] 06/14/2023 7:37 PM Signed Triage Note: WOO Hart is a 33 year old female who [...] have confirmed and edited as necessary, the [facility] ASSESSMENT/PLAN: 1. Numbness and tingling in right hand - ICD9: 782.0, ICD10: R20.0, R20.2 Due to nature of patient's complaint and lack of investigative tools available at [facility], recommend patient be seen at nearest ED for further work up of right hand numbness, lack of ROM, cold to touch. Patient given directions to [facility]. Diagnosis and treatment plan were discussed and questions were answered to the patient's satisfaction. Pt acknowledged understanding of concepts and follow up plan. Specific signs and symptoms that would indicate the need for higher level of care were discussed in detail warranting prompt ER evaluation. Joanna Freitas APRN.[employer] Allergies As of Date: 06/14/2023 Noted Allergy Reaction ALMOND 01/24/2012 4 - Hives Date Reviewed: 10/22/2020 Reviewed by: Yunior Salamanca - Fully Assessed Primary Visit Diagnosis:Numbness and tingling in right hand [R20.0, R20.2] Prescriptions as of 06/14/2023 - Adalimumab (HUMIRA PEN) 40 mg/0.8 mL Inject 1 pen (40mg) subcutaneously every other week. - cyclobenzaprine (FLEXERIL) 10 mg tablet Take 1 tablet by mouth three times daily as needed for Muscle Spasm. - fluticasone (FLONASE) 50 mcg/actuation nasal spray Use 2 Sprays in each nostril once daily. Rinse mouth after use. - albuterol HFA (PROVENTIL HFA, VENTOLIN HFA) 90 mcg/actuation inhaler Inhale 2 Puffs as instructed as needed. - VIMPAT 100 mg tab Take 100 mg by mouth twice daily. - CPAP - dicyclomine (BENTYL) 20 mg tablet take 1 tablet by mouth before meals and at bedtime - ondansetron (ZOFRAN) 4 mg tablet Take 1 tablet by mouth every 8 hours as needed for Nausea/Vomiting. Problem List As Of Date 06/14/2023 Noted Resolved Nocturnal enuresis [N39.44] 03/08/2015 Seizures (HCC) [R56.9] 06/24/2018 Exercise-induced asthma [J45.990] 06/24/2018 Crohn's colitis (HCC) [K50.10] 06/24/2018 Arthritis [M19.90] 06/24/2018 Bipolar 1 disorder (HCC) [F31.9] 06/24/2018 Sleep apnea [G47.30] 06/24/2018 Family history of malignant hyperthermia [Z84.8*08/25/2020 Morbid obesity (HCC) [E66.01] 08/25/2020 Encounter Status:Closed by JOANNA FREITAS on 06/14/23 Normal [facility] Routine wound cultureOrdered By: Dr. Naranjo on 11-23-2022 Bacteria identified Cx Nom (Wound) No growth aerobically. [facility] Gram stain for investigation of transfusion reactionOrdered By: Dr. Naranjo on 11-21-2022 Microscopic observation Gram stain Nom (Unsp spec) [facility] Absolute lymphocyte countOrd ered By: Juan Alberto Rutledge on 08-02-2022 Lymphocytes Auto (Unsp spec) [#/Vol] 3.26 10*3/uL 0.83-4.[address] [facility] Basophil percentageOrdered B y: Juan Alberto Rutledge on 08-02-2022 Basophils/100 WBC (Bld) 0.2 % 0-[address] [facility] Eosinophils/100 WBC (Bld) 1.5 % 0-[address] [facility] Neutrophils (Bld) [#/Vol] 8.0 10*3/uL 2.0-7.[address] [facility] Neutrophils/100 WBC (Bld) 63.5 % 47-[address] [facility] WBC (Bld) [#/Vol] 12.6 10*3/uL 4.4-11.0 [facility] Blood erythrocytes count (nu mber/volume)Ordered By: Juan Alberto Rutledge on 08-02-2022 RBC (Bld) [#/Vol] 4.64 10*6/uL 4.2-5.4 [facility] Blood hemoglobin measurement (mass/volume)Ordered By: Juan Alberto Rutledge on 08-02-2022 Hemoglobin (Bld) [Mass/Vol] 14.4 g/dL 12.0-15.[address] [facility] Blood lymphocytes/100 leukoc ytesOrdered By: Juan Alberto Rutledge on 08-02-2022 Lymphocytes/100 WBC (Bld) 25.9 % 19-[address] [facility] Blood monocytes/100 leukocyt esOrdered By: Juan Alberto Rutledge on 08-02-2022 Monocytes/100 WBC (Bld) 8.6 % 0-[address] [facility] Blood platelet mean volumeOr dered By: Juan Alberto Rutledge on 08-02-2022 Platelet mean volume (Bld) [Entitic vol] 10.1 fL 6.2-12.[address] [facility] Determination of erythrocyte mean corpuscular volume (MCV)Ordered By: Juan Alberto Rutledge on 08-02-2022 MCV (RBC) [Entitic vol] 94.8 fL 81-[address] [facility] Erythrocyte sedimentation ra teOrdered By: Juan Alberto Rutledge on 08-02-2022 ESR (Bld) [Velocity] 15 mm/h 0-[address] [facility] Hematocrit Auto (Bld) [Volum e fraction]Ordered By: Juan Alberto Rutledge on 08-02-2022 Hematocrit (Bld) [Volume fraction] 44.0 % 37-[address] [facility] Laboratory - Hematology and Cell countsOrdered By: Juan Alberto Rutledge on 08-02-2022 Erythrocyte distribution width (RBC) [Entitic vol] 45.7 fL 35.1-43.[address] [facility] Erythrocyte distribution width (RBC) [Ratio] 13.1 % 11.6-14.[address] [facility] Immature granulocytes/100 WBC (Bld) 0.300 % 0.0-0.[address] [facility] Comment on above: IG% - Immature Granu locytes (promyelocytes, myelocytes and metamyelocytes) > 1% indicates that a LEFT SHIFT is Present. MCH (RBC) [Entitic mass] 31.0 pg 27.0-32.[address] [facility] Nucleated RBC/100 WBC (Bld) [Ratio] 0 % 0-[address] [facility] MCHC Auto (RBC) [Mass/Vol]Or dered By: Juan Alberto Rutledge on 08-02-2022 MCHC (RBC) [Mass/Vol] 32.7 g/dL 32-[address] [facility] No Panel InformationOrdered By: Juan Alberto Rutledge on 08-02-2022 Miscellaneous Test See comment [facility] Comment on above: Scanned image report available in EMR Platelets bldOrdered By: Law Rutledge on 08-02-2022 Platelets (Bld) [#/Vol] 321 10*3/uL 150-[address] [facility] Serum or plasma C reactive p rotein measurement (mass/volume)Ordered By: Juan Alberto Rutledge on 08-02-2022 CRP [Mass/Vol] 7.01 mg/L 0.0-3.[address] [facility] Comment on above: C-Reactive Protein ( CRP) provides useful information for thediagnosis, therapy and monitoring of inflammatory processesand associated diseases. For the evaluation of Relative Riskfor Cardiovascular Disease, a High Sensitivity CRP (HSCRP)should be ordered. Absolute lymphocyte countOrd ered By: Dr. Gonsalves on 05-11-2022 Lymphocytes Auto (Unsp spec) [#/Vol] 2.98 10*3/uL 0.83-4.[address] [facility] Basophil percentageOrdered B y: Dr. Gonsalves on 05-11-2022 Basophils/100 WBC (Bld) 0.2 % 0-[address] [facility] Bilirubin [Mass/Vol] 0.40 mg/dL 0.20-1.[address] [facility] Comment on above: For patients on eltr ombopag therapy, use of Dimension Bowdle TBIL is not recommended. Chloride [Moles/Vol] 109 mmol/L 98-[address] [facility] Eosinophils/100 WBC (Bld) 1.6 % 0-[address] [facility] Glucose [Mass/Vol] 115 mg/dL 74-106 [facility] Comment on above: Fasting Glucose resu lt from 100 to 125 mg/dL suggests IMPAIRED HOMEOSTASIS per A.D.A. criteria. Neutrophils (Bld) [#/Vol] 6.9 10*3/uL 2.0-7.[address] [facility] Neutrophils/100 WBC (Bld) 63.1 % 47-[address] [facility] Potassium [Moles/Vol] 3.9 mmol/L 3.5-5.[address] [facility] Protein [Mass/Vol] 7.2 g/dL 6.4-8.2 [facility] Sodium [Moles/Vol] 142 mmol/L 136-145 [facility] WBC (Bld) [#/Vol] 11.0 10*3/uL 4.4-11.0 [facility] Blood erythrocytes count (nu mber/volume)Ordered By: Dr. Gonsalves on 05-11-2022 RBC (Bld) [#/Vol] 4.96 10*6/uL 4.2-5.4 [facility] Blood hemoglobin measurement (mass/volume)Ordered By: Dr. Gonsalves on 05-11-2022 Hemoglobin (Bld) [Mass/Vol] 15.5 g/dL 12.0-15.[address] [facility] Blood lymphocytes/100 leukoc ytesOrdered By: Dr. Gonsalves on 05-11-2022 Lymphocytes/100 WBC (Bld) 27.1 % 19-[address] [facility] Blood monocytes/100 leukocyt esOrdered By: Dr. Gonsalves on 05-11-2022 Monocytes/100 WBC (Bld) 7.7 % 0-[address] [facility] Blood platelet mean volumeOr dered By: Dr. Gonsalves on 05-11-2022 Platelet mean volume (Bld) [Entitic vol] 10.1 fL 6.2-12.[address] [facility] Determination of erythrocyte mean corpuscular volume (MCV)Ordered By: Dr. Gonsalves on 05-11-2022 MCV (RBC) [Entitic vol] 93.1 fL 81-[address] [facility] Hematocrit Auto (Bld) [Volum e fraction]Ordered By: Dr. Gonsalves on 05-11-2022 Hematocrit (Bld) [Volume fraction] 46.2 % 37-[address] [facility] Laboratory - Chemistry and C hemistry - challengeOrdered By: Dr. Gonsalves on 05-11-2022 ALP [Catalytic activity/Vol] 45 U/L 45-[address] [facility] ALT [Catalytic activity/Vol] 18 U/L 13-[address] [facility] CO2 [Moles/Vol] 30.0 mmol/L 21.0-32.[address] [facility] Globulin (S) [Mass/Vol] 3.7 g/dL 2.2-4.[address] [facility] Urea nitrogen/Creatinine [Mass ratio] 11.0 mg/mg 10-[address] [facility] Laboratory - Hematology and Cell countsOrdered By: Dr. Gonsalves on 05-11-2022 Erythrocyte distribution width (RBC) [Entitic vol] 46.1 fL 35.1-43.[address] [facility] Erythrocyte distribution width (RBC) [Ratio] 13.5 % 11.6-14.[address] [facility] Immature granulocytes/100 WBC (Bld) 0.300 % 0.0-0.[address] [facility] Comment on above: IG% - Immature Granu locytes (promyelocytes, myelocytes and metamyelocytes) > 1% indicates that a LEFT SHIFT is Present. MCH (RBC) [Entitic mass] 31.3 pg 27.0-32.[address] [facility] Nucleated RBC/100 WBC (Bld) [Ratio] 0 % 0-[address] [facility] MCHC Auto (RBC) [Mass/Vol]Or dered By: Dr. Gonsalves on 05-11-2022 MCHC (RBC) [Mass/Vol] 33.5 g/dL 32-[address] [facility] No Panel InformationOrdered By: Dr. Gonsalves on 05-11-2022 Estimated Creatinine Clearance Calc 103.89 ml/min [facility] Estimated GFR (MDRD) Amer 105 mL/min >[address] [facility] Comment on above: GFR Calc Estimated GFR (MDRD) Non-Af Amer 87 mL/min >[address] [facility] Comment on above: Non- GFR Calc Platelets bldOrdered By: Dr. Gonsalves on 05-11-2022 Platelets (Bld) [#/Vol] 281 10*3/uL 150-[address] [facility] Serum or plasma albumin rosa maria urement (mass/volume)Ordered By: Dr. Gonsalves on 05-11-2022 Albumin [Mass/Vol] 3.5 g/dL 3.2-5.0 [facility] Serum or plasma albumin/glob ulin mass ratioOrdered By: Dr. Gonsalves on 05-11-2022 Albumin/Globulin [Mass ratio] 0.9 {ratio} 0.9-2.[address] [facility] Serum or plasma calcium rosa maria urement (mass/volume)Ordered By: Dr. Gonsalves on 05-11-2022 Calcium [Mass/Vol] 9.2 mg/dL 8.5-10.1 [facility] Serum or plasma creatinine m easurement (mass/volume)Ordered By: Dr. Gonsalves on 05-11-2022 Creatinine [Mass/Vol] 0.82 mg/dL 0.55-1.[address] [facility] Comment on above: The validity of the calculated GFR & GFRAA in patients over 70 years has not been determined. Clinical correlation is essential. Serum or plasma urea nitroge n measurement (mass/volume)Ordered By: Dr. Gonsalves on 05-11-2022 Urea nitrogen [Mass/Vol] 9 mg/dL 7-[address] [facility] Thin prep Papanicolaou smear with manual screeningOrdered By: Dr. Gonsalves on 05-11-2022 Thin prep Papanicolaou smear with manual screening 10 U/L 15-[address] [facility] Thin prep Papanicolaou smear with manual screening 3 5-[address] [facility] Thin prep Papanicolaou smear with manual screening 144 U/L 84-[address] [facility] Absolute lymphocyte countOrd ered By: Juan Alberto Rutledge on 04-26-2022 Lymphocytes Auto (Unsp spec) [#/Vol] 3.95 10*3/uL 0.83-4.[address] [facility] Basophil percentageOrdered B y: Juan Alberto Rutledge on 04-26-2022 Basophils/100 WBC (Bld) 0.3 % 0-[address] [facility] Bilirubin [Mass/Vol] 0.40 mg/dL 0.20-1.[address] [facility] Comment on above: For patients on eltr ombopag therapy, use of Dimension Bowdle TBIL is not recommended. Chloride [Moles/Vol] 107 mmol/L 98-[address] [facility] Eosinophils/100 WBC (Bld) 1.2 % 0-[address] [facility] Glucose [Mass/Vol] 81 mg/dL 74-106 [facility] Neutrophils (Bld) [#/Vol] 8.2 10*3/uL 2.0-7.[address] [facility] Neutrophils/100 WBC (Bld) 60.9 % 47-[address] [facility] Potassium [Moles/Vol] 4.0 mmol/L 3.5-5.[address] [facility] Protein [Mass/Vol] 7.2 g/dL 6.4-8.2 [facility] Sodium [Moles/Vol] 142 mmol/L 136-145 [facility] WBC (Bld) [#/Vol] 13.5 10*3/uL 4.4-11.0 [facility] Blood erythrocytes count (nu mber/volume)Ordered By: Juan Alberto Rutledge on 04-26-2022 RBC (Bld) [#/Vol] 4.83 10*6/uL 4.2-5.4 [facility] Blood hemoglobin measurement (mass/volume)Ordered By: Juan Alberto Rutledge on 04-26-2022 Hemoglobin (Bld) [Mass/Vol] 14.9 g/dL 12.0-15.[address] [facility] Blood lymphocytes/100 leukoc ytesOrdered By: Juan Alberto Rutledge on 04-26-2022 Lymphocytes/100 WBC (Bld) 29.3 % 19-[address] [facility] Blood monocytes/100 leukocyt esOrdered By: Juan Alberto Rutledge on 04-26-2022 Monocytes/100 WBC (Bld) 7.9 % 0-[address] [facility] Blood platelet mean volumeOr dered By: Juan Alberto Rutledge on 04-26-2022 Platelet mean volume (Bld) [Entitic vol] 9.8 fL 6.2-12.[address] [facility] Determination of erythrocyte mean corpuscular volume (MCV)Ordered By: Juan Alberto Rutledge on 04-26-2022 MCV (RBC) [Entitic vol] 91.7 fL 81-[address] [facility] Erythrocyte sedimentation ra teOrdered By: Juan Alberto Rutledge on 04-26-2022 ESR (Bld) [Velocity] 22 mm/h 0-[address] [facility] Hematocrit Auto (Bld) [Volum e fraction]Ordered By: Juan Alberto Rutledge on 04-26-2022 Hematocrit (Bld) [Volume fraction] 44.3 % 37-[address] [facility] Laboratory - Chemistry and C hemistry - challengeOrdered By: Juan Alberto Rutledge on 04-26-2022 ALP [Catalytic activity/Vol] 49 U/L 45-[address] [facility] ALT [Catalytic activity/Vol] 21 U/L 13-[address] [facility] CO2 [Moles/Vol] 29.0 mmol/L 21.0-32.[address] [facility] Globulin (S) [Mass/Vol] 3.7 g/dL 2.2-4.[address] [facility] Urea nitrogen/Creatinine [Mass ratio] 12.7 mg/mg 10-[address] [facility] Laboratory - Hematology and Cell countsOrdered By: Juan Alberto Rutledge on 04-26-2022 Erythrocyte distribution width (RBC) [Entitic vol] 44.3 fL 35.1-43.[address] [facility] Erythrocyte distribution width (RBC) [Ratio] 13.2 % 11.6-14.[address] [facility] Immature granulocytes/100 WBC (Bld) 0.400 % 0.0-0.[address] [facility] Comment on above: IG% - Immature Granu locytes (promyelocytes, myelocytes and metamyelocytes) > 1% indicates that a LEFT SHIFT is Present. MCH (RBC) [Entitic mass] 30.8 pg 27.0-32.[address] [facility] Nucleated RBC/100 WBC (Bld) [Ratio] 0 % 0-[address] [facility] MCHC Auto (RBC) [Mass/Vol]Or dered By: Juan Alberto Rutledge on 04-26-2022 MCHC (RBC) [Mass/Vol] 33.6 g/dL 32-[address] [facility] No Panel InformationOrdered By: Juan Alberto Rutledge on 04-26-2022 Estimated GFR (MDRD) Amer 98 mL/min >[address] [facility] Comment on above: GFR Calc Estimated GFR (MDRD) Non-Af Amer 81 mL/min >[address] [facility] Comment on above: Non- GFR Calc Miscellaneous Test See comment [facility] Comment on above: Scanned image report available in EMR Platelets bldOrdered By: Law Rutledge on 04-26-2022 Platelets (Bld) [#/Vol] 316 10*3/uL 150-[address] [facility] Serum or plasma C reactive p rotein measurement (mass/volume)Ordered By: Juan Alberto Rutledge on 04-26-2022 CRP [Mass/Vol] 12.50 mg/L 0.0-3.[address] [facility] Comment on above: C-Reactive Protein ( CRP) provides useful information for thediagnosis, therapy and monitoring of inflammatory processesand associated diseases. For the evaluation of Relative Riskfor Cardiovascular Disease, a High Sensitivity CRP (HSCRP)should be ordered. Serum or plasma albumin rosa maria urement (mass/volume)Ordered By: Juan Albetro Rutledge on 04-26-2022 Albumin [Mass/Vol] 3.5 g/dL 3.2-5.0 [facility] Serum or plasma albumin/glob ulin mass ratioOrdered By: Juan Alberto Rutledge on 04-26-2022 Albumin/Globulin [Mass ratio] 0.9 {ratio} 0.9-2.[address] [facility] Serum or plasma calcium rosa maria urement (mass/volume)Ordered By: Juan Alberto Rutledge on 04-26-2022 Calcium [Mass/Vol] 9.3 mg/dL 8.5-10.1 [facility] Serum or plasma creatinine m easurement (mass/volume)Ordered By: Juan Alberto Rutledge on 04-26-2022 Creatinine [Mass/Vol] 0.87 mg/dL 0.55-1.[address] [facility] Comment on above: The validity of the calculated GFR & GFRAA in patients over 70 years has not been determined. Clinical correlation is essential. Serum or plasma urea nitroge n measurement (mass/volume)Ordered By: Juan Alberto Rutledge on 04-26-2022 Urea nitrogen [Mass/Vol] 11 mg/dL 7-[address] [facility] Thin prep Papanicolaou smear with manual screeningOrdered By: Juan Alberto Rutledge on 04-26-2022 Thin prep Papanicolaou smear with manual screening 15 U/L 15-[address] [facility] Thin prep Papanicolaou smear with manual screening 6 5-[address] [facility] Absolute lymphocyte counton 03-31-2022 Lymphocytes Auto (Unsp spec) [#/Vol] 2.40 10*3/uL 0.83-4.[address] [facility] Work Phone: Basophil percentageon 2021 Lactate [Moles/Vol] 0.8 mmol/L 0.4-2.0 [facility] Work Phone: Basophil percentage 0-5 SEEN /hpf 0-5 [facility] Work Phone: Basophils/100 WBC (Bld) 0.4 % 0-[address] [facility] Work Phone: Chloride [Moles/Vol] 109 mmol/L 98-[address] [facility] Work Phone: Eosinophils/100 WBC (Bld) 0.4 % 0-[address] [facility] Work Phone: [phone] Glucose [Mass/Vol] 138 mg/dL 74-106 [facility] Work Phone: Comment on above: Fasting Glucose resu lt greater than or equal to 126 mg/dL suggests DIABETES MELLITUS per A.D.A. criteria. Neutrophils (Bld) [#/Vol] 28.5 10*3/uL 2.0-7.[address] [facility] Work Phone: Neutrophils/100 WBC (Bld) 84.5 % 47-[address] [facility] Work Phone: Potassium [Moles/Vol] 4.0 mmol/L 3.5-5.[address] [facility] Work Phone: Sodium [Moles/Vol] 141 mmol/L 136-145 [facility] Work Phone: WBC (Bld) [#/Vol] 33.7 10*3/uL 4.4-11.0 [facility] Work Phone: Comment on above: CRITICAL VALUE VERIF IED. [facility]38 Domenica Whitney.RESULTS READ BACK BY SAME . Beta hCG serum qualon 2021 Beta HCG ( test) Ql Negative [facility] Work Phone: Bilirubin Test strip Ql (U)o n 03-31-2022 Bilirubin Ql (U) 1 mg/dL Negative [facility] Work Phone: Comment on above: COLOR OF URINE MAY A FFECT DIPSTICK RESULTS. Blood erythrocytes count (nu mber/volume)on 03-31-2022 RBC (Bld) [#/Vol] 5.82 10*6/uL 4.2-5.4 [facility] Work Phone: Blood hemoglobin measurement (mass/volume)on 03-31-2022 Hemoglobin (Bld) [Mass/Vol] 17.8 g/dL 12.0-15.[address] [facility] Work Phone: Blood lymphocytes/100 leukoc yteson 03-31-2022 Lymphocytes/100 WBC (Bld) 7.1 % 19-[address] [facility] Work Phone: Blood manual differential co mment interpretation (narrative result)on 03-31-2022 Manual differential comment Kristian (Bld) [Interp] SCANNED [facility] Work Phone: Comment on above: LEUKOCYTOSIS NOTEDNE UTROPHILIA NOTEDMONOCYTOSIS NOTED Blood monocytes/100 leukocyt eson 03-31-2022 Monocytes/100 WBC (Bld) 6.5 % 0-[address] [facility] Work Phone: Blood platelet mean volumeon 03-31-2022 Platelet mean volume (Bld) [Entitic vol] 9.8 fL 6.2-12.[address] [facility] Work Phone: Determination of erythrocyte mean corpuscular volume (MCV)on 03-31-2022 MCV (RBC) [Entitic vol] 92.8 fL 81-[address] [facility] Work Phone: Hematocrit Auto (Bld) [Volum e fraction]on 03-31-2022 Hematocrit (Bld) [Volume fraction] 54.0 % 37-[address] [facility] Work Phone: Ketones Test strip Ql (U)on 03-31-2022 Ketones Ql (U) 15 mg/dl Negative [facility] Work Phone: Laboratory - Chemistry and C hemistry - challengeon 03-31-2022 CO2 [Moles/Vol] 27.0 mmol/L 21.0-32.[address] [facility] Work Phone: Urea nitrogen/Creatinine [Mass ratio] 10.2 mg/mg 10-[address] [facility] Work Phone: Laboratory - Hematology and Cell countson 03-31-2022 Erythrocyte distribution width (RBC) [Entitic vol] 43.8 fL 35.1-43.[address] [facility] Work Phone: Erythrocyte distribution width (RBC) [Ratio] 13.0 % 11.6-14.[address] [facility] Work Phone: Immature granulocytes/100 WBC (Bld) 1.100 % 0.0-0.[address] [facility] Work Phone: Comment on above: IG% - Immature Granu locytes (promyelocytes, myelocytes and metamyelocytes) > 1% indicates that a LEFT SHIFT is Present. MCH (RBC) [Entitic mass] 30.6 pg 27.0-32.[address] [facility] Work Phone: Nucleated RBC/100 WBC (Bld) [Ratio] 0 % 0-[address] [facility] Work Phone: MCHC Auto (RBC) [Mass/Vol]on 03-31-2022 MCHC (RBC) [Mass/Vol] 33.0 g/dL 32-[address] [facility] Work Phone: Mucus LM Ql (Urine sed)on Mucus Ql (Urine sed) 3+ /hpf [facility] Work Phone: Nitrite Test strip Ql (U)on 03-31-2022 Nitrite Ql (U) Negative Negative [facility] Work Phone: No Panel Informationon 03-31 Estimated Creatinine Clearance Calc 82.37 ml/min [facility] Work Phone: Estimated GFR (MDRD) Amer 76 mL/min >[address] [facility] Work Phone: Comment on above: GFR Calc Estimated GFR (MDRD) Non-Af Amer 63 mL/min >[address] [facility] Work Phone: Comment on above: Non- GFR Calc Platelets bldon 03-31-2022 Platelets (Bld) [#/Vol] 410 10*3/uL 150-[address] [facility] Work Phone: Protein Test strip Ql (U)on 03-31-2022 Protein Ql (U) 30 mg/dl Negative [facility] Work Phone: Review by pathologiston Pathologist review Kristian (Unsp spec) [Interp] November rodrigo [facility] Work Phone: Pathologist review Kristian (Unsp spec) [Interp] Reviewed [facility] Work Phone: Comment on above: Previous reported re sult: Macy wallace Edited by: RGOOD on 04/04/22:1341Neutrophilic leukocytosis.Polycythemia Clinical correlation necessary.Ben Lopez M.D. 04/04/22 AMENDED REPORT 04/04/22 1341 PATH REV previously reported as: November Serum or plasma calcium rosa maria urement (mass/volume)on 03-31-2022 Calcium [Mass/Vol] 10.2 mg/dL 8.5-10.1 [facility] Work Phone: Serum or plasma creatinine m easurement (mass/volume)on 03-31-2022 Creatinine [Mass/Vol] 1.08 mg/dL 0.55-1.[address] [facility] Work Phone: Comment on above: The validity of the calculated GFR & GFRAA in patients over 70 years has not been determined. Clinical correlation is essential. Serum or plasma urea nitroge n measurement (mass/volume)on 03-31-2022 Urea nitrogen [Mass/Vol] 11 mg/dL 7-[address] [facility] Work Phone: Squamous epithelial cells de tection in urine sediment by light microscopyon 03-31-2022 Epithelial cells.squamous LM Ql (Urine sed) 5-10 SEEN /hpf 5-[address] [facility] Work Phone: Thin prep Papanicolaou smear with manual screeningon 03-31-2022 Thin prep Papanicolaou smear with manual screening 5 5-[address] [facility] Work Phone: Urine blood detectionon RBC Ql (U) 150 /ul Negative [facility] Work Phone: RBC Ql (U) 10-25 SEEN /hpf 0-[address] [facility] Work Phone: Urine clarityon 03-31-2022 Clarity (U) Cloudy Clear [facility] Work Phone: Urine color determinationon 03-31-2022 Color (U) Yellow Yellow [facility] Work Phone: Urine glucose detectionon Glucose Ql (U) Normal mg/dl Normal [facility] Work Phone: Urine leukocyte esterase det ection by dipstickon 03-31-2022 Leukocyte esterase Test strip Ql (U) 25 /ul Negative [facility] Work Phone: Urine pHon 03-31-2022 pH (U) 5.0 [pH] 5.0 - 8.[address] [facility] Work Phone: Urine sediment bacteria coun t by microscopy (number/high power field)on 03-31-2022 Bacteria LM.HPF (Urine sed) [#/Area] 2 /[HPF] None Seen [facility] Work Phone: Urine specific gravity measu rementon 03-31-2022 Specific gravity (U) [Rel density] 1.030 1.002-1.[address] [facility] Work Phone: Urobilinogen Auto test strip Ql (U)on 03-31-2022 Urobilinogen Ql (U) 1 mg/dl Normal [facility] Work Phone: Absolute lymphocyte counton 02-14-2022 Lymphocytes Auto (Unsp spec) [#/Vol] 3.54 10*3/uL 0.83-4.[address] [facility] Work Phone: [phone] Basophil percentageon 2021 Basophils/100 WBC (Bld) 0.3 % 0-[address] [facility] Work Phone: Chloride [Moles/Vol] 107 mmol/L 98-[address] [facility] Work Phone: Eosinophils/100 WBC (Bld) 1.1 % 0-[address] [facility] Work Phone: Glucose [Mass/Vol] 91 mg/dL 74-106 [facility] Work Phone: Neutrophils (Bld) [#/Vol] 6.4 10*3/uL 2.0-7.[address] [facility] Work Phone: Neutrophils/100 WBC (Bld) 57.3 % 47-[address] [facility] Work Phone: Potassium [Moles/Vol] 3.9 mmol/L 3.5-5.[address] [facility] Work Phone: [phone] Sodium [Moles/Vol] 140 mmol/L 136-145 [facility] Work Phone: WBC (Bld) [#/Vol] 11.1 10*3/uL 4.4-11.0 [facility] Work Phone: Blood erythrocytes count (nu mber/volume)on 02-14-2022 RBC (Bld) [#/Vol] 4.95 10*6/uL 4.2-5.4 [facility] Work Phone: Blood hemoglobin measurement (mass/volume)on 02-14-2022 Hemoglobin (Bld) [Mass/Vol] 15.0 g/dL 12.0-15.[address] [facility] Work Phone: Blood lymphocytes/100 leukoc yteson 02-14-2022 Lymphocytes/100 WBC (Bld) 32.0 % 19-[address] [facility] Work Phone: Blood monocytes/100 leukocyt eson 02-14-2022 Monocytes/100 WBC (Bld) 8.9 % 0-[address] [facility] Work Phone: Blood platelet mean volumeon 02-14-2022 Platelet mean volume (Bld) [Entitic vol] 10.0 fL 6.2-12.[address] [facility] Work Phone: Determination of erythrocyte mean corpuscular volume (MCV)on 02-14-2022 MCV (RBC) [Entitic vol] 91.5 fL 81-[address] [facility] Work Phone: Hematocrit Auto (Bld) [Volum e fraction]on 02-14-2022 Hematocrit (Bld) [Volume fraction] 45.3 % 37-[address] [facility] Work Phone: Laboratory - Chemistry and C hemistry - challengeon 02-14-2022 CO2 [Moles/Vol] 27.0 mmol/L 21.0-32.[address] [facility] Work Phone: Urea nitrogen/Creatinine [Mass ratio] 13.2 mg/mg 10-[address] [facility] Work Phone: Laboratory - Hematology and Cell countson 02-14-2022 Erythrocyte distribution width (RBC) [Entitic vol] 43.8 fL 35.1-43.[address] [facility] Work Phone: Erythrocyte distribution width (RBC) [Ratio] 13.1 % 11.6-14.[address] [facility] Work Phone: Immature granulocytes/100 WBC (Bld) 0.400 % 0.0-0.[address] [facility] Work Phone: Comment on above: IG% - Immature Granu locytes (promyelocytes, myelocytes and metamyelocytes) > 1% indicates that a LEFT SHIFT is Present. MCH (RBC) [Entitic mass] 30.3 pg 27.0-32.[address] [facility] Work Phone: Nucleated RBC/100 WBC (Bld) [Ratio] 0 % 0-[address] [facility] Work Phone: MCHC Auto (RBC) [Mass/Vol]on 02-14-2022 MCHC (RBC) [Mass/Vol] 33.1 g/dL 32-[address] [facility] Work Phone: No Panel Informationon 02-14 Estimated Creatinine Clearance Calc 105.90 ml/min [facility] Work Phone: Estimated GFR (MDRD) Amer 103 mL/min >[address] [facility] Work Phone: Comment on above: GFR Calc Estimated GFR (MDRD) Non-Af Amer 85 mL/min >[address] [facility] Work Phone: Comment on above: Non- GFR Calc Platelets bldon 02-14-2022 Platelets (Bld) [#/Vol] 286 10*3/uL 150-[address] [facility] Work Phone: Review by pathologiston 01-27 Pathologist review Kristian (Unsp spec) [Interp] Reviewed [facility] Work Phone: Comment on above: Reactive lymphocytes noted.No circulating blasts are identified.Clinical correlation suggested.Franck Bran D.O. 02/14/22Note: requested review. Serum or plasma calcium rosa maria urement (mass/volume)on 02-14-2022 Calcium [Mass/Vol] 9.3 mg/dL 8.5-10.1 [facility] Work Phone: Serum or plasma creatinine m easurement (mass/volume)on 02-14-2022 Creatinine [Mass/Vol] 0.84 mg/dL 0.55-1.[address] [facility] Work Phone: Comment on above: The validity of the calculated GFR & GFRAA in patients over 70 years has not been determined. Clinical correlation is essential. Serum or plasma urea nitroge n measurement (mass/volume)on 02-14-2022 Urea nitrogen [Mass/Vol] 11 mg/dL 7-[address] [facility] Work Phone: Serum or plasma uric acid me asurement (mass/volume)on 02-14-2022 Urate [Mass/Vol] 6.2 mg/dL 2.6-6.[address] [facility] Work Phone: Comment on above: The drugs N-Acetylcy steine and Metamizole may falsely depress this assay. Thin prep Papanicolaou smear with manual screeningon 02-14-2022 Thin prep Papanicolaou smear with manual screening 6 5-[address] [facility] Work Phone: Absolute lymphocyte counton 02-13-2022 Lymphocytes Auto (Unsp spec) [#/Vol] 3.90 10*3/uL 0.83-4.[address] [facility] Work Phone: Basophil percentageon 2021 Basophils/100 WBC (Bld) 0.2 % 0-[address] [facility] Work Phone: Bilirubin [Mass/Vol] 0.30 mg/dL 0.20-1.[address] [facility] Work Phone: Comment on above: For patients on eltr ombopag therapy, use of Dimension [place]dle TBIL is not recommended. Chloride [Moles/Vol] 107 mmol/L 98-[address] [facility] Work Phone: Eosinophils/100 WBC (Bld) 1.1 % 0-[address] [facility] Work Phone: Glucose [Mass/Vol] 70 mg/dL 74-106 [facility] Work Phone: Neutrophils (Bld) [#/Vol] 7.1 10*3/uL 2.0-7.[address] [facility] Work Phone: Neutrophils/100 WBC (Bld) 58.3 % 47-[address] [facility] Work Phone: Potassium [Moles/Vol] 4.1 mmol/L 3.5-5.[address] [facility] Work Phone: Protein [Mass/Vol] 7.4 g/dL 6.4-8.2 [facility] Work Phone: Sodium [Moles/Vol] 142 mmol/L 136-145 [facility] Work Phone: WBC (Bld) [#/Vol] 12.2 10*3/uL 4.4-11.0 [facility] Work Phone: Blood blasts/100 leukocyteso n 02-13-2022 Blasts/100 WBC (Bld) 12.2 % 0-[address] [facility] Work Phone: Blood erythrocytes count (nu mber/volume)on 02-13-2022 RBC (Bld) [#/Vol] 4.98 10*6/uL 4.2-5.4 [facility] Work Phone: Blood hemoglobin measurement (mass/volume)on 02-13-2022 Hemoglobin (Bld) [Mass/Vol] 15.0 g/dL 12.0-15.[address] [facility] Work Phone: Blood lymphocytes/100 leukoc yteson 02-13-2022 Lymphocytes/100 WBC (Bld) 32.0 % 19-[address] [facility] Work Phone: Blood monocytes/100 leukocyt eson 02-13-2022 Monocytes/100 WBC (Bld) 7.8 % 0-[address] [facility] Work Phone: Blood platelet mean volumeon 02-13-2022 Platelet mean volume (Bld) [Entitic vol] 10.7 fL 6.2-12.[address] [facility] Work Phone: Determination of erythrocyte mean corpuscular volume (MCV)on 02-13-2022 MCV (RBC) [Entitic vol] 92.6 fL 81-[address] [facility] Work Phone: Erythrocyte sedimentation ra guy 02-13-2022 ESR (Bld) [Velocity] 12 mm/h 0-[address] [facility] Work Phone: [phone] Hematocrit Auto (Bld) [Volum e fraction]on 02-13-2022 Hematocrit (Bld) [Volume fraction] 46.1 % 37-[address] [facility] Work Phone: Laboratory - Chemistry and C hemistry - challengeon 02-13-2022 ALP [Catalytic activity/Vol] 50 U/L 45-[address] [facility] Work Phone: ALT [Catalytic activity/Vol] 26 U/L 13-[address] [facility] Work Phone: CO2 [Moles/Vol] 26.0 mmol/L 21.0-32.[address] [facility] Work Phone: Globulin (S) [Mass/Vol] 3.6 g/dL 2.2-4.[address] [facility] Work Phone: Urea nitrogen/Creatinine [Mass ratio] 12.5 mg/mg 10-[address] [facility] Work Phone: Laboratory - Hematology and Cell countson 02-13-2022 Erythrocyte distribution width (RBC) [Entitic vol] 45.1 fL 35.1-43.[address] [facility] Work Phone: Erythrocyte distribution width (RBC) [Ratio] 13.2 % 11.6-14.[address] [facility] Work Phone: Immature granulocytes/100 WBC (Bld) 0.600 % 0.0-0.[address] [facility] Work Phone: Comment on above: IG% - Immature Granu locytes (promyelocytes, myelocytes and metamyelocytes) > 1% indicates that a LEFT SHIFT is Present. MCH (RBC) [Entitic mass] 30.1 pg 27.0-32.[address] [facility] Work Phone: Nucleated RBC/100 WBC (Bld) [Ratio] 0 % 0-[address] [facility] Work Phone: MCHC Auto (RBC) [Mass/Vol]on 02-13-2022 MCHC (RBC) [Mass/Vol] 32.5 g/dL 32-[address] [facility] Work Phone: No Panel Informationon 02-13 Estimated GFR (MDRD) Amer 108 mL/min >[address] [facility] Work Phone: Comment on above: GFR Calc Estimated GFR (MDRD) Non-Af Amer 89 mL/min >[address] [facility] Work Phone: Comment on above: Non- GFR Calc Platelets bldon 02-13-2022 Platelets (Bld) [#/Vol] 306 10*3/uL 150-[address] [facility] Work Phone: Serum or plasma C reactive p rotein measurement (mass/volume)on 02-13-2022 CRP [Mass/Vol] 9.63 mg/L 0.0-3.[address] [facility] Work Phone: Comment on above: C-Reactive Protein ( CRP) provides useful information for thediagnosis, therapy and monitoring of inflammatory processesand associated diseases. For the evaluation of Relative Riskfor Cardiovascular Disease, a High Sensitivity CRP (HSCRP)should be ordered. Serum or plasma albumin rosa maria urement (mass/volume)on 02-13-2022 Albumin [Mass/Vol] 3.8 g/dL 3.2-5.0 [facility] Work Phone: Serum or plasma albumin/glob ulin mass ratioon 02-13-2022 Albumin/Globulin [Mass ratio] 1.1 {ratio} 0.9-2.[address] [facility] Work Phone: Serum or plasma calcium rosa maria urement (mass/volume)on 02-13-2022 Calcium [Mass/Vol] 9.2 mg/dL 8.5-10.1 [facility] Work Phone: Serum or plasma creatinine m easurement (mass/volume)on 02-13-2022 Creatinine [Mass/Vol] 0.80 mg/dL 0.55-1.[address] [facility] Work Phone: Comment on above: The validity of the calculated GFR & GFRAA in patients over 70 years has not been determined. Clinical correlation is essential. Serum or plasma urea nitroge n measurement (mass/volume)on 02-13-2022 Urea nitrogen [Mass/Vol] 10 mg/dL - [facility] Work Phone: Thin prep Papanicolaou smear with manual screeningon 02-13-2022 Thin prep Papanicolaou smear with manual screening 15 U/L 15-[address] [facility] Work Phone: Thin prep Papanicolaou smear with manual screening 9 5-[address] [facility] Work Phone: Absolute lymphocyte counton 09-23-2021 Lymphocytes Auto (Unsp spec) [#/Vol] 2.98 10*3/uL 0.83-4.[address] [facility] Work Phone: Basophil percentageon 2021 Amylase [Catalytic activity/Vol] 26 U/L 25-[address] [facility] Work Phone: Basophils/100 WBC (Bld) 0.4 % 0-[address] [facility] Work Phone: Bilirubin [Mass/Vol] 0.30 mg/dL 0.20-1.[address] [facility] Work Phone: Comment on above: For patients on eltr ombopag therapy, use of Dimension [place]dle TBIL is not recommended. Chloride [Moles/Vol] 107 mmol/L 98-[address] [facility] Work Phone: Eosinophils/100 WBC (Bld) 1.6 % 0-[address] [facility] Work Phone: Glucose [Mass/Vol] 108 mg/dL 74-106 [facility] Work Phone: Comment on above: Fasting Glucose resu lt from 100 to 125 mg/dL suggests IMPAIRED HOMEOSTASIS per A.D.A. criteria. Neutrophils (Bld) [#/Vol] 9.7 10*3/uL 2.0-7.[address] [facility] Work Phone: [phone] Neutrophils/100 WBC (Bld) 69.2 % 47-[address] [facility] Work Phone: Potassium [Moles/Vol] 3.5 mmol/L 3.5-5.[address] [facility] Work Phone: Protein [Mass/Vol] 7.1 g/dL 6.4-8.2 [facility] Work Phone: Sodium [Moles/Vol] 141 mmol/L 136-145 [facility] Work Phone: WBC (Bld) [#/Vol] 14.0 10*3/uL 4.4-11.0 [facility] Work Phone: Blood erythrocytes count (nu mber/volume)on 09-23-2021 RBC (Bld) [#/Vol] 4.62 10*6/uL 4.2-5.4 [facility] Work Phone: [phone] Blood hemoglobin measurement (mass/volume)on 09-23-2021 Hemoglobin (Bld) [Mass/Vol] 14.6 g/dL 12.0-15.[address] [facility] Work Phone: Blood lymphocytes/100 leukoc yteson 09-23-2021 Lymphocytes/100 WBC (Bld) 21.3 % 19-[address] [facility] Work Phone: Blood monocytes/100 leukocyt eson 09-23-2021 Monocytes/100 WBC (Bld) 6.7 % 0-[address] [facility] Work Phone: [phone] Blood platelet mean volumeon 09-23-2021 Platelet mean volume (Bld) [Entitic vol] 10.4 fL 6.2-12.[address] [facility] Work Phone: Determination of erythrocyte mean corpuscular volume (MCV)on 09-23-2021 MCV (RBC) [Entitic vol] 95.0 fL 81-[address] [facility] Work Phone: Hematocrit Auto (Bld) [Volum e fraction]on 09-23-2021 Hematocrit (Bld) [Volume fraction] 43.9 % 37-[address] [facility] Work Phone: Laboratory - Chemistry and C hemistry - challengeon 09-23-2021 ALP [Catalytic activity/Vol] 42 U/L 45-[address] [facility] Work Phone: ALT [Catalytic activity/Vol] 27 U/L 13-[address] [facility] Work Phone: CO2 [Moles/Vol] 31.0 mmol/L 21.0-32.[address] [facility] Work Phone: Globulin (S) [Mass/Vol] 3.6 g/dL 2.2-4.[address] [facility] Work Phone: Lipase [Catalytic activity/Vol] 60 U/L 73-[address] [facility] Work Phone: Urea nitrogen/Creatinine [Mass ratio] 14.1 mg/mg 10-[address] [facility] Work Phone: Laboratory - Hematology and Cell countson 09-23-2021 Erythrocyte distribution width (RBC) [Entitic vol] 59.4 fL 35.1-43.[address] [facility] Work Phone: Erythrocyte distribution width (RBC) [Ratio] 17.2 % 11.6-14.[address] [facility] Work Phone: Immature granulocytes/100 WBC (Bld) 0.800 % 0.0-0.[address] [facility] Work Phone: Comment on above: IG% - Immature Granu locytes (promyelocytes, myelocytes and metamyelocytes) > 1% indicates that a LEFT SHIFT is Present. MCH (RBC) [Entitic mass] 31.6 pg 27.0-32.[address] [facility] Work Phone: Nucleated RBC/100 WBC (Bld) [Ratio] 0 % 0-[address] [facility] Work Phone: MCHC Auto (RBC) [Mass/Vol]on 09-23-2021 MCHC (RBC) [Mass/Vol] 33.3 g/dL 32-[address] [facility] Work Phone: No Panel Informationon 09-23 Estimated GFR (MDRD) Amer 100 mL/min >[address] [facility] Work Phone: Comment on above: GFR Calc Estimated GFR (MDRD) Non-Af Amer 83 mL/min >[address] [facility] Work Phone: Comment on above: Non- GFR Calc Platelets bldon 09-23-2021 Platelets (Bld) [#/Vol] 315 10*3/uL 150-[address] [facility] Work Phone: Serum or plasma C reactive p rotein measurement (mass/volume)on 09-23-2021 CRP [Mass/Vol] 7.97 mg/L 0.0-3.[address] [facility] Work Phone: Comment on above: C-Reactive Protein ( CRP) provides useful information for thediagnosis, therapy and monitoring of inflammatory processesand associated diseases. For the evaluation of Relative Riskfor Cardiovascular Disease, a High Sensitivity CRP (HSCRP)should be ordered. Serum or plasma albumin rosa maria urement (mass/volume)on 09-23-2021 Albumin [Mass/Vol] 3.5 g/dL 3.2-5.0 [facility] Work Phone: Serum or plasma albumin/glob ulin mass ratioon 09-23-2021 Albumin/Globulin [Mass ratio] 1.0 {ratio} 0.9-2.[address] [facility] Work Phone: Serum or plasma calcium rosa maria urement (mass/volume)on 09-23-2021 Calcium [Mass/Vol] 8.7 mg/dL 8.5-10.1 [facility] Work Phone: Serum or plasma creatinine m easurement (mass/volume)on 09-23-2021 Creatinine [Mass/Vol] 0.85 mg/dL 0.55-1.[address] [facility] Work Phone: Comment on above: The validity of the calculated GFR & GFRAA in patients over 70 years has not been determined. Clinical correlation is essential. Serum or plasma urea nitroge n measurement (mass/volume)on 09-23-2021 Urea nitrogen [Mass/Vol] 12 mg/dL 7-[address] [facility] Work Phone: Thin prep Papanicolaou smear with manual screeningon 09-23-2021 Thin prep Papanicolaou smear with manual screening 13 U/L 15-[address] [facility] Work Phone: Thin prep Papanicolaou smear with manual screening 3 5-[address] [facility] Work Phone: Whole blood hemoglobin A1c/t otal hemoglobin ratio (mass fraction)on 09-23-2021 HbA1c (Bld) [Mass fraction] 5.2 % 3.8-5.[address] [facility] Work Phone: Comment on above: Normal < 5.7 % Predi abetic 5.7 - 6.4 % Diabetic >or= 6.5 % Please note range changes. JAK2 V617F mutation detectio non 03-08-2020 JAK2 gene p.[id number] [facility] (Bld/Tiss) Comment . [facility] Comment on above: Result: NEGATIVE for the JAK2 V617F mutation.Interpretation: The G to T nucleotide change encoding [id number] mutation was not detected. This result does not ruleout the presence of the JAK2 mutation at a level below thesensitivity of detection of this assay, or the presence ofother mutations within JAK2 not detected by this assay.This result does not rule out a diagnosis of polycythemiavera, essential thrombocythemia or idiopathicmyelofibrosis as the V617F mutation is not detected inall patients with these disorders. No Panel Informationon 03-08 JAK2 Mutation Comment . [facility] Comment on above: JAK2 is a cytoplasmi c tyrosine kinase with a link role insignal transduction from multiple hematopoietic growthfactor receptors. A point mutation within exon 14 of theJAK2 gene ([id number]) encoding a valine to phenylalaninesubstitution at position 617 of the JAK2 protein (V617F)has been identified in most patients with polycythemiavera, and in about half of those with either essentialthrombocythemia or idiopathic myelofibrosis. The V617F hasalso been detected, although infrequently, in other myeloiddisorders such as chronic myelomonocytic leukemia andchronic neutrophilic luekemia. V617F is an acquiredmutation that alters a highly conserved valine present inthe negative regulatory JH2 domain of the JAK2 proteinand is predicted to dysregulate kinase activity.Methodology:Total genomic DNA was extracted and subjected to TaqManreal-time PCR amplification/detection. Two amplificationproducts per sample were monitored by real-time PCR usingprimers/probes specific to JAK2 wild type (WT) and TNG7lbptog V617F. The [employer] Absolute Quantitation softwarewill compare the patient specimen valuse to the standardcurves and generate percent values for wild type andmutant type. In vitro studies have indicated that thisassay has an analytical sensitivity of 1%.References:Imtiaz EJ, Blue BECK, Arnoldo PJ, et al. Acquiredmutation of the tyrosine kinase JAK2 in humanmyeloproliferative disorders. Lancet. 2005 Oct 15;365(5163):2350-2037. Ilia C, Poncho V, Jojo [place]. Aunique clonal JAK2 mutation leading to constitutivesignaling causes polycythaemia vera. Nature. 2005 Nov 24;434(7894):2410-6804.Luke R, Agata F, Delia , et al. A wvsb-en-bilrzmck mutation of JAK2 in myeloproliferative disorders.N Engl J Med. 2005 Nov 24; 35217):9500-0359. Miscellaneous Test See comment [facility] Comment on above: TEST RESULT LIMITSBC R-ABL1, CML/ALL, PCR, Quant e13a2 (b2a2) transcript % <0.0032 % (sensitivity limit of assay) e14a2 (b3a2) transcript % <0.0032 % (sensitivity limit of assay) e1a2 transcript % <0.0032 % (sensitivity limit of assay)Interpretation: NEGATIVE for the BCR-ABL1 e1a2 (p190), e13a2 (b2a2, p210) and e14a2 (b3a2, p210) fusion transcripts. These results do not rule out the presence of rare BCR-ABL1 transcripts not detected by this assay.Director Mabel Hood, PhD, [facility] Director, Molecular GeneticsGrafton State Hospital Center for MolecularBiology and PathologyS[facility], [phone] This assay can detect three different types of BCR-ABL1 fusion transcripts associated with CML, ALL, and AML: e13a2 (previously b2a2) and e14a2 (previously b3a2) (major breakpoint, p210), as well as e1a2 (minor breakpoint, p190). The e13a2 and e14a2 transcript values are titrated to the current International Scale (IS). The standardized baseline is 100% BCR-ABL1 (IS) and major molecular response (MMR) is equivalent to 0.1% BCR-ABL1 (IS) corresponding to a 3-log reduction. Results should be correlated with appropriate clinical and laboratory information as indicated.Methodology Total RNA is isolated from the sample and subject to a real-time, reverse transcriptase polymerase chain reaction (RT-PCR). The PCR primers and probes are specific for BCR-ABL1 e13a2, e14a2 and e1a2 fusion transcripts. The ABL1 transcript is amplified as the controlfor cDNA quantity and quality. Serial dilutions of a validated positive control RNA with known t(9;22) BCR-ABL1 are used as reference for quantification of BCR-ABL1 relative to ABL1. The numeric BCR-ABL1 level is reportd as % BCR-ABL1/ABL1 and the detection sensitivity is 4.5 log below the standard baseline.This test was developed and its performance characteristics determined by [facility] [facility]. It has not been cleared or approved by the Food and Drug Administration.References: 1. Albert T and Kimberly S: Seminars in Hematology 2003; 40 (suppl2):62-68. 2. Asiya VALENZUELA, et al. Blood 2010; 116: [id number]. 3. NCCN Clinical Practice Guidelines in Oncology, Chronic Myeloid Leukemia. V2. 2017. TESTING PERFORMED AT [facility]. ORIGINAL REPORT ON FILE IN LAB CONTAINS ADDITIONAL TEST SITE INFORMATION. ___ Serum or plasma uric acid me asurement (mass/volume)on 02-26-2020 Urate [Mass/Vol] 5.4 mg/dL 2.6-6.[address] [facility] Comment on above: The drugs N-Acetylcy steine and Metamizole may falsely depress this assay. Vital Signs Date Time Vital Sign Value Performing Clinician Facility 01-09-2025 13:57-0400 Body temperature 97.9 [degF] Dr. Radha Calloway MD Work Phone: 0(337)852-707351 [place] [address] 01-09-2025 13:57-0400 Diastolic blood pressure 95 mm[Hg] Dr. Radha Calloway MD Work Phone: 2(468)564-187997 [place] [address] 01-09-2025 13:57-0400 Heart rate 64 /min Dr. Radha Calloway MD Work Phone: 5(670)859-093597 [place] [address] 01-09-2025 13:57-0400 Respiratory rate 16 /min Dr. Radha Calloway MD Work Phone: 0(566)851-617697 [place] [address] 01-09-2025 13:57-0400 SaO2% (BldA) [Mass fraction] 98 % Dr. Radha Calloway MD Work Phone: 1(707)955-622951 [place] [address] 01-09-2025 13:57-0400 Systolic blood pressure 116 mm[Hg] Dr. Radha Calloway MD Work Phone: 8(317)586-649651 [place] [address] 01-09-2025 11:50-0400 Body height [address] Radha Calloway MD Work Phone: 6(437)518-658997 [place] [address] 01-09-2025 11:50-0400 Body mass index (BMI) [Ratio] 33.4 kg/m2 Dr. Radha Calloway MD Work Phone: 9(694)483-456651 [place] [address] 01-09-2025 11:50-0400 Body weight [address] Radha Calloway MD Work Phone: 1(355)557-986797 [place] [address] 01-02-2025 11:53-0400 Body temperature 97.3 [degF] Dr. Radha Calloway MD Work Phone: 7(153)999-991751 [place] [address] 01-02-2025 11:53-0400 Diastolic blood pressure 62 mm[Hg] Dr. Radha Calloway MD Work Phone: 1(291)054-376597 [place] [address] 01-02-2025 11:53-0400 Heart rate 55 /min Dr. Radha Calloway MD Work Phone: 1(464)330-814697 [place] [address] 01-02-2025 11:53-0400 Respiratory rate 16 /min Dr. Radha Calloway MD Work Phone: 2(040)065-179697 [place] [address] 01-02-2025 11:53-0400 SaO2% (BldA) [Mass fraction] 100 % Dr. Radha Calloway MD Work Phone: 3(391)143-371697 [place] [address] 01-02-2025 11:53-0400 Systolic blood pressure 113 mm[Hg] Dr. Radha Calloway MD Work Phone: 6(133)559-252997 [place] [address] 01-02-2025 10:06-0400 Body height 177.[address] Radha Calloway MD Work Phone: 5(899)867-439797 [place] [address] 01-02-2025 10:06-0400 Body mass index (BMI) [Ratio] 30.7 kg/m2 Dr. Radha Calloway MD Work Phone: 7(130)780-260197 [place] [address] 01-02-2025 10:06-0400 Body weight 97.[address] Radha Calloway MD Work Phone: 6(320)065-295297 [place] [address] 12-05-2024 12:05-0400 Diastolic blood pressure 47 mm[Hg] Dr. Radha Calloway MD Work Phone: 5(475)223-568697 [place] [address] 12-05-2024 12:05-0400 Heart rate 64 /min Dr. Radha Calloway MD Work Phone: 4(238)416-513997 [place] [address] 12-05-2024 12:05-0400 Respiratory rate 16 /min Dr. Radha Calloway MD Work Phone: 3(629)365-152451 [place] [address] 12-05-2024 12:05-0400 Systolic blood pressure 83 mm[Hg] Dr. Radha Calloway MD Work Phone: [facility] 12-05-2024 10:08-0400 Body height 177.[address] Radha Calloway MD Work Phone: [facility] 12-05-2024 10:08-0400 Body mass index (BMI) [Ratio] 30.7 kg/m2 Dr. Radha Calloway MD Work Phone: [facility] 12-05-2024 10:08-0400 Body temperature 96.2 [degF] Dr. Radha Calloway MD Work Phone: [facility] 12-05-2024 10:08-0400 Body weight 97.[address] Radha Calloway MD Work Phone: [facility] 12-05-2024 10:08-0400 SaO2% (BldA) [Mass fraction] 100 % Dr. Radha Calloway MD Work Phone: [facility] 09-18-2024 13:40-0500 Body mass index (BMI) [Ratio] 32.64 kg/m2 Delilah Aranda MD Work Phone: [facility] 09-18-2024 13:40-0500 Body weight 106.14 kg Delilah Aranda MD Work Phone: [facility] 04-04-2024 12:34-0400 Body height 180.3 cm Rahda Calloway MD Work Phone: [facility] 04-04-2024 12:34-0400 Body mass index (BMI) [Ratio] 31.66 kg/m2 Radha Calloway MD Work Phone: [facility] 04-04-2024 12:34-0400 Body temperature 97.81 [degF] Radha Calloway MD Work Phone: [facility] 04-04-2024 12:34-0400 Body weight 102.97 kg Radha Calloway MD Work Phone: [facility] 04-04-2024 12:34-0400 Diastolic blood pressure 67 mm[Hg] Radha Calloway MD Work Phone: [facility] 04-04-2024 12:34-0400 Heart rate 64 /min Radha Calloway MD Work Phone: [facility] 04-04-2024 12:34-0400 Respiratory rate 16 /min Radha Calloway MD Work Phone: [facility] 04-04-2024 12:34-0400 SaO2% (BldA) [Mass fraction] 97 % Radha Calloway MD Work Phone: [facility] 04-04-2024 12:34-0400 Systolic blood pressure 110 mm[Hg] Radha Calloway MD Work Phone: [facility] 06-14-2023 19:58-0500 Body height 177.[address] Radha Calloway Work Phone: [facility] 06-14-2023 19:58-0500 Body mass index (BMI) [Ratio] 33.6 kg/m2 Dr. Radha Calloway Work Phone: [facility] 06-14-2023 19:58-0500 Body temperature 98.3 [degF] Dr. Radha Calloway Work Phone: [facility] 06-14-2023 19:58-0500 Body weight 106.[address] Radha Calloway Work Phone: [facility] 06-14-2023 19:58-0500 Diastolic blood pressure 60 mm[Hg] Dr. Radha Calloway Work Phone: [facility] 06-14-2023 19:58-0500 Heart rate 70 /min Dr. Radha Calloway Work Phone: [facility] 06-14-2023 19:58-0500 Respiratory rate 18 /min Dr. Radha Calloway Work Phone: [facility] 06-14-2023 19:58-0500 SaO2% (BldA) [Mass fraction] 99 % Dr. Radha Calloway Work Phone: [facility] 06-14-2023 19:58-0500 Systolic blood pressure 101 mm[Hg] Dr. Radha Calloway Work Phone: [facility] 04-23-2023 13:06-0400 Body mass index (BMI) [Ratio] 33.9 kg/m2 Dr. Radha Calloway Work Phone: 2(273)272-688738 [address] 04-23-2023 13:06-0400 Body temperature 98.7 [degF] Dr. Radha Calloway Work Phone: 7(391)245-796397 [place] [address] 04-23-2023 13:06-0400 Body weight 107.[address] Radha Calloway Work Phone: 4(059)273-104138 [address] 04-23-2023 13:06-0400 Diastolic blood pressure 80 mm[Hg] Dr. Radha Calloway Work Phone: 3(909)649-951751 [place] [address] 04-23-2023 13:06-0400 Heart rate 77 /min Dr. Radha Calloway Work Phone: 6(111)807-707038 [address] 04-23-2023 13:06-0400 Respiratory rate 17 /min Dr. Radha Calloway Work Phone: 9(177)065-863651 [place] [address] 04-23-2023 13:06-0400 SaO2% (BldA) [Mass fraction] 98 % Dr. Radha Calloway Work Phone: [facility] 04-23-2023 13:06-0400 Systolic blood pressure 120 mm[Hg] Dr. Radha Calloway Work Phone: 1(545)060-744151 [place] [address] 11-20-2022 13:19-0400 Body height 177.[address] Radha Calloway Work Phone: [facility] 11-20-2022 13:19-0400 Body mass index (BMI) [Ratio] 34.8 kg/m2 Dr. Radha Calloway Work Phone: 0(569)509-057451 [place] [address] 11-20-2022 13:19-0400 Body temperature 97.6 [degF] Dr. Radha Calloway Work Phone: [facility] 11-20-2022 13:19-0400 Body weight 110.[address] Radha Calloway Work Phone: [facility] 11-20-2022 13:19-0400 Diastolic blood pressure 77 mm[Hg] Dr. Radha Calloway Work Phone: [facility] 11-20-2022 13:19-0400 Respiratory rate 18 /min Dr. Radha Calloway Work Phone: [facility] 11-20-2022 13:19-0400 SaO2% (BldA) [Mass fraction] 96 % Dr. Radha Calloway Work Phone: [facility] 11-20-2022 13:19-0400 Systolic blood pressure 113 mm[Hg] Dr. Radha Calloway Work Phone: [facility] 06-05-2022 08:44-0500 Body height 177.[address] Radha Calloway Work Phone: 4(854)638-875638 [address] 06-05-2022 08:44-0500 Body mass index (BMI) [Ratio] 35.9 kg/m2 Dr. Radha Calloway Work Phone: [facility] 06-05-2022 08:44-0500 Body temperature 98.4 [degF] Dr. Radha Calloway Work Phone: [facility] 06-05-2022 08:44-0500 Body weight 113.[address] Radha Calloway Work Phone: 9(648)484-842051 [place] [address] 06-05-2022 08:44-0500 Diastolic blood pressure 90 mm[Hg] Dr. Radha Calloway Work Phone: [facility] 06-05-2022 08:44-0500 Heart rate 94 /min Dr. Radha Calloway Work Phone: [facility] 06-05-2022 08:44-0500 Respiratory rate 18 /min Dr. Radha Calloway Work Phone: [facility] 06-05-2022 08:44-0500 Systolic blood pressure 118 mm[Hg] Dr. Radha Calloway Work Phone: [facility] 05-11-2022 13:20-0400 Body mass index (BMI) [Ratio] 36.3 kg/m2 Dr. Radha Calloway Work Phone: [facility] 05-11-2022 13:20-0400 Body temperature 98.2 [degF] Dr. Radha Calloway Work Phone: [facility] 05-11-2022 13:20-0400 Body weight 114.[address] Radha Calloway Work Phone: [facility] 05-11-2022 13:20-0400 Diastolic blood pressure 68 mm[Hg] Dr. Radha Calloway Work Phone: [facility] 05-11-2022 13:20-0400 Heart rate 66 /min Dr. Radha Calloway Work Phone: [facility] 05-11-2022 13:20-0400 Respiratory rate 15 /min Dr. Radha Calloway Work Phone: [facility] 05-11-2022 13:20-0400 SaO2% (BldA) [Mass fraction] 99 % Dr. Radha Calloway Work Phone: [facility] 05-11-2022 13:20-0400 Systolic blood pressure 100 mm[Hg] Dr. Radha Calloway Work Phone: [facility] 04-25-2022 14:27-0400 Body height 177.[address] Radha Calloway Work Phone: [facility] Work Phone: 04-25-2022 14:27-0400 Body mass index (BMI) [Ratio] 36.7 kg/m2 Dr. Radha Calloway Work Phone: [facility] 04-25-2022 14:27-0400 Body temperature 98.6 [degF] Dr. Radha Calloway Work Phone: [facility] 04-25-2022 14:27-0400 Body weight 116.[address] Radha Calloway Work Phone: [facility] 04-25-2022 14:27-0400 Diastolic blood pressure 70 mm[Hg] Dr. Radha Calloway Work Phone: [facility] 04-25-2022 14:27-0400 Heart rate 84 /min Dr. Radha Calloway Work Phone: [facility] 04-25-2022 14:27-0400 Respiratory rate 16 /min Dr. Radha Calloway Work Phone: [facility] 04-25-2022 14:27-0400 SaO2% (BldA) [Mass fraction] 97 % Dr. Radha Calloway Work Phone: [facility] 04-25-2022 14:27-0400 Systolic blood pressure 100 mm[Hg] Dr. Radha Calloway Work Phone: [facility] 03-31-2022 21:52-0400 Diastolic blood pressure 67 mm[Hg] Dr. Radha Calloway Work Phone: [facility] Work Phone: 03-31-2022 21:52-0400 Heart rate 72 /min Dr. Radha Calloway Work Phone: [facility] Work Phone: 03-31-2022 21:52-0400 Respiratory rate 16 /min Dr. Radha Calloway Work Phone: [facility] Work Phone: 03-31-2022 21:52-0400 SaO2% (BldA) [Mass fraction] 97 % Dr. Radha Calloway Work Phone: [facility] Work Phone: 03-31-2022 21:52-0400 Systolic blood pressure 115 mm[Hg] Dr. Radha Calloway Work Phone: [facility] Work Phone: 03-31-2022 16:28-0400 Body height 177.[address] Radha Calloway Work Phone: [facility] Work Phone: 03-31-2022 16:28-0400 Body mass index (BMI) [Ratio] 36.3 kg/m2 Dr. Radha Calloway Work Phone: [facility] Work Phone: 03-31-2022 16:28-0400 Body temperature 96.9 [degF] Dr. Radha Calloway Work Phone: [facility] Work Phone: 03-31-2022 16:28-0400 Body weight 114.[address] Radha Calloway Work Phone: [facility] Work Phone: 02-16-2022 14:13-0400 Body mass index (BMI) [Ratio] 35.7 kg/m2 Dr. Radha Calloway Work Phone: [facility] Work Phone: 02-16-2022 14:13-0400 Body temperature 98.2 [degF] Dr. Radha Calloway Work Phone: [facility] Work Phone: 02-16-2022 14:13-0400 Body weight 113.[address] Radha Calloway Work Phone: [facility] Work Phone: 02-16-2022 14:13-0400 Diastolic blood pressure 79 mm[Hg] Dr. Radha Calloway Work Phone: [facility] Work Phone: 02-16-2022 14:13-0400 Heart rate 84 /min Dr. Radha Calloway Work Phone: [facility] Work Phone: 02-16-2022 14:13-0400 Respiratory rate 15 /min Dr. Radha Calloway Work Phone: [facility] Work Phone: 02-16-2022 14:13-0400 SaO2% (BldA) [Mass fraction] 98 % Dr. Radha Calloway Work Phone: [facility] Work Phone: 02-16-2022 14:13-0400 Systolic blood pressure 109 mm[Hg] Dr. Radha Calloway Work Phone: [facility] Work Phone: 02-14-2022 12:05-0400 Diastolic blood pressure 49 mm[Hg] Dr. Radha Calloway Work Phone: [facility] Work Phone: 02-14-2022 12:05-0400 Respiratory rate 16 /min Dr. Radha Calloway Work Phone: [facility] Work Phone: 02-14-2022 12:05-0400 Systolic blood pressure 122 mm[Hg] Dr. Radha Calloway Work Phone: [facility] Work Phone: 02-14-2022 10:02-0400 Body height 177.[address] Radha Calloway Work Phone: [facility] Work Phone: 02-14-2022 10:02-0400 Body mass index (BMI) [Ratio] 36.4 kg/m2 Dr. Radha Calloway Work Phone: [facility] Work Phone: 02-14-2022 10:02-0400 Body temperature 97.2 [degF] Dr. Radha Calloway Work Phone: [facility] Work Phone: 02-14-2022 10:02-0400 Body weight 115.[address] Radha Calloway Work Phone: [facility] Work Phone: 02-14-2022 10:02-0400 Heart rate 85 /min Dr. Radha Calloway Work Phone: [facility] Work Phone: 02-14-2022 10:02-0400 SaO2% (BldA) [Mass fraction] 98 % Dr. Radha Calloway Work Phone: [facility] Work Phone: 02-13-2022 13:34-0400 Body mass index (BMI) [Ratio] 35.4 kg/m2 Dr. Radha Calloway Work Phone: [facility] Work Phone: 02-13-2022 13:34-0400 Body weight 115.[address] Radha Calloway Work Phone: [facility] Work Phone: 01-28-2022 11:24-0400 Body height 180.[address] Radha Calloway Work Phone: [facility] Work Phone: 01-28-2022 11:24-0400 Body mass index (BMI) [Ratio] 36.3 kg/m2 Dr. Radha Calloway Work Phone: [facility] Work Phone: 01-28-2022 11:24-0400 Body temperature 97.4 [degF] Dr. Radha Calloway Work Phone: [facility] Work Phone: 01-28-2022 11:24-0400 Body weight 118.[address] Radha Calloway Work Phone: [facility] Work Phone: 01-28-2022 11:24-0400 Diastolic blood pressure 65 mm[Hg] Dr. Radha Calloway Work Phone: [facility] Work Phone: 01-28-2022 11:24-0400 Heart rate 82 /min Dr. Radha Calloway Work Phone: [facility] Work Phone: 01-28-2022 11:24-0400 Respiratory rate 17 /min Dr. Radha Calloway Work Phone: [facility] Work Phone: 01-28-2022 11:24-0400 SaO2% (BldA) [Mass fraction] 97 % Dr. Radha Calloway Work Phone: [facility] Work Phone: 01-28-2022 11:24-0400 Systolic blood pressure 116 mm[Hg] Dr. Radha Calloway Work Phone: [facility] Work Phone: 12-15-2021 12:44-0400 Body mass index (BMI) [Ratio] 35.9 kg/m2 Dr. Radha Calloway Work Phone: [facility] Work Phone: 12-15-2021 12:44-0400 Body temperature 98.2 [degF] Dr. Radha Calloway Work Phone: [facility] Work Phone: 12-15-2021 12:44-0400 Body weight 117.[address] Radha Calloway Work Phone: [facility] Work Phone: 12-15-2021 12:44-0400 Diastolic blood pressure 65 mm[Hg] Dr. Radha Calloway Work Phone: [facility] Work Phone: 12-15-2021 12:44-0400 Heart rate 82 /min Dr. Radha Calloway Work Phone: [facility] Work Phone: 12-15-2021 12:44-0400 Respiratory rate 17 /min Dr. Radha Calloway Work Phone: [facility] Work Phone: 12-15-2021 12:44-0400 SaO2% (BldA) [Mass fraction] 98 % Dr. Radha Calloway Work Phone: [facility] Work Phone: 12-15-2021 12:44-0400 Systolic blood pressure 102 mm[Hg] Dr. Radha Calloway Work Phone: [facility] Work Phone: 12-15-2021 12:44-0400 Body mass index (BMI) [Ratio] 35.9 kg/m2 Dr. Radha Calloway Work Phone: [facility] Work Phone: 12-15-2021 12:44-0400 Body temperature 98.2 [degF] Dr. Radha Calloway Work Phone: [facility] Work Phone: 12-15-2021 12:44-0400 Body weight 117.[address] Radha Calloway Work Phone: [facility] Work Phone: 12-15-2021 12:44-0400 Diastolic blood pressure 65 mm[Hg] Dr. Radha Calloway Work Phone: [facility] Work Phone: 12-15-2021 12:44-0400 Heart rate 82 /min Dr. Radha Calloway Work Phone: [facility] Work Phone: 12-15-2021 12:44-0400 Respiratory rate 17 /min Dr. Radha Calloway Work Phone: [facility] Work Phone: 12-15-2021 12:44-0400 SaO2% (BldA) [Mass fraction] 98 % Dr. Radha Calloway Work Phone: [facility] Work Phone: 12-15-2021 12:44-0400 Systolic blood pressure 102 mm[Hg] Dr. Radha Calloway Work Phone: [facility] Work Phone: 12-05-2021 10:34-0400 Body mass index (BMI) [Ratio] 36.5 kg/m2 Dr. Radha Calloway Work Phone: [facility] Work Phone: 12-05-2021 10:34-0400 Body weight 118.[address] Radha Calloway Work Phone: [facility] Work Phone: 12-05-2021 10:34-0400 Body mass index (BMI) [Ratio] 36.5 kg/m2 Dr. Radha Calloway Work Phone: [facility] Work Phone: 12-05-2021 10:34-0400 Body weight 118.[address] Radha Calloway Work Phone: [facility] Work Phone: 09-15-2021 11:34-0500 Body mass index (BMI) [Ratio] 35.9 kg/m2 Dr. Radha Calloway Work Phone: [facility] Work Phone: 09-15-2021 11:34-0500 Body temperature 97.3 [degF] Dr. Radha Calloway Work Phone: [facility] Work Phone: 09-15-2021 11:34-0500 Body weight 117.[address] Radha Calloway Work Phone: [facility] Work Phone: 09-15-2021 11:34-0500 Diastolic blood pressure 78 mm[Hg] Dr. Radha Calloway Work Phone: [facility] Work Phone: 09-15-2021 11:34-0500 Heart rate 75 /min Dr. Radha Calloway Work Phone: [facility] Work Phone: 09-15-2021 11:34-0500 Respiratory rate 18 /min Dr. Radha Calloway Work Phone: [facility] Work Phone: 09-15-2021 11:34-0500 SaO2% (BldA) [Mass fraction] 96 % Dr. Radha Calloway Work Phone: [facility] Work Phone: 09-15-2021 11:34-0500 Systolic blood pressure 114 mm[Hg] Dr. Radha Calloway Work Phone: [facility] Work Phone: 12-20-2020 06:15-0400 Body mass index (BMI) [Ratio] 40.9 kg/m2 Dr. Radha Calloway Work Phone: [facility] 03-23-2020 11:42-0400 Body temperature 97.6 [degF] Dr. Radha Calloway Work Phone: [facility] 03-23-2020 11:42-0400 Body weight 132.[address] Radha Calloway Work Phone: [facility] 03-23-2020 11:42-0400 Diastolic blood pressure 79 mm[Hg] Dr. Radha Calloway Work Phone: [facility] 03-23-2020 11:42-0400 Heart rate 83 /min Dr. Radha Calloway Work Phone: [facility] 03-23-2020 11:42-0400 Respiratory rate 17 /min Dr. Radha Calloway Work Phone: [facility] 03-23-2020 11:42-0400 SaO2% (BldA) [Mass fraction] 96 % Dr. Radha Calloway Work Phone: [facility] 03-23-2020 11:42-0400 Systolic blood pressure 124 mm[Hg] Dr. Radha Calloway Work Phone: [facility] Encounters Encounter Date Encounter Type Care Provider Facility Start: 01-09-2025 Non-patient / Non-visit Juan Alberto Meraz nd, DO -[facility] Start: 01-09-2025 ambulatory Radha Calloway Facility: [facility] Start: 01-09-2025 End: 01-09-2025 Admission to same day surgery center Juan Alberto Rutledge -Endoscopy Work Phone: Start: 01-09-2025 End: 01-09-[address] Radha Calloway MD Work Phone: [facility] Work Phone: Start: 01-08-2025 End: 01-08-[address] Radha Calloway MD Work Phone: [facility] Work Phone: Start: 01-08-2025 End: 01-08-2025 Patient encounter procedure Chio WOO -[facility] Work Phone: Start: 01-02-2025 End: 01-02-2025 Patient encounter procedure Chio WOO -Medical Out Work Phone: Start: 01-02-2025 End: 01-02-[address] Radha Calloway MD Work Phone: [facility] Work Phone: Start: 12-05-2024 End: 12-05-2024 Patient encounter procedure Chio WOO -[facility] Work Phone: Start: 12-05-2024 End: 12-05-[address] Radha Calloway MD Work Phone: [facility] Work Phone: Start: 11-20-2024 End: 11-20-[address] Radha Calloway MD Work Phone: [facility] Work Phone: Start: 11-20-2024 End: 11-20-[address] Radha Calloway MD -Ultrasound, [facility] Work Phone: Start: 11-20-2024 End: 11-20-2024 ambulatory Radha Calloway Facility:[facility] Start: 11-12-2024 End: 11-12-2024 Office outpatient visit 25 minutes Delilah Aranda MD Work Phone: [facility] Comment on above: Ankle injury, right, sequela Start: 11-12-2024 End: 11-12-2024 ambulatory [facility] Start: 11-12-2024 End: 11-12-2024 Subsequent hospital visit by physician [facility] Ul[facility] EF RAD EXTERNAL FILM [facility] Comment on above: Arrived Start: 11-12-2024 End: 11-12-[address] [facility] Start: 10-23-2024 End: 10-23-2024 Patient encounter procedure Chio WOO -[facility] Work Phone: Start: 10-23-2024 End: 10-23-2024 ambulatory Radha Bob Brodie Facility:[facility] Start: 09-18-2024 End: 09-18-2024 Office outpatient visit 25 minutes Delilah Aranda MD Work Phone: [facility] Comment on above: Ankle injury, right, sequela Start: 09-18-2024 End: 09-18-2024 ambulatory [facility] Start: 09-18-2024 End: 09-18-2024 Subsequent hospital visit by physician [facility] Ul[facility]ound EF RAD EXTERNAL FILM VIRTUAL Comment on above: Arrived Start: 09-18-2024 End: 09-18-[address] [facility] Start: 08-11-2024 End: 08-11-2024 Patient encounter procedure Juan Alberto Rutledge DO -Laboratory, Specimen Work Phone: Start: 08-11-2024 End: 08-11-2024 ambulatory Radha Calloway Facility:[facility] Start: 08-07-2024 End: 08-07-2024 Office outpatient visit 25 minutes Delilah Aranda MD Work Phone: [facility] Comment on above: Ankle injury, right, sequela; Nondisplaced oblique fracture of shaft of right fibula, sequela Start: 08-07-2024 End: 08-07-2024 Subsequent hospital visit by physician Charles Lopes X-Ray [facility] Comment on above: Nondisplaced oblique fracture of shaft of right fibula, sequela Ankle injury, right, sequela Start: 08-07-2024 End: 08-07-2024 ambulatory [facility] Start: 08-07-2024 End: 08-07-2024 Subsequent hospital visit by physician Point Of Care Ultrasound EF RAD EXTERNAL FILM VIRTUAL Comment on above: Arrived Start: 08-07-2024 End: 08-07-[address] [facility] Start: 08-06-2024 End: 08-06-2024 Patient encounter procedure Chio WOO [facility] Gastroenterology Work Phone: Start: 08-06-2024 End: 08-06-2024 ambulatory Radha Calloway Facility:[facility] Start: 08-05-2024 End: 08-06-[address] Radha Calloway MD Work Phone: [facility] Work Phone: Start: 08-05-2024 End: 08-05-2024 Discharged Recurring Caro Whitman [employer] PERSON-C -Physical Therapy Work Phone: Start: 07-09-2024 End: 07-09-2024 Office outpatient visit 15 minutes Caro Whitman VAMP CUT OUT WORKER-LEAD FABRICATOR Work Phone: [facility] Comment on above: Nondisplaced oblique fracture of shaft of right fibula, initial encounter for closed fracture (Primary Dx); Moderate ankle sprain, right, initial encounter Start: 07-09-2024 End: 07-09-2024 ambulatory CARO WHITMAN [facility] Ambulatory Start: 06-20-2024 End: 06-20-2024 Subsequent hospital visit by physician Charles Lopes X-Ray [facility] Comment on above: Right fibular fractu re Start: 06-20-2024 End: 06-20-2024 ambulatory [facility] Start: 06-20-2024 End: 06-20-2024 Office outpatient visit 15 minutes Caro Whitman VAMP CUT OUT WORKER-LEAD FABRICATOR Work Phone: [facility] Comment on above: High ankle sprain of right lower extremity, subsequent encounter (Primary Dx); Right fibular fracture; Nondisplaced oblique fracture of shaft of right fibula, initial encounter for closed fracture Start: 05-27-2024 End: 05-27-2024 Office outpatient visit 15 minutes Caro Whitman VAMP CUT OUT WORKER-LEAD FABRICATOR Work Phone: [facility] Comment on above: Nondisplaced oblique fracture of shaft of right fibula, initial encounter for closed fracture (Primary Dx); Moderate ankle sprain, right, initial encounter Start: 05-27-2024 End: 05-27-2024 Subsequent hospital visit by physician Charles Lopes X-Ray [facility] Comment on above: Nondisplaced oblique fracture of shaft of right fibula, initial encounter for closed fracture Start: 05-27-2024 End: 05-27-2024 ambulatory [facility] Start: 05-19-2024 Encounter for other preprocedural examination [facility] Start: 05-08-2024 End: 05-08-2024 ambulatory [facility] Start: 2024 End: 2024 Subsequent hospital visit by physician Charles Lopes X-Ray [facility] Comment on above: History of fibula fr acture Start: 2024 End: 2024 ambulatory [facility] Start: 2024 End: 2024 Office outpatient visit 25 minutes Caro Whitman VAMP CUT OUT WORKER-LEAD FABRICATOR Work Phone: [facility] Comment on above: High ankle sprain of right lower extremity, subsequent encounter (Primary Dx); Nondisplaced oblique fracture of shaft of right fibula, initial encounter for closed fracture Start: 05-02-2024 End: 05-02-2024 Subsequent hospital visit by physician Charles Cook [facility] Comment on above: Nondisplaced oblique fracture of shaft of right fibula, initial encounter for closed fracture; Moderate ankle sprain, right, initial encounter Start: 05-02-2024 End: 05-02-2024 ambulatory [facility] Start: 04-23-2024 End: 04-23-2024 Office outpatient visit 25 minutes Caro Whitman VAMP CUT OUT WORKER-LEAD FABRICATOR Work Phone: [facility] Comment on above: Nondisplaced oblique fracture of shaft of right fibula, initial encounter for closed fracture (Primary Dx); Moderate ankle sprain, right, initial encounter Start: 04-23-2024 End: 04-23-2024 Subsequent hospital visit by physician Charles Lopes X-Ray [facility] Comment on above: Ankle injury, right, initial encounter; Nondisplaced oblique fracture of shaft of right fibula, initial encounter for closed fracture Start: 04-23-2024 End: 04-24-2024 ambulatory [facility] Start: 04-09-2024 End: 04-09-2024 Subsequent hospital visit by physician Charles Lopes X-Ray [facility] Comment on above: Ankle injury, right, initial encounter Start: 04-09-2024 End: 04-09-2024 Office outpatient new 45 minutes Caro Whitman VAMP CUT OUT WORKER-LEAD FABRICATOR Work Phone: [facility] Comment on above: Nondisplaced oblique fracture of shaft of right fibula, initial encounter for closed fracture (Primary Dx); Ankle injury, right, initial encounter; Moderate ankle sprain, right, initial encounter Start: 04-09-2024 End: 04-09-2024 ambulatory [facility] Start: 04-04-2024 End: 04-04-2024 Emergency department patient visit RADHA CALLOWAY [facility] Emergency Medicine Comment on above: Closed fracture of p roximal end of right fibula, unspecified fracture morphology, initial encounter (Primary Dx) Start: 02-18-2024 ambulatory Radha Calloway Facility: [facility] Start: 02-01-2024 End: 02-01-2024 ambulatory Radha Calloway Facility:[facility] Start: 01-23-2024 End: 01-23-2024 ambulatory Radha Calloway Facility:[facility] Start: 09-26-2023 End: 09-26-[address] [facility] Work Phone: Start: 09-26-2023 End: 09-26-2023 Patient encounter procedure [facility]-Laboratory Work Phone: Start: 06-14-2023 End: 06-14-2023 ambulatory RADHA CALLOWAY Facility:[facility] Start: 06-14-2023 End: 06-14-2023 Emergency department patient visit Dr. Radha Calloway Work Phone: [facility]-Emergency Department Work Phone: Start: 06-14-2023 End: 06-14-2023 Patient encounter procedure Joanna Freitas APRN.LEAD FABRICATOR Work Phone: [facility] Comment on above: Numbness and tinglin g in right hand (Primary Dx) Start: 04-23-2023 End: 04-23-[address] Radha Calloway Work Phone: [facility] Neurology Work Phone: Start: 04-11-2023 End: 04-11-[address] Radha Calloway Work Phone: [facility] Gastroenterology Work Phone: Start: 03-13-2023 End: 03-13-[address] Radha Calloway Work Phone: [facility] Chiropractic Work Phone: Start: 11-20-2022 End: 11-20-[address] Radha Calloway Work Phone: [facility] Work Phone: Start: 11-20-2022 End: 11-20-[address] Radha Calloway Work Phone: [facility]-Laboratory, Specimen Start: 11-20-2022 End: 11-20-[address] Radha Calloway Work Phone: [facility] Gastroenterology Start: 11-20-2022 End: 11-20-[address] Radha Calloway Work Phone: [facility] Start: 08-02-2022 End: 08-02-[address] Radha Calloway Work Phone: [facility] Work Phone: Start: 08-02-2022 End: 08-02-[address] Rad[facility]alloway [facility] Start: 08-02-2022 End: 08-02-[address] Radha Calloway Work Phone: [facility] Gastroenterology Start: 06-05-2022 End: 06-05-[address] Radha Calloway Work Phone: [facility]-Pulmonary Medicine [facility] Start: 05-11-2022 End: 05-11-[address] Radha Calloway Work Phone: [facility] Start: 05-11-[address] Radha larsen Work Phone: [facility] On[facility] Start: 05-04-2022 End: 05-04-[address] Radha Calloway Work Phone: [facility] Start: 04-26-2022 End: 04-26-[address] Radha Calloway Work Phone: [facility] Work Phone: Start: 04-26-2022 End: 04-26-[address] Radha Calloway Work Phone: [facility]-Laboratory Start: 04-26-2022 End: 04-26-[address] Radha Calolway Work Phone: [facility]enter[facility] Start: 04-25-2022 End: 04-25-[address] Radha Calloway Work Phone: [facility] Neu[facility] Start: 04-24-2022 End: 04-24-[address] Radha Calloway Work Phone: [facility] Work Phone: Start: 04-24-2022 End: 04-24-[address] Radha Calloway Work Phone: [facility]-Radiology, [facility] Start: 03-31-2022 End: 03-31-2022 Emergency department patient visit Dr. Radha Calloway Work Phone: [facility]-Emergency Department Start: 02-16-2022 End: 02-16-[address] Radha Calloway Work Phone: [facility] Start: 02-14-2022 End: 02-14-2022 Emergency department patient visit Dr. Radha Calloway Work Phone: [facility]-Emergency Department Start: 02-13-2022 End: 02-13-[address] Radha Calloway Work Phone: [facility]-Laboratory Start: 02-13-2022 End: 02-13-[address] Radha Calloway Work Phone: [facility]enter[facility] Start: 01-28-2022 End: 01-28-2022 Emergency department patient visit Dr. Radha Calloway Work Phone: [facility]-Emergency Department Start: 01-11-2022 End: 01-11-[address] Radha Calloway Work Phone: [facility] Start: 01-05-2022 End: 01-05-[address] Radha Calloway Work Phone: [facility]-Physical Therapy Start: 12-15-2021 End: 12-15-[address] Rad[facility] Calloway [facility] Start: 12-05-2021 End: 12-05-[address] Radha Calloway Work Phone: [facility] Start: 11-21-2021 End: 11-21-[address] Radha Calloway Work Phone: [facility] Start: 09-23-2021 End: 09-23-[address] Radha Calloway Work Phone: [facility]-Laboratory Start: 09-22-2021 End: 09-22-[address] Radha Calloway Work Phone: [facility] Start: 09-15-2021 End: 09-15-[address] Radha Calloway [facility] Procedures Date Procedure Procedure Detail Performing Clinician Start: 01-09-[address] Radha stone MD Work Phone: Start: 11-20-[address] Radha stone MD Work Phone: Start: 11-12-2024 US Abdomen Delilah Aranda MD Work Phone: Start: 09-18-2024 US Abdomen Delilah Aranda MD Work Phone: Start: 08-07-2024 US Abdomen Delilah Aranda MD Work Phone: Start: 05-27-2024 Follow-up visit Follow-up CARO WHITMAN Start: 04-04-2024 Radiologic examination femur minimum 2 views Fran Reeves PA-C Work Phone: Start: 09-26-2023 Lactoferrin measurement Start: 06-14-2023 Plain x-ray of wrist Dr. Radha Calloway Work Phone: Start: 08-02-2022 End: 08-02-2022 Plain x-ray of hand Dr. Radha Calloway Work Phone: Start: 04-24-2022 MRI of joint of lower extremity Dr. Radha Calloway Work Phone: Start: 04-24-[address]22 MRI arthrography of hip Dr. Radha Calloway Work Phone: Start: 03-31-2022 Computed tomography of abdomen and pelvis with intravenous contrast Dr. Radha Calloway Work Phone: Start: 01-28-2022 CT of head without contrast Dr. Radha cheek Work Phone: Start: 12-05-2021 Plain x-ray of pelvis and lower extremity Dr. Radha Calloway Work Phone: Investigation of tra nsfusion reaction Dr. Radha Calloway Work Phone: Laboratory test result abnormal Abnormal laboratory test Dr. Radha Calloway Work Phone: Lactoferrin measurement Dr. Radha Calloway Work Phone: Microbial culture, routine D palak Calloway Work Phone: Ova OR parasites identification Dr. Radha Calloway Work Phone: Plan of Treatment Date Care Activity Detail Author Start: 2041 Zoster Vaccines (1 of 2) Zoste r Vaccines (1 of 2) [facility] Start: 03-06-2034 DTaP/Tdap/Td Vaccine s (9 - Td or Tdap) DTaP/Tdap/Td Vaccines (9 - Td or Tdap) [facility] Start: 12-19-2027 Urine microalbumin profile DTa P,Tdap,Td Vaccine (8 - Td or Tdap) [facility] Start: 03-30-2025 Influenza vaccination Influenz a Vaccine (Season Ended) [facility] Start: 02-11-2025 End: 02-11-2025 Patient encounter procedure 02/11/2025 1:15 PM EDT Office Visit [facility] [address] [place] [address] Delilah Aranda MD [address] [place] [address] [facility] Start: 01-09-2025 [facility] Start: 01-02-2025 Iv infusion therapy/prophylaxis /dx 1st to 1 hr THER/PROPH/DIAG IV INF INIT [facility] Start: 12-05-2024 Iv infusion therapy/prophylaxis /dx 1st to 1 hr [facility] Start: 11-12-2024 End: 11-12-2025 XR Ankle - right 3 Views XR ankle right 3+ views Imaging Routine Ankle injury, right, sequela Expected: 11/12/2024, Expires: 11/12/2025 [facility] Work Phone: Comment on above: Expected: 11/12/2024 , Expires: 11/12/2025 Start: 11-12-2024 End: 11-12-2025 XR Tibia and Fibula - right 2 Views XR tibia fibula right 2 views Imaging Routine Ankle injury, right, sequela Expected: 11/12/2024, Expires: 11/12/2025 [facility] Service Area Work Phone: Comment on above: Expected: 11/12/2024 , Expires: 11/12/2025 Start: 10-30-2024 End: 10-30-2024 Patient encounter procedure 10/30/2024 1:30 PM EDT Office Visit [facility] [address] [place] [address] Delilah Aranda MD [address] [place] [address] [facility] Start: 09-18-2024 End: 09-18-2024 Patient encounter procedure 09/18/2024 1:30 PM EST Office Visit [facility] [address] [place] [phone] Delilah Aranda MD [address] [place] [address] [facility] Start: 08-07-2024 End: 08-07-2025 XR Ankle - right 3 Views [facility] Work Phone: Comment on above: Expected: 08/07/2024 , Expires: 08/07/2025 Once for 1 Occurrenc es starting 08/07/2024 until 08/07/2024 Start: 08-06-2024 End: 08-06-2025 XR Ankle - right 3 Views XR ankle right 3+ views Imaging Routine Ankle injury, right, sequela Expected: 08/06/2024, Expires: 08/06/2025 [facility] Work Phone: Comment on above: Expected: 08/06/2024 , Expires: 08/06/2025 Start: 08-06-2024 End: 08-06-2025 XR Tibia and Fibula - right 2 Views XR tibia fibula right 2 views Imaging Routine Nondisplaced oblique fracture of shaft of right fibula, sequela Expected: 08/06/2024, Expires: 08/06/2025 [facility] Service Area Work Phone: Comment on above: Expected: 08/06/2024 , Expires: 08/06/2025 Start: 06-20-2024 End: 06-20-2024 Patient encounter procedure 06/20/2024 11:15 AM EST Office Visit [facility] [address] [place] [phone] Caro Whitman APRN-LEAD FABRICATOR [address] [facility] [place] [address] [facility] Start: 06-19-2024 End: 06-19-2025 XR Tibia and Fibula - right 2 Views XR tibia fibula right 2 views Imaging Routine Right fibular fracture Expected: 06/19/2024, Expires: 06/19/2025 [facility] Service Area Work Phone: Comment on above: Expected: 06/19/2024 , Expires: 06/19/2025 Start: 05-27-2024 End: 05-27-2024 Patient encounter procedure 05/27/2024 2:30 PM EDT Office Visit [facility] [address] [place] [phone] Caro Whitman, VAMP CUT OUT WORKER-LEAD FABRICATOR [address] [facility] [place] [address] [facility] Start: 05-08-2024 Subsequent hospital visit by physician 05/08/2024 7:00 AM EDT Hospital Encounter [facility] [address] [place] [phone] History of fibula fracture [facility] Comment on above: History of fibula fr acture Start: 2024 End: 2024 Patient encounter procedure 2024 2:45 PM EDT Office Visit [facility] [address] [place] [phone] Caro Whitman, VAMP CUT OUT WORKER-LEAD FABRICATOR [address] [facility] [place] [address] [facility] Start: 04-23-2024 End: 04-23-2025 MR Ankle - right WO contrast MR ankle right wo IV contrast Imaging Routine Nondisplaced oblique fracture of shaft of right fibula, initial encounter for closed fracture Moderate ankle sprain, right, initial encounter Expected: 04/23/2024, Expires: 04/23/2025 [facility] Service Area Work Phone: Comment on above: Expected: 04/23/2024 , Expires: 04/23/2025 Start: 04-23-2024 End: 04-23-2024 Patient encounter procedure 04/23/2024 11:30 AM EDT Office Visit [facility] [address] [place] [phone] Caro Whitman, VAMP CUT OUT WORKER-LEAD FABRICATOR [address] [facility] [place] [phone] [facility] Start: 04-09-2024 End: 04-09-2025 XR Ankle - right 3 Views [facility] Service Ar ea Work Phone: Comment on above: Expected: 04/09/2024 , Expires: 04/09/2025 Once for 1 Occurrenc es starting 04/09/2024 until 04/09/2024 Start: 03-30-2024 COVID-19 Vaccine ( season) COVID-19 Vaccine ( season) [facility] Start: 03-30-2024 Influenza vaccination Influenza Vacc ine (#1) [facility] Start: 03-30-2023 Influenza vaccination Influenza Vacc ine (#1) [facility] Start: 11-20-2022 [facility] Start: 08-02-2022 Procedure [facility] Start: 07-30-2022 Depression Assessment Depression Ass essment [facility] Start: 04-26-2022 Procedure [facility] Work Phone: Start: 03-31-2022 Enteric precautions Salazar ster [facility] Work Phone: Start: 11-21-2021 [facility] Start: 2021 HPV Testing HPV Testing [facility] Start: 2013 DTaP/Tdap/Td Vaccine s (1 - Tdap) DTaP/Tdap/Td Vaccines (1 - Tdap) [facility] Start: 2012 Pap Testing Pap Testing [facility] Start: 2012 Screening for malign ant neoplasm of cervix [facility] Start: 2010 Hepatitis A Vaccine (1 of 2 - Risk 2-dose series) Hepatitis A Vaccine (1 of 2 - Risk 2-dose series) [facility] Start: 2010 Hepatitis B Vaccines (1 of 3 - 19+ 3-dose series) Hepatitis B Vaccines (1 of 3 - 19+ 3-dose series) [facility] Start: 2010 Pneumococcal Vaccine : Pediatrics and At-Risk Adult Patients (1 of 2 - PCV) Pneumococcal Vaccine: Pediatrics and At-Risk Adult Patients (1 of 2 - PCV) [facility] Start: 2010 Shingrix Vaccine (1 of 2) Pang grix Vaccine (1 of 2) [facility] Start: 2010 Zoster Vaccines (1 of 2) Zoste r Vaccines (1 of 2) [facility] Start: 2009 Annual PCP Team It Analyst meño Disease Visit Annual PCP Team Chronic Disease Visit [facility] Start: 2009 Hepatitis C Screening Hepatitis C [facility] Start: 2009 Hepatitis C screening Hepatitis C [facility] Start: 2009 HIV Screening HIV Screening [facility] Start: [address] [facility] Start: 2004 Varicella vaccination Varicell a Vaccines (1 of 2 - 13+ 2-dose series) [facility] Start: 2001 Meningococcal B Vacc ine: Consider Based On Risk (1 of 4 - Increased Risk) Meningococcal B Vaccine: Consider Based On Risk (1 of 4 - Increased Risk) [facility] Start: 1997 Pneumococcal vaccination Pneum ococcal Vaccine (1 - PCV) [facility] Start: 1997 Pneumococcal Vaccine : Pediatrics (0 to 5 Years) and At-Risk Patients (6 to 64 Years) (1 of 2 - PCV) Pneumococcal Vaccine: Pediatrics (0 to 5 Years) and At-Risk Patients (6 to 64 Years) (1 of 2 - PCV) [facility] Start: 1996 Covid-19 Vaccine (#1) Covid-19 Vacci ne (#1) [facility] Start: 1992 MMR Vaccines (1 of 1 - Standard series) MMR Vaccines (1 of 1 - Standard series) [facility] Start: 1991 Annual wellness visit [facility] Start: 1991 HIV screening HIV Screening [facility] Start: 1991 Lipid panel Lipid Panel [facility] Start: 1991 Medicare Annual Well ness Visit Medicare Annual Wellness Visit (AWV) [facility] Anaerobic microbial culture Anaerobic Culture [facility] C reactive protein [Mass/volume] in Serum or Plasma [facility] C. difficile DNA Amplification C. difficile DNA Amplification [facility] Work Phone: CBC W Auto Different ial panel - Blood [facility] Work Phone: CBC W Auto Different ial panel - Blood [facility] Chiropractic manipulation [facility] Work Phone: Clostridioides diffi cile DNA [Presence] in Unspecified specimen by FERN with probe detection [facility] Work Phone: Enteric Bacteriology Enteric Bacteriology [facility] Work Phone: Erythrocyte sediment ation rate [facility] Gastrointestinal pat hogens panel - Stool by FERN with probe detection [facility] Work Phone: In-vitro immunologic test [facility] Lactoferrin [Presenc e] in Stool by Immunoassay [facility] Work Phone: End: 05-02-2024 MR Ankle - right WO [facility] Service Area Work Phone: Comment on above: Once for 1 Occurrenc es starting 05/02/2024 until 05/02/2024 MR Hip Arthrogram [facility] [facility] Work Phone: Ova and parasites identified in Unspecified specimen by Light microscopy [facility] Work Phone: Patient Education [facility] Work Phone: Patient referral [facility] Work Phone: Procedure [facility] Work Phone: Procedure [facility] Procedure [facility] Protein measurement [facility] Protein measurement [facility] End: 04-23-2024 XR Ankle - right 2 Views [facility] Service Ar ea Work Phone: Comment on above: Once for 1 Occurrenc es starting 04/23/2024 until 04/23/2024 End: 2024 XR Tibia and Fibula - right 2 Views [facility] Service Area Work Phone: Comment on above: Once for 1 Occurrenc es starting 2024 until 2024 End: 05-27-2024 XR Tibia and Fibula - right 2 Views [facility] Service Area Work Phone: Comment on above: Once for 1 Occurrenc es starting 05/27/2024 until 05/27/2024 End: 06-20-2024 XR Tibia and Fibula - right 2 Views [facility] Work Phone: Comment on above: Once for 1 Occurrenc es starting 06/20/2024 until 06/20/2024 End: 04-23-2024 XR Tibia and Fibula - right 2 Views [facility] Work Phone: Comment on above: Once for 1 Occurrenc es starting 04/23/2024 until 04/23/2024 End: 08-07-2024 XR Tibia and Fibula - right 2 Views [facility] Work Phone: Comment on above: Once for 1 Occurrenc es starting 08/07/2024 until 08/07/2024 Immunizations Immunization Date Immunization Notes Care Provider Irina darby 12-18-2017 tetanus toxoid, redu khalif diphtheria toxoid, and acellular pertussis vaccine, adsorbed Dr. Radha Calloway Work Phone: [facility] 06-24-2007 influenza virus vaccine, whole virus Joanna Freitas APRN.LEAD FABRICATOR Work Phone: [facility] 06-24-2007 influenza virus vaccine, unspecified formulation Joanna Zena VAMP CUT OUT WORKER.LEAD FABRICATOR Work Phone: [facility] 02-16-2006 tetanus toxoid, redu khalif diphtheria toxoid, and acellular pertussis vaccine, adsorbed Joanna Zena VAMP CUT OUT WORKER.LEAD FABRICATOR Work Phone: [facility] 02-16-2006 varicella virus vaccine Peyman a Zena VAMP CUT OUT WORKER.LEAD FABRICATOR Work Phone: [phone] [place] [address] 01-03-2006 varicella virus vaccine Peyman a Zena VAMP CUT OUT WORKER.LEAD FABRICATOR Work Phone: [phone] [place] [address] 12-04-2005 hepatitis B vaccine, pediatric or pediatric/adolescent dosage Joanna Zena VAMP CUT OUT WORKER.LEAD FABRICATOR Work Phone: [phone] [place] [address] 07-07-2005 hepatitis B vaccine, pediatric or pediatric/adolescent dosage Joanna Zena VAMP CUT OUT WORKER.LEAD FABRICATOR Work Phone: [phone] [place] [address] 06-05-2005 hepatitis B vaccine, pediatric or pediatric/adolescent dosage Joanna Zena VAMP CUT OUT WORKER.LEAD FABRICATOR Work Phone: [phone] [place] [address] 09-12-1996 diphtheria, tetanus toxoids and acellular pertussis vaccine, unspecified formulation Joanna Zena VAMP CUT OUT WORKER.LEAD FABRICATOR Work Phone: [facility] 09-12-1996 measles, mumps and rubella virus vaccine Joanna Zena VAMP CUT OUT WORKER.LEAD FABRICATOR Work Phone: [phone] [place] [address] 09-12-1996 trivalent poliovirus vaccine, live, oral Joanna Zena VAMP CUT OUT WORKER.LEAD FABRICATOR Work Phone: [facility] 03-31-1993 diphtheria, tetanus toxoids and pertussis vaccine Joanna Zena VAMP CUT OUT WORKER.LEAD FABRICATOR Work Phone: [facility] 03-31-1993 trivalent poliovirus vaccine, live, oral Joanna Zena VAMP CUT OUT WORKER.LEAD FABRICATOR Work Phone: [facility] 09-02-1992 diphtheria, tetanus toxoids and pertussis vaccine Joanna Zena VAMP CUT OUT WORKER.LEAD FABRICATOR Work Phone: [facility] 09-02-1992 haemophilus influenz ae type b vaccine, conjugate unspecified formulation Joanna Zena VAMP CUT OUT WORKER.LEAD FABRICATOR Work Phone: [facility] 09-02-1992 measles, mumps and rubella virus vaccine Joanna Zena VAMP CUT OUT WORKER.LEAD FABRICATOR Work Phone: [facility] 1990 diphtheria, tetanus toxoids and pertussis vaccine Joanna Zena VAMP CUT OUT WORKER.LEAD FABRICATOR Work Phone: [facility] 1990 haemophilus influenz ae type b vaccine, conjugate unspecified formulation Joanna Zena VAMP CUT OUT WORKER.LEAD FABRICATOR Work Phone: [facility] 1990 trivalent poliovirus vaccine, live, oral Joanna Zena VAMP CUT OUT WORKER.LEAD FABRICATOR Work Phone: [facility] 1990 diphtheria, tetanus toxoids and pertussis vaccine Joanna Zena VAMP CUT OUT WORKER.LEAD FABRICATOR Work Phone: [facility] 1990 haemophilus influenz ae type b vaccine, conjugate unspecified formulation Joanna Zena VAMP CUT OUT WORKER.LEAD FABRICATOR Work Phone: [facility] 1990 trivalent poliovirus vaccine, live, oral Joanna Zena VAMP CUT OUT WORKER.LEAD FABRICATOR Work Phone: [facility] Payers Date Payer Category Payer Self-pay [id number] 2023 Dual Eligibility Medicare/Medicaid Organization [id number] 2023 Medicaid [id number] 2020 Medicaid [facility] MEDICAID [facility] ARE [facility] MEDICAID [id number] 2020-Present [phone] [address] [place] [address] Medicaid [id number] 2020 Medicare [facility] MEDICARE MYC ARE [facility] MEDICARE [id number] 2020-Present [phone] [address] [place] [address] Medicare [id number] 2020 Private Health Insurance [id number] .[id number]. [id number] 2020 Unknown [id number] 2015 Unknown [id number] 1991 Unknown [id number] 2.16.840.1.167364.3.579.2. 124 1991 Unknown [id number] 2.16.840.1.656743.3.579.2. 1243 1991 Unknown [id number] 2.16.840.1.678281.3.579.2. 1243 1991 Unknown [id number] 2.16.840.1.690215.3.579.2. 1243 1991 Unknown [id number] 2.16.840.1.277575.3.579.2. 1243 1991 Unknown [id number] 2.16.840.1.785184.3.579.2. 1243 1991 Unknown [id number] 2.16.840.1.454173.3.579.2. 1243 1991 Unknown [id number] 2.16.840.1.165272.3.579.2. 1243 1991 Unknown [id number] 2.16.840.1.535028.3.579.2. 1243 1991 Unknown [id number] 2.16.840.1.580276.3.579.2. 1243 1991 Unknown [id number] 2.16.840.1.482616.3.579.2. 1243 1991 Unknown [id number] 2.16.840.1.862821.3.579.2. 1243 1991 Unknown [id number] 2.16.840.1.203422.3.579.2. 1245 1991 Unknown [id number] 2.16.840.1.029710.3.579.2. 1245 1991 Unknown [id number] 2.16.840.1.948848.3.579.2. 124 1991 Unknown [id number] 2.16.840.1.071408.3.579.2. 124 1991 Unknown [id number] 2.16.840.1.727394.3.579.2. 1243 1991 Unknown [id number] 2.16.840.1.067288.3.579.2. 124 1991 Unknown [id number] 2.840.1.785825.3.579.2. 124 1991 Unknown [id number] 2.16.840.1.736552.3.579.2. 124 1991 Unknown [id number] 2..840.1.804839.3.579.2. 124 1991 Unknown [id number] 2.16.840.1.739554.3.579.2. 1243 1991 Unknown [id number] 2.840.1.314725.3.579.2. 124 1991 Unknown [id number] 2.16.840.1.726438.3.579.2. 1244 Medicare [id number] Unknown [id number] 2.16840.1.149502.3.579.2. 462 Unknown [id number] 2.840.1.950873.3.579.2. 462 Unknown [id number] 2.16.840.1.771906.3.579.2. 462 Unknown [id number] 2.16.840.1.861221.3.579.2. 462 Unknown [id number] 2.16.840.1.163740.3.579.2. 462 Unknown [id number] 2.16.840.1.793834.3.579.2. 462 Unknown [id number] 2.16840.1.931986.3.579.2. 462 Unknown [id number] 2.16.840.1.182594.3.579.2. 462 Unknown [id number] 2.16840.1.001444.3.579.2. 462 Unknown [id number] 2.16840.1.027848.3.579.2. 462 Unknown [id number] 2.840.1.757883.3.579.2. 462 Unknown [id number] 2.840.1.520502.3.579.2. 462 Unknown [id number] 2.840.1.303143.3.579.2. 462 Social History Date Type Detail Facility Start: 01-02-2022 End: 04-23-2023 Tobacco smoking status VTIS Unknown if ever smoked [facility] Start: 03-28-2014 None [facility] Start: 01-02-2022 Cigarettes [facility] Start: 1990 Sex Assigned At Female W [facility] Start: 10-22-2020 End: 01-08-2025 Tobacco smoking status NHIS Smokes tobacco daily [facility] History of tobacco use Cigarette Smoker C [facility] Start: 10-22-2020 End: 11-12-2024 Cigarettes smoked current (pack per day) - Reported [address] [facility] Start: 10-22-2020 End: 04-04-2024 Tobacco use and exposure Smokeless tobacco non-user [facility] Start: 10-22-2020 End: 11-12-2024 Alcohol intake Current drinker of alcohol (finding) [facility] Start: 10-22-2020 End: 11-12-[address] [facility] National Score (1-10 0), lower number is lower risk Not on file [facility] Start: 10-22-2020 Tobacco Comment Pt has cut claritza k to 1/[address] [facility] Start: 06-24-2018 Alcohol Comment on weekends only [facility] Start: 1990 Sex Assigned At Not on file [facility] Start: 04-04-2024 Alcohol Comment occasional [facility] Work Phone: Start: 03-25-2024 End: 11-12-2024 Exposure to SARS-CoV-2 (event) Not sure [facility] Start: 11-12-2024 End: 11-24-2024 Sex Female (finding) [facility] Goals Date Patient Goal Desired Activity /State Mental Status Date Assessment Result Facility 01-09-2025 Cognitive function Voice/Name [facility] Work Phone: 01-02-2025 Cognitive function Voice/Name [facility] Work Phone: 12-05-2024 Cognitive function Voice/Name [facility] Work Phone: 03-31-2022 Cognitive function Level Of Cons ciousness Awake;Alert;Appropriate [facility] Work Phone: 02-14-2022 Cognitive function Level Of Cons ciousness Awake;Alert;Appropriate;Follow s Commands [facility] Work Phone: 01-28-2022 Cognitive function Level Of Cons ciousness Awake;Alert;Appropriate [facility] Work Phone: Clinical Notes 06-14-2023 to 01-09-2025 Note Date & Type Note Facility 01-09-2025 Consult note [facility] 01-09-2025 Consult note Note Date/Time January 09, 2025 11:47am [facility] Medical Records Department [address] [place] [address] Pre-Anesthesia Evaluation 01/09/25 1146 MR#: [id number] Acct: [id number] Name: CONY HART Rep # :[id number] : 1990 34 From: Nahun Tucker MD PCP: Dr. Radha Calloway MD Status:REG SD Y Race: C Location: [place] [address] ASA Classification* ASA Classification ASA Classification: 3 Assessment & Plan Anesthesia* Anesthesia Assessment Anesthesia Assessment: Discussed sedation and/or anesthesia options, risks, benefits, and alternatives with patient/parents/legal guardian/POA. Questions invited. The patient/parents/legal guardian/POA seems to understand and agrees to proceedwith anesthesia plan. Reviewed the physical assessment, medical history, allergy history and patient home medications list prior to surgery/procedure/anesthetic and documented any changes. Performed airway and anesthesia risk assessments. Anesthesia Type Anesthesia Type: MAC Anesthesia Focused Assessment* Airway Assessment Mouth opens: >3 cm Mallampati Score: II Comment: Family history of anesthetic complications. Consider MH precautions. Labs Anesthesia Preop lab: CBC WBC 12.5 K/mm3 (4.4-11.0) H 09/26/23 14:06 4 RBC 4.91 M/mm3 (4.2-5.4) 09/26/23 14:06 09/26/23 Hgb 14.4 g/dL (12.0-15.0) 09/26/23 14:06 09/26/23 Hct 45.5 % (37-47) 09/26/23 14:06 09/26/23 Plt Count 404 K/mm3 (150-450) 09/26/23 14:06 09/26/23 CHEMISTRY Potassium 4.0 mmol/L (3.5-5.1) 09/26/23 14:06 09/26/23 Sodium 141 mmol/L (136-145) 09/26/23 14:06 09/26/23 Magnesium 2.1 mg/dL (1.6-2.6) 10/23/17 09:46 10/23/17 Phosphorus 2.5 mg/dL (2.5-4.9) 10/23/17 09:46 10/23/17 BUN 9 mg/dL (7-18) 09/26/23 14:06 09/26/23 Creatinine 0.89 mg/dL (0.55-1.02) 09/26/23 14:06 09/26/23 Glucose 65 mg/dL (74-106) L 09/26/23 14:06 09/26/23 TSH 2.24 uIU/mL (0.358-3.74) 06/25/15 11:29 COAG PT 12.3 SECONDS (11.7-14.9) 12/21/15 10:00 Urine Test Negative Negative 02/18/24 09:20 02/18/24 Pre-Assessment Diagnosis/Proposed Procedure Planned Operative Procedure(s): EGD Anesthesia History Anesthesia History - regulatory affairs analyst: Anesthesia History - regulatory affairs analyst Hx Hospitalization No 01/08/25 10:03 Any Problems With Anesthesia No 01/08/25 10:03 Cholinesterase deficiency No 01/08/25 10:03 You/Your Family Experience Yes: COUSIN 4 GENERATIONS 01/08/25 10:03 fever (hyperthermia) with AGO Relationship MAT UNCLE & GRANDMOTHERS 01/08/25 10:03 SIDE Recent Exposure to Contagious No 01/08/25 10:03 Disease Does patient have nerve No 01/08/25 10:03 stimulator Patient instructed to have device shut off --Does patient have Pacemaker or ICD? When Was Last Pacemaker Check QUESTION #4 FULL TEXT: You/Your Family Experience fever (hyperthermia) with Anesthesia Last Oral Intake Last Oral intake: Last Oral Intake NPO since Meds taken in AM with sips of water? 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 - regulatory affairs analyst: PONV - regulatory affairs analyst Female Yes 01/06/25 13:43 HX of Motion Sickness No 01/06/25 13:43 HX of N/V After Surgery No 01/06/25 13:43 Non-Smoker No 01/06/25 13:43 Duration of Surgery greater No 01/06/25 13:43 than 60 minutes Number of Risk Factors 1 01/06/25 13:43 PONV Score Low Risk 01/06/25 13:43 Height & Weight Height & Weight: Anesthesia: Height & Weight Height 5 ft 10 in 01/08/25 10:03 Respiratory Assessment Respiratory Assessment - regulatory affairs analyst: Respiratory Tract Infection Hx - regulatory affairs analyst Hx Respiratory Tract Infection No 01/08/25 10:03 STOP Sleep Apnea STOP Sleep Apnea - regulatory affairs analyst: STOP Sleep Apnea - regulatory affairs analyst Hx Hypertension No 01/08/25 10:03 Hx Sleep Apnea Yes 01/08/25 10:03 CPAP Yes 01/08/25 10:03 BIPAP No 01/08/25 10:03 Do you snore loudly (louder than talking or can be heard Do you often feel tired/ fatigued/ sleepy during daytime? Has anyone observed you stop breathing during sleep? STOP Results Positive 01/06/25 13:43 QUESTION #5 FULL TEXT : Do you snore loudly (louder than talking or can be heard through closed doors)? Tobacco Use History Tobacco Use History - regulatory affairs analyst: Tobacco Use History - regulatory affairs analyst Tobacco Use Cigarettes 01/08/25 10:03 Smoking Status Current every day smoker 01/08/25 10:03 Hx Tobacco Use Yes 01/08/25 10:03 Years Smoking Packs Smoked per Day 0.5 01/06/25 13:43 Smoking Cessation Date was within the last 15 years Hx Smoking Cessation Date Hx Smoking Cessation No 01/08/25 10:03 Counseling Hematologic Medial History Hematologic Hx - regulatory affairs analyst: Hematologic Medical Hx - environmental aid Hx of Blood Transfusion No 01/06/25 13:43 Hx of Transfusion in last 3 No 01/06/25 13:43 Months Date of Last Transfusion (if within last 3 months) Ever experience any problems No 01/06/25 13:43 with transfusion(s)? Specify any problems Hx of Preganancy in last 3 N/A 01/06/25 13:43 Months Nurse Filling Out Transfusion NBUCHER 01/06/25 13:43 & Questions: Date: 01/06/25 01/06/25 13:43 Time: 13:45 01/06/25 13:43 Patient unable to answer at this time (ie. confused, unrespo /Reproduction History /Reproductive History - regulatory affairs analyst: /Reproductive Hx- regulatory affairs analyst Hx Now Gestational Age (in weeks): EDC: Hx Hx Para Hx Section SAB No 01/08/25 10:03 Active Medications Active Medications: Current Medications Generic Name Dose Route Start Last Admin Trade Name Freq PRN Reason Stop Dose Admin Lactated Ringer's 1,000 mls @ 15 mls/hr 01/09/25 11:45 IV .Q48H SHANAE PFSH Medical History Bipolar disorder Juvenile arthritis Epilepsy, unspecified, not intractable, without status epilepticus Seizures Wears glasses History of Crohn's disease CPAP (continuous positive airway pressure) dependence Sleep apnea Asthma Anxiety Depression Lumbago Dysmenorrhea Enuresis, nonorganic Seizures Back problem Arthritis Anemia Crohns disease Bipolar disorder Home Medications ?Medication ?Instructions ?Recorded ?Last Taken ?Type albuterol sulfate 90 mcg/actuation 2 puff inhalation Q 4H PRN 12/15/21 Unknown Rx aerosol inhaler shortness of breath or wheez ing #8.5 grams fluconazole 100 mg tablet 100 mg PO DAILY #14 tabs Unknown Rx metronidazole 500 mg tablet 500 mg PO TID #56 tabs Unknown Rx Skyrizi 600mg/ 10ml 600 mg IV .COMPLEX #10 mL Unknown Rx pantoprazole 40 mg tablet,delayed 40 mg PO BID #60 tab s 11/19/24 Unknown Rx release Allergy/AdvReac Type Severity Reaction Status Date / Time almond (almonds) Allergy Severe Anaphylaxis Verified 01/06/25 13:41 Family History Father Suicide Mother Diabetes OCD (obsessive compulsive disorder) Depression Bipolar disorder (manic depression) Grandmother Diabetes Uncle Bowel disease Grandfather Colon cancer maternal - 2004 Other Anxiety Arthritis Epilepsy Surgical History History of esophagogastroduodenoscopy (EGD) History of colonoscopy History of bladder surgery History of wisdom tooth extraction History of cystoscopy Social History Smoking Status: Current every day smoker tobacco type: cigarettes Tobacco: How many years used: 5 second hand exposure: No alcohol intake: current details: social on weekends substance use type: does not use what type of physical activity do you participate in: none martin/zoroastrianism: None seatbelt use: always Review of Systems (Anesthesia) ROS Narrative System reviewed and no additional complaints, except as documented. 01/09/25 1147 <Electronically signed by Nahun Tucker MD > Date _ Nahun Lee Signature: Date CC: ~ Signed [facility] Work Phone: 1(785) 990-874906-13-2025 Procedure note [facility] Medical Records Department [address] [place] [address] EGD Report MR#: [id number] Acct: [id number] Name: CONY HART Rep # :[id number] : 1990 34 From: Juan Alberto Rutledge DO PCP: Dr. Radha Calloway MD Status:[facility] Patient Name: Cony Hart Procedure Date: 01/09/2025 1:25 PM Date of : 1990 Age: 34 Procedure: Upper GI endoscopy Indications: Dysphagia Providers: Juan Alberto Rutledge DO Referring MD: Radha Calloway Medicines: Monitored Anesthesia Care Patient Profile: This is a 34 year old female. Refer to note in patient chart for documentation of history and physical. Refer to note in patient chart for documentation of history and physical. Patient has symptoms of dysphagia with both liquids and solids. Complications: No immediate complications. Procedure: Pre-Anesthesia Assessment: - Prior to the procedure, a History and Physical was performed, and patient medications and allergies were reviewed. The patient is competent. The risks and benefits of the procedure and the sedation options and risks were discussed with the patient. All questions were answered and informed consent was obtained. Patient identification and proposed procedure were verified by the physician in the pre-procedure area. Mental Status Examination: alert and oriented. Airway Examination: normal oropharyngeal airway and neck mobility. Respiratory Examination: clear to auscultation. CV Examination: normal. Prophylactic Antibiotics: The patient does not require prophylactic antibiotics. Prior Anticoagulants: The patient has taken no anticoagulant or antiplatelet agents except for NSAID medication. ASA Grade Assessment: II - A patient with mild systemic disease. After reviewing the risks and benefits, the patient was deemed in satisfactory condition to undergo the procedure. The anesthesia plan was to use monitored anesthesia care (MAC). Immediately prior to administration of medications, the patient was re-assessed for adequacy to receive sedatives. The heart rate, respiratory rate, oxygen saturations, blood pressure, adequacy of pulmonary ventilation, and response to care were monitored throughout the procedure. The physical status of the patient was re-assessed after the procedure. After obtaining informed consent, the endoscope was passed under direct vision. Throughout the procedure, the patient's blood pressure, pulse, and oxygen saturations were monitored continuously. The gastroscope was introduced through the mouth, and advanced to the fourth part of the duodenum. Small bowel enteroscopy was deemed necessary. The upper GI endoscopy was accomplished without difficulty. The patient tolerated the procedure well. Scope In: 1:35:03 PM Scope Out: 1:40:17 PM Total Procedure Duration Time 0 hours 5 minutes 14 seconds Findings: Abnormal motility was noted in the esophagus. The cricopharyngeus was abnormal. There are extra peristaltic waves in the esophageal body. The distal esophagus/lower esophageal sphincter is spastic, but gives up passage to the endoscope. Tertiary peristaltic waves are noted. Biopsies were taken with a cold forceps for histology. Verification of patient identification for the specimen was done. Estimated blood loss was minimal. A guidewire was placed and the scope was withdrawn. Dilation was performed with a Savary dilator with no resistance at 60 Fr. The dilation site was examined and showed moderate improvement in luminal narrowing. Estimated blood loss was minimal. No gross lesions were noted in the entire examined stomach. Patchy moderate inflammation characterized by congestion (edema) and friability was found in the entire duodenum. Biopsies were taken with a cold forceps for histology. Verification of patient identification for the specimen was done. Estimated blood loss was minimal. Impression: - Abnormal esophageal motility. Biopsied. Dilated. - No gross lesions in the entire stomach. - Duodenitis. Biopsied. Recommendation: - Discharge patient to home. - Resume previous diet. - Continue present medications. - Await pathology results. Procedure Code(s): --- Professional --- 05128, Esophagogastroduodenoscopy, flexible, transoral; with insertion of guide wire followed by passage of dilator(s) through esophagus over guide wire 95558, 59,51, Small intestinal endoscopy, enteroscopy beyond second portion of duodenum, not including ileum; with biopsy, single or multiple CPT copyright 2021 [employer]. All rights reserved. The codes documented in this report are preliminary and upon planting material unloader review may be revised to meet current compliance requirements. Juan Alberto Rutledge DO 01/09/2025 1:46:11 PM This report has been signed electronically. Number of Addenda: 0 Note Initiated On: 01/09/2025 1:25 PM 01/09/25 1346 Date _ Juan Alberto Rutledge DO Cosigner Signature: Date (if indicated) CC: Dr. Radha Calloway MD; Juan Alberto Rutledge DO ~ Date Dictated: 01/09/25 1325 Date Transcribed: Logistics Lead: RF Signed [facility]06-13-2025 Procedure note [facility] Medical Records Department [address] [place] [id number] Operative Report - CC Letter MR#: [id number] Acct: [id number] Name: CONY HART Rep # :[id number] : 1990 34 From: Juan Alberto Rutledge DO PCP: Dr. Radha Calloway MD Status:REG [facility] 01/09/2025 Radha Calloway [address] [place] [id number] Re : Upper GI endoscopy procedure for Cony Hart Dear Dr. Calloway This procedure was performed on Thursday, January 09, 2025. My impressions and recommendations are as follows: Impressions : - Abnormal esophageal motility. Biopsied. Dilated. - No gross lesions in the entire stomach. - Duodenitis. Biopsied. Recommendations : - Discharge patient to home. - Resume previous diet. - Continue present medications. - Await pathology results. My findings are described in the full procedure note, which is enclosed. If I can be of further assistance, please feel free to contact me at . Sincerely, Juan Albertojuliane Rutledge 01/09/2025 1:46:11 PM This report has been signed electronically. 01/09/25 1346 Date _ Juan Alberto Rutledge DO Cosigner Signature: Date (if indicated) CC: Dr. Radha Calloway MD; Juan Alberto Fernando ~ Date Dictated: 01/09/25 1325 Date Transcribed: Logistics Lead: RF Signed [facility]06-13-2025 History and physical note [facility] Medical Records Department [address] [place] [address] History & Physical Exam 01/09/25 1317 MR#: [id number] Acct: [id number] Name: CONY HART Rep # :[id number] : 1990 34 From: Juan Alberto Rutledge DO PCP: Dr. Radha Calloway MD Status:[facility] Location: [place] [address] HPI - General General Date of Admission: 01/09/25 Date of Service: 01/09/25 Chief Complaint: Dysphagia HPI Narrative CONY HART, is a 34 F who presents I established in 2020 for Crohns disease diagnosed in 2009 treated with oral medications and [facility] EGD and colonoscopy 07.28.21. EGD LA grade A reflux esophagitis; Erythematous mucosa in stomach, gastritis and duodenopathy; focal granuloma formation of pylorus. H.Pylori negative. Colonoscopy Endoscopic Crohn?s disease score 40 with ileitis and colitis; Multiple ulcers in TI; chronic, active colitis; hyperplastic polyp of RS colon. Pathology findings consistent with Crohn?s Disease. Last OV 1.8. Pt doing well with no flares in her disease. Occasional issues with swallowing. Feels Humira working well for her. Calprotectin 1.13.25; 1360 CRP 1.8.25; <2.9 ESR 1.8.25; 12 *Attempted to contact pt regarding recommendation to switch biologic therapy dueto uncontrolled inflammation and antibodies to Humira. Last OV 10.23.24 Pt continues to episodes of urgent loose stools. This is not happening on a daily basis. She continues to have difficulty with swallowing. PPI is no longer helping with this. Start Skyrizi, EGD and increase PPI. EGD; not yet completed OV 01.08.25 Pt has had two infusions of the Skyrizi so far and her next one is next month. She denies any diarrhea or blood in her stool. She feels it may be working well. [facility] Medical History Bipolar disorder Juvenile arthritis Epilepsy, unspecified, not intractable, without status epilepticus Seizures Wears glasses History of Crohn's disease CPAP (continuous positive airway pressure) dependence Sleep apnea Asthma Anxiety Depression Lumbago Dysmenorrhea Enuresis, nonorganic Seizures Back problem Arthritis Anemia Crohns disease Bipolar disorder Home Medications ?Medication ?Instructions ?Recorded ?Last Taken ?Type albuterol sulfate 90 mcg/actuation 2 puff inhalation Q 4H PRN 12/15/21 Unknown Rx aerosol inhaler shortness of breath or wheez ing #8.5 grams fluconazole 100 mg tablet 100 mg PO DAILY #14 tabs Unknown Rx metronidazole 500 mg tablet 500 mg PO TID #56 tabs Unknown Rx Skyrizi 600mg/ 10ml 600 mg IV .COMPLEX #10 mL Unknown Rx pantoprazole 40 mg tablet,delayed 40 mg PO BID #60 tab s 11/19/24 Unknown Rx release Allergy/AdvReac Type Severity Reaction Status Date / Time almond (almonds) Allergy Severe Anaphylaxis Verified 01/06/25 13:41 Family History Father Suicide Mother Diabetes OCD (obsessive compulsive disorder) Depression Bipolar disorder (manic depression) Grandmother Diabetes Uncle Bowel disease Grandfather Colon cancer maternal - 2004 Other Anxiety Arthritis Epilepsy Surgical History History of esophagogastroduodenoscopy (EGD) History of colonoscopy History of bladder surgery History of wisdom tooth extraction History of cystoscopy Social History Smoking Status: Current every day smoker tobacco type: cigarettes Tobacco: How many years used: 5 second hand exposure: No alcohol intake: current details: social on weekends substance use type: does not use what type of physical activity do you participate in: none martin/zoroastrianism: None seatbelt use: always ROS Constitutional Constitutional: Denies fatigue, fever(s), poor appetite, weight gain or weight loss Gastrointestinal Gastrointestinal: Denies belching, bloating, change in bowel habits, change in stool character, chewing difficulty, coffee ground emesis, constipation, cramping, diarrhea, dyspepsia, dysphagia, earlysatiety, excessive flatus, fecalincontinence, heartburn, hematemesis, hematochezia, hemorrhoids, loose stools, melena, nausea, odynophagia, rectal bleeding, tenesmus, vomiting or weight changes Vital Signs Vital Signs Vital Signs: 01/09/25 11:50 01/09/25 11:50 Temperature 98.6 F Temperature Source Temporal Pulse Rate 59 L Respiratory Rate 16 Respiratory Pattern Normal Blood Pressure 101/56 L Blood Pressure Mean 71 Blood Pressure Source Monitor Blood Pressure Position Supine Blood Pressure Location Right Arm Pulse Ox 99 Oxygen Delivery Method Room Air Weight Weight: 233 lb 11.04 oz Body Mass Index (BMI) 33.4 Physical Exam Const alert, oriented x3, no apparent distress and healthy appearing General Appearance: cooperative GI normal to inspection, nondistended, normoactive bowel sounds, soft to palpation,non-tender and non-distended Percussion: normal to percussion Rectal Exam: deferred Results Lab / Micro Data Labs: Laboratory Results - last 24 hr 01/09/25 11:50: Urine Test Negative Assessment & Plan Assessment/Plan (1) Dysphagia: PLAN: Assessment and Plan Assessment and Plan (1) Dysphagia: Status: Acute Plan: Cony is a 34 yo female pt here today for f/u regarding her Crohns. Pt was diagnosed in 2006 andhas been in Humira since 2011. Pt recently developed antibodies and calprotectin in the 1000s. Humira discontinued and she was started on Skyrizi. She has had two infusions so far and feels well. Hernext infusion is in one month and then well start with injections q8 weeks. Will re check calprotectin, ESR, and CRP at f/u after she has been on skyrizi for three months. She has been having intermittent issues with swallowing issues and was scheduled for EGD following her last appointment. She ishaving the EGD tomorrowand will update her regarding results after. -Continue Skyrizi -Repeat Calprotectin, ESR and CRP in 3 months -EGD -f/u in 6 months (2) Crohns disease: Status: Chronic Comment: Diagnosed 200601/09/25 1319 Cosigner Signature (if applicable): CC: Dr. Radha Calloway MD; Juan Alberto Rutledge, DO~ Signed [facility]06-13-2025 Consult note [facility] Medical Records Department [address] [place] [id number] Pre-Anesthesia Evaluation 01/09/25 1146 MR#: [id number] Acct: [id number] Name: CONY HART Rep # :[id number] : 1990 34 From: Nahun Tucker MD PCP: Dr. Radha Calloway MD Status:REG [facility] Y Race: C Location: [place] [address] ASA Classification* ASA Classification ASA Classification: 3 Assessment & Plan Anesthesia* Anesthesia Assessment Anesthesia Assessment: Discussed sedation and/or anesthesia options, risks, benefits, and alternatives with patient/parents/legal guardian/POA. Questions invited. The patient/parents/legal guardian/POA seems to understand and agrees to proceedwith anesthesia plan. Reviewed the physical assessment, medical history, allergy history and patient home medications list prior to surgery/procedure/anesthetic and documented any changes. Performed airway and anesthesia risk assessments. Anesthesia Type Anesthesia Type: MAC Anesthesia Focused Assessment* Airway Assessment Mouth opens: >3 cm Mallampati Score: II Comment: Family history of anesthetic complications. Consider MH precautions. Labs Anesthesia Preop lab: CBC WBC 12.5 K/mm3 (4.4-11.0) H 09/26/23 14:06 4 RBC 4.91 M/mm3 (4.2-5.4) 09/26/23 14:06 09/26/23 Hgb 14.4 g/dL (12.0-15.0) 09/26/23 14:06 09/26/23 Hct 45.5 % (37-47) 09/26/23 14:06 09/26/23 Plt Count 404 K/mm3 (150-450) 09/26/23 14:06 09/26/23 CHEMISTRY Potassium 4.0 mmol/L (3.5-5.1) 09/26/23 14:06 09/26/23 Sodium 141 mmol/L (136-145) 09/26/23 14:06 09/26/23 Magnesium 2.1 mg/dL (1.6-2.6) 10/23/17 09:46 10/23/17 Phosphorus 2.5 mg/dL (2.5-4.9) 10/23/17 09:46 10/23/17 BUN 9 mg/dL (7-18) 09/26/23 14:06 09/26/23 Creatinine 0.89 mg/dL (0.55-1.02) 09/26/23 14:06 09/26/23 Glucose 65 mg/dL (74-106) L 09/26/23 14:06 09/26/23 TSH 2.24 uIU/mL (0.358-3.74) 06/25/15 11:29 COAG PT 12.3 SECONDS (11.7-14.9) 12/21/15 10:00 Urine Test Negative Negative 02/18/24 09:20 02/18/24 Pre-Assessment Diagnosis/Proposed Procedure Planned Operative Procedure(s): EGD Anesthesia History Anesthesia History - regulatory affairs analyst: Anesthesia History - regulatory affairs analyst Hx Hospitalization No 01/08/25 10:03 Any Problems With Anesthesia No 01/08/25 10:03 Cholinesterase deficiency No 01/08/25 10:03 You/Your Family Experience Yes: COUSIN 4 GENERATIONS 01/08/25 10:03 fever (hyperthermia) with AGO Relationship MAT UNCLE & GRANDMOTHERS 01/08/25 10:03 SIDE Recent Exposure to Contagious No 01/08/25 10:03 Disease Does patient have nerve No 01/08/25 10:03 stimulator Patient instructed to have device shut off --Does patient have Pacemaker or ICD? When Was Last Pacemaker Check QUESTION #4 FULL TEXT: You/Your Family Experience fever (hyperthermia) with Anesthesia Last Oral Intake Last Oral intake: Last Oral Intake NPO since Meds taken in AM with sips of water? 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 - regulatory affairs analyst: PONV - regulatory affairs analyst Female Yes 01/06/25 13:43 HX of Motion Sickness No 01/06/25 13:43 HX of N/V After Surgery No 01/06/25 13:43 Non-Smoker No 01/06/25 13:43 Duration of Surgery greater No 01/06/25 13:43 than 60 minutes Number of Risk Factors 1 01/06/25 13:43 PONV Score Low Risk 01/06/25 13:43 Height & Weight Height & Weight: Anesthesia: Height & Weight Height 5 ft 10 in 01/08/25 10:03 Respiratory Assessment Respiratory Assessment - regulatory affairs analyst: Respiratory Tract Infection Hx - regulatory affairs analyst Hx Respiratory Tract Infection No 01/08/25 10:03 STOP Sleep Apnea STOP Sleep Apnea - regulatory affairs analyst: STOP Sleep Apnea - regulatory affairs analyst Hx Hypertension No 01/08/25 10:03 Hx Sleep Apnea Yes 01/08/25 10:03 CPAP Yes 01/08/25 10:03 BIPAP No 01/08/25 10:03 Do you snore loudly (louder than talking or can be heard Do you often feel tired/ fatigued/ sleepy during daytime? Has anyone observed you stop breathing during sleep? STOP Results Positive 01/06/25 13:43 QUESTION #5 FULL TEXT : Do you snore loudly (louder than talking or can be heard through closeddoors)? Tobacco Use History Tobacco Use History - regulatory affairs analyst: Tobacco Use History - regulatory affairs analyst Tobacco Use Cigarettes 01/08/25 10:03 Smoking Status Current every day smoker 01/08/25 10:03 Hx Tobacco Use Yes 01/08/25 10:03 Years Smoking Packs Smoked per Day 0.5 01/06/25 13:43 Smoking Cessation Date was within the last 15 years Hx Smoking Cessation Date Hx Smoking Cessation No 01/08/25 10:03 Counseling Hematologic Medial History Hematologic Hx - regulatory affairs analyst: Hematologic Medical Hx - environmental aid Hx of Blood Transfusion No 01/06/25 13:43 Hx of Transfusion in last 3 No 01/06/25 13:43 Months Date of Last Transfusion (if within last 3 months) Ever experience any problems No 01/06/25 13:43 with transfusion(s)? Specify any problems Hx of Preganancy in last 3 N/A 01/06/25 13:43 Months Nurse Filling Out Transfusion NBUCHER 01/06/25 13:43 & Questions: Date: 01/06/25 01/06/25 13:43 Time: 13:45 01/06/25 13:43 Patient unable to answer at this time (ie. confused, unrespo /Reproduction History /Reproductive History - regulatory affairs analyst: /Reproductive Hx- regulatory affairs analyst Hx Now Gestational Age (in weeks): EDC: Hx Hx Para Hx Section SAB No 01/08/25 10:03 Active Medications Active Medications: Current Medications Generic Name Dose Route Start Last Admin Trade Name Freq PRN Reason Stop Dose Admin Lactated Ringer's 1,000 mls @ 15 mls/hr 01/09/25 11:45 IV .Q48H [facility] Medical History Bipolar disorder Juvenile arthritis Epilepsy, unspecified, not intractable, without status epilepticus Seizures Wears glasses History of Crohn's disease CPAP (continuous positive airway pressure) dependence Sleep apnea Asthma Anxiety Depression Lumbago Dysmenorrhea Enuresis, nonorganic Seizures Back problem Arthritis Anemia Crohns disease Bipolar disorder Home Medications ?Medication ?Instructions ?Recorded ?Last Taken ?Type albuterol sulfate 90 mcg/actuation 2 puff inhalation Q 4H PRN 12/15/21 Unknown Rx aerosol inhaler shortness of breath or wheez ing #8.5 grams fluconazole 100 mg tablet 100 mg PO DAILY #14 tabs Unknown Rx metronidazole 500 mg tablet 500 mg PO TID #56 tabs Unknown Rx Skyrizi 600mg/ 10ml 600 mg IV .COMPLEX #10 mL Unknown Rx pantoprazole 40 mg tablet,delayed 40 mg PO BID #60 tab s 11/19/24 Unknown Rx release Allergy/AdvReac Type Severity Reaction Status Date / Time almond (almonds) Allergy Severe Anaphylaxis Verified 01/06/25 13:41 Family History Father Suicide Mother Diabetes OCD (obsessive compulsive disorder) Depression Bipolar disorder (manic depression) Grandmother Diabetes Uncle Bowel disease Grandfather Colon cancer maternal - 2004 Other Anxiety Arthritis Epilepsy Surgical History History of esophagogastroduodenoscopy (EGD) History of colonoscopy History of bladder surgery History of wisdom tooth extraction History of cystoscopy Social History Smoking Status: Current every day smoker tobacco type: cigarettes Tobacco: How many years used: 5 second hand exposure: No alcohol intake: current details: social on weekends substance use type: does not use what type of physical activity do you participate in: none martin/zoroastrianism: None seatbelt use: always Review of Systems (Anesthesia) ROS Narrative System reviewed and no additional complaints, except as documented. 01/09/25 1147 > Date _ Nahun Tucker MD Cosigner Signature: Date CC: ~ Signed [facility]04-24-2025 Radiology Diagnostic study note [facility] Imaging Services [address] [place], [place] [id number] Abdomen Limited MR#: [id number] Acct: [id number] Name: CONY HART Rep #: [id number] : 1990 F 34 From: Nicolás Butt MD PCP: Dr. Radha Calloway MD Status: REG CLI Study:Abdomen Limited Date of Exam: 10/29 11/21 Exam# [id number] Ordering Dr: Radha Calloway MD PROCEDURE: ABDOMEN LIMITED 11/20/2024 REASON FOR EXAM: SMALL CYSTIC FEELING LESION TECHNIQUE: Targeted ultrasound of the right upper quadrant. One-week history of nontender palpable lump. PATIENT PREPARATION: Per protocol FINDINGS: In the right upper quadrant corresponding to the palpable lump, there is a 1.8 cm x 1.8 cm 1 cm slightly echogenic nodule suggestive of lipoma. Adjacent to this a similar-appearing nodule measuring 1.2cm x 1 cm x 0.8 cm seen. US/Abdomen Limited IMPRESSION: Palpable lumps in the right upper quadrant most likely represent small lipomas. Reading Location: [place] [address] CC: Dr. Radha Calloway MD ~ Logistics Lead: Signed [facility]04-16-2025 Evaluation + Plan note* Assessment & Plan Note - Delilah Aranda MD - 11/12/2024 4:47 PM EDTAssociated Problem(s): High ankle sprain of right lower extremity Assessment: Maisonneuve fracture right ankle is approximately 7 months from the injury. He has returned to activities of daily living and work activity with no disability or pain. Plan: Continue the range of motion and strengthening exercises. 3 to 4 months for reevaluation with new x-rays of the right tib-fib and the right ankle. [facility] Work Phone: 1(380) 186-184504-16-2025 Miscellaneous Notes* Assessment & Plan Note - Delilah Aranda MD - 11/12/2024 4:47 PM EDTAssociated Problem(s): High ankle sprain of right lower extremity Assessment: Maisonneuve fracture right ankle is approximately 7 months from the injury. He has returned to activities of daily living and work activity with no disability or pain. Plan: Continue the range of motion and strengthening exercises. 3 to 4 months for reevaluation with new x-rays of the right tib-fib and the right ankle. documented [facility]Ad[facility] Work Phone: 1([phone]) 499-304404-16-2025 History of Present illness Narrative* Delilah Aranda MD - 11/12/2024 4:45 PM EDT Assessment/Plan Encounter Diagnoses: Ankle injury, right, sequela High ankle sprain of right lower extremity Assessment: Maisonneuve fracture right ankle is approximately 7 months from the injury. He has returned to activities of daily living and work activity with no disability or pain. Plan: Continue the range of motion and strengthening exercises. 3 to 4 months for reevaluation with new x-rays of the right tib-fib and the right ankle. Subjective Patient ID: Cony Hart is a 34 y.o. female. Chief Complaint: Follow-up of the Right Ankle (04-04-24- /X-RAYS 09-18-24/PAIN RATE 0) Last Surgery: No surgery found Last Surgery Date: No surgery found HPI 34-year-old patient who is 5-1/2 months status post a proximal fibular fracture for Maisonneuve injury. Most of her complaints have resolved but she still has some pain in the anterior lateral aspectof the ankle. She points to the anterior talofibular ligament region but more tibial and somewhat superior. She describes and on exam has some crepitation with range of motion of the talus in flexionand extension. 11/12/24-7 months status post Maisonneuve fracture treated closed. States that she is back to activities of daily living and work activity with no pain and no disability. OBJECTIVE: ORTHO EXAM Right ankle exam She is completely nontender proximally along the fibula where the previous spiral fracture was seenfrom her Maisonneuve injury. She is also nontender medially over the medial malleolus and the deltoid ligament. She had no pain over the syndesmotic area. Range of motion of her ankle was full. Jerri's was negative. The syndesmotic area was completely nontender and with tib-fib compression she had no pain. He is ambulating without an antalgic limp. IMAGE RESULTS: Point of Care Ultrasound These images are not reportable by radiology and will not be interpreted by Radiologists. Procedures Orders Placed This Encounter Point of Care Ultrasound XR tibia fibula right 2 views XR ankle right 3+ views documented [facility]Ad[facility] Work Phone: [phone]) 572-646003-27-2025 Evaluation note* Diagnosis Onset Date Resolution Status Admit Date Dysphagia acute October 23 2:56pm Crohns disease chronic September 2:56pm [facility] Work Phone: 1([phone]) 921-304603-27-2025 Evaluation note* Diagnosis Onset Date Resolution Status Admit Date Dysphagia acute October 23 2:56pm Crohns disease chronic September 2:56pm Dysphagia acute January 08 10:53am Crohns disease chronic January 08, 2025 10:53am Dysphagia acute January 09 11:39am [facility] Work Phone: [phone]) 966-468802-21-2025 Evaluation + Plan note* Assessment & Plan Note - Delilah Aranda MD - 09/19/2024 8:02 AM ESTAssociated Problem(s): Ankle injury, right, initial encounter 34-year-old comes in today for follow-up of a proximal fibular fracture. She is approximately 5-1/2months status post the injury. Now she is complaining of some pain over the anterior talofibular ligament area. She points to the soft spot where the anterior lateral portal for arthroscopy is generally placed. When she moves the ankle 1 can palpate subluxation of a plica. Plan: Motrin 600 mg p.o. twice daily or 3 times daily as needed pain Voltaren gel use as directed Relative rest Follow-up in 6 weeks for reevaluation. The ultrasound was reviewed with the patient in real-time. [facility] Work Phone: 1(190) 961-845002-21-2025 Miscellaneous Notes* Assessment & Plan Note - Delilah Aranda MD - 09/19/2024 8:02 AM ESTAssociated Problem(s): Ankle injury, right, initial encounter 34-year-old comes in today for follow-up of a proximal fibular fracture. She is approximately 5-1/2months status post the injury. Now she is complaining of some pain over the anterior talofibular ligament area. She points to the soft spot where the anterior lateral portal for arthroscopy is generally placed. When she moves the ankle 1 can palpate subluxation of a plica. Plan: Motrin 600 mg p.o. twice daily or 3 times daily as needed pain Voltaren gel use as directed Relative rest Follow-up in 6 weeks for reevaluation. The ultrasound was reviewed with the patient in real-time. documented [facility]Ad[facility] Work Phone: 1([phone]) 521-899102-20-2025 History of Present illness Narrative* Delilah Aranda MD - 09/18/2024 1:30 PM EST Assessment/Plan Encounter Diagnoses: Ankle injury, right, sequela Ankle injury, right, initial encounter 34-year-old comes in today for follow-up of a proximal fibular fracture. She is approximately 5-1/2months status post the injury. Now she is complaining of some pain over the anterior talofibular ligament area. She points to the soft spot where the anterior lateral portal for arthroscopy is generally placed. When she moves the ankle 1 can palpate subluxation of a plica. Plan: Motrin 600 mg p.o. twice daily or 3 times daily as needed pain Voltaren gel use as directed Relative rest Follow-up in 6 weeks for reevaluation. The ultrasound was reviewed with the patient in real-time. Subjective Patient ID: Cony Hart is a 34 y.o. female. Chief Complaint: Follow-up of the Right Ankle Last Surgery: No surgery found Last Surgery Date: No surgery found HPI 34-year-old patient who is 5-1/2 months status post a proximal fibular fracture for Maisonneuve injury. Most of her complaints have resolved but she still has some pain in the anterior lateral aspectof the ankle. She points to the anterior talofibular ligament region but more tibial and somewhat superior. She describes and on exam has some crepitation with range of motion of the talus in flexionand extension. OBJECTIVE: ORTHO EXAM Right ankle exam She is completely nontender proximally along the fibula where the previous spiral fracture was seenfrom her Maisonneuve injury. She is also nontender medially over the medial malleolus and the deltoid ligament. She had some very minimal pain over the syndesmotic area. Just distal and somewhat lateral to this overlying the area of the lateral portal for ankle arthroscopy she had tenderness. With flexion extension of the talus she demonstrates some crepitation and has some intermittent and highly variable sands bluxation of a soft tissue band that may represent a plica interacting with the talus. IMAGE RESULTS: Point of Care Ultrasound These images are not reportable by radiology and will not be interpreted by Radiologists. ULTRASOUND DIAGNOSTIC ULTRASOUND REPORT FINAL: Right ANKLE Air Brake Mechanic: Delilah Aranda MD Indication: [LEFT] Ankle Pain Procedure: Ultrasound, extremity, nonvascular, real-time, COMPLETE, anatomic specific Technique: B-Mode Ultrasound Examination performed using 8-13 MHz linear transducer with [employer] STUDY TYPE: 1. ULTRASOUND EXTREMITY 2. REAL TIME WITH IMAGE DOCUMENTATION 3. NON-VASCULAR 4. COMPLETE STUDY, INCLUDING BUT NOT LIMITED TO MUSCLE, TENDONS, LIGAMENTS, SOFT TISSUES, ADIPOSE TISSUE AND SUBCUTANEOUS TISSUE. Site: KNEE Ultrasound gel was applied to provide for a conductive media for the ultrasound waves to penetrate the tissues and for reflexion of these ultrasonic waves back to the probe for image capture. Live ultrasound was performed with of patient's KNEE and PERMANENTLY documented. This is a COMPLETE and FINAL ULTRASOUND REPORT of the patient's ANKLE. Gauze pads were used to clean the area after completion of the ultrasound evaluation. Nonsterile gloves were used for this procedure. I personally performed the ultrasound and reviewed the findings. These show: Kareem-articular evaluation: Live ultrasound was performed of the patient's ANKLE that shows no significant soft tissue swelling. The anterior talofibular ligament appears to be intact and normal sonographically. The posterior calcaneofibular ligament appears to be intact and normal sonographically. The fibular bone appears normal sonographically with no evidence of fracture. No significant soft tissue fluid collection/abscess appreciated. Medially, the deltoid ligament appears to be within normal limits and intact sonographically. The medial malleolus appears normal sonographically with no evidence of fracture. No significant soft tissue swelling collection/abscess is appreciated. Posteriorly, the Achilles tendon appears normal sonographically without evidence of rupture. No abnormal bursais seen at the insertion of the Achilles into the calcaneus. The posterior tibial tendon is visualized from the posterior malleolus to the navicular and appears normal sonographically. The peroneal te ndons posterior-laterally are not visualized posterior to the fibula and down to the lateral borderof the forefoot. They appear sonographically within normal limits. No tibiotalar joint space effusion is seen. The anterior tendons and the retinacula appear sonographically normal. The patient tolerated the sonographic examination of their ankle well. She has a small effusion. It was difficult to sonographically isolate any thickening of the capsuleor synovium in the area of the plica. While this was palpable it was not able to be imaged as it requires motion of the ankle which disrupted the sonographic images. Procedures Orders Placed This Encounter Point [facility] Work Phone: 1(200) 973-930101-09-2025 Evaluation + Plan note* Assessment & Plan Note - Delilah Aranda MD - 08/07/2024 12:21 PM ESTAssociated Problem(s): High ankle sprain of right lower extremity Assessment: Maisonneuve fracture right ankle is approximately 4 months from the injury. Plan: Continue the range of motion and strengthening exercises. Follow-up in 6 weeks for reevaluation with new x-rays of the right ankle and the right tib-fib [facility] Work Phone: 1([phone]) 671-399901-09-2025 Miscellaneous Notes* Assessment & Plan Note - Delilah Aranda MD - 08/07/2024 12:21 PM ESTAssociated Problem(s): High ankle sprain of right lower extremity Assessment: Maisonneuve fracture right ankle is approximately 4 months from the injury. Plan: Continue the range of motion and strengthening exercises. Follow-up in 6 weeks for reevaluation with new x-rays of the right ankle and the right tib-fib [facility] Work Phone: 1(856) 295-623501-09-2025 History of Present illness Narrative* Delilah Aranda MD - 08/07/2024 12:15 PM EST Assessment/Plan Encounter Diagnoses: Ankle injury, right, sequela Nondisplaced oblique fracture of shaft of right fibula, sequela High ankle sprain of right lower extremity Assessment: Maisonneuve fracture right ankle is approximately 4 months from the injury. Plan: Continue the range of motion and strengthening exercises. Follow-up in 6 weeks for reevaluation with new x-rays of the right ankle and the right tib-fib Subjective Patient ID: Cony Hart is a 34 y.o. female. Chief Complaint: Follow-up of the Right Ankle Last Surgery: No surgery found Last Surgery Date: No surgery found HPI 34-year-old female who about 4 months ago on 04/04/2024 had an external rotation injury that caused aMaisonneuve fracture with a minimally to nondisplaced proximal fibular fracture. She comes in today stating she still getting some pain in the syndesmotic area. This is much betterthan it was a month ago and she has been progressively improving but she was concerned about it. At the proximal fibula she is completely nontender. OBJECTIVE: ORTHO EXAM Right ankle and tib-fib exam Palpation of the proximal fibula overlying the area of the previous fracture is nontender. She has tenderness over the anterior syndesmotic area. Gentle external rotation of the ankle caused her some referred pain to the syndesmotic area. She has full range of motion of her ankle. She is neurovascularly intact distally. She ambulates without any antalgia. Normal gait and a normal foot progression angle. IMAGE RESULTS: Point of Care Ultrasound These images are not reportable by radiology and will not be interpreted by Radiologists. ULTRASOUND None Procedures Orders Placed This Encounter XR tibia fibula right 2 views XR ankle right 3+ views Point of Care Ultrasound XR ankle right 3+ views [facility]Ad[facility] Work Phone: 1([phone]) 339-431001-08-2025 Evaluation note* Diagnosis Onset Date Resolution Status Admit Date Crohns disease chronic July 1:52pm Dysphagia acute October 23 2:56pm Crohns disease chronic September 2:56pm [facility] Work Phone: [phone] 143-207512-12-2024 Evaluation + Plan note* Assessment & Plan Note - ANGEL Ramirez - 07/10/2024 10:37 AM ESTAssociated Problem(s): Nondisplaced oblique fracture of shaft of right fibula, initial encounter for closed fracture Meloxicam or Tylenol prn for symptom control Continue with PT and HEP as scheduled Patient may resume regular activities gradually as tolerated At this time, patient will follow-up on as needed basis for any lack of progression, changes or concerns Patient in agreement with plan of care This note was generated using [employer] software. It may contain errors in wording, punctuation or spelling. [facility] Work Phone: 1([phone]) 805-132812-12-2024 Miscellaneous Notes* Assessment & Plan Note - ANGEL Ramirez - 07/10/2024 10:37 AM ESTAssociated Problem(s): Nondisplaced oblique fracture of shaft of right fibula, initial encounter for closed fracture Meloxicam or Tylenol prn for symptom control Continue with PT and HEP as scheduled Patient may resume regular activities gradually as tolerated At this time, patient will follow-up on as needed basis for any lack of progression, changes or concerns Patient in agreement with plan of care This note was generated using [employer] software. It may contain errors in wording, punctuation or spelling. [facility] Work Phone: 1([phone]) 590-594012-11-2024 History of Present illness Narrative* Caro Whitman, [employer]IC[employer] - 07/09/2024 2:30 PM EST Subjective Patient ID: Cony Hart is a 34 y.o. female. Chief Complaint: Chief Complaint Patient presents with Right Leg - Follow-up, Pain Date of injury 04/04/24 Right Ankle - Follow-up, Pain Date of INJURY 04/04/24 Right Ankle Cony is a pleasant 34-year-old female here for follow-up of right fibula shaft fracture nondisplaced and right ankle sprain. DOI 04/04/2024. Patient has been attending PT out of the system, unfortunately no records have been presented todate. Patient reports 96% improvement since injury. She does get a muscle cramp to the posterior lateral knee and proximal lower leg which they are currently working on. No swelling or discoloration remains, does get occasional lateral ankle swelling after being up on her foot more. She stopped wearing the ankle support brace as of 06/20/2024. Patient is no longer taking meloxicam or Tylenol, states she has not needed anything for symptom control Is resuming most normal activities, she does have some hesitation of reinjury which PT is working with her States she has 3 remaining PT sessions through the end of the month No new injuries Review of Systems Constitutional: Negative. HENT: Negative. Respiratory: Negative. Cardiovascular: Negative. Endocrine: Negative. Musculoskeletal: Positive for arthralgias and gait problem. Skin: Negative. Hematological: Negative. Psychiatric/Behavioral: Negative. Objective Right Ankle Exam Right ankle exam is normal. Tenderness Right ankle tenderness location: Resolved. Swelling: none Range of Motion The patient has normal right ankle ROM. Other Erythema: absent Sensation: normal Pulse: present Comments: Trace amount of swelling at the lateral malleolus remains. Distal motor sensor intact with cap refill at 2 seconds. Flexor and extensor tendon function intact. Patient with + slight tenderness with palpation/ direct pressure to proximal lateral/posterior lower leg, no discoloration or swelling remains Right Knee Exam Right knee exam is normal. Range of Motion The patient has normal right knee ROM. Comments: No swelling or tenderness with palpation or range of motion to the proximal to mid fibularemain. Minimal IT band tenderness remains. No skin discoloration, no swelling. Full range of motion of distal digits. Distal motor sensor intact. Image Results: XR tibia fibula right 2 views Narrative: Interpreted By: Von Wheeler, STUDY: XR TIBIA FIBULA RIGHT 2 VIEWS INDICATION: Signs/Symptoms:S/P FRACTURE. COMPARISON: May 27 ACCESSION NUMBER(S): [id number] ORDERING CLINICIAN: CARO WHITMAN FINDINGS: Oblique nondisplaced fracture right proximal fibula unchanged in alignment. No additional new findings. Impression: Unchanged appearance right proximal fibular fracture. Signed by: Von Wheeler 06/21/2024 9:28 AM Dictation workstation: [id number] Attempted to locate PT notes from outside facility through EHR, no access available Assessment/Plan Problem List Items Addressed This Visit ICD-10-CM Nondisplaced oblique fracture of shaft of right fibula, initial encounter for closed fracture - Primary S82.434A Meloxicam or Tylenol prn for symptom control Continue with PT and HEP as scheduled Patient may resume regular activities gradually as tolerated At this time, patient will follow-up on as needed basis for any lack of progression, changes or concerns Patient in agreement with plan of care This note was generated using [employer] software. It may contain errors in wording, punctuation or spelling. Moderate ankle sprain, right, initial encounter S93.401A [facility] Work Phone: 1([phone]) 261-269111-22-2024 Evaluation + Plan note* Assessment & Plan Note - ANGEL Ramirez - 06/20/2024 10:39 PM ESTAssociated Problem(s): Nondisplaced oblique fracture of shaft of right fibula, initial encounter for closed fracture Meloxicam or Tylenol prn for symptom control Continue with PT as scheduled Patient may resume regular activities gradually as tolerated Recommend PT to continue to work with patient and recommended IT band stretches, copy of home exercises provided today At this time, patient will follow-up on as needed basis for any lack of progression, changes or concerns Patient in agreement with plan of care This note was generated using [employer] software. It may contain errors in wording, punctuation or spelling. [facility] Work Phone: [phone]) 977-403111-22-2024 Miscellaneous Notes* Assessment & Plan Note - ANGEL Ramirez - 06/20/2024 10:39 PM ESTAssociated Problem(s): Nondisplaced oblique fracture of shaft of right fibula, initial encounter for closed fracture Meloxicam or Tylenol prn for symptom control Continue with PT as scheduled Patient may resume regular activities gradually as tolerated Recommend PT to continue to work with patient and recommended IT band stretches, copy of home exercises provided today At this time, patient will follow-up on as needed basis for any lack of progression, changes or concerns Patient in agreement with plan of care This note was generated using [employer] software. It may contain errors in wording, punctuation or spelling. * Assessment & Plan Note - ANGEL Ramirez - 06/20/2024 10:38 PM EST Associated Problem(s): High ankle sprain of right lower extremity Instructed on daily ROM, ankle aphabets, ice prn Continue PT as scheduled and home exercises daily as recommended Patient may gradually return to full activity as tolerated, recommended to continue with PT. They may advance as tolerated Patient aware no PT notes for review present for today's encounter Patient may use stability brace on as needed basis for extended activity [facility]Ad[facility] Work Phone: 1([phone]) 513-993311-22-2024 Evaluation + Plan note* Assessment & Plan Note - ANGEL Ramirez - 06/20/2024 10:38 PM ESTAssociated Problem(s): High ankle sprain of right lower extremity Instructed on daily ROM, ankle aphabets, ice prn Continue PT as scheduled and home exercises daily as recommended Patient may gradually return to full activity as tolerated, recommended to continue with PT. They may advance as tolerated Patient aware no PT notes for review present for today's encounter Patient may use stability brace on as needed basis for extended activity [facility] Work Phone: [phone] 164-360111-22-2024 History of Present illness Narrative* ANGEL Ramirez - 06/20/2024 11:15 AM EST Subjective Patient ID: Cony Hart is a 34 y.o. female. Chief Complaint: Chief Complaint Patient presents with Right Leg - Follow-up, Pain, Fracture Date of injury 04/04/24 Right Ankle - Follow-up, Pain Date of INJURY 04/04/24 Right Ankle Cony is a pleasant 33-year-old female here for follow-up of right fibula shaft fracture nondisplaced and right ankle sprain. DOI 04/04/2024. Prescription for meloxicam on sparing basis and does believe it helps. She also takes as needed Tylenol on as needed basis. Patient has been attending physical therapy at outside facility and states she is making good progress. States that therapist is inquiring about advancing program and if thereare any remaining restrictions Patient has resumed use of a regular shoe, uses stability brace on as needed basis with aggravatingactivity. Reports good range of motion of the ankle with minimal and manageable flares. Patient occasionally gets twinge of pain to the fibular shaft, not limiting activity. No new injuries Accompanied by friend for today's visit. Review of Systems Constitutional: Negative. HENT: Negative. Respiratory: Negative. Cardiovascular: Negative. Endocrine: Negative. Musculoskeletal: Positive for arthralgias and gait problem. Skin: Negative. Hematological: Negative. Psychiatric/Behavioral: Negative. Objective Right Ankle Exam Tenderness The patient is experiencing tenderness in the ATF. Swelling: none Range of Motion The patient has normal right ankle ROM. Other Erythema: absent Sensation: normal Pulse: present Comments: Trace amount of swelling at the lateral malleolus remains. Distal motor sensor intact with cap refill at 2 seconds. Flexor and extensor tendon function intact. Patient with + slight tenderness with palpation/ direct pressure to proximal lateral lower leg, no discoloration or swelling remains Right Knee Exam Right knee exam is normal. Range of Motion The patient has normal right knee ROM. Comments: No swelling or tenderness with palpation or range of motion to the proximal to mid fibularemain. Moderate IT band tenderness and tightness to proximal and distal portions. No skin discoloration, no swelling. Full range of motion of distal digits. Distal motor sensor intact. Image Results: XR tibia fibula right 2 views Narrative: Interpreted By: Von Wheeler, STUDY: XR TIBIA FIBULA RIGHT 2 VIEWS INDICATION: Signs/Symptoms:follow up fracture. COMPARISON: May 06 ACCESSION NUMBER(S): [id number] ORDERING CLINICIAN: CARO WHITMAN FINDINGS: Healed nondisplaced oblique right proximal fibular metaphyseal fracture unchanged. No new findings. Impression: Unchanged appearance right proximal fibular fracture. Signed by: Von Wheeler 05/31/2024 7:43 AM Dictation workstation: [id number] Independent review of x-rays completed during today's visit and compared to prior studies. There isno change in alignment, e fracture is subacute and healing in place, await radiology interpretation. Attempted to locate PT notes from outside facility through EHR, no access available Assessment/Plan Problem List Items Addressed This Visit ICD-10-CM Nondisplaced oblique fracture of shaft of right fibula, initial encounter for closed fracture S82.434A Meloxicam or Tylenol prn for symptom control Continue with PT as scheduled Patient may resume regular activities gradually as tolerated Recommend PT to continue to work with patient and recommended IT band stretches, copy of home exercises provided today At this time, patient will follow-up on as needed basis for any lack of progression, changes or concerns Patient in agreement with plan of care This note was generated using [employer] software. It may contain errors in wording, punctuation or spelling. High ankle sprain of right lower extremity S93.491A Instructed on daily ROM, ankle aphabets, ice prn Continue PT as scheduled and home exercises daily as recommended Patient may gradually return to full activity as tolerated, recommended to continue with PT. They may advance as tolerated Patient aware no PT notes for review present for today's encounter Patient may use stability brace on as needed basis for extended activity Other Visit Diagnoses Codes Right fibular fracture - Primary S82.401A Relevant Orders XR tibia fibula right 2 views [facility]: 1([phone]) 868-435710-30-2024 Evaluation + Plan note* Assessment & Plan Note - ANGEL Ramirez - 05/28/2024 10:59 AM EDTAssociated Problem(s): High ankle sprain of right lower extremity Instructed on daily ROM, ankle aphabets, ice prn Continue PT as scheduled and home exercises daily as recommended Transition out of boot into the ankle speed brace, may wean out with light activity as tolerated. PT may guide transition out of brace as tolerated [facility] Work Phone: 1([phone]) 761-264810-30-2024 Miscellaneous Notes* Assessment & Plan Note - ANGEL Ramirez - 05/28/2024 10:59 AM EDTAssociated Problem(s): High ankle sprain of right lower extremity Instructed on daily ROM, ankle aphabets, ice prn Continue PT as scheduled and home exercises daily as recommended Transition out of boot into the ankle speed brace, may wean out with light activity as tolerated. PT may guide transition out of brace as tolerated * Assessment & Plan Note - ANGEL Ramirez - 05/28/2024 10:58 AM EDT Associated Problem(s): Nondisplaced oblique fracture of shaft of right fibula, initial encounter for closed fracture Meloxicam or Tylenol prn for symptom control Patient may DC use of the walking boot. Recommended to wear ankle speed brace with weightbearing activity, off with sleep and rest. Continue twice daily range of motion and ankle alphabets, elevationand ice as needed. Continue with PT as scheduled Patient may resume full weightbearing at this time, increase as tolerated PT to be notified by staff of plan to increase to full weightbearing and may wean out of brace overnext 4 weeks as tolerated, requested office visit notes to monitor progression Plan for follow-up here in approximately 1 month with repeat imaging, sooner for changes or concerns. Patient in agreement with plan of care This note was generated using [employer] software. It may contain errors in wording, punctuation or spelling. [facility] Work Phone: 1([phone]) 829-388310-30-2024 Evaluation + Plan note* Assessment & Plan Note - ANGEL Ramirez - 05/28/2024 10:58 AM EDTAssociated Problem(s): Nondisplaced oblique fracture of shaft of right fibula, initial encounter for closed fracture Meloxicam or Tylenol prn for symptom control Patient may DC use of the walking boot. Recommended to wear ankle speed brace with weightbearing activity, off with sleep and rest. Continue twice daily range of motion and ankle alphabets, elevationand ice as needed. Continue with PT as scheduled Patient may resume full weightbearing at this time, increase as tolerated PT to be notified by staff of plan to increase to full weightbearing and may wean out of brace overnext 4 weeks as tolerated, requested office visit notes to monitor progression Plan for follow-up here in approximately 1 month with repeat imaging, sooner for changes or concerns. Patient in agreement with plan of care This note was generated using [employer] software. It may contain errors in wording, punctuation or spelling. [facility] Work Phone: 1([phone]) 234-499010-29-2024 History of Present illness Narrative* ANGEL Ramirez - 05/27/2024 2:30 PM EDT Subjective Patient ID: Cony Hart is a 34 y.o. female. Chief Complaint: Chief Complaint Patient presents with Right Leg - Follow-up, Pain, Fracture Date of injury 04/04/24 X-RAYS 05/27/24 Right Ankle - Pain, Follow-up Date of INJURY 04/04/24 X-RAYS 05/27/24 Right Ankle Cony is a pleasant 33-year-old female here for follow-up of right fibula shaft fracture nondisplaced and right ankle sprain. DOI 04/04/2024. Prescription for meloxicam on sparing basis and does believe it helps. She also takes as needed Tylenol on as needed basis. Patient states she is frequently elevating and icing for symptom control. Continues to wear walking boot most of the time, removes for hygiene. Patient initiated PT at [facility], feels ready to transition out of boot. Patient states she is doing home exercises twice daily in addition to what is being taught at PT. Frequent elevation and ice on as needed basis.Patient states she is not putting full weight on this foot and using single crutch for support. No new injuries Accompanied by friend for today's visit. Review of Systems Constitutional: Negative. HENT: Negative. Respiratory: Negative. Cardiovascular: Negative. Endocrine: Negative. Musculoskeletal: Positive for arthralgias and gait problem. Skin: Negative. Hematological: Negative. Psychiatric/Behavioral: Negative. Objective Right Ankle Exam Tenderness The patient is experiencing tenderness in the ATF and lateral malleolus. Swelling: mild Range of Motion Dorsiflexion: 0 Plantar flexion: 50 Eversion: 10 Inversion: 10 Other Erythema: absent Sensation: normal Pulse: present Comments: Mild amount of swelling at the lateral malleolus remains. Reports tightness with attemptsat range of motion mostly at the lateral malleolus., Mild medially. Distal motor sensor intact withcap refill at 2 seconds. Flexor and extensor tendon function intact. Patient with + slight tenderness with palpation/ direct pressure to proximal lateral lower leg, no discoloration or swelling remains Image Results: XR tibia fibula right 2 views Narrative: Interpreted By: Steph Neff, STUDY: Right tibia and fibula, two views INDICATION: Signs/Symptoms:fracture follow up. COMPARISON: 04/23/2024. ACCESSION NUMBER(S): [id number] ORDERING CLINICIAN: CARO WHITMAN FINDINGS: Healing nondisplaced proximal fibular spiral fracture with increase in amount of bridging callus. No new fracture or malalignment. No significant degenerative changes. Visualized knee and ankle joints are unremarkable. Soft tissues are unremarkable. Impression: Healing nondisplaced proximal fibular fracture in anatomic alignment. MACRO: None. Signed by: Steph Neff 05/07/2024 7:28 PM Dictation workstation: [id number] Independent review of x-rays completed during today's visit and compared to prior studies. There isno change in alignment, early bridging callus noted. Await radiology interpretation. Attempted to locate PT notes from outside facility through EHR, no access available Assessment/Plan Problem List Items Addressed This Visit ICD-10-CM Nondisplaced oblique fracture of shaft of right fibula, initial encounter for closed fracture - Primary S82.434A Meloxicam or Tylenol prn for symptom control Patient may DC use of the walking boot. Recommended to wear ankle speed brace with weightbearing activity, off with sleep and rest. Continue twice daily range of motion and ankle alphabets, elevationand ice as needed. Continue with PT as scheduled Patient may resume full weightbearing at this time, increase as tolerated PT to be notified by staff of plan to increase to full weightbearing and may wean out of brace overnext 4 weeks as tolerated, requested office visit notes to monitor progression Plan for follow-up here in approximately 1 month with repeat imaging, sooner for changes or concerns. Patient in agreement with plan of care This note was generated using [employer] software. It may contain errors in wording, punctuation or spelling. Moderate ankle sprain, right, initial encounter S93.401A [facility]Ad[facility] Work Phone: 1(881) 689-216810-09-2024 Evaluation + Plan note* Assessment & Plan Note - ANGEL Ramirez - 05/07/2024 4:24 PM EDTAssociated Problem(s): Nondisplaced oblique fracture of shaft of right fibula, initial encounter for closed fracture Meloxicam and Tylenol prn. Patient to continue to use walking boot, recommenced following weaning: may initiate 50% weightbearing status x 1 week, 75% weightbearing status x 1 week and full weightbearing the following week if tolerated. We discussed using crutches to offset weight with transitioning. Follow up here in 23 weeks with repeat tib-fib imaging. Patient in agreement with plan of care This note was generated using [employer] software. It may contain errors in wording, punctuation or spelling. [facility] Work Phone: 1([phone] 188-104210-09-2024 Miscellaneous Notes* Assessment & Plan Note - ANGEL Ramirez - 05/07/2024 4:24 PM EDTAssociated Problem(s): Nondisplaced oblique fracture of shaft of right fibula, initial encounter for closed fracture Meloxicam and Tylenol prn. Patient to continue to use walking boot, recommenced following weaning: may initiate 50% weightbearing status x 1 week, 75% weightbearing status x 1 week and full weightbearing the following week if tolerated. We discussed using crutches to offset weight with transitioning. Follow up here in 23 weeks with repeat tib-fib imaging. Patient in agreement with plan of care This note was generated using [employer] software. It may contain errors in wording, punctuation or spelling. * Assessment & Plan Note - ANGEL Ramirez - 05/07/2024 4:23 PM EDT Associated Problem(s): High ankle sprain of right lower extremity Instructed on daily ROM, ankle aphabets, ice prn Initiate PT for ankle FAST protocol [facility] Work Phone: [phone]) 596-462810-09-2024 Evaluation + Plan note* Assessment & Plan Note - ANGEL Ramirez - 05/07/2024 4:23 PM EDTAssociated Problem(s): High ankle sprain of right lower extremity Instructed on daily ROM, ankle aphabets, ice prn Initiate PT for ankle FAST protocol [facility] Work Phone: 1([phone]) 878-724110-08-2024 History of Present illness Narrative* ANGEL Ramirez - 2024 2:45 PM EDT Subjective Patient ID: Cony Hart is a 34 y.o. female. Chief Complaint: Chief Complaint Patient presents with Right Leg - Follow-up, Pain, Fracture Date of injury 04/04/24 Right Ankle - Pain MRI COMPLETED ON 05/02/2024 Right Ankle Cony is a pleasant 33-year-old female here for 2-week follow-up of right fibula shaft fracture nondisplaced and right ankle sprain. Patient [place] camp[place] and slid and water, states that she twisted her right ankle inward and leg twisted up behind her. She was given a prescription for meloxicam which she has been taking with some improvement. Has 4 remaining Meloxicam (rx before this injury), she is using them sparingly and does believe it helps. She also takes as needed Tylenol on as needed basis. Patient states she is frequently elevating and icing for symptom control. Has been compliant in walking bootand using knee scooter for nonweightbearing status. Tolerating well. Accompanied by friend for today's visit. Review of Systems Constitutional: Negative. HENT: Negative. Respiratory: Negative. Cardiovascular: Negative. Endocrine: Negative. Musculoskeletal: Positive for arthralgias and gait problem. Skin: Negative. Hematological: Negative. Psychiatric/Behavioral: Negative. Objective Right Ankle Exam Tenderness The patient is experiencing tenderness in the ATF and lateral malleolus. Swelling: moderate Range of Motion Dorsiflexion: 0 Plantar flexion: 40 Eversion: 10 Inversion: 10 Other Erythema: absent Sensation: normal Pulse: present Comments: Moderate amount of swelling and fading ecchymosis noted at the lateral malleoli region extending through midfoot. Positive tenderness with palpation and attempt at range of motion to lateral ankle area. Distal motor sensor intact with cap refill at 2 seconds. Flexor and extensor tendon function intact. Patient with + tenderness with palpation/ direct pressure to proximal lateral lower leg with minimal faded discoloration and swelling present. No pain at this present over the knee, no limited range of motion due to knee pain. Image Results: MR ankle right wo IV contrast Narrative: Interpreted By: Von Wheeler, STUDY: MR ANKLE RIGHT WO IV CONTRAST; INDICATION: Signs/Symptoms:pain, swelling. COMPARISON: April 23, 2024 ACCESSION NUMBER(S): [id number] ORDERING CLINICIAN: CARO WHITMAN TECHNIQUE: Routine multiplanar multisequential MRI right ankle without contrast. FINDINGS: Osseous contusion posterior malleolus right distal tibia of the articular surface. No fracture line seen. Additional medial malleolar small osseous contusion. Small osseous contusion of the anterior aspect of the talar neck medially. Thickened and irregular edematous anterior inferior tibiofibular ligament with some edema extending into the distal tibiofibular syndesmosis consistent with a mild component of high ankle sprain. No gross widening or complete disruption. No other acute ligamentous injury. Small amount of split type tearing of the peroneus brevis at the level of the lateral malleolus. Mild Achilles tendinosis without tear. No significant arthrosis. No talar chondral defects. Moderate degree of circumferential subcutaneous edema about the right ankle. No focal fluid collections. No other tendon tear. Impression: Findings consistent with mild high ankle sprain with partial tear of the anterior inferior tibiofibular ligament and some mild edema of the distal tibiofibular syndesmosis. Osseous contusions of the posterior malleolus and medial malleolus of the distal tibia. Mild amount of split type tearing peroneus brevis. Subcutaneous soft tissue edema. Signed by: Von Wheeler 05/04/2024 7:30 AM Dictation workstation: [id number] Study Result Narrative & Impression Interpreted By: Kiki Narayan, STUDY: XR TIBIA FIBULA RIGHT 2 VIEWS; ; 04/04/2024 12:51 pm INDICATION: Signs/Symptoms:pain. COMPARISON: None. ACCESSION NUMBER(S): [id number] ORDERING CLINICIAN: FRAN REEVES FINDINGS: AP and lateral views were obtained. Oblique nondisplaced fractures present proximal shaft of the fibula. No fracture is noted in the tibia. Ankle and knee joints are intact. IMPRESSION: Nondisplaced oblique fracture proximal shaft of the right fibula MACRO: None Signed by: Kiki Narayan 04/04/2024 1:21 PM Dictation workstation: [id number] Independent review of x-ray imaging compared to prior imaging on date of visit. There is an obliquenondisplaced fracture at the proximal shaft of the right fibula, no obvious change in alignment, nofurther injury noted. Ankle imaging shows no acute fracture, soft tissue swelling remains, ankle mortise is intact. Await radiology reports. Assessment/Plan Problem List Items Addressed This Visit ICD-10-CM Nondisplaced oblique fracture of shaft of right fibula, initial encounter for closed fracture S82.434A Meloxicam and Tylenol prn. Patient to continue to use walking boot, recommenced following weaning: may initiate 50% weightbearing status x 1 week, 75% weightbearing status x 1 week and full weightbearing the following week if tolerated. We discussed using crutches to offset weight with transitioning. Follow up here in 23 weeks with repeat tib-fib imaging. Patient in agreement with plan of care This note was generated using [employer] software. It may contain errors in wording, punctuation or spelling. Relevant Orders Referral to Physical Therapy High ankle sprain of right lower extremity - Primary S93.491A Instructed on daily ROM, ankle aphabets, ice prn Initiate PT for ankle FAST protocol documented in this [facility] Work Phone: 1([phone]) [phone] History of Present illness Narrative* ANGEL Ramirez - 04/23/2024 11:30 AM EDT Subjective Patient ID: Cony Hart is a 33 y.o. female. Chief Complaint: No chief complaint on file. HPI of R fib fx Patient was stepping down at a campground and slid and water, states that she twisted her right ankle inward and leg twisted up behind her. Sought ED eval that day. She was placed in a walking boot and crutches with nonweightbearing status. She was given a prescription for meloxicam which she has been taking with some improvement. Patient states she is frequently elevating and icing for symptom control. Accompanied by friend for today's visit. Has 4 remaining Meloxicam (rx before this injury) Review of Systems Constitutional: Negative. HENT: Negative. Respiratory: Negative. Cardiovascular: Negative. Endocrine: Negative. Musculoskeletal: Positive for arthralgias and gait problem. Skin: Negative. Hematological: Negative. Psychiatric/Behavioral: Negative. Objective Right Ankle Exam Tenderness The patient is experiencing tenderness in the ATF and lateral malleolus. Swelling: moderate Range of Motion Dorsiflexion: 0 Plantar flexion: 20 Eversion: 5 Inversion: 5 Other Erythema: absent Sensation: normal Pulse: present Comments: Moderate amount of swelling and ecchymosis noted at the lateral malleoli region extendingthrough midfoot. Positive tenderness with palpation and attempt at range of motion to lateral anklearea. Distal motor sensor intact with cap refill at 2 seconds. Flexor and extensor tendon function intact. Patient is also tender with palpation and any direct pressure to proximal lateral lower leg with mild discoloration and swelling present. No pain at this present over the knee, no limited range of motion due to knee pain. Image Results: XR ankle right 3+ views Narrative: Interpreted By: Genny Peñaloza, STUDY: XR ANKLE RIGHT 3+ VIEWS; 04/09/2024 11:59 am INDICATION: Signs/Symptoms:pain, injury, swelling. COMPARISON: None. ACCESSION NUMBER(S): [id number] ORDERING CLINICIAN: CARO WHITMAN FINDINGS: There is no evidence of acute fracture or dislocation. Ankle mortise is preserved. Diffuse soft tissue swelling is seen. No evidence for radiopaque foreign body. Impression: No acute fracture or dislocation. Diffuse soft tissue swelling. MACRO: None Signed by: Genny Peñaloza 04/10/2024 8:13 PM Dictation workstation: [id number] Assessment/Plan [facility] Work Phone: [phone]) 384-552309-11-2024 Evaluation + Plan note* Assessment & Plan Note - ANGEL Ramirez - 04/09/2024 12:53 PM EDTAssociated Problem(s): Nondisplaced oblique fracture of shaft of right fibula, initial encounter for closed fracture Patient has 2 doses of meloxicam from ED visit remaining, minimal improvement. Recommended symptom control with OTC ibuprofen taking 3 tablets 3 times daily with food for the next 3 days, then may decrease to to 2 tablets on as needed basis, Tylenol prn. Rest, ice, elevate and compression/brace with weight bearing activity, off with rest and sleep. Patient has good fit and support with walking boot with distal motor sensor intact. Recommend full-time use with any activity, may remove with rest and sleep as tolerated. Patient has crutches and was instructed to continue with nonweightbearing status. Patient also has a knee scooter at home, we discussed some use on this and pad to avoid any direct pressure on the fibula. Patient to obtain ankle x-rays on outpatient basis, discussed probability of moderate to high anklesprain versus fracture Follow up here 2 weeks with repeat imaging of tib-fib and ankle, sooner for changes or concerns. Patient in agreement with plan of care This note was generated using [employer] software. It may contain errors in wording, punctuation or spelling. [facility] Work Phone: [phone]) [phone] Miscellaneous Notes* Assessment & Plan Note - ANGEL Ramirez - 04/09/2024 12:53 PM EDTAssociated Problem(s): Nondisplaced oblique fracture of shaft of right fibula, initial encounter for closed fracture Patient has 2 doses of meloxicam from ED visit remaining, minimal improvement. Recommended symptom control with OTC ibuprofen taking 3 tablets 3 times daily with food for the next 3 days, then may decrease to to 2 tablets on as needed basis, Tylenol prn. Rest, ice, elevate and compression/brace with weight bearing activity, off with rest and sleep. Patient has good fit and support with walking boot with distal motor sensor intact. Recommend full-time use with any activity, may remove with rest and sleep as tolerated. Patient has crutches and was instructed to continue with nonweightbearing status. Patient also has a knee scooter at home, we discussed some use on this and pad to avoid any direct pressure on the fibula. Patient to obtain ankle x-rays on outpatient basis, discussed probability of moderate to high anklesprain versus fracture Follow up here 2 weeks with repeat imaging of tib-fib and ankle, sooner for changes or concerns. Patient in agreement with plan of care This note was generated using [employer] software. It may contain errors in wording, punctuation or spelling. documented in this [facility] Work Phone: [phone]) 517-548609-11-2024 History of Present illness Narrative* ANGEL Ramirez - 04/09/2024 11:30 AM EDT Subjective Patient ID: Cony Hart is a 33 y.o. female. Chief Complaint: Pain of the Right Leg HPI Cony is a pleasant 33-year-old female presenting for new patient evaluation of broken leg Patient was stepping down at a campground and slid and water, states that she twisted her right ankle inward and leg twisted up behind her. Sought ED eval that day. She was placed in a walking boot and crutches with nonweightbearing status. She was given a prescription for meloxicam which she has been taking with some improvement. Patient states she is frequently elevating and icing for symptom control. Accompanied by friend for today's visit. Review of Systems Constitutional: Negative. HENT: Negative. Respiratory: Negative. Cardiovascular: Negative. Endocrine: Negative. Musculoskeletal: Positive for arthralgias and gait problem. Skin: Negative. Hematological: Negative. Psychiatric/Behavioral: Negative. Objective Right Ankle Exam Tenderness The patient is experiencing tenderness in the ATF and lateral malleolus. Swelling: moderate Range of Motion Dorsiflexion: 0 Plantar flexion: 20 Eversion: 5 Inversion: 5 Other Erythema: absent Sensation: normal Pulse: present Comments: Moderate amount of swelling and ecchymosis noted at the lateral malleoli region extendingthrough midfoot. Positive tenderness with palpation and attempt at range of motion to lateral anklearea. Distal motor sensor intact with cap refill at 2 seconds. Flexor and extensor tendon function intact. Patient is also tender with palpation and any direct pressure to proximal lateral lower leg with mild discoloration and swelling present. No pain at this present over the knee, no limited range of motion due to knee pain. Image Results: XR tibia fibula right 2 views Narrative: Interpreted By: Kiki Narayan, STUDY: XR TIBIA FIBULA RIGHT 2 VIEWS; ; 04/04/2024 12:51 pm INDICATION: Signs/Symptoms:pain. COMPARISON: None. ACCESSION NUMBER(S): [id number] ORDERING CLINICIAN: FRAN REEVES FINDINGS: AP and lateral views were obtained. Oblique nondisplaced fractures present proximal shaft of the fibula. No fracture is noted in the tibia. Ankle and knee joints are intact. Impression: Nondisplaced oblique fracture proximal shaft of the right fibula MACRO: None Signed by: Kiki Narayan 04/04/2024 1:21 PM Dictation workstation: [id number] XR femur right 2+ views Narrative: Interpreted By: Kiki Narayan, STUDY: XR FEMUR RIGHT 2+ VIEWS; ; 04/04/2024 12:51 pm INDICATION: Signs/Symptoms:pain. COMPARISON: None. ACCESSION NUMBER(S): [id number] ORDERING CLINICIAN: FRAN REEVES FINDINGS: AP and lateral views were obtained. No fracture, dislocation or bone destruction is noted. Hip and knee joints are intact. Impression: No acute osseous abnormality MACRO: None Signed by: Kiki Narayan 04/04/2024 1:20 PM Dictation workstation: [id number] ED encounter x-rays reviewed during date of visit of tib-fib and femur. No acute injury of the femur as noted per radiology. Patient does have an oblique, nondisplaced fracture of the right fibula shaft. No ankle x-rays were obtained on date of injury, patient sent for imaging today. Independent reviewshows no acute fracture or misalignment, positive soft tissue swelling of the lateral aspect of theankle with questionable avulsion fracture to the distal fibula. Await radiology report Assessment/Plan Encounter Diagnoses: Problem List Items Addressed This Visit ICD-10-CM Ankle injury, right, initial encounter - Primary S99.911A Relevant Orders XR ankle right 3+ views Nondisplaced oblique fracture of shaft of right fibula, initial encounter for closed fracture S82.434A Patient has 2 doses of meloxicam from ED visit remaining, minimal improvement. Recommended symptom control with OTC ibuprofen taking 3 tablets 3 times daily with food for the next 3 days, then may decrease to to 2 tablets on as needed basis, Tylenol prn. Rest, ice, elevate and compression/brace with weight bearing activity, off with rest and sleep. Patient has good fit and support with walking boot with distal motor sensor intact. Recommend full-time use with any activity, may remove with rest and sleep as tolerated. Patient has crutches and was instructed to continue with nonweightbearing status. Patient also has a knee scooter at home, we discussed some use on this and pad to avoid any direct pressure on the fibula. Patient to obtain ankle x-rays on outpatient basis, discussed probability of moderate to high anklesprain versus fracture Follow up here 2 weeks with repeat imaging of tib-fib and ankle, sooner for changes or concerns. Patient in agreement with plan of care This note was generated using [employer] software. It may contain errors in wording, punctuation or spelling. Moderate ankle sprain, right, initial encounter S93.401A [facility] Work Phone: [phone]) [phone] Hospital Discharge instructions* Discharge Instructions* Fran Reeves PA-C - 04/04/2024 1:27 PM EDT You have broken the fibula in your leg. This is a nonweightbearing bone on the outside of your leg.You need to stay in the walking boot and use crutches until further directed by medical records specialist. I recommend Tylenol Motrin for pain. Use as directed. * Attachments The following attachments cannot be sent through Care Everywhere. * Lower Leg Fracture ED ([facility]) [facility] Work Phone: 1(114) 134-568107-22-2024 [facility] Medical Records Department [address] [place] [address] History Physical Exam 02/18/24 0943 MR#: [id number] Acct: [id number] Name: CONY HART Rep #: [id number] : 1990 33 From: Juan Alberto Friend DO PCP: Dr. Radha Calloway MD Status:[facility] Location: [place] [address] History and Physical Date of Admission: 02/18/24 CONY HART, is a 33 F who presents to the office today for follow up. [facility] established 07.04.21 to establish care for Crohn???s disease diagnosed in 2009. Maintained on oral medications until they stopped working and she was started on Humira Q2W. Entyvio preferred, however her migraine history prevented this. At time of presentation she was having a flare with symptoms of loose stools with mucous and blood and stomach discomfort.??? EGD and colonoscopy 07.28.21.???EGD LA grade A reflux esophagitis; Erythematous mucosa in stomach, gastritis and duodenopathy; focal granuloma formation of pylorus. H.Pylori negative.??? Colonoscopy Endoscopic Crohn???s disease score 40 with ileitis and colitis; Multiple ulcers in TI; chronic, active colitis; hyperplastic polyp of RS colon. Pathology findings consistent with Crohn???s Disease.??? OV 08.11.21 Diarrhea has resolved since the start of prednisone. She did not increase Humira to weekly as updating phone call was not completed due to phone issues. Continues PPI and Carafate therapy without side effects.???Start Azathioprine??? OV 09.22.21 with continued improvement: Notes positive weight loss, PO intake improvement, solid stools.??? Biochemical workup 09.23.21 CBC WBC elevated 14.0, CMP, LFT, AST [id number], Alk phos decreased 42, CRP elevated 7.97, lipase decreased 60.??? OV 11.21.21 Reports that her stomach is feeling well, diarrhea has resolved for the last couple of months. Continues to take Humira Qweek, azathioprine. Reports pain/discomfort in her knees, has a history of juvenile arthritis. Knows that L knee has no fluid sac. PCP discussed who felt it was r/t inflammation; Cony does not feel this presents as typical inflammation to her. Recently received her new CPAP; since receipt of this she has had multiple episodes of bedwetting which is worse since starting CPAP.??? OV 7.22 experienced interruption of therapy r/t pharmacy delivery and has had some tenesmus with urgency without bleed or diarrhea.?Bloodwork performed after office visit with concern r/t WBC 12.2 and 12.2 blast cells; power station operator consulted and recommendation made to go to ED.??? [facility] ED 02.14.22 with normal bloodwork and she was discharged home.??? [facility] ED .. with watery diarrhea with sweating, chills, nausea and dry heaves.???Vancomycin.??? OV 9.22 continues with Humira weekly and feels she is doing well.??? OV 1.. Humira reduced to QOW and she is doing well without return of symptoms.??? OV 4. she is having some pain following lancing of abscess on buttock. Reports some intentional weight loss. Denies vision changes, joint pain, loose stools, abdominal pain. ? ESR/CRP? Butch/Lact? Humira/Ab? WBC/Blast??? 12.15.21 46/71.9? 1229/+? --/--? 17.2/--? Humira QW. ANCA, celiac WNL??? 01.13.22 26/--? --/--? --/--? 19.2/--? Start Aza. IBD Crohn???s +??? 07.18.22 12/7.97? --/--? --/--? 12.2/12.2??? 09.28.22 22/12.5? --/+? 3.2/none? 13.5/--??? 01.04.23 15/7.01? --/--? 3.4/none? 12.6/--? Humira changed to QOW??? 09.26.23 13/H9.03 H609/+ 2.1/43 H12.5/-- 01.23.24 4/H5.58 --/-- pending --/-- ? OV 04.11.23 Pt doing very well since last visit. Denies abdominal pain, nausea, and diarrhea. Some intermittent cramping but overall is very well. OV 11.21.23 Pt says she is doing well. Denies abdominal pain, nausea, and diarrhea. Has not needed to take zofran. Continues taking Humira. OV 7. (more content not included)...[facility]11-16-2023 NoteHNO ID: [id number] Author: Joanna Freitas APRN.LEAD FABRICATOR Service: ? Author Type: Nurse Practitioner Type: Progress Notes Filed: 06/14/2023 7:37 PM Note Text: Triage Note: WOO Hrat is a 33 year old female who [...] have confirmed and edited as necessary, the [facility] ASSESSMENT/PLAN: 1. Numbness and tingling in right hand - ICD9: 782.0, ICD10: R20.0, R20.2 Due to nature of patient's complaint and lack of investigative tools available at [facility], recommend patient be seen at nearest ED for further work up of right hand numbness, lack of ROM, cold to touch. Patient given directions to [facility]. Diagnosis and treatment plan were discussed and questions were answered to the patient's satisfaction. Pt acknowledged understanding of concepts and follow up plan. Specific signs and symptoms that would indicate the need for higher level of care were discussed in detail warranting prompt ER evaluation. Joanna Freitas APRN.[facility]-16-2023 History of Present illness Narrative* Joanna Freitas APRN.LEAD FABRICATOR - 06/14/2023 7:30 PM EST Triage Note: WOO Hart is a 33 year old female who presents today for CC of numbness, tingling, andlack of function of right hand. Patient has [...] have confirmed and edited as necessary, the [facility] ASSESSMENT/PLAN: 1. Numbness and tingling in right hand - ICD9: 782.0, ICD10: R20.0, R20.2 Due to nature of patient's complaint and lack of investigative tools available at [facility], recommend patient be seen at nearest ED for further work up of right hand numbness, lack of ROM, cold to touch. Patient given directions to [facility]. Diagnosis and treatment plan were discussed and questions were answered to the patient's satisfaction. Pt acknowledged understanding of concepts and follow up plan. Specific signs and symptoms that would indicate the need for higher level of care were discussed indetail warranting prompt ER evaluation. Joanna Freitas APRN.HOMER [facility] Author AA Amor Sandoval [facility] Note Date/Time January 09, 2025 1:57 pm [facility] Medical Records Department [address] [place] [address] Anesthesia Postop Eval I 01/09/25 1356 MR#: [id number] Acct: [id number] Name: CONY HART Rep # :[id number] : 1990 34 From: Amor Sandoval PCP: Dr. Radha Calloway MD Status:REG [facility] Y Race: C Location: [place] [address] Anesthesia: Postop Eval I Current Vital Signs Temperature: 97.9 F Pulse Rate: 64 Blood Pressure: 116/95 Respiratory Rate: 16 Pulse Ox: 98 Oxygen Delivery Method: Room Air Assessment Airway patent: Yes Spontaneous unlabored respirations: Yes Mental status: Awake and Calm nausea: No Vomiting: No Anesthesia Complication: No Fluid Hydration Crystalloid volume administer (ml): 300 Total IV fluid infused: 300 Progress Note Anesthesia document: Postop Eval 1 completed: Yes 01/09/25 135 <Electronically signed by Amor Sandoval > Date _ Amor Allenignkarina Signature: Date CC: ~ Signed [facility] Work Phone: Evaluation note* Diagnosis Onset Date Resolution Status Asthma acute Nicotine dependence, cigarettes, uncomplicated acute ALEXANDRA (obstructive sleep apnea) acute Crohns disease chronic Crohns disease chronic Hip pain acute Sacroiliac joint dysfunction of right side acute Asthma acute BMI 39.0-39.9,adult acute ALEXANDRA (obstructive sleep apnea) acute Posttraumatic stress disorder [facility] Work Phone: Evaluation note* Diagnosis Onset Date Resolution Status Crohns disease chronic Hip pain acute Sacroiliac joint dysfunction of right side acute Asthma acute BMI 39.0-39.9,adult acute ALEXANDRA (obstructive sleep apnea) acute Posttraumatic stress disorder chronic Back pain acute Scoliosis acute Segmental and somatic dysfunction of cervical region acute Segmental and somatic dysfunction of lumbar region acute Segmental and somatic dysfunction of pelvic region acute Segmental and somatic dysfunction of thoracic region acute Right hip impingement syndrome acute Sacroiliac joint dysfunction of right side acute Chronic right hip pain chron ic [facility] Work Phone: Evaluation note* Diagnosis Onset Date Resolution Status Crohns disease chronic Hip pain acute Sacroiliac joint dysfunction of right side acute Asthma acute BMI 39.0-39.9,adult acute ALEXANDRA (obstructive sleep apnea) acute Posttraumatic stress disorder chronic Back pain acute Scoliosis acute Segmental and somatic dysfunction of cervical region acute Segmental and somatic dysfunction of lumbar region acute Segmental and somatic dysfunction of pelvic region acute Segmental and somatic dysfunction of thoracic region acute Right hip impingement syndrome acute Sacroiliac joint dysfunction of right side acute Chronic right hip pain chron ic Crohns disease [facility] Work Phone: Evaluation note* Diagnosis Onset Date Resolution Status Hip pain acute Sacroiliac joint dysfunction of right side acute Asthma acute BMI 39.0-39.9,adult acute ALEXANDRA (obstructive sleep apnea) acute Posttraumatic stress disorder chronic Back pain acute Scoliosis acute Segmental and somatic dysfunction of cervical region acute Segmental and somatic dysfunction of lumbar region acute Segmental and somatic dysfunction of pelvic region acute Segmental and somatic dysfunction of thoracic region acute Right hip impingement syndrome acute Sacroiliac joint dysfunction of right side acute Chronic right hip pain chron ic Crohns disease chronic Neutrophilic leukocytosis ch ronic [facility] Work Phone: Evaluation note* Diagnosis Onset Date Resolution Status Back pain acute Scoliosis acute Segmental and somatic dysfunction of cervical region acute Segmental and somatic dysfunction of lumbar region acute Segmental and somatic dysfunction of pelvic region acute Segmental and somatic dysfunction of thoracic region acute Right hip impingement syndrome acute Sacroiliac joint dysfunction of right side acute Chronic right hip pain chron ic Crohns disease chronic Neutrophilic leukocytosis ch ronic Epilepsy, unspecified, not i ntractable, without status epilepticus chronic Crohns disease [facility] Work Phone: Evaluation note* Diagnosis Onset Date Resolution Status Epilepsy, unspecified, not i ntractable, without status epilepticus chronic Crohns disease chronic Labral tear of right hip joint acute Right hip impingement syndrome acute Chronic right hip pain chron ic Neutrophilic leukocytosis re solved Neutrophilic leukocytosis re solved Asthma acute Nicotine dependence, cigarettes, uncomplicated acute ALEXANDRA (obstructive sleep apnea) acute Hand pain acute Crohns disease [facility] Work Phone: Evaluation note* Diagnosis Onset Date Resolution Status Hand pain acute Crohns disease chronic Gluteal abscess acute Hand pain acute Crohns disease [facility] Work Phone: Evaluation note* Diagnosis Onset Date Resolution Status Back pain acute Segmental and somatic dysfunction of cervical region acute Segmental and somatic dysfunction of lumbar region acute Segmental and somatic dysfunction of pelvic region acute Segmental and somatic dysfunction of thoracic region acute Scoliosis chronic Hand pain acute Crohns disease chronic Epilepsy, unspecified, not i ntractable, without status epilepticus [facility] Work Phone: Evaluation note* Diagnosis Numbness and tingling in right hand- Primary Disturbance of skin sensation [facility]No assessment information availableWSelect [facility] Work Phone: Evaluation note* Diagnosis Nondisplaced oblique fracture of shaft of right fibula, initial encounter for closed fracture- Primary Ankle injury, right, initial encounter Moderate ankle sprain, right, initial encounter Nondisplaced oblique fracture of shaft of right fibula, initial encounter for closed fracture- Primary Moderate ankle sprain, right, initial encounter Nondisplaced oblique fracture of shaft of right fibula, initial encounter for closed fracture Moderate ankle sprain, right, initial encounter documented in this encounter [facility] Work Phone: Evaluation note* Diagnosis Nondisplaced oblique fracture of shaft of right fibula, initial encounter for closed fracture- Primary Ankle injury, right, initial encounter Moderate ankle sprain, right, initial encounter Nondisplaced oblique fracture of shaft of right fibula, initial encounter for closed fracture- Primary Moderate ankle sprain, right, initial encounter History of fibula fracture History of fibula fracture documented in this encounter [facility] Work Phone: Evaluation note* Diagnosis Nondisplaced oblique fracture of shaft of right fibula, initial encounter for closed fracture- Primary Ankle injury, right, initial encounter Moderate ankle sprain, right, initial encounter Nondisplaced oblique fracture of shaft of right fibula, initial encounter for closed fracture- Primary Moderate ankle sprain, right, initial encounter High ankle sprain of right lower extremity, subsequent encounter- Primary Nondisplaced oblique fracture of shaft of right fibula, initial encounter for closed fracture History of fibula fracture documented in this encounter [facility] Work Phone: Evaluation note* Diagnosis Nondisplaced oblique fracture of shaft of right fibula, initial encounter for closed fracture- Primary Ankle injury, right, initial encounter Moderate ankle sprain, right, initial encounter Nondisplaced oblique fracture of shaft of right fibula, initial encounter for closed fracture- Primary Moderate ankle sprain, right, initial encounter High ankle sprain of right lower extremity, subsequent encounter- Primary Nondisplaced oblique fracture of shaft of right fibula, initial encounter for closed fracture Nondisplaced oblique fracture of shaft of right fibula, initial encounter for closed fracture documented in this encounter [facility] Work Phone: Evaluation note* Diagnosis Nondisplaced oblique fracture of shaft of right fibula, initial encounter for closed fracture- Primary Ankle injury, right, initial encounter Moderate ankle sprain, right, initial encounter Nondisplaced oblique fracture of shaft of right fibula, initial encounter for closed fracture- Primary Moderate ankle sprain, right, initial encounter High ankle sprain of right lower extremity, subsequent encounter- Primary Nondisplaced oblique fracture of shaft of right fibula, initial encounter for closed fracture Nondisplaced oblique fracture of shaft of right fibula, initial encounter for closed fracture- Primary Moderate ankle sprain, right, initial encounter documented in this encounter [facility] Work Phone: Evaluation note* Diagnosis Nondisplaced oblique fracture of shaft of right fibula, initial encounter for closed fracture- Primary Ankle injury, right, initial encounter Moderate ankle sprain, right, initial encounter Nondisplaced oblique fracture of shaft of right fibula, initial encounter for closed fracture- Primary Moderate ankle sprain, right, initial encounter High ankle sprain of right lower extremity, subsequent encounter- Primary Nondisplaced oblique fracture of shaft of right fibula, initial encounter for closed fracture Nondisplaced oblique fracture of shaft of right fibula, initial encounter for closed fracture- Primary Moderate ankle sprain, right, initial encounter High ankle sprain of right lower extremity, subsequent encounter- Primary Right fibular fracture Nondisplaced oblique fracture of shaft of right fibula, initial encounter for closed fracture documented in this encounter [facility] Work Phone: Evaluation note* Diagnosis Nondisplaced oblique fracture of shaft of right fibula, initial encounter for closed fracture- Primary Ankle injury, right, initial encounter Moderate ankle sprain, right, initial encounter Nondisplaced oblique fracture of shaft of right fibula, initial encounter for closed fracture- Primary Moderate ankle sprain, right, initial encounter High ankle sprain of right lower extremity, subsequent encounter- Primary Nondisplaced oblique fracture of shaft of right fibula, initial encounter for closed fracture Nondisplaced oblique fracture of shaft of right fibula, initial encounter for closed fracture- Primary Moderate ankle sprain, right, initial encounter High ankle sprain of right lower extremity, subsequent encounter- Primary Right fibular fracture Nondisplaced oblique fracture of shaft of right fibula, initial encounter for closed fracture Right fibular fracture documented in this encounter [facility] Work Phone: Evaluation note* Diagnosis Nondisplaced oblique fracture of shaft of right fibula, initial encounter for closed fracture- Primary Ankle injury, right, initial encounter Moderate ankle sprain, right, initial encounter Nondisplaced oblique fracture of shaft of right fibula, initial encounter for closed fracture- Primary Moderate ankle sprain, right, initial encounter High ankle sprain of right lower extremity, subsequent encounter- Primary Nondisplaced oblique fracture of shaft of right fibula, initial encounter for closed fracture Nondisplaced oblique fracture of shaft of right fibula, initial encounter for closed fracture- Primary Moderate ankle sprain, right, initial encounter High ankle sprain of right lower extremity, subsequent encounter- Primary Right fibular fracture Nondisplaced oblique fracture of shaft of right fibula, initial encounter for closed fracture Nondisplaced oblique fracture of shaft of right fibula, initial encounter for closed fracture- Primary Moderate ankle sprain, right, initial encounter documented in this encounter [facility] Work Phone: Evaluation note* Diagnosis Closed fracture of proximal end of right fibula, unspecified fracture morphology, initial encounter- Primary documented in this encounter [facility] Work Phone: Evaluation note* Diagnosis Nondisplaced oblique fracture of shaft of right fibula, initial encounter for closed fracture- Primary Ankle injury, right, initial encounter Moderate ankle sprain, right, initial encounter documented in this encounter [facility] Work Phone: Evaluation note* Diagnosis Nondisplaced oblique fracture of shaft of right fibula, initial encounter for closed fracture- Primary Ankle injury, right, initial encounter Moderate ankle sprain, right, initial encounter Ankle injury, right, initial encounter documented in this encounter [facility] Work Phone: Evaluation note* Diagnosis Nondisplaced oblique fracture of shaft of right fibula, initial encounter for closed fracture- Primary Ankle injury, right, initial encounter Moderate ankle sprain, right, initial encounter Ankle injury, right, initial encounter Nondisplaced oblique fracture of shaft of right fibula, initial encounter for closed fracture documented in this encounter [facility] Work Phone: Evaluation note* Diagnosis Nondisplaced oblique fracture of shaft of right fibula, initial encounter for closed fracture- Primary Ankle injury, right, initial encounter Moderate ankle sprain, right, initial encounter Nondisplaced oblique fracture of shaft of right fibula, initial encounter for closed fracture- Primary Moderate ankle sprain, right, initial encounter documented in this encounter [facility] Work Phone: Evaluation note* Diagnosis Nondisplaced oblique fracture of shaft of right fibula, initial encounter for closed fracture- Primary Ankle injury, right, initial encounter Moderate ankle sprain, right, initial encounter Nondisplaced oblique fracture of shaft of right fibula, initial encounter for closed fracture- Primary Moderate ankle sprain, right, initial encounter High ankle sprain of right lower extremity, subsequent encounter- Primary Nondisplaced oblique fracture of shaft of right fibula, initial encounter for closed fracture Nondisplaced oblique fracture of shaft of right fibula, initial encounter for closed fracture- Primary Moderate ankle sprain, right, initial encounter High ankle sprain of right lower extremity, subsequent encounter- Primary Right fibular fracture Nondisplaced oblique fracture of shaft of right fibula, initial encounter for closed fracture Nondisplaced oblique fracture of shaft of right fibula, initial encounter for closed fracture- Primary Moderate ankle sprain, right, initial encounter Ankle injury, right, sequela Nondisplaced oblique fracture of shaft of right fibula, sequela documented in this encounter [facility] Work Phone: Evaluation note* Diagnosis Nondisplaced oblique fracture of shaft of right fibula, initial encounter for closed fracture- Primary Ankle injury, right, initial encounter Moderate ankle sprain, right, initial encounter Nondisplaced oblique fracture of shaft of right fibula, initial encounter for closed fracture- Primary Moderate ankle sprain, right, initial encounter High ankle sprain of right lower extremity, subsequent encounter- Primary Nondisplaced oblique fracture of shaft of right fibula, initial encounter for closed fracture Nondisplaced oblique fracture of shaft of right fibula, initial encounter for closed fracture- Primary Moderate ankle sprain, right, initial encounter High ankle sprain of right lower extremity, subsequent encounter- Primary Right fibular fracture Nondisplaced oblique fracture of shaft of right fibula, initial encounter for closed fracture Nondisplaced oblique fracture of shaft of right fibula, initial encounter for closed fracture- Primary Moderate ankle sprain, right, initial encounter Ankle injury, right, sequela Nondisplaced oblique fracture of shaft of right fibula, sequela Nondisplaced oblique fracture of shaft of right fibula, sequela documented in this encounter [facility] Work Phone: Evaluation note* Diagnosis Nondisplaced oblique fracture of shaft of right fibula, initial encounter for closed fracture- Primary Ankle injury, right, initial encounter Moderate ankle sprain, right, initial encounter Nondisplaced oblique fracture of shaft of right fibula, initial encounter for closed fracture- Primary Moderate ankle sprain, right, initial encounter High ankle sprain of right lower extremity, subsequent encounter- Primary Nondisplaced oblique fracture of shaft of right fibula, initial encounter for closed fracture Nondisplaced oblique fracture of shaft of right fibula, initial encounter for closed fracture- Primary Moderate ankle sprain, right, initial encounter High ankle sprain of right lower extremity, subsequent encounter- Primary Right fibular fracture Nondisplaced oblique fracture of shaft of right fibula, initial encounter for closed fracture Nondisplaced oblique fracture of shaft of right fibula, initial encounter for closed fracture- Primary Moderate ankle sprain, right, initial encounter Ankle injury, right, sequela Nondisplaced oblique fracture of shaft of right fibula, sequela Ankle injury, right, sequela documented in this encounter [facility] Work Phone: Evaluation note* Diagnosis Nondisplaced oblique fracture of shaft of right fibula, initial encounter for closed fracture- Primary Ankle injury, right, initial encounter Moderate ankle sprain, right, initial encounter Nondisplaced oblique fracture of shaft of right fibula, initial encounter for closed fracture- Primary Moderate ankle sprain, right, initial encounter High ankle sprain of right lower extremity, subsequent encounter- Primary Nondisplaced oblique fracture of shaft of right fibula, initial encounter for closed fracture Nondisplaced oblique fracture of shaft of right fibula, initial encounter for closed fracture- Primary Moderate ankle sprain, right, initial encounter High ankle sprain of right lower extremity, subsequent encounter- Primary Right fibular fracture Nondisplaced oblique fracture of shaft of right fibula, initial encounter for closed fracture Nondisplaced oblique fracture of shaft of right fibula, initial encounter for closed fracture- Primary Moderate ankle sprain, right, initial encounter Ankle injury, right, sequela Nondisplaced oblique fracture of shaft of right fibula, sequela Ankle injury, right, sequela documented in this encounter [facility] Work Phone: Evaluation note* Diagnosis Nondisplaced oblique fracture of shaft of right fibula, initial encounter for closed fracture- Primary Ankle injury, right, initial encounter Moderate ankle sprain, right, initial encounter Nondisplaced oblique fracture of shaft of right fibula, initial encounter for closed fracture- Primary Moderate ankle sprain, right, initial encounter High ankle sprain of right lower extremity, subsequent encounter- Primary Nondisplaced oblique fracture of shaft of right fibula, initial encounter for closed fracture Nondisplaced oblique fracture of shaft of right fibula, initial encounter for closed fracture- Primary Moderate ankle sprain, right, initial encounter High ankle sprain of right lower extremity, subsequent encounter- Primary Right fibular fracture Nondisplaced oblique fracture of shaft of right fibula, initial encounter for closed fracture Nondisplaced oblique fracture of shaft of right fibula, initial encounter for closed fracture- Primary Moderate ankle sprain, right, initial encounter Ankle injury, right, sequela Nondisplaced oblique fracture of shaft of right fibula, sequela Ankle injury, right, sequela Ankle injury, right, sequela documented in this encounter [facility] Work Phone: History and physical note Author Juan Alberto Rutledge [facility] Note Date/Time January 09, 2025 1:19 pm [facility] Medical Records Department [address] [place] [id number] History & Physical Exam 01/09/25 1317 MR#: [id number] Acct: [id number] Name: CONY HART Rep # :[id number] : 1990 34 From: Juan Alberto Rutledge DO PCP: Dr. Radha Calloway MD Status:[facility] Location: [place] [address] HPI - General General Date of Admission: 01/09/25 Date of Service: 01/09/25 Chief Complaint: Dysphagia HPI Narrative CONY HART, is a 34 F who presents I established in 2020 for Crohns disease diagnosed in 2009 treated with oral medications and then transitioned to Humira. EGD and colonoscopy 07.28.21. EGD LA grade A reflux esophagitis; Erythematous mucosa in stomach, gastritis and duodenopathy; focal granuloma formation of pylorus. H.Pylori negative. Colonoscopy Endoscopic Crohn?s disease score 40 with ileitis and colitis; Multiple ulcers in TI; chronic, active colitis; hyperplastic polyp of RS colon. Pathology findings consistent with Crohn?s Disease. Last OV 08.06.24 Pt doing well with no flares in her disease. Occasional issues with swallowing. Feels Humira working well for her. Calprotectin 1.13.25; 1360 CRP 1.8.25; <2.9 ESR 1.8.25; 12 *Attempted to contact pt regarding recommendation to switch biologic therapy dueto uncontrolled inflammation and antibodies to Humira. Last OV 10.23.24 Pt continues to episodes of urgent loose stools. This is not happening on a daily basis. She continues to have difficulty with swallowing. PPI is no longer helping with this. Start Skyrizi, EGD and increase PPI. EGD; not yet completed OV 01.08.25 Pt has had two infusions of the Skyrizi so far and her next one is next month. She denies any diarrhea or blood in her stool. She feels it may be working well. [facility] Medical History Bipolar disorder Juvenile arthritis Epilepsy, unspecified, not intractable, without status epilepticus Seizures Wears glasses History of Crohn's disease CPAP (continuous positive airway pressure) dependence Sleep apnea Asthma Anxiety Depression Lumbago Dysmenorrhea Enuresis, nonorganic Seizures Back problem Arthritis Anemia Crohns disease Bipolar disorder Home Medications ?Medication ?Instructions ?Recorded ?Last Taken ?Type albuterol sulfate 90 mcg/actuation 2 puff inhalation Q 4H PRN 12/15/21 Unknown Rx aerosol inhaler shortness of breath or wheez ing #8.5 grams fluconazole 100 mg tablet 100 mg PO DAILY #14 tabs Unknown Rx metronidazole 500 mg tablet 500 mg PO TID #56 tabs Unknown Rx Skyrizi 600mg/ 10ml 600 mg IV .COMPLEX #10 mL Unknown Rx pantoprazole 40 mg tablet,delayed 40 mg PO BID #60 tab s 11/19/24 Unknown Rx release Allergy/AdvReac Type Severity Reaction Status Date / Time almond (almonds) Allergy Severe Anaphylaxis Verified 01/06/25 13:41 Family History Father Suicide Mother Diabetes OCD (obsessive compulsive disorder) Depression Bipolar disorder (manic depression) Grandmother Diabetes Uncle Bowel disease Grandfather Colon cancer maternal - 2004 Other Anxiety Arthritis Epilepsy Surgical History History of esophagogastroduodenoscopy (EGD) History of colonoscopy History of bladder surgery History of wisdom tooth extraction History of cystoscopy Social History Smoking Status: Current every day smoker tobacco type: cigarettes Tobacco: How many years used: 5 second hand exposure: No alcohol intake: current details: social on weekends substance use type: does not use what type of physical activity do you participate in: none martin/zoroastrianism: None seatbelt use: always ROS Constitutional Constitutional: Denies fatigue, fever(s), poor appetite, weight gain or weight loss Gastrointestinal Gastrointestinal: Denies belching, bloating, change in bowel habits, change in stool character, chewing difficulty, coffee ground emesis, constipation, cramping, diarrhea, dyspepsia, dysphagia, early satiety, excessive flatus, fecalincontinence, heartburn, hematemesis, hematochezia, hemorrhoids, loose stools, melena, nausea, odynophagia, rectal bleeding, tenesmus, vomiting or weight changes Vital Signs Vital Signs Vital Signs: 01/09/25 11:50 01/09/25 11:50 Temperature 98.6 F Temperature Source Temporal Pulse Rate 59 L Respiratory Rate 16 Respiratory Pattern Normal Blood Pressure 101/56 L Blood Pressure Mean 71 Blood Pressure Source Monitor Blood Pressure Position Supine Blood Pressure Location Right Arm Pulse Ox 99 Oxygen Delivery Method Room Air Weight Weight: 233 lb 11.04 oz Body Mass Index (BMI) 33.4 Physical Exam Const alert, oriented x3, no apparent distress and healthy appearing General Appearance: cooperative GI normal to inspection, nondistended, normoactive bowel sounds, soft to palpation,non-tender and non-distended Percussion: normal to percussion Rectal Exam: deferred Results Lab / Micro Data Labs: Laboratory Results - last 24 hr 01/09/25 11:50: Urine Test Negative Assessment & Plan Assessment/Plan (1) Dysphagia: PLAN: Assessment and Plan Assessment and Plan (1) Dysphagia: Status: Acute Plan: Cony is a 34 yo female pt here today for f/u regarding her Crohns. Pt was diagnosed in 2006 and has been in Humira since 2011. Pt recently developed antibodies and calprotectin in the 1000s. Humira discontinued and she was started on Skyrizi. She has had two infusions so far and feels well. Her next infusion is in one month and then well start with injections q8 weeks. Will re check calprotectin, ESR, and CRP at f/u after she has been on skyrizi for three months. She has been having intermittent issues with swallowing issues and was scheduled for EGD following her last appointment. She is having the EGD tomorrowand will update her regarding results after. -Continue Skyrizi -Repeat Calprotectin, ESR and CRP in 3 months -EGD -f/u in 6 months (2) Crohns disease: Status: Chronic Comment: Diagnosed 200601/09/25 3785 <Electronically signed by Juan Alberto Rutledge DO> Cosigner Signature (if applicable): CC: Dr. Radha Calloway MD; Juan Alberto Rutledge DO~ Signed [facility] Work Phone: [facility] Work Phone: Hospital Discharge instructions Additional Instructions Your blast cells were normal on the lab work today. Please follow-up outpatient with hematology for further monitoring. You have been given the information to call. You are safe to go home today. No signs of cancer in your blood work today.[facility] Work Phone: Hospital Discharge instructions Additional Instructions Take Pepto-Bismol as needed for diarrhea. You will be treated for C. difficile even though your stool culture is not back. Follow-up with Dr. Rutledge. Do not take Imodium unless instructed to by Dr. Rutledge. Make sure you are drinking lots of fluids and electrolyte solution with potassium in it.[facility] Work Phone: Reason for referral (narrative)* Consultation (Routine) - Pending Review Specialty Diagnoses / Procedures Referred By Sanket kamara Referred To Contact Physical Therapy Diagnoses Nondisplaced oblique fracture of shaft of right fibula, initial encounter for closed fracture Caro Whitman, VAMP CUT OUT WORKER-LEAD FABRICATOR [address] [facility], [place] [id number] Referral ID Status Reason Start Date Expiration Date Visits Requested Visits Authorized [id number] Pending Review Consult and Treat 2024 2025 1 1 [facility] Work Phone: Reason for referral (narrative)* Consultation (Routine) - Authorized Specialty Diagnoses / Procedures Referred By Sanket kamara Referred To Contact Orthopaedic Surgery / Orthopedic Surgery Diagnoses Ankle injury, right, initial encounter Nondisplaced oblique fracture of shaft of right fibula, initial encounter for closed fracture Moderate ankle sprain, right, initial encounter Procedures Follow Up In Orthopaedic Surgery Caro Whitman, VAMP CUT OUT WORKER-HOMER [address] [facility], [place] [address] Referral ID Status Reason Start Date Expiration Date V isits Requested Visits Authorized [id number] Authorized 04/09/2024 04/09/2025 1 1 * Imaging (Routine) - Authorized Specialty Diagnoses / Procedures Referred By Sanket kamara Referred To Contact Radiology Diagnoses Ankle injury, right, initial encounter Procedures XR ankle right 3+ views Caro Whitman, VAMP CUT OUT WORKER-LEAD FABRICATOR [address] [facility], [place] [id number] Referral ID Status Reason Start Date Expiration Date Visits Requested Visits Authorized [id number] Authorized Perform Procedure 04/09/2024 04/09/2025 1 1 [facility] Work Phone: Reason for referral (narrative)No reason for referral information availableW[facility] Work Phone: Reason for visit Narrative* Imaging (Routine) - Authorized Specialty Diagnoses / Procedures Referred By Contac t Referred To Contact Radiology Diagnoses Nondisplaced oblique fracture of shaft of right fibula, initial encounter for closed fracture Procedures XR tibia fibula right 2 views Caro Whitman, VAMP CUT OUT WORKER-LEAD FABRICATOR [address] [facility], [place] [address] Phone: tel: fax: Referral ID Status Reason Start Date Expiration Date Visits Requested Visits Authorized [id number] Authorized Perform Procedure 4 05/26/2025 1 1 [facility] Work Phone: Reason for visit Narrative* Imaging (Routine) - Authorized Specialty Diagnoses / Procedures Referred By Contac t Referred To Contact Radiology Diagnoses Right fibular fracture Procedures XR tibia fibula right 2 views Caro Whitman, VAMP CUT OUT WORKER-LEAD FABRICATOR [address] [facility], [place] [address] Phone: tel: fax: [facility] [place] [address] Referral ID Status Reason Start Date Expiration Date Visits Requested Visits Authorized [id number] Authorized Perform Procedure 4 06/19/2025 1 1 [facility] Work Phone: Relapw for visit Narrative* Imaging (Routine) - Authorized Specialty Diagnoses / Procedures Referred By Contac t Referred To Contact Radiology Diagnoses Nondisplaced oblique fracture of shaft of right fibula, sequela Procedures XR tibia fibula right 2 views Delilah Aranda MD [address] [place] [address] Phone: tel: fax: [place] [address] [place] [address] Referral ID Status Reason Start Date Expiration Date Visits Requested Visits Authorized [id number] Authorized Perform Procedure 08/06/2024 08/06/2025 1 1 [facility] Work Phone: reason for visit Narrative* Imaging (Routine) - Authorized Specialty Diagnoses / Procedures Referred By Contac t Referred To Contact Radiology Diagnoses Ankle injury, right, sequela Procedures XR ankle right 3+ views Delilah Aranda MD [address] [place] [address] Phone: tel: fax: [facility] [address] [place] [address] Referral ID Status Reason Start Date Expiration Date Visits Requested Visits Authorized [id number] Authorized Perform Procedure 08/06/2024 08/06/2025 1 1 [facility] Work Phone: Chief Complaint and Reason for Visit Chief Complaint 6 M FU 6 wk FU INT LABS 2 Month f/u Bilat hips xray 3 M FU HIP PAIN/RX HERE Reason for Visit Asthma Nicotine dependence, cigarettes, uncomplicated ALEXANDRA (obstructive sleep apnea) Crohns disease Crohns disease Hip pain Sacroiliac joint dysfunction of right side Asthma BMI 39.0-39.9,adult ALEXANDRA (obstructive sleep apnea) Posttraumatic stress disorder Chief Complaint 2 Month f/u Bilat hips xray 3 M FU HIP PAIN/RX HERE Back pain Lumbar spine HEADACHE Reason for Visit Crohns disease Hip pain Sacroiliac joint dysfunction of right side Asthma BMI 39.0-39.9,adult ALEXANDRA (obstructive sleep apnea) Posttraumatic stress disorder Back pain Scoliosis Segmental and somatic dysfunction of cervical region Segmental and somatic dysfunction of lumbar region Segmental and somatic dysfunction of pelvic region Segmental and somatic dysfunction of thoracic region Right hip impingement syndrome Sacroiliac joint dysfunction of right side Chronic right hip pain Chief Complaint 2 Month f/u Bilat hips xray 3 M FU HIP PAIN/RX HERE Back pain Lumbar spine HEADACHE 3 MO FU E ORDER ABN LABS Reason for Visit Crohns disease Hip pain Sacroiliac joint dysfunction of right side Asthma BMI 39.0-39.9,adult ALEXANDRA (obstructive sleep apnea) Posttraumatic stress disorder Back pain Scoliosis Segmental and somatic dysfunction of cervical region Segmental and somatic dysfunction of lumbar region Segmental and somatic dysfunction of pelvic region Segmental and somatic dysfunction of thoracic region Right hip impingement syndrome Sacroiliac joint dysfunction of right side Chronic right hip pain Crohns disease Chief Complaint Bilat hips xray 3 M FU HIP PAIN/RX HERE Back pain Lumbar spine HEADACHE 3 MO FU E ORDER ABN LABS F/U PER DR FRIEND GENERAL ILLNESS Reason for Visit Hip pain Sacroiliac joint dysfunction of right side Asthma BMI 39.0-39.9,adult ALEXANDRA (obstructive sleep apnea) Posttraumatic stress disorder Back pain Scoliosis Segmental and somatic dysfunction of cervical region Segmental and somatic dysfunction of lumbar region Segmental and somatic dysfunction of pelvic region Segmental and somatic dysfunction of thoracic region Right hip impingement syndrome Sacroiliac joint dysfunction of right side Chronic right hip pain Crohns disease Neutrophilic leukocytosis Chief Complaint HIP PAIN/RX HERE Back pain Lumbar spine HEADACHE 3 MO FU E ORDER ABN LABS F/U PER DR RUTLEDGE GENERAL ILLNESS RIGHT HIP PAIN one year follow up 3 MO FU E ORDER Reason for Visit Back pain Scoliosis Segmental and somatic dysfunction of cervical region Segmental and somatic dysfunction of lumbar region Segmental and somatic dysfunction of pelvic region Segmental and somatic dysfunction of thoracic region Right hip impingement syndrome Sacroiliac joint dysfunction of right side Chronic right hip pain Crohns disease Neutrophilic leukocytosis Epilepsy, unspecified, not intractable, without status epilepticus Crohns disease Chief Complaint RIGHT HIP PAIN one year follow up 3 MO FU E ORDER RIGHT HIP ONC/HEM 3MO LABS 6 M FU 3 M FU EORDERS Reason for Visit Epilepsy, unspecifie d, not intractable, without status epilepticus Crohns disease Labral tear of right hip joint Right hip impingement syndrome Chronic right hip pain Neutrophilic leukocytosis Neutrophilic leukocytosis Asthma Nicotine dependence, cigarettes, uncomplicated ALEXANDRA (obstructive sleep apnea) Hand pain Crohns disease Chief Complaint 3 M FU EORDERS INFECTED KAREEM RECTAL ABSCESS 3 M FU Reason for Visit Hand pain Crohns disease Gluteal abscess Hand pain Crohns disease Chief Complaint Back pain 4 MO FU 1 year follow up HAND PAIN N/T Reason for Visit Back pain Segmental and somatic dysfunction of cervical region Segmental and somatic dysfunction of lumbar region Segmental and somatic dysfunction of pelvic region Segmental and somatic dysfunction of thoracic region Scoliosis Hand pain Crohns disease Epilepsy, unspecified, not intractable, without status epilepticus Chief Complaint HAND PAIN N/T E-ORDER Chief Complaint Admit Date FX OF FIBULA RX HERE August 05, 2024 1 :00pm 6 Month f/u August 06, 2024 1: 52pm medication refills October 23, 2024 2:5 6pm Reason for Visit Admit Date Crohns disease August 06, 2024 1: 52pm Dysphagia October 23, 2024 2:5 6pm Crohns disease October 23, 2024 2:5 6pm Chief Complaint Admit Date FX OF FIBULA RX HERE August 05, 2024 1 :00pm 6 Month f/u August 06, 2024 1: 52pm medication refills October 23, 2024 2:5 6pm SMALL CYSTIC FEELING LESION November 20, 2024 11:00am Chief Complaint Admit Date medication refills October 23, 2024 2:5 6pm SMALL CYSTIC FEELING LESION November 20, 2024 11:00am Skyrizi December 05, 2024 9:54am Reason for Visit Admit Date Dysphagia October 23, 2024 2:5 6pm Crohns disease October 23, 2024 2:5 6pm Chief Complaint Admit Date medication refills October 23, 2024 2:5 6pm SMALL CYSTIC FEELING LESION November 20, 2024 11:00am Skyrizi December 05, 2024 9:54am Skyrizi January 02, 2025 9:54a m Chief Complaint Admit Date medication refills October 23, 2024 2:5 6pm SMALL CYSTIC FEELING LESION November 20, 2024 11:00am Skyrizi December 05, 2024 9:54am Skyrizi January 02, 2025 9:54a m 6 M FU January 08, 2025 10:5 3am Reason for Visit Admit Date Dysphagia October 23, 2024 2:5 6pm Crohns disease October 23, 2024 2:5 6pm Dysphagia January 08, 2025 10:5 3am Crohns disease January 08, 2025 10:5 3am Dysphagia January 09, 2025 11:3 9am Family History Relationship Condition Age at Onset Recorded Date/T elaine Not Specified Epilepsy Unknown Anxiety Unknown Arthritis Unknown father Suicide Unknown mother Diabetes mellitus Unknown Obsessive-compulsive disorder Unknown Depression Unknown Bipolar disorder Unknown grandmother Diabetes mellitus Unknown uncle Disorder of intestine Unknown grandfather Malignant neoplasm of colon Unknown Advance Directives Advance Directive Response Recorded Date/ Time Advance Directives No January 02 1:13pm Living Will No January 02, 2022 1 :13pm Power of Senior Unix Administrator No January 02, 2022 1:13pm Advance Directive Response Recorded Date/ Time Advance Directives No January 02 1:13pm Living Will No January 28, 2022 1 2:06pm Power of Senior Unix Administrator No January 28, 2022 12:06pm Advance Directive Response Recorded Date/ Time Advance Directives No Adri 6th, 202 2 1:13pm Living Will No February 14, 2022 10:31am Power of Senior Unix Administrator No February 14 10:31am Advance Directive Response Recorded Date/ Time Advance Directives No January 02 2 1:13pm Living Will No March 31, 022 6:27pm Power of Senior Unix Administrator No March 31, 2022 6:27pm Advance Directive Response Recorded Date/ Time Advance Directives No January 02 12:13pm Living Will No March 31, 022 5:27pm Power of Senior Unix Administrator No March 31, 2022 5:27pm Advance Directive Response Recorded Date/ Time Advance Directives No December 22 8:18am Living Will No December 22, 2022 8 :18am Power of Senior Unix Administrator No December 22, 2022 8:18am Advance Directive Response Recorded Date/ Time Living Will No December 05, 2023 12 :55pm Do you have a Healthcare Power of Senior Unix Administrator? No December 05, 2023 12:55pm Living Will No February 14, 2024 10:44am Do you have a Healthcare Power of Senior Unix Administrator? No February 14, 2024 10:44am Advance Directives No December 22 9:18am Advance Directive Response Recorded Date/ Time Advance Directives No December 22 9:18am Advance Directive Response Recorded Date/ Time Advance Directives No January 08 10:03am Advance Directive Response Recorded Date/ Time Do you have a Healthcare Power of Senior Unix Administrator? No January 06, 2025 1:43pm Advance Directives No January 08 10:03am Summary Purpose Reason for Referral Specialty Diagnoses / Procedures Referred By Sanket t Referred To Contact Radiology Diagnoses Nondisplaced oblique fracture of shaft of right fibula, initial encounter for closed fracture Moderate ankle sprain, right, initial encounter Procedures MR ankle right wo IV contrast Caro Whitman, VAMP CUT OUT WORKER-LEAD FABRICATOR [address] [facility], [address] [address] Referral ID Status Reason Start Date Expiration Date Visits Requested Visits Authorized [id number] Authorized Perform Procedure 04/23/2024 04/23/2025 1 1 Specialty Diagnoses / Procedures Referred By Contac t Referred To Contact Radiology Diagnoses History of fibula fracture Procedures XR tibia fibula right 2 views Caro Whitman VAMP CUT OUT WORKER-LEAD FABRICATOR [address] [facility], [address] [address] Referral ID Status Reason Start Date Expiration Date Visits Requested Visits Authorized [id number] Authorized Perform Procedure 2024 2025 1 1 Specialty Diagnoses / Procedures Referred By Contac t Referred To Contact Radiology Diagnoses Ankle injury, right, initial encounter Procedures XR ankle right 3+ views Caro Whitman, VAMP CUT OUT WORKER-LEAD FABRICATOR [address] [facility], [address] [address] Referral ID Status Reason Start Date Expiration Date Visits Requested Visits Authorized [id number] Authorized Perform Procedure 04/09/2024 04/09/2025 1 1 Specialty Diagnoses / Procedures Referred By Contac t Referred To Contact Radiology Diagnoses Nondisplaced oblique fracture of shaft of right fibula, initial encounter for closed fracture Procedures XR tibia fibula right 2 views Caro Whitman, VAMP CUT OUT WORKER-LEAD FABRICATOR [address] [facility], [address] [address] DO [address] [facility] [place] [address] Referral ID Status Reason Start Date Expiration Date Visits Requested Visits Authorized [id number] Authorized Perform Procedure 04/21/2024 04/21/2025 1 1 Specialty Diagnoses / Procedures Referred By Contac t Referred To Contact Radiology Diagnoses Ankle injury, right, initial encounter Procedures XR ankle right 2 views Caro Whitman VAMP CUT OUT WORKER-LEAD FABRICATOR [address] [facility], [address] [address] DO [address] [facility] [place] [address] Referral ID Status Reason Start Date Expiration Date Visits Requested Visits Authorized [id number] Authorized Perform Procedure 04/21/2024 04/21/2025 1 1 Referral ID Status Reason Start Date Expiration Date Visits Requested Visits Authorized [id number] Pending Review Perform Procedure 04/23/2024 04/23/2025 1 1 Additional Source Comments Care Teams (unrecognized sec tion and content) Team Status: Active Member Role Status Dates Dr. Radha Calloway MD Family Provider Active Dr. Radha Calloway MD Primary Care Provider Active Team Status: Inactive Member Role Status Dates Dr. Radha Calloway MD Primary Care Provider Active Dr. Karlos Thornton DO Attending Provider, Referring Pro vider Active Team Status: Inactive Member Role Status Dates Dr. Radha Calloway MD Primary Care Provider, Referrin g Provider Active Dr. Juan Alberto Rutledge DO Attending Provider Active Team Status: Inactive Member Role Status Dates Dr. Radha Calloway MD Primary Care Provider, Referrin g Provider Active Dr. Nicola Gonsalves MD Attending Provider Active Team Status: Inactive Member Role Status Dates Dr. Radha Calloway MD Primary Care Provider, Referrin g Provider Active Dr. Christian Rincon MD Attending Provider Active Team Status: Inactive Member Role Status Dates Dr. Radha Calloway MD Primary Care Provider, Referrin g Provider Active CHILO Hernandez Attending Provider Active Team Status: Active Member Role Status Dates Dr. Radha Calloway MD Primary Care Provider Active Dr. Nicola Gonsalves MD Attending Provider Active Dr. Christian Rincon MD Referring Provider Active Team Status: Inactive Member Role Status Dates Dr. Radha Calloway MD Primary Care Provider Active CHILO Hernandez Attending Provider, Referring Prov ider Active Team Status: Inactive Member Role Status Dates Dr. Radha Calloway MD Primary Care Provider Active Dr. Juan Alberto Rutledge DO Attending Provider Active Team Status: Inactive Member Role Status Dates Dr. Radha Calloway MD Primary Care Provider Active Dr. Juan Alberto Rutledge DO Attending Provider, Referring Provider Active Team Status: Inactive Member Role Status Dates Dr. Radha Calloway MD Primary Care Provider, Referrin g Provider Active Dr. Devin Naranjo MD Attending Provider Active Team Status: Inactive Member Role Status Dates Dr. Radha Calloway MD Primary Care Provider, Referrin g Provider Active Dr. Natalia Gold DC Attending Provider Active Team Status: Inactive Member Role Status Dates Dr. Radha Calloway MD Primary Care Provider Active Ed Physician Provider Emergency Provider Active Records Analysis Manager Relationship Specialty Start Date End Date Radha Calloway PCP - General Family Medicine 05/11/15 Team Status: Inactive Member Role Status Dates Dr. Radha Calloway MD Primary Care Provider Active Ed Physician Provider Attending Provider, Emergency Pr ovider Active Records Analysis Manager Relationship Specialty Start Date End Date Radha Calloway MD [address] [place] [address] PCP - General Family Medicine 04/04/24 Records Analysis Manager Relationship Specialty Start Date End Date Radha Calloway MD [address] [place] [address] PCP - General Family Medicine 04/04/24 Records Analysis Manager Relationship Specialty Start Date End Date Radha Calloway MD [address] [place] [address] PCP - General Family Medicine 04/04/24 Records Analysis Manager Relationship Specialty Start Date End Date Radha Calloway MD [address] [place] [address] PCP - General Family Medicine 04/04/24 Records Analysis Manager Relationship Specialty Start Date End Date Radha Calloway MD [address] [place] [address] PCP - General Family Medicine 04/04/24 Records Analysis Manager Relationship Specialty Start Date End Date Radha Calloway MD [address] [place] [address] PCP - General Family Medicine 04/04/24 Records Analysis Manager Relationship Specialty Start Date End Date Radha Calloway MD [address] [place] [address] PCP - General Family Medicine 04/04/24 Records Analysis Manager Relationship Specialty Start Date End Date Radha Calloway MD [address] [place] [address] PCP - General Family Medicine 04/04/24 Records Analysis Manager Relationship Specialty Start Date End Date Radha Calloway MD [address] [facility] [address] [place] [address] PCP - General Family Medicine 04/04/24 Records Analysis Manager Relationship Specialty Start Date End Date Radha Calloway MD [address] [place] [address] PCP - General Family Medicine 04/04/24 Records Analysis Manager Relationship Specialty Start Date End Date Radha Calloway MD [address] [facility] [address] [place] [address] PCP - General Family Medicine 04/04/24 Records Analysis Manager Relationship Specialty Start Date End Date Radha Calloway MD [address] [place] [address] PCP - General Family Medicine 04/04/24 Records Analysis Manager Relationship Specialty Start Date End Date Radha Calloway MD [address] [place] [address] PCP - General Family Medicine 04/04/24 Records Analysis Manager Relationship Specialty Start Date End Date Radha Calloway MD [address] [place] [address] PCP - General Family Medicine 04/04/24 Records Analysis Manager Relationship Specialty Start Date End Date Radha Calloway MD [address] [place] [address] PCP - General Family Medicine 04/04/24 Records Analysis Manager Relationship Specialty Start Date End Date Radha Calloway MD [address] [place] [address] PCP - General Family Medicine 04/04/24 Team Status: Inactive Member Role Status Dates Dr. Radha Calloway MD Primary Care Provider Active Start: August 05, 2024 End: August 05, 2024 TUNG Dickson Attending Provider Active Start: August 05, 2024 End: August 05, 2024 TUNG Dickson Referring Provider Active Start: August 05, 2024 End: August 05, 2024 Team Status: Inactive Member Role Status Dates Dr. Radha Calloway MD Primary Care Provider Active Start: August 06, 2024 End: August 06, 2024 Dr. Radha Calloway MD Referring Provider Active Start: August 06, 2024 End: August 06, 2024 CHILO Dao Attending Provider Active Start: August 06, 2024 End: August 06, 2024 Team Status: Inactive Member Role Status Dates Dr. Radha Calloway MD Primary Care Provider Active Start: August 06, 2024 End: August 06, 2024 CHILO Dao Attending Provider Active Start: August 06, 2024 End: August 06, 2024 CHILO Dao Referring Provider Active Start: August 06, 2024 End: August 06, 2024 Team Status: Inactive Member Role Status Dates Dr. Radha Calloway MD Primary Care Provider Active Start: August 11, 2024 End: August 11, 2024 Dr. Juan Alberto Rutledge DO Attending Provider Active Start: August 11, 2024 End: August 11, 2024 Dr. Juan Alberto Rutledge DO Referring Provider Active Start: August 11, 2024 End: August 11, 2024 Team Status: Inactive Member Role Status Dates Dr. Radha Calloway MD Primary Care Provider Active Start: October 23, 2024 End: October 23, 2024 Dr. Radha Calloway MD Referring Provider Active Start: October 23, 2024 End: October 23, 2024 CHILO Dao Attending Provider Active Start: October 23, 2024 End: October 23, 2024 Records Analysis Manager Relationship Specialty Start Date End Date Radha Calloway MD [address] [place] [address] PCP - General Family Medicine 04/04/24 Records Analysis Manager Relationship Specialty Start Date End Date Radha Calloway MD [address] [place], [place] [address] PCP - General Family Medicine 04/04/24 Team Status: Active Member Role Status Dates Dr. Radha Calloway MD Primary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
== END 2025-01-09 14:18 | disposition home or self-care (01) ==
LOC: EN 11:39 → AC 11:42
PROVIDERS: Anesthesiology; PCP Family Medicine; Referring Provider Family Medicine; Visit Provider Internal Medicine Gastroenterology
PROC: 0DJ08ZZ Inspection of Upper Intestinal Tract, Via Natural or Artificial Opening Endoscopic (ICD-10-PCS; CPT 43235; principal; 2025-01-09 12:40)
DX: K22.70 Barrett's esophagus without dysplasia (principal); K50.90 Crohn's disease, unspecified, without complications; F31.9 Bipolar disorder, unspecified; R13.10 Dysphagia, unspecified; K29.80 Duodenitis without bleeding; K31.89 Other diseases of stomach and duodenum; K22.4 Dyskinesia of esophagus; K21.9 Gastro-esophageal reflux disease without esophagitis; G47.30 Sleep apnea, unspecified; F17.210 Nicotine dependence, cigarettes, uncomplicated; Z79.899 Other long term (current) drug therapy; Z79.51 Long term (current) use of inhaled steroids
CPT/HCPCS: 43248; 43239; 81025; 88305; C1769; J2405

== ENCOUNTER 2025-02-02 09:53 | Outpatient (CLI) | payer MEDICARE, MEDICAID, SELFPAY ==
[2025-02-02 10:15] VITALS: BP 103/66; PULSE 65; RESP 16; TEMP 35.8; O2SAT 100
[2025-02-02] MEDS: 0.9% NaCl Peripheral Flush Adult IV (10:41)
[2025-02-02] MEDS: 0.9% NaCl IVPB Med Flush (100mL) 15 ML IV (10:42)
[2025-02-02] MEDS: NORMAL SALINE 0.9% IV (10:42)
[2025-02-02] MEDS: [UNRECOGNIZED DRUG - OTHER] IV (10:42)
[2025-02-02 13:18] VITALS: BP 119/64; PULSE 65; RESP 16; TEMP 36.1; O2SAT 100
== END 2025-02-02 23:59 | disposition home or self-care (01) ==
LOC: MEDOUTP 09:53
PROVIDERS: PCP Family Medicine; Referring Provider Student in an Organized Health Care Education/Training Program; Visit Provider Student in an Organized Health Care Education/Training Program
DX: K50.90 Crohn's disease, unspecified, without complications (principal)
CPT/HCPCS: 96365; 96366; A4216; J2327

== ENCOUNTER → 2025-02-19 | Outpatient (CLI) | payer MEDICARE, MEDICAID, SELFPAY ==
[2025-02-19 15:35] LABS: Hematocrit 41.5 % (37-47); Hemoglobin 13.3 g/dL (12.0-15.0); Mean Corp Hgb Conc 32.0 g/dL (32-36); Mean Corpuscular Volume 91.2 fL (81-99); Mean Platelet Vol. 9.6 fl (6.2-12.0); Platelet Count 474 K/mm3 (150-450); RBC Distribution Width CV 13.3 % (11.6-14.6); RBC Distribution Width SD 45.1 fl (35.1-43.9); Red Blood Count 4.55 M/mm3 (4.2-5.4); White Blood Count 14.1 K/mm3 (4.4-11.0)
[2025-02-19 16:09] LABS: AST(SGOT) 13 U/L (<=31); Alanine Aminotransfer ALT/SGPT 6 U/L (<=34); Albumin, Serum 3.7 g/dL (3.5-5.0); Alkaline Phosphatase 71 U/L (35-104); Anion Gap 11 (5-15); BUN 7 mg/dL (4-19); BUN/Creat Ratio 9.1 RATIO (10-20); Calcium,Total 9.3 mg/dL (7.6-11.0); Carbon Dioxide 24.1 mmol/L (21.0-32.0); Chloride 104 mmol/L (98-108); Globulin 3.7 g/dL (2.2-4.2); Glucose 90 mg/dL (70-99); Potassium 4.0 mmol/L (3.3-5.1)
== END | disposition home or self-care (01) ==
PROVIDERS: PCP Family Medicine; Visit Provider Family Medicine
DX: I10 Essential (primary) hypertension (principal); I95.9 Hypotension, unspecified
CPT/HCPCS: 36415; 80053; 84443; 85027

== ENCOUNTER 2025-04-16 15:32 | Outpatient (CLI) | payer MEDICARE, MEDICAID, SELFPAY ==
--- NOTE | 2025-04-16 15:36 | MRI_ITS ---
PROCEDURE: SPINE THORACIC (ROUTINE) 04/16/2025 REASON FOR EXAM: PAIN, RADICULOPATHY TECHNIQUE: Procedure Code: MRISPT Modality: MR Procedure: SPINE THORACIC (ROUTINE) Multiplanar and multisequence images were obtained. CONTRAST: None COMPARISON: None available FINDINGS: The normal thoracic kyphosis is maintained. The thoracic vertebral bodies are normal in height. The thoracic vertebral bodies are normal in alignment. The thoracic bone marrow signal is within normal limits. There are multiple opposing small Schmorl's nodes at T5-T6, T7-T8, T8-T9, T9- T10, and T9-T11. There is no evidence of thoracic spinal cord signal abnormality. There is no high-grade spinal canal or neural foraminal stenosis in the thoracic spine. T3-T4: Small central disc protrusion contributing to mild spinal canal stenosis with flattening of the ventral cord. T4-T5: Small central disc protrusion. T6-T7: Small left paracentral disc protrusion. T7-T8: Small left paracentral disc protrusion. MRI/Spine Thoracic (Routine) IMPRESSION: Thoracic spondylosis without high-grade spinal canal or neural foraminal stenos is. Multiple small Schmorl's nodes in the thoracic spine. Additional details as discussed above. Reading Location: [facility]
== END 2025-04-16 23:59 | disposition home or self-care (01) ==
LOC: MRI 15:33
PROVIDERS: PCP Family Medicine; Referring Provider Student in an Organized Health Care Education/Training Program; Visit Provider Student in an Organized Health Care Education/Training Program
DX: M51.14 Intervertebral disc disorders with radiculopathy, thoracic region (principal)
CPT/HCPCS: 72146

== ENCOUNTER 2025-07-10 16:15 | Emergency (ER) | payer MEDICARE, MEDICAID, SELFPAY ==
[2025-07-10 16:15] VITALS: BP 107/57; PULSE 85; RESP 18; TEMP 36.6; O2SAT 98; BMI 35.6
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
--- OUTSIDE RECORDS SUMMARY | 2025-07-10 16:50 | XMS RPT_ITS | CCD ---
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 repeat testingConcentration Interpretation Follow-Up< 5 - 50 ug/g Normal None>50 -120 ug/g Borderline Re-evaluate in 4-6 weeks >120 ug/g Abnormal Repeat as clinically indicatedPerformed at: [address] [id number] Director: So Jaffe MD, Phone: [phone] Stool Calprotectin 1360 ug/g High 0-120 [facility] Comment on above: Results verified b y repeat testingConcentration Interpretation Follow-Up< 5 - 50 ug/g Normal None>50 -120 ug/g Borderline Re-evaluate in 4-6 weeks >120 ug/g Abnormal Repeat as clinically indicatedPerformed at: [facility] [address] [id number] Director: So Jaffe MD, Phone: [phone] POINT OF CARE ULTRASOUND NO CHARGEon 08-07-2024 POINT OF CARE ULTRASOUND NO CHARGE These images are not reportable by radiology and will not be interpreted by Radiologists. [facility] US Abdomenon 08-07-2024 These images [...] FRACTURE. COMPARISON: June 20, 2024 ACCESSION NUMBER(S): [id number]; [id number] ORDERING CLINICIAN: DELILAH ARANDA FINDINGS: Nondisplaced fracture of the right proximal fibular metaphysis unchanged in alignment. Right ankle alignment normal. Mortise intact. IMPRESSION: Nondisplaced right proximal fibular fracture similar to prior exam. Signed by: Von Wheeler 08/08/2024 6:10 PM Dictation workstation: [id number] [facility] XR TIBIA FIBULA RIGHT 2 VIEW Son 08-07-2024 XR TIBIA FIBULA RIGHT 2 VIEWS Interpreted By: Von Wheeler, STUDY: XR TIBIA FIBULA RIGHT 2 VIEWS; XR ANKLE RIGHT 3+ VIEWS INDICATION: Signs/Symptoms:PAIN AFTER A FRACTURE; Signs/Symptoms:FOLLOW UP ON PAIN AFTER A FRACTURE. COMPARISON: June 20, 2024 ACCESSION NUMBER(S): [id number]; [id number] ORDERING CLINICIAN: DELILAH ARANDA FINDINGS: Nondisplaced fracture of the right proximal fibular metaphysis unchanged in alignment. Right ankle alignment normal. Mortise intact. IMPRESSION: Nondisplaced right proximal fibular fracture similar to prior exam. Signed by: Von Wheeler 08/08/2024 6:10 PM Dictation workstation: [id number] [facility] Comment on above: Order Comment: DATE OF INJURY 04/04/2024 C-reactive protein measureme nt by high sensitivity methodOrdered By: Chio Patel on 08-06-2024 C-Reactive Protein Extended Range < 2.90 mg/L 0.0-3.0 [facility] Comment on above: C-Reactive Protein ( CRP) provides useful information for thediagnosis, therapy and monitoring of inflammatory processesand associated diseases. For the evaluation of Relative Riskfor Cardiovascular Disease, a High Sensitivity CRP (HSCRP)should be ordered. CRPon 08-06-2024 C-REACTIVE PROT < 2.90 Normal 0.0-3.0 [facility] Comment on above: Result Comment: C-Re active Protein (CRP) provides useful information for the diagnosis, therapy and monitoring of inflammatory processes and associated diseases. For the evaluation of Relative Risk for Cardiovascular Disease, a High Sensitivity CRP (HSCRP) should be ordered. Performed By: #### L 501.6710, L3410.9999, L101.9900 ####[facility] [address] [place], [address] Erythrocyte Sed Rateon 08-06 SED RATE 12 mm/hr Normal 0-30 [facility] Comment on above: Performed By: #### L 501.6710, L3410.9999, L101.9900 #### [facility] [address] [place], [address] Erythrocyte sedimentation ra teOrdered By: Chio Patel on 08-06-2024 ESR (Bld) [Velocity] 12 mm/h 0-30 [facility] Gastroenterology Visit Repor ton 08-06-2024 Gastroenterology Visit Report [facility] Gastroenterology [address] [place] [address] OFFICE VISIT Date of Service: 08/06/24 MR#: [id number] Acct: [id number] Name: CONY HART Rep #: [id number] : 1990 Provider: CHILO Dao Age/Sex: 34/F Location: [facility] Status: Signed Intake Vital Signs 06/14/23 19:58 [...] otherwise. Denies abdominal pain, N/V/C. Continues Humira. [facility] Medical History Bipolar disorder Juvenile arthritis Epilepsy, [...] Bowel disease Grandfather Colon cancer maternal - 2003 Other Anxiety Arthritis Epilepsy Social History Smoking Status: Current every day smoker tobacco type: cigarettes Tobacco: How many years used: 5 second hand exposure: No alcohol intake: current details: social on weekends substance use type: does not use what type of physical activity do you participate in: none martin/scientology: None seatbelt use: always HPI HPI Chief Complaint: Crohns disease Details: CONY HART, is a 34 F who presents to the office today for f/u. [facility] established 07.04.21 to establish care for Crohn???s disease diagnosed in 2009. Maintained on oral medications until they stopped working and she was started on Humira Q2W. [place] preferred, however her migraine history prevented this. [...] CBC WBC elevated 14.0, CMP, LFT, AST [id number], Alk phos decreased 42, CRP elevated 7.97, [...] which is worse since starting CPAP.??? OV 02.13.22 experienced interruption of therapy r/t pharmacy delivery and has had some tenesmus with urgency without bleed or diarrhea.??? (more content not included)... Normal [facility] No Panel InformationOrdered By: Chio Patel on 08-06-2024 Miscellaneous Test COMMENT . [facility] Comment on above: Test Ordered: [id number] Adalimumab Drug + AntibodyAdalimumab Drug Level 3.7 [...] anti-drug specificity by a confirmatory test.References:1. Melissa N, et al. AGA Review on TDM in IBD. Gastroenterol 2017;153:835-857.2. Angela E, et al. J Crohns Col 2016;10(5):510-515.3. Mirtha MF, et al. Giovana Rheum Dis 2015;74:513-518.4. Bartelds GM, et al. ANAM 2011;305(14):2783-2833.5. Steenholdt C, et al. J Clin Gastroenterol 2016; 50:482-489.6. Cassidy H, et al. Clin Gastroenterol Hepatol 2015; 13(3):522-530.7. Joel A, et al. Gastroenterol 2019;156(6):S-617.These tests were developed and their performancecharacteristics determined by [facility]. They have not beencleared or approved by the Food and Drug Administration.However, these electrochemiluminescence immunoassay (ECLIA)measurements of adalimumab and anti-adalimumab antibody(constituting DoseASSURE ADL) have been developed andvalidated in accordance with CLIA (Clinical LaboratoryImprovement Amendments) and the FDA Guidance document, AssayDevelopment and Validation for Immunogenicity Testing ofTherapeutic Protein Products (2019).Performed at: [facility] [id number] [place], [place] [id number] Director: Dixon Young MD, Phone: [phone] at: [facility] [address] [id number] Director: Elian Torres PhD, Phone: [phone] XR TIBIA FIBULA RIGHT 2 VIEW Son 06-20-2024 XR TIBIA FIBULA RIGHT 2 VIEWS Interpreted By: Von Wheeler, STUDY: XR TIBIA FIBULA RIGHT 2 VIEWS INDICATION: Signs/Symptoms:S/P FRACTURE. COMPARISON: May 27 ACCESSION NUMBER(S): [id number] ORDERING CLINICIAN: CARO WHITMAN FINDINGS: Oblique nondisplaced fracture right proximal fibula unchanged in alignment. No additional new findings. IMPRESSION: Unchanged appearance right proximal fibular fracture. Signed by: Von Wheeler 06/21/2024 9:28 AM Dictation workstation: [id number] [facility] No Panel Informationon 04-04 Radiology Study observation (narrative) [facility] Work Phone: XR Femur - right 2 Viewson 0 04-04-2024 No acute osseous abn ormality MACRO: None Signed by: Kiki Narayan 04/04/2024 1:20 PM Dictation workstation: [id number] [facility] Interpreted By: Kiki Hall, STUDY: XR FEMUR RIGHT 2+ VIEWS; ; 04/04/2024 12:51 pm INDICATION: Signs/Symptoms:pain. COMPARISON: None. ACCESSION NUMBER(S): [id number] ORDERING CLINICIAN: FRAN REEVES FINDINGS: AP and lateral views were obtained. No fracture, dislocation or bone destruction is noted. Hip and knee joints are intact. [facility] Kiki Narayan MD - 04/04/2024 Interpreted By: Kiki Narayan, STUDY: XR FEMUR RIGHT 2+ VIEWS; ; 04/04/2024 12:51 pm INDICATION: Signs/Symptoms:pain. COMPARISON: None. ACCESSION NUMBER(S): [id number] ORDERING CLINICIAN: FRAN REEVES FINDINGS: AP and lateral views were obtained. No fracture, dislocation or bone destruction is noted. Hip and knee joints are intact. IMPRESSION: No acute osseous abnormality MACRO: None Signed by: Kiki Narayan 04/04/2024 1:20 PM Dictation workstation: [id number] [facility] Work Phone: [facility] Work Phone: XR Tibia and Fibula - right 2 Viewson 04-04-2024 Nondisplaced oblique fracture proximal shaft of the right fibula MACRO: None Signed by: Kiki Narayan 04/04/2024 1:21 PM Dictation workstation: [id number] [facility] Interpreted By: Kiki Hall, STUDY: XR TIBIA FIBULA RIGHT 2 VIEWS; ; 04/04/2024 12:51 pm INDICATION: Signs/Symptoms:pain. COMPARISON: None. ACCESSION NUMBER(S): [id number] ORDERING CLINICIAN: FRAN REEVES FINDINGS: AP and lateral views were obtained. Oblique nondisplaced fractures present proximal shaft of the fibula. No fracture is noted in the tibia. Ankle and knee joints are intact. [facility] Kiki Narayan MD - 04/04/2024 Interpreted By: Kiki Narayan, STUDY: XR TIBIA FIBULA RIGHT 2 VIEWS; ; 04/04/2024 12:51 pm INDICATION: Signs/Symptoms:pain. COMPARISON: None. ACCESSION NUMBER(S): [id number] ORDERING CLINICIAN: FRAN REEVES FINDINGS: AP and lateral views were obtained. Oblique nondisplaced fractures present proximal shaft of the fibula. No fracture is noted in the tibia. Ankle and knee joints are intact. IMPRESSION: Nondisplaced oblique fracture proximal shaft of the right fibula MACRO: None Signed by: Kiki Narayan 04/04/2024 1:21 PM Dictation workstation: [id number] [facility] Work Phone: XR Tibia and Fibula - right 2 ViewsOrdered By: Kiki Narayan on 04-04-2024 [facility] Work Phone: Absolute lymphocyte countOrd ered By: Juan Alberto Rutledge on 09-26-2023 Lymphocytes Auto (Unsp spec) [#/Vol] 3.25 10*3/uL 0.83-4.51 [facility] Automated lymphocyte count a s percentage of total leukocytesOrdered By: Juan Alberto Rutledge on 09-26-2023 Lymphocytes/100 WBC Auto (Unsp spec) 25.9 % 19-41 [facility] Basophil percentageOrdered B y: Juan Alberto Rutledge on 09-26-2023 Basophils/100 WBC (Bld) 0.3 % 0-1 [facility] Bilirubin [Mass/Vol] 0.20 mg/dL 0.20-1.00 [facility] Comment on above: For patients on eltr ombopag therapy, use of Dimension [place] TBIL is not recommended. Chloride [Moles/Vol] 108 mmol/L 98-107 [facility] Eosinophils/100 WBC (Bld) 1.4 % 0-5 [facility] Glucose [Mass/Vol] 65 mg/dL 74-106 [facility] Hemoglobin (Bld) [Mass/Vol] 14.4 g/dL 12.0-15.0 [facility] LDH [Catalytic activity/Vol] 144 U/L 84-246 [facility] Monocytes/100 WBC (Bld) 7.2 % 0-10 [facility] Neutrophils (Bld) [#/Vol] 8.1 10*3/uL 2.0-7.7 [facility] Neutrophils/100 WBC (Bld) 64.8 % 47-70 [facility] Potassium [Moles/Vol] 4.0 mmol/L 3.5-5.1 [facility] Protein [Mass/Vol] 7.2 g/dL 6.4-8.2 [facility] Sodium [Moles/Vol] 141 mmol/L 136-145 [facility] WBC (Bld) [#/Vol] 12.5 10*3/uL 4.4-11.0 [facility] Determination of erythrocyte mean corpuscular volume (MCV)Ordered By: Juan Alberto Rutledge on 09-26-2023 MCV (RBC) [Entitic vol] 92.7 fL 81-99 [facility] Erythrocyte distribution wid th ratioOrdered By: Juan Alberto Rutledge on 09-26-2023 Erythrocyte distribution width (RBC) [Ratio] 13.2 % 11.6-14.6 [facility] Erythrocyte distribution wid th standard deviationOrdered By: Juan Albertojuliane Rutledge on 09-26-2023 Erythrocyte distribution width (RBC) [Entitic vol] 45.2 fL 35.1-43.9 [facility] Erythrocyte sedimentation ra teOrdered By: Juan Alberto Rutledge on 09-26-2023 ESR (Bld) [Velocity] 13 mm/h 0-30 [facility] Hematocrit Auto (Bld) [Volum e fraction]Ordered By: Juan Alberto Rutledge on 09-26-2023 Hematocrit (Bld) [Volume fraction] 45.5 % 37-47 [facility] Immature granulocytes/100 WB C Auto (Bld)Ordered By: Juan Albertojuliane Rutledge on 09-26-2023 Immature granulocytes/100 WBC (Bld) 0.400 % 0.0-0.9 [facility] Comment on above: IG% - Immature Granu locytes (promyelocytes, myelocytes and metamyelocytes) > 1% indicates that a LEFT SHIFT is Present. Laboratory - Chemistry and C hemistry - challengeOrdered By: Juan Alberto Rutledge on 09-26-2023 Albumin/Globulin [Mass ratio] 0.8 {ratio} 0.9-2.4 [facility] ALP [Catalytic activity/Vol] 55 U/L 45-117 [facility] ALT [Catalytic activity/Vol] 14 U/L 13-56 [facility] CO2 [Moles/Vol] 29.0 mmol/L 21.0-32.0 [facility] Globulin (S) [Mass/Vol] 3.9 g/dL 2.2-4.2 [facility] Urea nitrogen/Creatinine [Mass ratio] 10.1 mg/mg 10-20 [facility] Laboratory - Hematology and Cell countsOrdered By: Juan Alberto Rutledge on 09-26-2023 MCH (RBC) [Entitic mass] 29.3 pg 27.0-32.0 [facility] MCHC (RBC) [Mass/Vol] 31.6 g/dL 32-36 [facility] Nucleated RBC/100 WBC (Bld) [Ratio] 0 % 0-5 [facility] Platelet mean volume (Bld) [Entitic vol] 9.5 fL 6.2-12.0 [facility] Platelets (Bld) [#/Vol] 404 10*3/uL 150-450 [facility] No Panel InformationOrdered By: Juan Alberto Rutledge on 09-26-2023 C-Reactive Protein Extended Range 9.03 mg/L 0.0-3.0 [facility] Comment on above: C-Reactive Protein ( CRP) provides useful information for thediagnosis, therapy and monitoring of inflammatory processesand associated diseases. For the evaluation of Relative Riskfor Cardiovascular Disease, a High Sensitivity CRP (HSCRP)should be ordered. Estimated GFR (MDRD) Amer 94 mL/min >60 [facility] Comment on above: GFR Calc Estimated GFR (MDRD) Non-Af Amer 78 mL/min >60 [facility] Comment on above: Non- GFR Calc Qualitative QuantiFERON-TB g old in tube testOrdered By: Juan Alberto Rutledge on 09-26-2023 M. tuberculosis tuberculin stim IFN-g Ql (Bld) 0 IU/mL . [facility] RBC Auto (Bld) [#/Vol]Ordere d By: Juan Alberto Rutledge on 09-26-2023 RBC (Bld) [#/Vol] 4.91 10*6/uL 4.2-5.[address] [facility] Serum or plasma calcium rosa maria urement (mass/volume)Ordered By: Juan Alberto Rutledge on 09-26-2023 Calcium [Mass/Vol] 8.8 mg/dL 8.5-10.1 [facility] Serum or plasma creatinine m easurement (mass/volume)Ordered By: Juan Alberto Rutledge on 09-26-2023 Creatinine [Mass/Vol] 0.89 mg/dL 0.55-1.02 [facility] Comment on above: The validity of the calculated GFR & GFRAA in patients over 70 years has not been determined. Clinical correlation is essential. Serum or plasma urea nitroge n measurement (mass/volume)Ordered By: Juan Alberto Rutledge on 09-26-2023 Urea nitrogen [Mass/Vol] 9 mg/dL 7-18 [facility] Stool lactoferrin detection by immunoassayOrdered By: Juan Alberto Rutledge on 09-26-2023 Lactoferrin IA Ql (Stl) [facility] Thin prep Papanicolaou smear with manual screeningOrdered By: Juan Alberto Rutledge on 09-26-2023 Thin prep Papanicolaou smear with manual screening 3.3 g/dL 3.2-5.0 [facility] Thin prep Papanicolaou smear with manual screening 8 U/L 15-37 [facility] Thin prep Papanicolaou smear with manual screening 4 5-15 [facility] Thin prep Papanicolaou smear with manual screening Comment . [facility] Comment on above: QuantiFERON-TB Gold Plus is [...] smear with manual screening 0 IU/mL . [facility] Thin prep Papanicolaou smear with manual screening > 10.00 IU/mL . [facility] Thin prep Papanicolaou smear with manual screening Negative Negative [facility] Comment on above: No response to M [...] the productionof interferon gamma. Chemiluminescence immunoassaymethodologyPerformed at: [address], [place], [place] [id number] Director: Elian Torres PhD, Phone: [phone] Prashanth 06-14-2023 CN Office Visit (UCWSTR ) CONY HART ([id number]) 1990 F Date Time Provider Department 06/14/23 7:30 PM JOANNA FREITAS [facility] During your visit today, we recorded the following information about you: Joanna Freitas APRN.[employer] SUPERVISOR 06/14/2023 7:37 PM Signed Triage Note: WOO [...] have confirmed and edited as necessary, the [facility] ASSESSMENT/PLAN: 1. Numbness and tingling in right hand - ICD9: 782.0, ICD10: R20.0, R20.2 Due to nature of patient's complaint and lack of investigative tools available at [facility], recommend patient be seen at nearest ED for further work up of right hand numbness, lack of ROM, cold to touch. Patient given directions to [place] [facility]. Diagnosis and treatment plan were discussed and questions were answered to the patient's satisfaction. Pt acknowledged understanding of concepts and follow up plan. Specific signs and symptoms that would indicate the need for higher level of care were discussed in detail warranting prompt ER evaluation. Joanna Freitas APRN.[employer] Allergies As of Date: 06/14/2023 Noted Allergy [...] Noted Resolved Nocturnal enuresis [N39.44] 03/08/2015 Seizures ([facility]) [R56.9] 06/24/2018 Exercise-induced asthma [J45.990] 06/24/2018 Crohn's colitis ([facility]) [K50.10] 06/24/2018 Arthritis [M19.90] 06/24/2018 Bipolar 1 disorder ([facility]) [F31.9] 06/24/2018 Sleep apnea [G47.30] 06/24/2018 Family history of malignant hyperthermia [Z84.8*08/25/2020 Morbid obesity ([facility]) [E66.01] 08/25/2020 Encounter Status:Closed by ZENASUYA on 06/14/23 Normal [facility] Routine wound cultureOrdered By: Dr. Naranjo on 11-23-2022 Bacteria identified Cx Nom (Wound) No growth aerobically. [facility] Gram stain for investigation of transfusion reactionOrdered By: Dr. Naranjo on 11-21-2022 Microscopic observation Gram stain Nom (Unsp spec) [facility] Absolute lymphocyte countOrd ered By: Juan Alberto Rutledge on 08-02-2022 Lymphocytes Auto (Unsp spec) [#/Vol] 3.26 10*3/uL 0.83-4.51 [facility] Basophil percentageOrdered B y: Juan Alberto Rutledge on 08-02-2022 Basophils/100 WBC (Bld) 0.2 % 0-1 [facility] Eosinophils/100 WBC (Bld) 1.5 % 0-5 [facility] Neutrophils (Bld) [#/Vol] 8.0 10*3/uL 2.0-7.7 [facility] Neutrophils/100 WBC (Bld) 63.5 % 47-70 [facility] WBC (Bld) [#/Vol] 12.6 10*3/uL 4.4-11.0 [facility] Blood erythrocytes count (nu mber/volume)Ordered By: Juan Alberto Rutledge on 08-02-2022 RBC (Bld) [#/Vol] 4.64 10*6/uL 4.2-5.4 [facility] Blood hemoglobin measurement (mass/volume)Ordered By: Juan Alberto Rutledge on 08-02-2022 Hemoglobin (Bld) [Mass/Vol] 14.4 g/dL 12.0-15.0 [facility] Blood lymphocytes/100 leukoc ytesOrdered By: Juan Alberto Rutledge on 08-02-2022 Lymphocytes/100 WBC (Bld) 25.9 % 19-41 [facility] Blood monocytes/100 leukocyt esOrdered By: Juan Alberto Rutldege on 08-02-2022 Monocytes/100 WBC (Bld) 8.6 % 0-10 [facility] Blood platelet mean volumeOr dered By: Juan Alberto Rutledge on 08-02-2022 Platelet mean volume (Bld) [Entitic vol] 10.1 fL 6.2-12.0 [facility] Determination of erythrocyte mean corpuscular volume (MCV)Ordered By: Juan Alberto Rutledge on 08-02-2022 MCV (RBC) [Entitic vol] 94.8 fL 81-99 [facility] Erythrocyte sedimentation ra teOrdered By: Juan Alberto Rutledge on 08-02-2022 ESR (Bld) [Velocity] 15 mm/h 0-30 [facility] Hematocrit Auto (Bld) [Volum e fraction]Ordered By: Juan Alberto Rutledge on 08-02-2022 Hematocrit (Bld) [Volume fraction] 44.0 % 37-47 [facility] Laboratory - Hematology and Cell countsOrdered By: Juan Alberto Rutledge on 08-02-2022 Erythrocyte distribution width (RBC) [Entitic vol] 45.7 fL 35.1-43.9 [facility] Erythrocyte distribution width (RBC) [Ratio] 13.1 % 11.6-14.6 [facility] Immature granulocytes/100 WBC (Bld) 0.300 % 0.0-0.9 [facility] Comment on above: IG% - Immature Granu locytes (promyelocytes, myelocytes and metamyelocytes) > 1% indicates that a LEFT SHIFT is Present. MCH (RBC) [Entitic mass] 31.0 pg 27.0-32.0 [facility] Nucleated RBC/100 WBC (Bld) [Ratio] 0 % 0-5 [facility] MCHC Auto (RBC) [Mass/Vol]Or dered By: Juan Alberto Rutledge on 08-02-2022 MCHC (RBC) [Mass/Vol] 32.7 g/dL 32-36 [facility] No Panel InformationOrdered By: Juan Alberto Rutledge on 08-02-2022 Miscellaneous Test See comment [facility] Comment on above: Scanned image report available in EMR Platelets bldOrdered By: Law Rutledge on 08-02-2022 Platelets (Bld) [#/Vol] 321 10*3/uL 150-450 [facility] Serum or plasma C reactive p rotein measurement (mass/volume)Ordered By: Juan Alberto Rutledge on 08-02-2022 CRP [Mass/Vol] 7.01 mg/L 0.0-3.0 [facility] Comment on above: C-Reactive Protein ( CRP) provides useful information for thediagnosis, therapy and monitoring of inflammatory processesand associated diseases. For the evaluation of Relative Riskfor Cardiovascular Disease, a High Sensitivity CRP (HSCRP)should be ordered. Absolute lymphocyte countOrd ered By: Dr. Gonsalves on 05-11-2022 Lymphocytes Auto (Unsp spec) [#/Vol] 2.98 10*3/uL 0.83-4.51 [facility] Basophil percentageOrdered B y: Dr. Gonsalves on 05-11-2022 Basophils/100 WBC (Bld) 0.2 % 0-1 [facility] Bilirubin [Mass/Vol] 0.40 mg/dL 0.20-1.00 [facility] Comment on above: For patients on eltr ombopag therapy, use of Dimension [place] TBIL is not recommended. Chloride [Moles/Vol] 109 mmol/L 98-107 [facility] Eosinophils/100 WBC (Bld) 1.6 % 0-5 [facility] Glucose [Mass/Vol] 115 mg/dL 74-106 [facility] Comment on above: Fasting Glucose resu lt from 100 to 125 mg/dL suggests IMPAIRED HOMEOSTASIS per A.D.A. criteria. Neutrophils (Bld) [#/Vol] 6.9 10*3/uL 2.0-7.7 [facility] Neutrophils/100 WBC (Bld) 63.1 % 47-70 [facility] Potassium [Moles/Vol] 3.9 mmol/L 3.5-5.1 [facility] Protein [Mass/Vol] 7.2 g/dL 6.4-8.2 [facility] Sodium [Moles/Vol] 142 mmol/L 136-145 [facility] WBC (Bld) [#/Vol] 11.0 10*3/uL 4.4-11.0 [facility] Blood erythrocytes count (nu mber/volume)Ordered By: Dr. Gonsalves on 05-11-2022 RBC (Bld) [#/Vol] 4.96 10*6/uL 4.2-5.4 [facility] Blood hemoglobin measurement (mass/volume)Ordered By: Dr. Gonsalves on 05-11-2022 Hemoglobin (Bld) [Mass/Vol] 15.5 g/dL 12.0-15.0 [facility] Blood lymphocytes/100 leukoc ytesOrdered By: Dr. Gonsalves on 05-11-2022 Lymphocytes/100 WBC (Bld) 27.1 % 19-41 [facility] Blood monocytes/100 leukocyt esOrdered By: Dr. Gonsalves on 05-11-2022 Monocytes/100 WBC (Bld) 7.7 % 0-10 [facility] Blood platelet mean volumeOr dered By: Dr. Gonsalves on 05-11-2022 Platelet mean volume (Bld) [Entitic vol] 10.1 fL 6.2-12.0 [facility] Determination of erythrocyte mean corpuscular volume (MCV)Ordered By: Dr. Gonsalves on 05-11-2022 MCV (RBC) [Entitic vol] 93.1 fL 81-99 [facility] Hematocrit Auto (Bld) [Volum e fraction]Ordered By: Dr. Gonsalves on 05-11-2022 Hematocrit (Bld) [Volume fraction] 46.2 % 37-47 [facility] Laboratory - Chemistry and C hemistry - challengeOrdered By: Dr. Gonsalves on 05-11-2022 ALP [Catalytic activity/Vol] 45 U/L 45-117 [facility] ALT [Catalytic activity/Vol] 18 U/L 13-56 [facility] CO2 [Moles/Vol] 30.0 mmol/L 21.0-32.0 [facility] Globulin (S) [Mass/Vol] 3.7 g/dL 2.2-4.2 [facility] Urea nitrogen/Creatinine [Mass ratio] 11.0 mg/mg 10-20 [facility] - Hematology and Cell countsOrdered By: Dr. Gonsalves on 05-11-2022 Erythrocyte distribution width (RBC) [Entitic vol] 46.1 fL 35.1-43.9 [facility] Erythrocyte distribution width (RBC) [Ratio] 13.5 % 11.6-14.6 [facility] Immature granulocytes/100 WBC (Bld) 0.300 % 0.0-0.9 [facility] Comment on above: IG% - Immature Granu locytes (promyelocytes, myelocytes and metamyelocytes) > 1% indicates that a LEFT SHIFT is Present. MCH (RBC) [Entitic mass] 31.3 pg 27.0-32.0 [facility] Nucleated RBC/100 WBC (Bld) [Ratio] 0 % 0-5 [facility] MCHC Auto (RBC) [Mass/Vol]Or dered By: Dr. Gonsalves on 05-11-2022 MCHC (RBC) [Mass/Vol] 33.5 g/dL 32-36 [facility] No Panel InformationOrdered By: Dr. Gonsalves on 05-11-2022 Estimated Creatinine Clearance Calc 103.89 ml/min [facility] Estimated GFR (MDRD) Amer 105 mL/min >60 [facility] Comment on above: GFR Calc Estimated GFR (MDRD) Non-Af Amer 87 mL/min >60 [facility] Comment on above: Non- GFR Calc Platelets bldOrdered By: Dr. Gonsalves on 05-11-2022 Platelets (Bld) [#/Vol] 281 10*3/uL 150-450 [facility] Serum or plasma albumin rosa maria urement (mass/volume)Ordered By: Dr. Gonsalves on 05-11-2022 Albumin [Mass/Vol] 3.5 g/dL 3.2-5.0 [facility] Serum or plasma albumin/glob ulin mass ratioOrdered By: Dr. Gonsalves on 05-11-2022 Albumin/Globulin [Mass ratio] 0.9 {ratio} 0.9-2.4 [facility] Serum or plasma calcium rosa maria urement (mass/volume)Ordered By: Dr. Gonsalves on 05-11-2022 Calcium [Mass/Vol] 9.2 mg/dL 8.5-10.1 [facility] Serum or plasma creatinine m easurement (mass/volume)Ordered By: Dr. Gonsalves on 05-11-2022 Creatinine [Mass/Vol] 0.82 mg/dL 0.55-1.02 [facility] Comment on above: The validity of the calculated GFR & GFRAA in patients over 70 years has not been determined. Clinical correlation is essential. Serum or plasma urea nitroge n measurement (mass/volume)Ordered By: Dr. Gonsalves on 05-11-2022 Urea nitrogen [Mass/Vol] 9 mg/dL 7-18 [facility] Thin prep Papanicolaou smear with manual screeningOrdered By: Dr. Gonsalves on 05-11-2022 Thin prep Papanicolaou smear with manual screening 10 U/L 15-37 [facility] Thin prep Papanicolaou smear with manual screening 3 5-15 [facility] Thin prep Papanicolaou smear with manual screening 144 U/L 84-246 [facility] Absolute lymphocyte countOrd ered By: Juan Alberto Rutledge on 04-26-2022 Lymphocytes Auto (Unsp spec) [#/Vol] 3.95 10*3/uL 0.83-4.51 [facility] Basophil percentageOrdered B y: Juan Alberto Rutledge on 04-26-2022 Basophils/100 WBC (Bld) 0.3 % 0-1 [facility] Bilirubin [Mass/Vol] 0.40 mg/dL 0.20-1.00 [facility] Comment on above: For patients on eltr ombopag therapy, use of Dimension [place] TBIL is not recommended. Chloride [Moles/Vol] 107 mmol/L 98-107 [facility] Eosinophils/100 WBC (Bld) 1.2 % 0-5 [facility] Glucose [Mass/Vol] 81 mg/dL 74-106 [facility] Neutrophils (Bld) [#/Vol] 8.2 10*3/uL 2.0-7.7 [facility] Neutrophils/100 WBC (Bld) 60.9 % 47-70 [facility] Potassium [Moles/Vol] 4.0 mmol/L 3.5-5.1 [facility] Protein [Mass/Vol] 7.2 g/dL 6.4-8.2 [facility] Sodium [Moles/Vol] 142 mmol/L 136-145 [facility] WBC (Bld) [#/Vol] 13.5 10*3/uL 4.4-11.0 [facility] Blood erythrocytes count (nu mber/volume)Ordered By: Juan Alberto Rutledge on 04-26-2022 RBC (Bld) [#/Vol] 4.83 10*6/uL 4.2-5.4 [facility] Blood hemoglobin measurement (mass/volume)Ordered By: Juan Alberto Rutledge on 04-26-2022 Hemoglobin (Bld) [Mass/Vol] 14.9 g/dL 12.0-15.0 [facility] Blood lymphocytes/100 leukoc ytesOrdered By: Juan Alberto Rutledge on 04-26-2022 Lymphocytes/100 WBC (Bld) 29.3 % 19-41 [facility] Blood monocytes/100 leukocyt esOrdered By: Juan Alberto Rutledge on 04-26-2022 Monocytes/100 WBC (Bld) 7.9 % 0-10 [facility] Blood platelet mean volumeOr dered By: Juan Alberto Rutledge on 04-26-2022 Platelet mean volume (Bld) [Entitic vol] 9.8 fL 6.2-12.0 [facility] Determination of erythrocyte mean corpuscular volume (MCV)Ordered By: Juan Alberto Rutledge on 04-26-2022 MCV (RBC) [Entitic vol] 91.7 fL 81-99 [facility] Erythrocyte sedimentation ra teOrdered By: Juan Alberto Rutledge on 04-26-2022 ESR (Bld) [Velocity] 22 mm/h 0-30 [facility] Hematocrit Auto (Bld) [Volum e fraction]Ordered By: Juan Alberto Rutledge on 04-26-2022 Hematocrit (Bld) [Volume fraction] 44.3 % 37-47 [facility] - Chemistry and C hemistry - challengeOrdered By: Juan Alberto Rutledge on 04-26-2022 ALP [Catalytic activity/Vol] 49 U/L 45-117 [facility] ALT [Catalytic activity/Vol] 21 U/L 13-56 [facility] CO2 [Moles/Vol] 29.0 mmol/L 21.0-32.0 [facility] Globulin (S) [Mass/Vol] 3.7 g/dL 2.2-4.2 [facility] Urea nitrogen/Creatinine [Mass ratio] 12.7 mg/mg 10-20 [facility] - Hematology and Cell countsOrdered By: Juan Alberto Rutledge on 04-26-2022 Erythrocyte distribution width (RBC) [Entitic vol] 44.3 fL 35.1-43.9 [facility] Erythrocyte distribution width (RBC) [Ratio] 13.2 % 11.6-14.6 [facility] Immature granulocytes/100 WBC (Bld) 0.400 % 0.0-0.9 [facility] Comment on above: IG% - Immature Granu locytes (promyelocytes, myelocytes and metamyelocytes) > 1% indicates that a LEFT SHIFT is Present. MCH (RBC) [Entitic mass] 30.8 pg 27.0-32.0 [facility] Nucleated RBC/100 WBC (Bld) [Ratio] 0 % 0-5 [facility] MCHC Auto (RBC) [Mass/Vol]Or dered By: Juan Alberto Rutledge on 04-26-2022 MCHC (RBC) [Mass/Vol] 33.6 g/dL 32-36 [facility] No Panel InformationOrdered By: Juan Alberto Rutledge on 04-26-2022 Estimated GFR (MDRD) Amer 98 mL/min >60 [facility] Comment on above: GFR Calc Estimated GFR (MDRD) Non-Af Amer 81 mL/min >60 [facility] Comment on above: Non- GFR Calc Miscellaneous Test See comment [facility] Comment on above: Scanned image report available in EMR Platelets bldOrdered By: Law Rutledge on 04-26-2022 Platelets (Bld) [#/Vol] 316 10*3/uL 150-450 [facility] Serum or plasma C reactive p rotein measurement (mass/volume)Ordered By: Juan Alberto Rutledge on 04-26-2022 CRP [Mass/Vol] 12.50 mg/L 0.0-3.0 [facility] Comment on above: C-Reactive Protein ( CRP) provides useful information for thediagnosis, therapy and monitoring of inflammatory processesand associated diseases. For the evaluation of Relative Riskfor Cardiovascular Disease, a High Sensitivity CRP (HSCRP)should be ordered. Serum or plasma albumin rosa maria urement (mass/volume)Ordered By: Juan Alberto Rutledge on 04-26-2022 Albumin [Mass/Vol] 3.5 g/dL 3.2-5.0 [facility] Serum or plasma albumin/glob ulin mass ratioOrdered By: Juan Alberto Rutledge on 04-26-2022 Albumin/Globulin [Mass ratio] 0.9 {ratio} 0.9-2.4 [facility] Serum or plasma calcium rosa maria urement (mass/volume)Ordered By: Juan Alberto Rutledge on 04-26-2022 Calcium [Mass/Vol] 9.3 mg/dL 8.5-10.1 [facility] Serum or plasma creatinine m easurement (mass/volume)Ordered By: Juan Alberto Rutledge on 04-26-2022 Creatinine [Mass/Vol] 0.87 mg/dL 0.55-1.02 [facility] Comment on above: The validity of the calculated GFR & GFRAA in patients over 70 years has not been determined. Clinical correlation is essential. Serum or plasma urea nitroge n measurement (mass/volume)Ordered By: Juan Alberto Rutledge on 04-26-2022 Urea nitrogen [Mass/Vol] 11 mg/dL 7-18 [facility] Thin prep Papanicolaou smear with manual screeningOrdered By: Juan Alberto Rutledge on 04-26-2022 Thin prep Papanicolaou smear with manual screening 15 U/L 15-37 [facility] Thin prep Papanicolaou smear with manual screening 6 5-15 [facility] Absolute lymphocyte counton 03-31-2022 Lymphocytes Auto (Unsp spec) [#/Vol] 2.40 10*3/uL 0.83-4.51 [facility] Work Phone: Basophil percentageon 2021 Lactate [Moles/Vol] 0.8 mmol/L [facility].4-2.[facility] Work Phone: Basophil percentage 0-5 [facility] Work Phone: Basophils/100 WBC (Bld) 0.4 % 0-1 [facility] Work Phone: Chloride [Moles/Vol] 109 mmol/L 98-[address] [facility] Work Phone: Eosinophils/100 WBC (Bld) 0.4 % 0-5 [facility] Work Phone: Glucose [Mass/Vol] 138 mg/dL 74-106 [facility] Work Phone: Comment on above: Fasting Glucose resu lt greater than or equal to 126 mg/dL suggests DIABETES MELLITUS per A.D.A. criteria. Neutrophils (Bld) [#/Vol] 28.5 10*3/uL 2.0-7.7 [facility] Work Phone: Neutrophils/100 WBC (Bld) 84.5 % 47-70 [facility] Work Phone: Potassium [Moles/Vol] 4.0 mmol/L 3.5-5.1 [facility] Work Phone: Sodium [Moles/Vol] 141 mmol/L 136-145 [facility] Work Phone: WBC (Bld) [#/Vol] 33.7 10*3/uL 4.4-11.0 [facility] Work Phone: Comment on above: CRITICAL VALUE VERIF IED. [facility] 1738 Domenica Whitney.RESULTS READ BACK BY SAME . Beta hCG serum qualon 2021 Beta HCG ( test) Ql Negative [facility] Work Phone: Bilirubin Test strip Ql (U)o n 03-31-2022 Bilirubin Ql (U) 1 mg/dL Negative [facility] Work Phone: Comment on above: COLOR OF URINE MAY A FFECT DIPSTICK RESULTS. Blood erythrocytes count (nu mber/volume)on 03-31-2022 RBC (Bld) [#/Vol] 5.82 10*6/uL 4.2-5.4 [facility] Work Phone: Blood hemoglobin measurement (mass/volume)on 03-31-2022 Hemoglobin (Bld) [Mass/Vol] 17.8 g/dL 12.0-15.0 [facility] Work Phone: Blood lymphocytes/100 leukoc yteson 03-31-2022 Lymphocytes/100 WBC (Bld) 7.1 % 19-41 [facility] Work Phone: Blood manual differential co mment interpretation (narrative result)on 03-31-2022 Manual differential comment Kristian (Bld) [Interp] SCANNED [facility] Work Phone: Comment on above: LEUKOCYTOSIS NOTEDNE UTROPHILIA NOTEDMONOCYTOSIS NOTED Blood monocytes/100 leukocyt eson 03-31-2022 Monocytes/100 WBC (Bld) 6.5 % 0-10 [facility] Work Phone: Blood platelet mean volumeon 03-31-2022 Platelet mean volume (Bld) [Entitic vol] 9.8 fL 6.2-12.0 [facility] Work Phone: Determination of erythrocyte mean corpuscular volume (MCV)on 03-31-2022 MCV (RBC) [Entitic vol] 92.8 fL 81-99 [facility] Work Phone: Hematocrit Auto (Bld) [Volum e fraction]on 03-31-2022 Hematocrit (Bld) [Volume fraction] 54.0 % 37-47 [facility] Work Phone: Ketones Test strip Ql (U)on 03-31-2022 Ketones Ql (U) 15 mg/dl Negative [facility] Work Phone: Laboratory - Chemistry and C hemistry - challengeon 03-31-2022 CO2 [Moles/Vol] 27.0 mmol/L 21.0-32.0 [facility] Work Phone: Urea nitrogen/Creatinine [Mass ratio] 10.2 mg/mg 10-20 [facility] Work Phone: Laboratory - Hematology and Cell countson 03-31-2022 Erythrocyte distribution width (RBC) [Entitic vol] 43.8 fL 35.1-43.9 [facility] Work Phone: Erythrocyte distribution width (RBC) [Ratio] 13.0 % 11.6-14.6 [facility] Work Phone: Immature granulocytes/100 WBC (Bld) 1.100 % 0.0-0.9 [facility] Work Phone: Comment on above: IG% - Immature Granu locytes (promyelocytes, myelocytes and metamyelocytes) > 1% indicates that a LEFT SHIFT is Present. MCH (RBC) [Entitic mass] 30.6 pg 27.0-32.0 [facility] Work Phone: Nucleated RBC/100 WBC (Bld) [Ratio] 0 % 0-5 [facility] Work Phone: MCHC Auto (RBC) [Mass/Vol]on 03-31-2022 MCHC (RBC) [Mass/Vol] 33.0 g/dL 32-36 [facility] Work Phone: Mucus LM Ql (Urine sed)on Mucus Ql (Urine sed) 3+ /hpf [facility] Work Phone: Nitrite Test strip Ql (U)on 03-31-2022 Nitrite Ql (U) Negative Negative [facility] Work Phone: No Panel Informationon 03-31 Estimated Creatinine Clearance Calc 82.37 ml/min [facility] Work Phone: Estimated GFR (MDRD) Amer 76 mL/min >60 [facility] Work Phone: Comment on above: GFR Calc Estimated GFR (MDRD) Non-Af Amer 63 mL/min >60 [facility] Work Phone: Comment on above: Non- GFR Calc Platelets bldon 03-31-2022 Platelets (Bld) [#/Vol] 410 10*3/uL 150-450 [facility] Work Phone: Protein Test strip Ql (U)on 03-31-2022 Protein Ql (U) 30 mg/dl Negative [facility] Work Phone: Review by pathologiston Pathologist review Kristian (Unsp spec) [Interp] Macy wallace [facility] Work Phone: Pathologist review Kristian (Unsp spec) [Interp] Reviewed [facility] Work Phone: Comment on above: Previous reported re sult: Macy wallace Edited by: RGOOD on 04/04/22:1341Neutrophilic leukocytosis.Polycythemia Clinical correlation necessary.Ben Lopez M.D. 04/04/22 AMENDED REPORT 04/04/22 1341 PATH REV previously reported as: Macy wallace Serum or plasma calcium rosa maria urement (mass/volume)on 03-31-2022 Calcium [Mass/Vol] 10.2 mg/dL 8.5-10.1 [facility] Work Phone: Serum or plasma creatinine m easurement (mass/volume)on 03-31-2022 Creatinine [Mass/Vol] 1.08 mg/dL 0.55-1.02 [facility] Work Phone: Comment on above: The validity of the calculated GFR & GFRAA in patients over 70 years has not been determined. Clinical correlation is essential. Serum or plasma urea nitroge n measurement (mass/volume)on 03-31-2022 Urea nitrogen [Mass/Vol] 11 mg/dL 7-18 [facility] Work Phone: Squamous epithelial cells de tection in urine sediment by light microscopyon 03-31-2022 Epithelial cells.squamous LM Ql (Urine sed) 5-10 SEEN /hpf 5-10 [facility] Work Phone: Thin prep Papanicolaou smear with manual screeningon 03-31-2022 Thin prep Papanicolaou smear with manual screening 5 5-15 [facility] Work Phone: Urine blood detectionon RBC Ql (U) 150 /ul Negative [facility] Work Phone: RBC Ql (U) 10-25 SEEN /hpf 0-5 [facility] Work Phone: Urine clarityon 03-31-2022 Clarity (U) Cloudy Clear [facility] Work Phone: Urine color determinationon 03-31-2022 Color (U) Yellow Yellow [facility] Work Phone: Urine glucose detectionon Glucose Ql (U) Normal mg/dl Normal [facility] Work Phone: Urine leukocyte esterase det ection by dipstickon 03-31-2022 Leukocyte esterase Test strip Ql (U) 25 /ul Negative [facility] Work Phone: Urine pHon 03-31-2022 pH (U) 5.0 [pH] 5.0 - 8.0 [facility] Work Phone: Urine sediment bacteria coun t by microscopy (number/high power field)on 03-31-2022 Bacteria LM.HPF (Urine sed) [#/Area] 2 /[HPF] None Seen [facility] Work Phone: Urine specific gravity measu rementon 03-31-2022 Specific gravity (U) [Rel density] 1.030 1.002-1.03 0 [facility] Work Phone: Urobilinogen Auto test strip Ql (U)on 03-31-2022 Urobilinogen Ql (U) 1 mg/dl Normal [facility] Work Phone: Absolute lymphocyte counton 02-14-2022 Lymphocytes Auto (Unsp spec) [#/Vol] 3.54 10*3/uL 0.83-4.51 [facility] Work Phone: Basophil percentageon 2021 Basophils/100 WBC (Bld) 0.3 % 0-1 [facility] Work Phone: Chloride [Moles/Vol] 107 mmol/L 98-107 [facility] Work Phone: [phone] Eosinophils/100 WBC (Bld) 1.1 % 0-5 [facility] Work Phone: [phone] Glucose [Mass/Vol] 91 mg/dL 74-106 [facility] Work Phone: [phone] Neutrophils (Bld) [#/Vol] 6.4 10*3/uL 2.0-7.7 [facility] Work Phone: Neutrophils/100 WBC (Bld) 57.3 % 47-70 [facility] Work Phone: Potassium [Moles/Vol] 3.9 mmol/L 3.5-5.1 [facility] Work Phone: [phone] Sodium [Moles/Vol] 140 mmol/L 136-145 [facility] Work Phone: WBC (Bld) [#/Vol] 11.1 10*3/uL 4.4-11.0 [facility] Work Phone: Blood erythrocytes count (nu mber/volume)on 02-14-2022 RBC (Bld) [#/Vol] 4.95 10*6/uL 4.2-5.4 [facility] Work Phone: Blood hemoglobin measurement (mass/volume)on 02-14-2022 Hemoglobin (Bld) [Mass/Vol] 15.0 g/dL 12.0-15.0 [facility] Work Phone: Blood lymphocytes/100 leukoc yteson 02-14-2022 Lymphocytes/100 WBC (Bld) 32.0 % 19-41 [facility] Work Phone: Blood monocytes/100 leukocyt eson 02-14-2022 Monocytes/100 WBC (Bld) 8.9 % 0-10 [facility] Work Phone: Blood platelet mean volumeon 02-14-2022 Platelet mean volume (Bld) [Entitic vol] 10.0 fL 6.2-12.0 [facility] Work Phone: Determination of erythrocyte mean corpuscular volume (MCV)on 02-14-2022 MCV (RBC) [Entitic vol] 91.5 fL 81-99 [facility] Work Phone: Hematocrit Auto (Bld) [Volum e fraction]on 02-14-2022 Hematocrit (Bld) [Volume fraction] 45.3 % 37-47 [facility] Work Phone: [phone] Laboratory - Chemistry and C hemistry - challengeon 02-14-2022 CO2 [Moles/Vol] 27.0 mmol/L 21.0-32.0 [facility] Work Phone: Urea nitrogen/Creatinine [Mass ratio] 13.2 mg/mg 10-20 [facility] Work Phone: Laboratory - Hematology and Cell countson 02-14-2022 Erythrocyte distribution width (RBC) [Entitic vol] 43.8 fL 35.1-43.9 [facility] Work Phone: Erythrocyte distribution width (RBC) [Ratio] 13.1 % 11.6-14.6 [facility] Work Phone: Immature granulocytes/100 WBC (Bld) 0.400 % 0.0-0.9 [facility] Work Phone: [phone] Comment on above: IG% - Immature Granu locytes (promyelocytes, myelocytes and metamyelocytes) > 1% indicates that a LEFT SHIFT is Present. MCH (RBC) [Entitic mass] 30.3 pg 27.0-32.0 [facility] Work Phone: Nucleated RBC/100 WBC (Bld) [Ratio] 0 % 0-5 [facility] Work Phone: MCHC Auto (RBC) [Mass/Vol]on 02-14-2022 MCHC (RBC) [Mass/Vol] 33.1 g/dL 32-36 [facility] Work Phone: No Panel Informationon 02-14 Estimated Creatinine Clearance Calc 105.90 ml/min [facility] Work Phone: Estimated GFR (MDRD) Amer 103 mL/min >60 [facility] Work Phone: Comment on above: GFR Calc Estimated GFR (MDRD) Non-Af Amer 85 mL/min >60 [facility] Work Phone: Comment on above: Non- GFR Calc Platelets bldon 02-14-2022 Platelets (Bld) [#/Vol] 286 10*3/uL 150-450 [facility] Work Phone: Review by pathologiston 01-27 Pathologist review Kristian (Unsp spec) [Interp] Reviewed [facility] Work Phone: Comment on above: Reactive lymphocytes noted.No circulating blasts are identified.Clinical correlation suggested.Franck Bran D.O. 02/14/22Note: requested review. Serum or plasma calcium rosa maria urement (mass/volume)on 02-14-2022 Calcium [Mass/Vol] 9.3 mg/dL 8.5-10.1 [facility] Work Phone: Serum or plasma creatinine m easurement (mass/volume)on 02-14-2022 Creatinine [Mass/Vol] 0.84 mg/dL 0.55-1.02 [facility] Work Phone: Comment on above: The validity of the calculated GFR & GFRAA in patients over 70 years has not been determined. Clinical correlation is essential. Serum or plasma urea nitroge n measurement (mass/volume)on 02-14-2022 Urea nitrogen [Mass/Vol] 11 mg/dL 7-18 [facility] Work Phone: Serum or plasma uric acid me asurement (mass/volume)on 02-14-2022 Urate [Mass/Vol] 6.2 mg/dL 2.6-6.0 [facility] Work Phone: Comment on above: The drugs N-Acetylcy steine and Metamizole may falsely depress this assay. Thin prep Papanicolaou smear with manual screeningon 02-14-2022 Thin prep Papanicolaou smear with manual screening 6 5-15 [facility] Work Phone: Absolute lymphocyte counton 02-13-2022 Lymphocytes Auto (Unsp spec) [#/Vol] 3.90 10*3/uL 0.83-4.51 [facility] Work Phone: Basophil percentageon 2021 Basophils/100 WBC (Bld) 0.2 % 0-1 [facility] Work Phone: Bilirubin [Mass/Vol] 0.30 mg/dL 0.20-1.00 [facility] Work Phone: Comment on above: For patients on eltr ombopag therapy, use of Dimension [place] TBIL is not recommended. Chloride [Moles/Vol] 107 mmol/L 98-107 [facility] Work Phone: Eosinophils/100 WBC (Bld) 1.1 % 0-5 [facility] Work Phone: Glucose [Mass/Vol] 70 mg/dL 74-106 [facility] Work Phone: Neutrophils (Bld) [#/Vol] 7.1 10*3/uL 2.0-7.7 [facility] Work Phone: Neutrophils/100 WBC (Bld) 58.3 % 47-70 [facility] Work Phone: Potassium [Moles/Vol] 4.1 mmol/L 3.5-5.1 [facility] Work Phone: Protein [Mass/Vol] 7.4 g/dL 6.4-8.2 [facility] Work Phone: Sodium [Moles/Vol] 142 mmol/L 136-145 [facility] Work Phone: WBC (Bld) [#/Vol] 12.2 10*3/uL 4.4-11.0 [facility] Work Phone: Blood blasts/100 leukocyteso n 02-13-2022 Blasts/100 WBC (Bld) 12.2 % 0-0 [facility] Work Phone: Blood erythrocytes count (nu mber/volume)on 02-13-2022 RBC (Bld) [#/Vol] 4.98 10*6/uL 4.2-5.4 [facility] Work Phone: Blood hemoglobin measurement (mass/volume)on 02-13-2022 Hemoglobin (Bld) [Mass/Vol] 15.0 g/dL 12.0-15.0 [facility] Work Phone: Blood lymphocytes/100 leukoc yteson 02-13-2022 Lymphocytes/100 WBC (Bld) 32.0 % 19-41 [facility] Work Phone: Blood monocytes/100 leukocyt eson 02-13-2022 Monocytes/100 WBC (Bld) 7.8 % 0-10 [facility] Work Phone: Blood platelet mean volumeon 02-13-2022 Platelet mean volume (Bld) [Entitic vol] 10.7 fL 6.2-12.0 [facility] Work Phone: Determination of erythrocyte mean corpuscular volume (MCV)on 02-13-2022 MCV (RBC) [Entitic vol] 92.6 fL 81-99 [facility] Work Phone: [phone] Erythrocyte sedimentation ra guy 02-13-2022 ESR (Bld) [Velocity] 12 mm/h 0-30 [facility] Work Phone: Hematocrit Auto (Bld) [Volum e fraction]on 02-13-2022 Hematocrit (Bld) [Volume fraction] 46.1 % 37-47 [facility] Work Phone: Laboratory - Chemistry and C hemistry - challengeon 02-13-2022 ALP [Catalytic activity/Vol] 50 U/L 45-117 [facility] Work Phone: ALT [Catalytic activity/Vol] 26 U/L 13-56 [facility] Work Phone: CO2 [Moles/Vol] 26.0 mmol/L 21.0-32.0 [facility] Work Phone: Globulin (S) [Mass/Vol] 3.6 g/dL 2.2-4.2 [facility] Work Phone: Urea nitrogen/Creatinine [Mass ratio] 12.5 mg/mg 10-20 [facility] Work Phone: Laboratory - Hematology and Cell countson 02-13-2022 Erythrocyte distribution width (RBC) [Entitic vol] 45.1 fL 35.1-43.9 [facility] Work Phone: Erythrocyte distribution width (RBC) [Ratio] 13.2 % 11.6-14.6 [facility] Work Phone: Immature granulocytes/100 WBC (Bld) 0.600 % 0.0-0.9 [facility] Work Phone: Comment on above: IG% - Immature Granu locytes (promyelocytes, myelocytes and metamyelocytes) > 1% indicates that a LEFT SHIFT is Present. MCH (RBC) [Entitic mass] 30.1 pg 27.0-32.0 [facility] Work Phone: Nucleated RBC/100 WBC (Bld) [Ratio] 0 % 0-5 [facility] Work Phone: MCHC Auto (RBC) [Mass/Vol]on 02-13-2022 MCHC (RBC) [Mass/Vol] 32.5 g/dL 32-36 [facility] Work Phone: No Panel Informationon 02-13 Estimated GFR (MDRD) Amer 108 mL/min >60 [facility] Work Phone: Comment on above: GFR Calc Estimated GFR (MDRD) Non-Af Amer 89 mL/min >60 [facility] Work Phone: Comment on above: Non- GFR Calc Platelets bldon 02-13-2022 Platelets (Bld) [#/Vol] 306 10*3/uL 150-450 [facility] Work Phone: Serum or plasma C reactive p rotein measurement (mass/volume)on 02-13-2022 CRP [Mass/Vol] 9.63 mg/L 0.0-3.0 [facility] Work Phone: Comment on above: C-Reactive Protein ( CRP) provides useful information for thediagnosis, therapy and monitoring of inflammatory processesand associated diseases. For the evaluation of Relative Riskfor Cardiovascular Disease, a High Sensitivity CRP (HSCRP)should be ordered. Serum or plasma albumin rosa maria urement (mass/volume)on 02-13-2022 Albumin [Mass/Vol] 3.8 g/dL 3.2-5.0 [facility] Work Phone: Serum or plasma albumin/glob ulin mass ratioon 02-13-2022 Albumin/Globulin [Mass ratio] 1.1 {ratio} 0.9-2.4 [facility] Work Phone: Serum or plasma calcium rosa maria urement (mass/volume)on 02-13-2022 Calcium [Mass/Vol] 9.2 mg/dL 8.5-10.1 [facility] Work Phone: Serum or plasma creatinine m easurement (mass/volume)on 02-13-2022 Creatinine [Mass/Vol] 0.80 mg/dL 0.55-1.02 [facility] Work Phone: Comment on above: The validity of the calculated GFR & GFRAA in patients over 70 years has not been determined. Clinical correlation is essential. Serum or plasma urea nitroge n measurement (mass/volume)on 02-13-2022 Urea nitrogen [Mass/Vol] 10 mg/dL -18 [facility] Work Phone: Thin prep Papanicolaou smear with manual screeningon 02-13-2022 Thin prep Papanicolaou smear with manual screening 15 U/L 15-37 [facility] Work Phone: Thin prep Papanicolaou smear with manual screening 9 5-15 [facility] Work Phone: Absolute lymphocyte counton 09-23-2021 Lymphocytes Auto (Unsp spec) [#/Vol] 2.98 10*3/uL 0.83-4.51 [facility] Work Phone: Basophil percentageon 2021 Amylase [Catalytic activity/Vol] 26 U/L 25-115 [facility] Work Phone: Basophils/100 WBC (Bld) 0.4 % 0-1 [facility] Work Phone: Bilirubin [Mass/Vol] 0.30 mg/dL 0.20-1.00 [facility] Work Phone: Comment on above: For patients on eltr ombopag therapy, use of Dimension [place] TBIL is not recommended. Chloride [Moles/Vol] 107 mmol/L 98-107 [facility] Work Phone: [phone] Eosinophils/100 WBC (Bld) 1.6 % 0-5 [facility] Work Phone: Glucose [Mass/Vol] 108 mg/dL 74-106 [facility] Work Phone: Comment on above: Fasting Glucose resu lt from 100 to 125 mg/dL suggests IMPAIRED HOMEOSTASIS per A.D.A. criteria. Neutrophils (Bld) [#/Vol] 9.7 10*3/uL 2.0-7.7 [facility] Work Phone: [phone] Neutrophils/100 WBC (Bld) 69.2 % 47-70 [facility] Work Phone: [phone] Potassium [Moles/Vol] 3.5 mmol/L 3.5-5.1 [facility] Work Phone: Protein [Mass/Vol] 7.1 g/dL 6.4-8.2 [facility] Work Phone: Sodium [Moles/Vol] 141 mmol/L 136-145 [facility] Work Phone: WBC (Bld) [#/Vol] 14.0 10*3/uL 4.4-11.0 [facility] Work Phone: Blood erythrocytes count (nu mber/volume)on 09-23-2021 RBC (Bld) [#/Vol] 4.62 10*6/uL 4.2-5.4 [facility] Work Phone: Blood hemoglobin measurement (mass/volume)on 09-23-2021 Hemoglobin (Bld) [Mass/Vol] 14.6 g/dL 12.0-15.0 [facility] Work Phone: Blood lymphocytes/100 leukoc yteson 09-23-2021 Lymphocytes/100 WBC (Bld) 21.3 % 19-41 [facility] Work Phone: [phone] Blood monocytes/100 leukocyt eson 09-23-2021 Monocytes/100 WBC (Bld) 6.7 % 0-10 [facility] Work Phone: Blood platelet mean volumeon 09-23-2021 Platelet mean volume (Bld) [Entitic vol] 10.4 fL 6.2-12.0 [facility] Work Phone: Determination of erythrocyte mean corpuscular volume (MCV)on 09-23-2021 MCV (RBC) [Entitic vol] 95.0 fL 81-99 [facility] Work Phone: Hematocrit Auto (Bld) [Volum e fraction]on 09-23-2021 Hematocrit (Bld) [Volume fraction] 43.9 % 37-47 [facility] Work Phone: Laboratory - Chemistry and C hemistry - challengeon 09-23-2021 ALP [Catalytic activity/Vol] 42 U/L 45-117 [facility] Work Phone: ALT [Catalytic activity/Vol] 27 U/L 13-56 [facility] Work Phone: CO2 [Moles/Vol] 31.0 mmol/L 21.0-32.0 [facility] Work Phone: Globulin (S) [Mass/Vol] 3.6 g/dL 2.2-4.2 [facility] Work Phone: Lipase [Catalytic activity/Vol] 60 U/L 73-393 [facility] Work Phone: Urea nitrogen/Creatinine [Mass ratio] 14.1 mg/mg 10-20 [facility] Work Phone: Laboratory - Hematology and Cell countson 09-23-2021 Erythrocyte distribution width (RBC) [Entitic vol] 59.4 fL 35.1-43.9 [facility] Work Phone: Erythrocyte distribution width (RBC) [Ratio] 17.2 % 11.6-14.6 [facility] Work Phone: Immature granulocytes/100 WBC (Bld) 0.800 % 0.0-0.9 [facility] Work Phone: Comment on above: IG% - Immature Granu locytes (promyelocytes, myelocytes and metamyelocytes) > 1% indicates that a LEFT SHIFT is Present. MCH (RBC) [Entitic mass] 31.6 pg 27.0-32.0 [facility] Work Phone: Nucleated RBC/100 WBC (Bld) [Ratio] 0 % 0-5 [facility] Work Phone: MCHC Auto (RBC) [Mass/Vol]on 09-23-2021 MCHC (RBC) [Mass/Vol] 33.3 g/dL 32-36 [facility] Work Phone: No Panel Informationon 09-23 Estimated GFR (MDRD) Amer 100 mL/min >60 [facility] Work Phone: Comment on above: GFR Calc Estimated GFR (MDRD) Non-Af Amer 83 mL/min >60 [facility] Work Phone: Comment on above: Non- GFR Calc Platelets bldon 09-23-2021 Platelets (Bld) [#/Vol] 315 10*3/uL 150-450 [facility] Work Phone: Serum or plasma C reactive p rotein measurement (mass/volume)on 09-23-2021 CRP [Mass/Vol] 7.97 mg/L 0.0-3.0 [facility] Work Phone: Comment on above: C-Reactive Protein ( CRP) provides useful information for thediagnosis, therapy and monitoring of inflammatory processesand associated diseases. For the evaluation of Relative Riskfor Cardiovascular Disease, a High Sensitivity CRP (HSCRP)should be ordered. Serum or plasma albumin rosa maria urement (mass/volume)on 09-23-2021 Albumin [Mass/Vol] 3.5 g/dL 3.2-5.0 [facility] Work Phone: Serum or plasma albumin/glob ulin mass ratioon 09-23-2021 Albumin/Globulin [Mass ratio] 1.0 {ratio} 0.9-2.4 [facility] Work Phone: Serum or plasma calcium rosa maria urement (mass/volume)on 09-23-2021 Calcium [Mass/Vol] 8.7 mg/dL 8.5-10.1 [facility] Work Phone: Serum or plasma creatinine m easurement (mass/volume)on 09-23-2021 Creatinine [Mass/Vol] 0.85 mg/dL 0.55-1.02 [facility] Work Phone: Comment on above: The validity of the calculated GFR & GFRAA in patients over 70 years has not been determined. Clinical correlation is essential. Serum or plasma urea nitroge n measurement (mass/volume)on 09-23-2021 Urea nitrogen [Mass/Vol] 12 mg/dL 7-18 [facility] Work Phone: Thin prep Papanicolaou smear with manual screeningon 09-23-2021 Thin prep Papanicolaou smear with manual screening 13 U/L 15-37 [facility] Work Phone: Thin prep Papanicolaou smear with manual screening 3 5-15 [facility] Work Phone: Whole blood hemoglobin A1c/t otal hemoglobin ratio (mass fraction)on 09-23-2021 HbA1c (Bld) [Mass fraction] 5.2 % 3.8-5.6 [facility] Work Phone: Comment on above: Normal < 5.7 % Predi abetic 5.7 - 6.4 % Diabetic >or= 6.5 % Please note range changes. JAK2 V617F mutation detectio non 03-08-2020 JAK2 gene p.[id number] [facility] (Bld/Tiss) Comment . [facility] Comment on above: Result: NEGATIVE for the JAK2 V617F mutation.Interpretation: The G to T nucleotide change encoding [id number] mutation was not detected. This result does [...] Panel Informationon 03-08 JAK2 Mutation Comment . [facility] Comment on above: JAK2 is a cytoplasmi c tyrosine kinase with a link role insignal transduction from multiple hematopoietic growthfactor receptors. 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 The [employer] Absolute Quantitation softwarewill compare the patient specimen valuse to the standardcurves and generate percent values for wild type andmutant type. In vitro studies have indicated that thisassay has an analytical sensitivity of 1%.References:Imtiaz EJ, Blue LM, Arnoldo PJ, et al. Acquiredmutation of the tyrosine kinase JAK2 in humanmyeloproliferative disorders. Lancet. 2005 Oct 15;365(8215):3728-6396. Poncho Dave V, Jojo New JP. Aunique clonal JAK2 mutation leading to constitutivesignaling causes polycythaemia vera. Nature. 2005 Nov 24;011(3785):9193-7874.Luke R, Agata F, Delia , et al. A ogxf-iv-aacvepmz mutation of JAK2 in myeloproliferative disorders.N Engl J Med. 2005 Nov 24; 35217):1980-6298. Miscellaneous Test See comment [facility] Comment on above: TEST RESULT LIMITSBC R-ABL1, [...] detected by this assay.Director Mabel Hood, PhD, [facility] Director, Molecular GeneticsSouth[facility] PathologyP[facility], [phone] This assay can detect three different types [...] developed and its performance characteristics determined by [employer]. It has not been cleared or approved by the Food and Drug Administration.References: 1. Albert T and Kimberly S: Seminars in Hematology 2003; 40 (suppl2):62-68. 2. Asiya VALENZUELA, et al. Blood 2010; 116: e724-849. 3. NCCN Clinical Practice Guidelines in Oncology, Chronic Myeloid Leukemia. V2. 2017. [facility]. ORIGINAL REPORT ON FILE IN LAB CONTAINS ADDITIONAL TEST SITE INFORMATION. Serum or plasma uric acid me asurement (mass/volume)on 02-26-2020 Urate [Mass/Vol] 5.4 mg/dL 2.6-6.0 [facility] Comment on above: The drugs N-Acetylcy steine and Metamizole may falsely depress this assay. Vital Signs Date Time Vital Sign Value Performing Clinician Facility 04-30-2025 11:24-0400 Body height 177.[address] Radha Calloway MD Work Phone: 2(746)080-895437 [place] [address] 04-30-2025 11:24-0400 Body mass index (BMI) [Ratio] 33.5 kg/m2 Dr. Radha Calloway MD Work Phone: 0(626)396-144937 [place] [address] 04-30-2025 11:24-0400 Body weight 106.[address] Radha Calloway MD Work Phone: 0(951)892-072537 [place] [address] 03-31-2025 11:07-0400 Body height 177.[address] Radha Calloway MD Work Phone: 9(613)951-738037 [place] [address] 03-31-2025 11:07-0400 Body mass index (BMI) [Ratio] 33 kg/m2 Dr. Radha Calloway MD Work Phone: 8(964)088-214500 [address] 03-31-2025 11:07-0400 Body weight 104.[address] Radha Calloway MD Work Phone: 9(846)406-723637 [place] [address] 03-02-2025 12:17-0400 Body height 177.[address] Radha Calloway MD Work Phone: 5(911)524-553037 [place] [address] 02-03-2025 11:03-0400 Body height 177.[address] Radha Calloway MD Work Phone: 6(561)815-266337 [place] [address] 02-03-2025 11:03-0400 Body mass index (BMI) [Ratio] 32.3 kg/m2 Dr. Radha Calloway MD Work Phone: [facility] 02-03-2025 11:03-0400 Body weight 102.[address] Radha Calloway MD Work Phone: 6(018)971-505668 [place] [address] 02-03-2025 11:03-0400 Diastolic blood pressure 60 mm[Hg] Dr. Radha Calloway MD Work Phone: 9(393)406-388637 [place] [address] 02-03-2025 11:03-0400 Systolic blood pressure 110 mm[Hg] Dr. Radha Calloway MD Work Phone: 1(311)069-777937 [place] [address] 02-02-2025 13:18-0400 Body temperature 97 [degF] Dr. Radha Calloway MD Work Phone: 6(453)001-631637 [place] [address] 02-02-2025 13:18-0400 Diastolic blood pressure 64 mm[Hg] Dr. Radha Calloway MD Work Phone: 6(470)833-891768 [place] [address] 02-02-2025 13:18-0400 Heart rate 65 /min Dr. Radha Calloway MD Work Phone: 0(431)874-381168 [place] [address] 02-02-2025 13:18-0400 Respiratory rate 16 /min Dr. Radha Calloway MD Work Phone: 9(471)401-798468 [place] [address] 02-02-2025 13:18-0400 SaO2% (BldA) [Mass fraction] 100 % Dr. Radha Calloway MD Work Phone: [facility] 02-02-2025 13:18-0400 Systolic blood pressure 119 mm[Hg] Dr. Radha Calloway MD Work Phone: [facility] 02-02-2025 10:15-0400 Body height 177.[address] Radha Calloway MD Work Phone: [facility] 01-30-2025 20:19-0400 Diastolic blood pressure 63 mm[Hg] Yunior Sheppard MD Work Phone: [facility] 01-30-2025 20:19-0400 Heart rate 65 /min Yunior Sheppard MD Work Phone: [facility] 01-30-2025 20:19-0400 Respiratory rate 22 /min Yunior Sheppard MD Work Phone: [facility] 01-30-2025 20:19-0400 SaO2% (BldA) [Mass fraction] 98 % Yunior Sheppard MD Work Phone: [facility] 01-30-2025 20:19-0400 Systolic blood pressure 117 mm[Hg] Yunior Sheppard MD Work Phone: [facility] 01-30-2025 18:58-0400 Body height 177.8 cm Yunior Sheppard MD Work Phone: [facility] 01-30-2025 18:58-0400 Body mass index (BMI) [Ratio] 33 kg/m2 Yunior Sheppard MD Work Phone: [facility] 01-30-2025 18:58-0400 Body temperature 98.29 [degF] Yuniro Sheppard MD Work Phone: [facility] 01-30-2025 18:58-0400 Body weight 104.33 kg Yunior Sheppard MD Work Phone: [facility] 01-26-2025 10:09-0400 Body height 177.8 cm Yunior Sheppard MD Work Phone: [facility] 01-26-2025 10:09-0400 Body mass index (BMI) [Ratio] 33.72 kg/m2 Yunior Sheppard MD Work Phone: [facility] 01-26-2025 10:09-0400 Body weight 106.59 kg Yunior Sheppard MD Work Phone: [facility] 01-26-2025 10:07-0400 Body temperature 97.7 [degF] Yunior Sheppard MD Work Phone: [facility] 01-26-2025 10:07-0400 Diastolic blood pressure 75 mm[Hg] Yunior Sheppard MD Work Phone: [facility] 01-26-2025 10:07-0400 Heart rate 91 /min Yunior Sheppard MD Work Phone: [facility] 01-26-2025 10:07-0400 Respiratory rate 16 /min Yunior Sheppard MD Work Phone: [facility] 01-26-2025 10:07-0400 SaO2% (BldA) [Mass fraction] 98 % Yunior Sheppard MD Work Phone: [facility] 01-26-2025 10:07-0400 Systolic blood pressure 129 mm[Hg] Yunior Sheppard MD Work Phone: [facility] 01-09-2025 13:57-0400 Body temperature 97.9 [degF] Dr. Radha Calloway MD Work Phone: [facility] 01-09-2025 13:57-0400 Diastolic blood pressure 95 mm[Hg] Dr. Radha Calloway MD Work Phone: 6(016)736-162768 [place] [address] 01-09-2025 13:57-0400 Heart rate 64 /min Dr. Radha Calloway MD Work Phone: [facility] 01-09-2025 13:57-0400 Respiratory rate 16 /min Dr. Radha Calloway MD Work Phone: [facility] 01-09-2025 13:57-0400 SaO2% (BldA) [Mass fraction] 98 % Dr. Radha Calloway MD Work Phone: [facility] 01-09-2025 13:57-0400 Systolic blood pressure 116 mm[Hg] Dr. Radha Calloway MD Work Phone: [facility] 01-09-2025 11:50-0400 Body height [address] Radha Calloway MD Work Phone: [facility] 01-09-2025 11:50-0400 Body mass index (BMI) [Ratio] 33.4 kg/m2 Dr. Radha Calloway MD Work Phone: 8(209)348-582637 [place] [address] 01-09-2025 11:50-0400 Body weight [address] Radha Calloway MD Work Phone: 8(667)684-770337 [place] [address] 01-02-2025 11:53-0400 Body temperature 97.3 [degF] Dr. Radha Calloway MD Work Phone: 0(468)673-782437 [place] [address] 01-02-2025 11:53-0400 Diastolic blood pressure 62 mm[Hg] Dr. Radha Calloway MD Work Phone: 0(136)191-429637 [place] [address] 01-02-2025 11:53-0400 Heart rate 55 /min Dr. Radha Calloway MD Work Phone: 0(977)099-501437 [place] [address] 01-02-2025 11:53-0400 Respiratory rate 16 /min Dr. Radha Calloway MD Work Phone: 7(752)817-973337 [place] [address] 01-02-2025 11:53-0400 SaO2% (BldA) [Mass fraction] 100 % Dr. Radha Calloway MD Work Phone: 7(658)265-468337 [place] [address] 01-02-2025 11:53-0400 Systolic blood pressure 113 mm[Hg] Dr. Radha Calloway MD Work Phone: 2(170)853-987437 [place] [address] 01-02-2025 10:06-0400 Body height 177.[address] Radha Calloway MD Work Phone: 9(087)504-047437 [place] [address] 01-02-2025 10:06-0400 Body mass index (BMI) [Ratio] 30.7 kg/m2 Dr. Radha Calloway MD Work Phone: 8(633)546-525637 [place] [address] 01-02-2025 10:06-0400 Body weight 97.[address] Radha Calloway MD Work Phone: 1(688)095-270037 [place] [address] 12-05-2024 12:05-0400 Diastolic blood pressure 47 mm[Hg] Dr. Radha Calloway MD Work Phone: 8(347)305-643237 [place] [address] 12-05-2024 12:05-0400 Heart rate 64 /min Dr. Radha Calloway MD Work Phone: [facility] 12-05-2024 12:05-0400 Respiratory rate 16 /min Dr. Radha Calloway MD Work Phone: [facility] 12-05-2024 12:05-0400 Systolic blood pressure 83 mm[Hg] Dr. Radha Calloway MD Work Phone: [facility] 12-05-2024 10:08-0400 Body height 177.[address] Radha Calloway MD Work Phone: [facility] 12-05-2024 10:08-0400 Body mass index (BMI) [Ratio] 30.7 kg/m2 Dr. Radha Calloway MD Work Phone: [facility] 12-05-2024 10:08-0400 Body temperature 96.2 [degF] Dr. Radha Calloway MD Work Phone: [facility] 12-05-2024 10:08-0400 Body weight 97.[address] Radha Calloway MD Work Phone: [facility] 12-05-2024 10:08-0400 SaO2% (BldA) [Mass fraction] 100 % Dr. Radha Calloway MD Work Phone: [facility] 09-18-2024 13:40-0500 Body mass index (BMI) [Ratio] 32.64 kg/m2 Delilah Aranda MD Work Phone: [facility] 09-18-2024 13:40-0500 Body weight 106.14 kg Delilah Aranda MD Work Phone: [facility] 04-04-2024 12:34-0400 Body height 180.3 cm Radha Calloway MD Work Phone: [facility] 04-04-2024 12:34-0400 Body mass index (BMI) [Ratio] 31.66 kg/m2 Radha Calloway MD Work Phone: [facility] 04-04-2024 12:34-0400 Body temperature 97.81 [degF] Radha Calloway MD Work Phone: [facility] 04-04-2024 12:34-0400 Body weight 102.97 kg Radha Calloway MD Work Phone: [facility] 04-04-2024 12:34-0400 Diastolic blood pressure 67 mm[Hg] Radha Calloway MD Work Phone: [facility] 04-04-2024 12:34-0400 Heart rate 64 /min Radha Calloway MD Work Phone: [facility] 04-04-2024 12:34-0400 Respiratory rate 16 /min Radha Calloway MD Work Phone: [facility] 04-04-2024 12:34-0400 SaO2% (BldA) [Mass fraction] 97 % Radha Calloway MD Work Phone: [facility] 04-04-2024 12:34-0400 Systolic blood pressure 110 mm[Hg] Radha Calloway MD Work Phone: [facility] 06-14-2023 19:58-0500 Body height 177.[address] Radha Calloway Work Phone: [facility] 06-14-2023 19:58-0500 Body mass index (BMI) [Ratio] 33.6 kg/m2 Dr. Radha Calloway Work Phone: [facility] 06-14-2023 19:58-0500 Body temperature 98.3 [degF] Dr. Radha Calloway Work Phone: [facility] 06-14-2023 19:58-0500 Body weight 106.[address] Radha Calloway Work Phone: [facility] 06-14-2023 19:58-0500 Diastolic blood pressure 60 mm[Hg] Dr. Radha Calloway Work Phone: [facility] 06-14-2023 19:58-0500 Heart rate 70 /min Dr. Radha Calloway Work Phone: [facility] 06-14-2023 19:58-0500 Respiratory rate 18 /min Dr. Radha Calloway Work Phone: [facility] 06-14-2023 19:58-0500 SaO2% (BldA) [Mass fraction] 99 % Dr. Radha Calloway Work Phone: [facility] 06-14-2023 19:58-0500 Systolic blood pressure 101 mm[Hg] Dr. Radha Calloway Work Phone: 7(700)761-647968 [place] [address] 04-23-2023 13:06-0400 Body mass index (BMI) [Ratio] 33.9 kg/m2 Dr. Radha Calloway Work Phone: 9(692)342-032400 [address] 04-23-2023 13:06-0400 Body temperature 98.7 [degF] Dr. Radha Calloway Work Phone: 2(794)217-756800 [address] 04-23-2023 13:06-0400 Body weight 107.[address] Radha Calloway Work Phone: 3(459)204-457800 [address] 04-23-2023 13:06-0400 Diastolic blood pressure 80 mm[Hg] Dr. Radha Calloway Work Phone: 4(048)677-507068 [place] [address] 04-23-2023 13:06-0400 Heart rate 77 /min Dr. Radha Calloway Work Phone: [facility] 04-23-2023 13:06-0400 Respiratory rate 17 /min Dr. Radha Calloway Work Phone: [facility] 04-23-2023 13:06-0400 SaO2% (BldA) [Mass fraction] 98 % Dr. Radha Calloway Work Phone: [facility] 04-23-2023 13:06-0400 Systolic blood pressure 120 mm[Hg] Dr. Radha Calloway Work Phone: [facility] 11-20-2022 13:19-0400 Body height 177.[address] Radha Calloway Work Phone: [facility] 11-20-2022 13:19-0400 Body mass index (BMI) [Ratio] 34.8 kg/m2 Dr. Radha Calloway Work Phone: [facility] 11-20-2022 13:19-0400 Body temperature 97.6 [degF] Dr. Radha Calloway Work Phone: [facility] 11-20-2022 13:19-0400 Body weight 110.[address] Radha Calloway Work Phone: [facility] 11-20-2022 13:19-0400 Diastolic blood pressure 77 mm[Hg] Dr. Radha Calloway Work Phone: [facility] 11-20-2022 13:19-0400 Respiratory rate 18 /min Dr. Radha Calloway Work Phone: [facility] 11-20-2022 13:19-0400 SaO2% (BldA) [Mass fraction] 96 % Dr. Radha Calloway Work Phone: [facility] 11-20-2022 13:19-0400 Systolic blood pressure 113 mm[Hg] Dr. Radha Calloway Work Phone: [facility] 06-05-2022 08:44-0500 Body height 177.[address] Radha Calloway Work Phone: [facility] 06-05-2022 08:44-0500 Body mass index (BMI) [Ratio] 35.9 kg/m2 Dr. Radha Calloway Work Phone: [facility] 06-05-2022 08:44-0500 Body temperature 98.4 [degF] Dr. Radha Calloway Work Phone: [facility] 06-05-2022 08:44-0500 Body weight 113.[address] Radha Calloway Work Phone: [facility] 06-05-2022 08:44-0500 Diastolic blood pressure 90 mm[Hg] Dr. Radha Calloway Work Phone: [facility] 06-05-2022 08:44-0500 Heart rate 94 /min Dr. Radha Calloway Work Phone: [facility] 06-05-2022 08:44-0500 Respiratory rate 18 /min Dr. Radha Calloway Work Phone: 3(324)239-229168 [place] [address] 06-05-2022 08:44-0500 Systolic blood pressure 118 mm[Hg] Dr. Radha Calloway Work Phone: 4(915)688-549468 [place] [address] 05-11-2022 13:20-0400 Body mass index (BMI) [Ratio] 36.3 kg/m2 Dr. Radha Calloway Work Phone: 8(618)049-976637 [place] [address] 05-11-2022 13:20-0400 Body temperature 98.2 [degF] Dr. Radha Calloway Work Phone: 6(844)850-513237 [place] [address] 05-11-2022 13:20-0400 Body weight 114.[address] Radha Calloway Work Phone: 2(975)095-427837 [place] [address] 05-11-2022 13:20-0400 Diastolic blood pressure 68 mm[Hg] Dr. Radha Calloway Work Phone: 7(746)265-766537 [place] [address] 05-11-2022 13:20-0400 Heart rate 66 /min Dr. Radha Calloway Work Phone: 3(528)757-610968 [place] [address] 05-11-2022 13:20-0400 Respiratory rate 15 /min Dr. Radha Calloway Work Phone: 4(979)561-974968 [place] [address] 05-11-2022 13:20-0400 SaO2% (BldA) [Mass fraction] 99 % Dr. Radha Calloway Work Phone: 8(530)811-787937 [place] [address] 05-11-2022 13:20-0400 Systolic blood pressure 100 mm[Hg] Dr. Radha Calloway Work Phone: 0(010)108-451600 [address] 04-25-2022 14:27-0400 Body height 177.[address] Radha Calloway Work Phone: [facility] Work Phone: 04-25-2022 14:27-0400 Body mass index (BMI) [Ratio] 36.7 kg/m2 Dr. Radha Calloway Work Phone: [facility] 04-25-2022 14:27-0400 Body temperature 98.6 [degF] Dr. Radha Calloway Work Phone: [facility] 04-25-2022 14:27-0400 Body weight 116.[address] Radha Calloway Work Phone: [facility] 04-25-2022 14:27-0400 Diastolic blood pressure 70 mm[Hg] Dr. Radha Calloway Work Phone: [facility] 04-25-2022 14:27-0400 Heart rate 84 /min Dr. Radha Calloway Work Phone: [facility] 04-25-2022 14:27-0400 Respiratory rate 16 /min Dr. Radha Calloway Work Phone: [facility] 04-25-2022 14:27-0400 SaO2% (BldA) [Mass fraction] 97 % Dr. Radha Calloway Work Phone: [facility] 04-25-2022 14:27-0400 Systolic blood pressure 100 mm[Hg] Dr. Radha Calloway Work Phone: [facility] 03-31-2022 21:52-0400 Diastolic blood pressure 67 mm[Hg] Dr. Radha Calloway Work Phone: [facility] Work Phone: 03-31-2022 21:52-0400 Heart rate 72 /min Dr. Radha Calloway Work Phone: [facility] Work Phone: 03-31-2022 21:52-0400 Respiratory rate 16 /min Dr. Radha Calloway Work Phone: [facility] Work Phone: 03-31-2022 21:52-0400 SaO2% (BldA) [Mass fraction] 97 % Dr. Radha Calloway Work Phone: [facility] Work Phone: 03-31-2022 21:52-0400 Systolic blood pressure 115 mm[Hg] Dr. Radha Calloway Work Phone: [facility] Work Phone: 03-31-2022 16:28-0400 Body height 177.[address] Radha Calloway Work Phone: [facility] Work Phone: 03-31-2022 16:28-0400 Body mass index (BMI) [Ratio] 36.3 kg/m2 Dr. Radha Calloway Work Phone: [facility] Work Phone: 03-31-2022 16:28-0400 Body temperature 96.9 [degF] Dr. Radha Calloway Work Phone: [facility] Work Phone: 03-31-2022 16:28-0400 Body weight 114.[address] Radha Calloway Work Phone: [facility] Work Phone: 02-16-2022 14:13-0400 Body mass index (BMI) [Ratio] 35.7 kg/m2 Dr. Radha Calloway Work Phone: [facility] Work Phone: 02-16-2022 14:13-0400 Body temperature 98.2 [degF] Dr. Radha Calloway Work Phone: [facility] Work Phone: 02-16-2022 14:13-0400 Body weight 113.[address] Radha Calloway Work Phone: [facility] Work Phone: 02-16-2022 14:13-0400 Diastolic blood pressure 79 mm[Hg] Dr. Radha Calloway Work Phone: [facility] Work Phone: 02-16-2022 14:13-0400 Heart rate 84 /min Dr. Radha Calloway Work Phone: [facility] Work Phone: 02-16-2022 14:13-0400 Respiratory rate 15 /min Dr. Radha Calloway Work Phone: [facility] Work Phone: 02-16-2022 14:13-0400 SaO2% (BldA) [Mass fraction] 98 % Dr. Radha Calloway Work Phone: [facility] Work Phone: 02-16-2022 14:13-0400 Systolic blood pressure 109 mm[Hg] Dr. Radha Calloway Work Phone: [facility] Work Phone: 02-14-2022 12:05-0400 Diastolic blood pressure 49 mm[Hg] Dr. Radha Calloway Work Phone: [facility] Work Phone: 02-14-2022 12:05-0400 Respiratory rate 16 /min Dr. Radha Calloway Work Phone: [facility] Work Phone: 02-14-2022 12:05-0400 Systolic blood pressure 122 mm[Hg] Dr. Radha Calloway Work Phone: [facility] Work Phone: 02-14-2022 10:02-0400 Body height 177.[address] Radha Calloway Work Phone: [facility] Work Phone: 02-14-2022 10:02-0400 Body mass index (BMI) [Ratio] 36.4 kg/m2 Dr. Radha Calloway Work Phone: [facility] Work Phone: 02-14-2022 10:02-0400 Body temperature 97.2 [degF] Dr. Radha Calloway Work Phone: [facility] Work Phone: 02-14-2022 10:02-0400 Body weight 115.[address] Radha Calloway Work Phone: [facility] Work Phone: 02-14-2022 10:02-0400 Heart rate 85 /min Dr. Radha Calloway Work Phone: [facility] Work Phone: 02-14-2022 10:02-0400 SaO2% (BldA) [Mass fraction] 98 % Dr. Radha Calloway Work Phone: [facility] Work Phone: 02-13-2022 13:34-0400 Body mass index (BMI) [Ratio] 35.4 kg/m2 Dr. Radha Calloway Work Phone: [facility] Work Phone: 02-13-2022 13:34-0400 Body weight 115.[address] Radha Calloway Work Phone: [facility] Work Phone: 01-28-2022 11:24-0400 Body height 180.[address] Radha Calloway Work Phone: [facility] Work Phone: 01-28-2022 11:24-0400 Body mass index (BMI) [Ratio] 36.3 kg/m2 Dr. Radha Calloway Work Phone: [facility] Work Phone: 01-28-2022 11:24-0400 Body temperature 97.4 [degF] Dr. Radha Calloway Work Phone: [facility] Work Phone: 01-28-2022 11:24-0400 Body weight 118.[address] Radha Calloway Work Phone: [facility] Work Phone: 01-28-2022 11:24-0400 Diastolic blood pressure 65 mm[Hg] Dr. Radha Calloway Work Phone: [facility] Work Phone: 01-28-2022 11:24-0400 Heart rate 82 /min Dr. Radha Calloway Work Phone: [facility] Work Phone: 01-28-2022 11:24-0400 Respiratory rate 17 /min Dr. Radha Calloway Work Phone: [facility] Work Phone: 01-28-2022 11:24-0400 SaO2% (BldA) [Mass fraction] 97 % Dr. Radha Calloway Work Phone: [facility] Work Phone: 01-28-2022 11:24-0400 Systolic blood pressure 116 mm[Hg] Dr. Radha Calloway Work Phone: [facility] Work Phone: 12-15-2021 12:44-0400 Body mass index (BMI) [Ratio] 35.9 kg/m2 Dr. Radha Calloway Work Phone: [facility] Work Phone: 12-15-2021 12:44-0400 Body temperature 98.2 [degF] Dr. Radha Calloway Work Phone: [facility] Work Phone: 12-15-2021 12:44-0400 Body weight 117.[address] Radha Calloway Work Phone: [facility] Work Phone: 12-15-2021 12:44-0400 Diastolic blood pressure 65 mm[Hg] Dr. Radha Calloway Work Phone: [facility] Work Phone: 12-15-2021 12:44-0400 Heart rate 82 /min Dr. Radha Calloway Work Phone: [facility] Work Phone: 12-15-2021 12:44-0400 Respiratory rate 17 /min Dr. Radha Calloway Work Phone: [facility] Work Phone: 12-15-2021 12:44-0400 SaO2% (BldA) [Mass fraction] 98 % Dr. Radha Calloway Work Phone: [facility] Work Phone: 12-15-2021 12:44-0400 Systolic blood pressure 102 mm[Hg] Dr. Radha Calloway Work Phone: [facility] Work Phone: 12-15-2021 12:44-0400 Body mass index (BMI) [Ratio] 35.9 kg/m2 Dr. Rdaha Calloway Work Phone: [facility] Work Phone: 12-15-2021 12:44-0400 Body temperature 98.2 [degF] Dr. Radha Calloway Work Phone: [facility] Work Phone: 12-15-2021 12:44-0400 Body weight 117.[address] Radha Calloway Work Phone: [facility] Work Phone: 12-15-2021 12:44-0400 Diastolic blood pressure 65 mm[Hg] Dr. Radha Calloway Work Phone: [facility] Work Phone: 12-15-2021 12:44-0400 Heart rate 82 /min Dr. Radha Calloway Work Phone: [facility] Work Phone: 12-15-2021 12:44-0400 Respiratory rate 17 /min Dr. Radha Calloway Work Phone: [facility] Work Phone: 12-15-2021 12:44-0400 SaO2% (BldA) [Mass fraction] 98 % Dr. Radha Calloway Work Phone: [facility] Work Phone: 12-15-2021 12:44-0400 Systolic blood pressure 102 mm[Hg] Dr. Radha Calloway Work Phone: [facility] Work Phone: 12-05-2021 10:34-0400 Body mass index (BMI) [Ratio] 36.5 kg/m2 Dr. Radha Calloway Work Phone: [facility] Work Phone: 12-05-2021 10:34-0400 Body weight 118.[address] Radha Calloway Work Phone: [facility] Work Phone: 12-05-2021 10:34-0400 Body mass index (BMI) [Ratio] 36.5 kg/m2 Dr. Radha Calloway Work Phone: [facility] Work Phone: 12-05-2021 10:34-0400 Body weight 118.[address] Radha Calloway Work Phone: [facility] Work Phone: 09-15-2021 11:34-0500 Body mass index (BMI) [Ratio] 35.9 kg/m2 Dr. Radha Calloway Work Phone: [facility] Work Phone: 09-15-2021 11:34-0500 Body temperature 97.3 [degF] Dr. Radha Calloway Work Phone: [facility] Work Phone: 09-15-2021 11:34-0500 Body weight 117.[address] Radha Calloway Work Phone: [facility] Work Phone: 09-15-2021 11:34-0500 Diastolic blood pressure 78 mm[Hg] Dr. Radha Calloway Work Phone: [facility] Work Phone: 09-15-2021 11:34-0500 Heart rate 75 /min Dr. Radha Calloway Work Phone: [facility] Work Phone: 09-15-2021 11:34-0500 Respiratory rate 18 /min Dr. Radha Calloway Work Phone: [facility] Work Phone: 09-15-2021 11:34-0500 SaO2% (BldA) [Mass fraction] 96 % Dr. Radha Calloway Work Phone: [facility] Work Phone: 09-15-2021 11:34-0500 Systolic blood pressure 114 mm[Hg] Dr. Radha Calloway Work Phone: [facility] Work Phone: 12-20-2020 06:15-0400 Body mass index (BMI) [Ratio] 40.9 kg/m2 Dr. Radha Calloway Work Phone: [facility] 03-23-2020 11:42-0400 Body temperature 97.6 [degF] Dr. Radha Calloway Work Phone: [facility] 03-23-2020 11:42-0400 Body weight 132.[address] Radha Calloway Work Phone: [facility] 03-23-2020 11:42-0400 Diastolic blood pressure 79 mm[Hg] Dr. Radha Calloway Work Phone: [facility] 03-23-2020 11:42-0400 Heart rate 83 /min Dr. Radha Calloway Work Phone: [facility] 03-23-2020 11:42-0400 Respiratory rate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 acute J bijal 2024 10:53am Scoliosis chronic February 03, 2025 10:53am Segmental and somatic dysfunction of thoracic region acute A ugust 2024 11:09am Thoracic neuritis acute March 03, 2025 11:09am DDD (degenerative disc disease) chronic March 03, 2025 11:09am Segmental and somatic dysfunction of thoracic region acute A ugust 2024 1:50pm Thoracic neuritis acute March 12, 2025 1:50pm DDD (degenerative disc disease) chronic March 12 1:50pm Segmental and somatic dysfunction of thoracic region acute A ugust 2024 10:38am Thoracic neuritis acute March 23, 2025 10:38am DDD (degenerative disc disease) chronic March 23 10:38am Thoracic radiculopathy acute Se pt2024 10:51am DDD (degenerative disc disease) chronic March 31 10:51am [facility] Work Phone: 1(241) 870-326606-12-2025 Evaluation note* Diagnosis Onset Date Resolution Status Admit Date Dysphagia acute January 08 10:53am Crohns disease chronic January 08, 2025 10:53am Dysphagia acute January 09 11:39am Back pain acute February 03, 2025 10:53am Segmental and somatic dysfunction of thoracic region acute J bijal 2024 10:53am Scoliosis chronic February 03, 2025 10:53am Segmental and somatic dysfunction of thoracic region acute A ugust 2024 11:09am Thoracic neuritis acute March 03, 2025 11:09am DDD (degenerative disc disease) chronic March 03, 2025 11:09am Segmental and somatic dysfunction of thoracic region acute A ugust 2024 1:50pm Thoracic neuritis acute March 12, 2025 1:50pm DDD (degenerative disc disease) chronic March 12 1:50pm Segmental and somatic dysfunction of thoracic region acute A ugust 2024 10:38am Thoracic neuritis acute March 23, 2025 10:38am DDD (degenerative disc disease) chronic March 23 10:38am Thoracic radiculopathy acute Se ptember 2024 10:51am DDD (degenerative disc disease) chronic March 31 025 10:51am Segmental and somatic dysfunction of cervical region acute O ctober 2024 10:52am Segmental and somatic dysfunction of lumbar region acute Oct jacek 2024 10:52am Segmental and somatic dysfunction of pelvic region acute Oct jacek 2024 10:52am Segmental and somatic dysfunction of thoracic region acute O ctober 2024 10:52am DDD (degenerative disc disease) chronic April 30 10:52am Scoliosis chronic April 30 10:52am [facility] Work Phone: 1([phone]) 766-871206-12-2025 Evaluation note* Diagnosis Onset Date Resolution Status Admit Date Dysphagia acute January 08 10:53am Crohns disease chronic January 08, 2025 10:53am Dysphagia acute January 09 11:39am Back pain acute February 03, 2025 10:53am Segmental and somatic dysfunction of thoracic region acute J bijal 2024 10:53am Scoliosis chronic February 03, 2025 10:53am Segmental and somatic dysfunction of thoracic region acute A ugust 2024 11:09am Thoracic neuritis acute March 03, 2025 11:09am DDD (degenerative disc disease) chronic March 03, 2025 11:09am Segmental and somatic dysfunction of thoracic region acute A ugust 2024 1:50pm Thoracic neuritis acute March 12, 2025 1:50pm DDD (degenerative disc disease) chronic March 12 1:50pm Segmental and somatic dysfunction of thoracic region acute A ugust 2024 10:38am Thoracic neuritis acute March 23, 2025 10:38am DDD (degenerative disc disease) chronic March 23 10:38am Thoracic radiculopathy acute Se ptember 2024 10:51am DDD (degenerative disc disease) chronic March 31 10:51am Segmental and somatic dysfunction of thoracic region acute O ctober 2024 10:52am DDD (degenerative disc disease) chronic April 30 10:52am Scoliosis chronic April 30 10:52am [employer] [facility] Work Phone: 1([phone]) 459-697404-24-2025 Radiology Diagnostic study note [facility] Imaging Services [address] [place], [place] [address] Abdomen Limited MR#: [id number] Acct: [id number] Name: CONY HART Rep #: [id number] : 1990 F 34 From: Nicolás Butt MD PCP: Dr. Radha Calloway MD Status: REG CLI Study:Abdomen Limited Date of Exam: 10/29 11/21 Exam# [id number] Ordering Dr: Radha Calloway MD PROCEDURE: ABDOMEN [...] most likely represent small lipomas. Reading Location: [facility] CC: Dr. Radha Calloway MD ~ Hydrographer: Signed [facility]04-16-2025 Evaluation + Plan note* Assessment & Plan [...] the right tib-fib and the right ankle. [facility] Work Phone: [phone] 121-619304-16-2025 Miscellaneous Notes* Assessment & Plan Note - [...] and the right ankle. documented in this [facility] Work Phone: [phone]) 161-501904-16-2025 History of Present illness Narrative* Delilah Aranda [...] ankle right 3+ views [facility]: [phone] Evaluation note* Diagnosis Onset Date Resolution Status Admit Date Dysphagia acute October 23 2:56pm Crohns disease chronic September 2:56pm [facility] Work Phone: 1([phone]) 526-306703-27-2025 Evaluation note* Diagnosis Onset Date Resolution Status Admit Date Dysphagia acute October 23 2:56pm Crohns disease chronic September 2:56pm Dysphagia acute January 08 10:53am Crohns disease chronic January 08, 2025 10:53am Dysphagia acute January 09 11:39am [facility] Work Phone: [phone] Evaluation note* Diagnosis Onset Date Resolution Status Admit Date Dysphagia acute October 23 2:56pm Crohns disease chronic September 2:56pm Dysphagia acute January 08 10:53am Crohns disease chronic January 08, 2025 10:53am Dysphagia acute January 09 11:39am Segmental and somatic dysfunction of cervical region acute J 2024 10:53am Segmental and somatic dysfunction of lumbar region acute Jan 10:53am Segmental and somatic dysfunction of pelvic region acute Jan 10:53am Segmental and somatic dysfunction of thoracic region acute J 2024 10:53am [facility] Work Phone: 1(246) 288-753302-21-2025 Evaluation + Plan note* Assessment & Plan [...] was reviewed with the patient in real-time. [facility] Work Phone: [phone]) 246-564102-21-2025 Miscellaneous Notes* Assessment & Plan Note - [...] the patient in real-time. [facility] Phone: 1([phone]) 847-196002-20-2025 History of Present illness Narrative* Delilah Aranda [...] ULTRASOUND DIAGNOSTIC ULTRASOUND REPORT FINAL: Right ANKLE Rubber Thread Spooler: Delilah Aranda MD Indication: [LEFT] Ankle Pain Procedure: Ultrasound, extremity, nonvascular, real-time, COMPLETE, anatomic specific Technique: B-Mode Ultrasound Examination performed using 8-13 MHz linear transducer with [employer] STUDY TYPE: 1. ULTRASOUND EXTREMITY 2. [...] Point of Care Ultrasound [facility] Work Phone: 1([phone]) 439-109001-09-2025 Evaluation + Plan note* Assessment & Plan Note - Delilah Aranda MD - 08/07/2024 12:21 PM ESTAssociated Problem(s): High ankle sprain of right lower extremity Assessment: Maisonneuve fracture right ankle is approximately 4 months from the injury. Plan: Continue the range of motion and strengthening exercises. Follow-up in 6 weeks for reevaluation with new x-rays of the right ankle and the right tib-fib [facility] Work Phone: [phone] 247-447001-09-2025 Miscellaneous Notes* Assessment & Plan Note - [...] and the right tib-fib [facility]: [phone] History of Present illness Narrative* Delilah Aranda [...] ankle right 3+ views [facility] Phone: [phone] 166-319701-08-2025 Evaluation note* Diagnosis Onset Date Resolution Status Admit Date Crohns disease chronic July 1:52pm Dysphagia acute October 23 2:56pm Crohns disease chronic September 2:56pm [facility] Work Phone: 1([phone]) 752-258012-12-2024 Evaluation + Plan note* Assessment & Plan [...] of care This note was generated using [employer] software. It may contain errors in wording, punctuation or spelling. [facility] Work Phone: [phone]) 637-530012-12-2024 Miscellaneous Notes* Assessment & Plan Note - [...] of care This note was generated using [employer] software. It may contain errors in wording, punctuation or spelling. [facility] Work Phone: 1(767) 759-364812-11-2024 History of Present illness Narrative* ANGEL Ramirez - 07/09/2024 2:30 PM EST Subjective Patient [...] Signs/Symptoms:S/P FRACTURE. COMPARISON: May 27 ACCESSION NUMBER(S): [id number] ORDERING CLINICIAN: CARO WHITMAN FINDINGS: Oblique nondisplaced fracture right proximal fibula unchanged in alignment. No additional new findings. Impression: Unchanged appearance right proximal fibular fracture. Signed by: Von Wheeler 06/21/2024 9:28 AM Dictation workstation: [id number] Attempted to locate PT notes from outside [...] of care This note was generated using [employer] software. It may contain errors in wording, punctuation or spelling. Moderate ankle sprain, right, initial encounter S93.401A [facility] Work Phone: [phone]) [phone] Evaluation + Plan note* Assessment & Plan [...] of care This note was generated using [employer] software. It may contain errors in wording, punctuation or spelling. [facility] Work Phone: [phone]) 946-455611-22-2024 Miscellaneous Notes* Assessment & Plan Note - [...] of care This note was generated using [employer] software. It may contain errors in wording, [...] basis for extended activity [facility] Work Phone: [phone]) 239-896511-22-2024 Evaluation + Plan note* Assessment & Plan [...] on as needed basis for extended activity [facility] Work Phone: [phone]) 335-821311-22-2024 History of Present illness Narrative* ANGEL Ramirez [...] up fracture. COMPARISON: May 06 ACCESSION NUMBER(S): [id number] ORDERING CLINICIAN: CARO WHITMAN FINDINGS: Healed nondisplaced oblique right proximal fibular metaphyseal fracture unchanged. No new findings. Impression: Unchanged appearance right proximal fibular fracture. Signed by: Von Wheeler 05/31/2024 7:43 AM Dictation workstation: [id number] Independent review of x-rays completed during today's [...] of care This note was generated using [employer] software. It may contain errors in wording, [...] fibula right 2 views [facility] Work Phone: [phone] Evaluation + Plan note* Assessment & Plan [...] guide transition out of brace as tolerated [facility] Work Phone: [phone]) 607-758310-30-2024 Miscellaneous Notes* Assessment & Plan Note - [...] of care This note was generated using [employer] software. It may contain errors in wording, punctuation or spelling. [facility]: [phone]) 504-254410-30-2024 Evaluation + Plan note* Assessment & Plan [...] of care This note was generated using [employer] software. It may contain errors in wording, punctuation or spelling. [facility] Work Phone: [phone]) [phone] History of Present illness Narrative* ANGEL Ramirez [...] removes for hygiene. Patient initiated PT at [facility], feels ready to transition out of boot. [...] Signs/Symptoms:fracture follow up. COMPARISON: 04/23/2024. ACCESSION NUMBER(S): [id number] ORDERING CLINICIAN: CARO WHITMAN FINDINGS: Healing nondisplaced proximal fibular spiral fracture with increase in amount of bridging callus. No new fracture or malalignment. No significant degenerative changes. Visualized knee and ankle joints are unremarkable. Soft tissues are unremarkable. Impression: Healing nondisplaced proximal fibular fracture in anatomic alignment. MACRO: None. Signed by: Steph Neff 05/07/2024 7:28 PM Dictation workstation: [id number] Independent review of x-rays completed during today's [...] of care This note was generated using [employer] software. It may contain errors in wording, punctuation or spelling. Moderate ankle sprain, right, initial encounter S93.401A [facility] Work Phone: [phone]) 441-957610-09-2024 Evaluation + Plan note* Assessment & Plan [...] of care This note was generated using [employer] software. It may contain errors in wording, punctuation or spelling. [facility] Work Phone: [phone] Miscellaneous Notes* Assessment & Plan Note - [...] of care This note was generated using [employer] software. It may contain errors in wording, punctuation or spelling. * Assessment & Plan Note - ANGEL Ramirez - 05/07/2024 4:23 PM EDT Associated Problem(s): High ankle sprain of right lower extremity Instructed on daily ROM, ankle aphabets, ice prn Initiate PT for ankle FAST protocol [facility] Work Phone: [phone] 243-138810-09-2024 Evaluation + Plan note* Assessment & Plan Note - ANGEL Ramirez - 05/07/2024 4:23 PM EDTAssociated Problem(s): High ankle sprain of right lower extremity Instructed on daily ROM, ankle aphabets, ice prn Initiate PT for ankle FAST protocol [facility] Work Phone: [phone] History of Present illness Narrative* ANGEL Ramirez [...] swelling. COMPARISON: April 23, 2024 ACCESSION NUMBER(S): [id number] ORDERING CLINICIAN: CARO WHITMAN TECHNIQUE: Routine multiplanar [...] Von Wheeler 05/04/2024 7:30 AM Dictation workstation: [id number] Study Result Narrative & Impression Interpreted By: Kiki Narayan, STUDY: XR TIBIA FIBULA RIGHT 2 VIEWS; ; 04/04/2024 12:51 pm INDICATION: Signs/Symptoms:pain. COMPARISON: None. ACCESSION NUMBER(S): [id number] ORDERING CLINICIAN: FRAN REEVES FINDINGS: AP and lateral views were obtained. Oblique nondisplaced fractures present proximal shaft of the fibula. No fracture is noted in the tibia. Ankle and knee joints are intact. IMPRESSION: Nondisplaced oblique fracture proximal shaft of the right fibula MACRO: None Signed by: Kiki Narayan 04/04/2024 1:21 PM Dictation workstation: [id number] Independent review of x-ray imaging compared to [...] of care This note was generated using [employer] software. It may contain errors in wording, punctuation or spelling. Relevant Orders Referral to Physical Therapy High ankle sprain of right lower extremity - Primary S93.491A Instructed on daily ROM, ankle aphabets, ice prn Initiate PT for ankle FAST protocol documented in this [facility] Work Phone: [phone]) [phone] History of Present illness Narrative* ANGEL Ramirez [...] Signs/Symptoms:pain, injury, swelling. COMPARISON: None. ACCESSION NUMBER(S): [id number] ORDERING CLINICIAN: CARO WHITMAN FINDINGS: There is no evidence of acute fracture or dislocation. Ankle mortise is preserved. Diffuse soft tissue swelling is seen. No evidence for radiopaque foreign body. Impression: No acute fracture or dislocation. Diffuse soft tissue swelling. MACRO: None Signed by: Genny Peñaloza 04/10/2024 8:13 PM Dictation workstation: [id number] Assessment/Plan [facility] Work Phone: [phone]) [phone] Evaluation + Plan note* Assessment & Plan [...] of care This note was generated using [employer] software. It may contain errors in wording, punctuation or spelling. [facility] Work Phone: [phone]) [phone] Miscellaneous Notes* Assessment & Plan Note - [...] of care This note was generated using [employer] software. It may contain errors in wording, punctuation or spelling. [facility] Work Phone: 1([phone]) 499-416109-11-2024 History of Present illness Narrative* Caro Whitman APRN-TUMBLERS SUPERVISOR - 04/09/2024 11:30 AM EDT Subjective Patient [...] pm INDICATION: Signs/Symptoms:pain. COMPARISON: None. ACCESSION NUMBER(S): [id number] ORDERING CLINICIAN: FRAN REEVES FINDINGS: AP and lateral views were obtained. Oblique nondisplaced fractures present proximal shaft of the fibula. No fracture is noted in the tibia. Ankle and knee joints are intact. Impression: Nondisplaced oblique fracture proximal shaft of the right fibula MACRO: None Signed by: Kiki Narayan 04/04/2024 1:21 PM Dictation workstation: [id number] XR femur right 2+ views Narrative: Interpreted By: Kiki Narayan, STUDY: XR FEMUR RIGHT 2+ VIEWS; ; 04/04/2024 12:51 pm INDICATION: Signs/Symptoms:pain. COMPARISON: None. ACCESSION NUMBER(S): [id number] ORDERING CLINICIAN: FRAN REEVES FINDINGS: AP and lateral views were obtained. No fracture, dislocation or bone destruction is noted. Hip and knee joints are intact. Impression: No acute osseous abnormality MACRO: None Signed by: Kiki Narayan 04/04/2024 1:20 PM Dictation workstation: [id number] ED encounter x-rays reviewed during date of [...] of care This note was generated using [employer] software. It may contain errors in wording, punctuation or spelling. Moderate ankle sprain, right, initial encounter S93.401A [facility] Work Phone: [phone]) 514-818909-06-2024 Hospital Discharge instructions* Discharge Instructions* Fran Reeves PA-C - 04/04/2024 1:27 PM EDT You have broken the fibula in your leg. This is a nonweightbearing bone on the outside of your leg.You need to stay in the walking boot and use crutches until further directed by behavior support specialist. I recommend Tylenol Motrin for pain. Use as directed. * Attachments The following attachments cannot be sent through Care Everywhere. * Lower Leg Fracture ED (Peruvian) documented in this encounterUnOhio[facility] Work Phone: [phone] NoteHNO ID: [id number] Author: Joanna Freitas APRN.CNP Service: ? Author Type: Nurse Practitioner Type: Progress Notes Filed: 06/14/2023 7:37 PM Note Text: Triage Note: WOO Hart is a 33 [...] have confirmed and edited as necessary, the [facility] ASSESSMENT/PLAN: 1. Numbness and tingling in right hand - ICD9: 782.0, ICD10: R20.0, R20.2 Due to nature of patient's complaint and lack of investigative tools available at [facility], recommend patient be seen at nearest ED for further work up of right hand numbness, lack of ROM, cold to touch. Patient given directions to [place] ED. Diagnosis and treatment plan were discussed and questions were answered to the patient's satisfaction. Pt acknowledged understanding of concepts and follow up plan. Specific signs and symptoms that would indicate the need for higher level of care were discussed in detail warranting prompt ER evaluation. Joanna Freitas APRN.[facility]11-16-2023 History of Present illness Narrative* Joanna Freitas APRN.TUMBLERS SUPERVISOR - 06/14/2023 7:30 PM EST Triage Note: [...] have confirmed and edited as necessary, the [facility] ASSESSMENT/PLAN: 1. Numbness and tingling in right hand - ICD9: 782.0, ICD10: R20.0, R20.2 Due to nature of patient's complaint and lack of investigative tools available at [facility], recommend patient be seen at nearest ED for further work up of right hand numbness, lack of ROM, cold to touch. Patient given directions to [place] ED. Diagnosis and treatment plan were discussed and questions were answered to the patient's satisfaction. Pt acknowledged understanding of concepts and follow up plan. Specific signs and symptoms that would indicate the need for higher level of care were discussed indetail warranting prompt ER evaluation. Joanna Freitas APRN.TUMBLERS SUPERVISOR [facility] Author KALPESH Sandoval [facility] Note Date/Time January 09, 2025 1:57 pm [facility] Medical Records Department [address] [place] [address] Anesthesia Postop Eval I 01/09/25 1356 MR#: [id number] Acct: [id number] Name: CONY HART Rep # :[id number] : 1990 34 From: Amor Sandoval PCP: Dr. Radha Calloway MD Status:REG SD Y Race: C Location: [place] [address] Anesthesia: Postop Eval I Current Vital Signs [...] document: Postop Eval 1 completed: Yes 01/09/25 1357 <Electronically signed by Amor Sandoval > Date _ Amor Sandoval Cosigner Signature: Date CC: ~ Signed [facility] Work Phone: Evaluation note* Diagnosis Onset Date Resolution Status Asthma acute Nicotine dependence, cigarettes, uncomplicated acute ALEXANDRA (obstructive sleep apnea) acute Crohns disease chronic Crohns disease chronic Hip pain acute Sacroiliac joint dysfunction of right side acute Asthma acute BMI 39.0-39.9,adult acute ALEXANDRA (obstructive sleep apnea) acute Posttraumatic stress disorder [facility] Work Phone: Evaluation note* Diagnosis Onset Date [...] side acute Chronic right hip pain chron [facility] Work Phone: Evaluation note* Diagnosis Onset [...] right hip pain chron ic Crohns disease [facility] Work Phone: Evaluation note* Diagnosis Onset Date [...] Crohns disease chronic Neutrophilic leukocytosis ch ronic [facility] Work Phone: Evaluation note* Diagnosis Onset [...] ntractable, without status epilepticus chronic Crohns disease [facility] Work Phone: Evaluation note* Diagnosis Onset Date [...] apnea) acute Hand pain acute Crohns disease [facility] Work Phone: Evaluation note* Diagnosis Onset Date Resolution Status Hand pain acute Crohns disease chronic Gluteal abscess acute Hand pain acute Crohns disease [facility] Work Phone: Evaluation note* Diagnosis Onset Date Resolution Status Back pain acute Segmental and somatic dysfunction of cervical region acute Segmental and somatic dysfunction of lumbar region acute Segmental and somatic dysfunction of pelvic region acute Segmental and somatic dysfunction of thoracic region acute Scoliosis chronic Hand pain acute Crohns disease chronic Epilepsy, unspecified, not i ntractable, without status epilepticus [facility] Work Phone: Evaluation note* Diagnosis Numbness and tingling in right hand- Primary Disturbance of skin sensation [facility] noteNo assessment information availableWAultman [facility] Work Phone: Evaluation note* Diagnosis Nondisplaced [...] right, initial encounter documented in this encounter [facility] Work Phone: Evaluation note* Diagnosis Nondisplaced oblique fracture of shaft of right fibula, initial encounter for closed fracture- Primary Ankle injury, right, initial encounter Moderate ankle sprain, right, initial encounter Nondisplaced oblique fracture of shaft of right fibula, initial encounter for closed fracture- Primary Moderate ankle sprain, right, initial encounter History of fibula fracture History of fibula fracture documented in this encounter [facility] Work Phone: Evaluation note* Diagnosis Nondisplaced [...] of fibula fracture documented in this encounter [facility] Work Phone: Evaluation note* Diagnosis Nondisplaced [...] for closed fracture documented in this encounter [facility] Work Phone: Evaluation note* Diagnosis Nondisplaced [...] right, initial encounter documented in this encounter [facility] Work Phone: Evaluation note* Diagnosis Nondisplaced [...] for closed fracture documented in this encounter [facility] Work Phone: Evaluation note* Diagnosis Nondisplaced [...] Right fibular fracture documented in this encounter [facility] Work Phone: Evaluation note* Diagnosis Nondisplaced [...] right, initial encounter documented in this encounter [facility] Work Phone: Evaluation note* Diagnosis Closed fracture of proximal end of right fibula, unspecified fracture morphology, initial encounter- Primary documented in this encounter [facility] Work Phone: Evaluation note* Diagnosis Nondisplaced oblique fracture of shaft of right fibula, initial encounter for closed fracture- Primary Ankle injury, right, initial encounter Moderate ankle sprain, right, initial encounter documented in this encounter [facility] Work Phone: Evaluation note* Diagnosis Nondisplaced oblique fracture of shaft of right fibula, initial encounter for closed fracture- Primary Ankle injury, right, initial encounter Moderate ankle sprain, right, initial encounter Ankle injury, right, initial encounter documented in this encounter [facility] Work Phone: Evaluation note* Diagnosis Nondisplaced oblique fracture of shaft of right fibula, initial encounter for closed fracture- Primary Ankle injury, right, initial encounter Moderate ankle sprain, right, initial encounter Ankle injury, right, initial encounter Nondisplaced oblique fracture of shaft of right fibula, initial encounter for closed fracture documented in this encounter [facility] Work Phone: Evaluation note* Diagnosis Nondisplaced oblique fracture of shaft of right fibula, initial encounter for closed fracture- Primary Ankle injury, right, initial encounter Moderate ankle sprain, right, initial encounter Nondisplaced oblique fracture of shaft of right fibula, initial encounter for closed fracture- Primary Moderate ankle sprain, right, initial encounter documented in this encounter [facility] Work Phone: Evaluation note* Diagnosis Nondisplaced [...] right fibula, sequela documented in this encounter [facility] Work Phone: Evaluation note* Diagnosis Nondisplaced [...] right fibula, sequela documented in this encounter [facility] Work Phone: Evaluation note* Diagnosis Nondisplaced [...] injury, right, sequela documented in this encounter [facility] Work Phone: Evaluation note* Diagnosis Nondisplaced [...] injury, right, sequela documented in this encounter [facility] Work Phone: Evaluation note* Diagnosis Nondisplaced [...] injury, right, sequela documented in this encounter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 January 08, 2025 10:5 3am Crohns disease January 08, 2025 10:5 3am Dysphagia January 09, 2025 11:3 9am Back pain February 03, 2025 10:53 am Segmental and somatic dysfunction of [facility] region February 03, 2025 10:53am Scoliosis February 03, 2025 10:53 am Segmental and somatic dysfunction of [facility] March 03, 2025 11:09am Thoracic neuritis March 03, 2025 11: 09am DDD (degenerative disc disease) March 032024 11:09am Segmental and somatic dysfunction of [facility] March 12, 2025 1:50pm Thoracic neuritis March 12, 2025 1: 50pm DDD (degenerative disc disease) February 272024 1:50pm Segmental and somatic dysfunction of [facility] March 23, 2025 10:38am Thoracic neuritis March 23, 2025 10 :38am DDD (degenerative disc disease) February 282024 10:38am Chief Complaint Admit Date Skyrizi January 02, 2025 9:54a m 6 M FU January 08, 2025 10:5 3am Skyrizi February 02, 2025 9:53a m REEVAL February 03, 2025 10:53 am XRAY March 02, 2025 12: 17pm BACK PAIN March 03, 2025 11: 09am BACK PAIN March 12, 2025 1: 50pm BACK PAIN/INTERNAL ORDER March 20 1:00pm BACK PAIN March 23, 2025 10 :38am THORACIC SPINE March 31, 2025 10:51am THORACIC RAD April 16, 2025 3:32pm Reason for Visit Admit Date Dysphagia January 08, 2025 10:5 3am Crohns disease January 08, 2025 10:5 3am Dysphagia January 09, 2025 11:3 9am Back pain February 03, 2025 10:53 am Segmental and somatic dysfunction of [facility] February 03, 2025 10:53am Scoliosis February 03, 2025 10:53 am Segmental and somatic dysfunction of [facility] March 03, 2025 11:09am Thoracic neuritis March 03, 2025 11: 09am DDD (degenerative disc disease) March 032024 11:09am Segmental and somatic dysfunction of [facility] March 12, 2025 1:50pm Thoracic neuritis March 12, 2025 1: 50pm DDD (degenerative disc disease) February 272024 1:50pm Segmental and somatic dysfunction of [facility] March 23, 2025 10:38am Thoracic neuritis March 23, 2025 10 :38am DDD (degenerative disc disease) February 282024 10:38am Thoracic radiculopathy March 31 10:51am DDD (degenerative disc disease) Septembe r 2024 10:51am Chief Complaint Admit Date Skyrizi January 02, 2025 9:54a m 6 M FU January 08, 2025 10:5 3am Skyrizi February 02, 2025 9:53a m REEVAL February 03, 2025 10:53 am XRAY March 02, 2025 12: 17pm BACK PAIN March 03, 2025 11: 09am BACK PAIN March 12, 2025 1: 50pm BACK PAIN/INTERNAL ORDER March 20 1:00pm BACK PAIN March 23, 2025 10 :38am THORACIC SPINE March 31, 2025 10:51am THORACIC RAD April 16, 2025 3:32pm BACK PAIN April 30, 2025 10 :52am THORACIC SPINE April 30, 2025 11 :09am Reason for Visit Admit Date Dysphagia January 08, 2025 10:5 3am Crohns disease January 08, 2025 10:5 3am Dysphagia January 09, 2025 11:3 9am Back pain February 03, 2025 10:53 am Segmental and somatic dysfunction of [facility] February 03, 2025 10:53am Scoliosis February 03, 2025 10:53 am Segmental and somatic dysfunction of [facility] March 03, 2025 11:09am Thoracic neuritis March 03, 2025 11: 09am DDD (degenerative disc disease) March 032024 11:09am Segmental and somatic dysfunction of [facility] March 12, 2025 1:50pm Thoracic neuritis March 12, 2025 1: 50pm DDD (degenerative disc disease) February 272024 1:50pm Segmental and somatic dysfunction of [facility] March 23, 2025 10:38am Thoracic neuritis March 23, 2025 10 :38am DDD (degenerative disc disease) February 282024 10:38am Thoracic radiculopathy March 31 10:51am DDD (degenerative disc disease) Septembe r 2024 10:51am Segmental and somatic dysfunction of [facility] April 30, 2025 10:52am Segmental and somatic dysfunction of [facility] April 30, 2025 10:52am Segmental and somatic dysfunction of [place] April 30, 2025 10:52am Segmental and somatic dysfunction of [place] [facility] [place] April 30, 2025 10:52am DDD (degenerative disc disease) April 30, 2025 10:52am Scoliosis April 30, 2025 10 :52am Reason for Visit Admit Date Dysphagia January 08, 2025 10:5 3am Crohns disease January 08, 2025 10:5 3am Dysphagia January 09, 2025 11:3 9am Back pain February 03, 2025 10:53 am Segmental and somatic dysfunction of [place] [facility] [place] February 03, 2025 10:53am Scoliosis February 03, 2025 10:53 am Segmental and somatic dysfunction of [place] [facility] [place] March 03, 2025 11:09am Thoracic neuritis March 03, 2025 11: 09am DDD (degenerative disc disease) March 032024 11:09am Segmental and somatic dysfunction of [facility] [place] March 12, 2025 1:50pm Thoracic neuritis March 12, 2025 1: 50pm DDD (degenerative disc disease) February 272024 1:50pm Segmental and somatic dysfunction of [place] [facility] [place] March 23, 2025 10:38am Thoracic neuritis March 23, 2025 10 :38am DDD (degenerative disc disease) February 282024 10:38am Thoracic radiculopathy March 31 10:51am DDD (degenerative disc disease) Septembe r 2024 10:51am Segmental and somatic dysfunction of [place] [facility] [place] April 30, 2025 10:52am DDD (degenerative disc disease) April 30, 2025 10:52am Scoliosis April 30, 2025 10 :52am Chief Complaint Admit Date Skyrizi February 02, 2025 9:53a m REEVAL February 03, 2025 10:53 am XRAY March 02, 2025 12: 17pm BACK PAIN March 03, 2025 11: 09am BACK PAIN March 12, 2025 1: 50pm BACK PAIN/INTERNAL ORDER March 20 1:00pm BACK PAIN March 23, 2025 10 :38am THORACIC SPINE March 31, 2025 10:51am THORACIC RAD April 16, 2025 3:32pm BACK PAIN April 30, 2025 10 :52am THORACIC SPINE April 30, 2025 11 :09am BACK PAIN May 07, 2025 11 :50am Reason for Visit Admit Date Back pain February 03, 2025 10:53 am Segmental and somatic dysfunction of [facility] February 03, 2025 10:53am Scoliosis February 03, 2025 10:53 am Segmental and somatic dysfunction of [facility] March 03, 2025 11:09am Thoracic neuritis March 03, 2025 11: 09am DDD (degenerative disc disease) March 032024 11:09am Segmental and somatic dysfunction of [facility] March 12, 2025 1:50pm Thoracic neuritis March 12, 2025 1: 50pm DDD (degenerative disc disease) February 272024 1:50pm Segmental and somatic dysfunction of [facility] March 23, 2025 10:38am Thoracic neuritis March 23, 2025 10 :38am DDD (degenerative disc disease) February 282024 10:38am Thoracic radiculopathy March 31 10:51am [facility] 10:[facility] Segmental and somatic dysfunction of [facility] April 30, 2025 10:52am DDD (degenerative disc disease) April 30, 2025 10:52am Scoliosis April 30, 2025 10 :52am Thoracic radiculopathy April 30, 2025 11:09am DDD (degenerative disc disease) April 30, 2025 11:09am Segmental and somatic dysfunction of [facility] May 07, 2025 11:50am Thoracic neuritis May 07, 2025 11 :50am DDD (degenerative disc disease) May 07, 2025 11:50am Scoliosis May 07, 2025 11 :50am Chief Complaint Admit Date XRAY March 02, 2025 12: 17pm BACK PAIN March 03, 2025 11: 09am BACK PAIN March 12, 2025 1: 50pm BACK PAIN/INTERNAL ORDER March 20 1:00pm BACK PAIN March 23, 2025 10 :38am THORACIC SPINE March 31, 2025 10:51am THORACIC RAD April 16, 2025 3:32pm BACK PAIN April 30, 2025 10 :52am THORACIC SPINE April 30, 2025 11 :09am BACK PAIN May 07, 2025 11 :50am BACK PAIN May 19, 2025 1 1:25am BACK PAIN May 27, 2025 1 1:23am BACK PAIN June 04, 2025 1 1:33am Reason for Visit Admit Date Segmental and somatic dysfunction of [facility] [place] March 03, 2025 11:09am Thoracic neuritis March 03, 2025 11: 09am DDD (degenerative disc disease) March 032024 11:09am Segmental and somatic dysfunction of [place] March 12, 2025 1:50pm Thoracic neuritis March 12, 2025 1: 50pm DDD (degenerative disc disease) February 272024 1:50pm Segmental and somatic dysfunction of [facility] region March 23, 2025 10:38am Thoracic neuritis March 23, 2025 10 :38am DDD (degenerative disc disease) February 282024 10:38am Thoracic radiculopathy March 31 10:51am DDD (degenerative disc disease) Septembe 2024 10:51am Segmental and somatic dysfunction of [facility] racic region April 30, 2025 10:52am DDD (degenerative disc disease) April 30, 2025 10:52am Scoliosis April 30, 2025 10 :52am Thoracic radiculopathy April 30, 2025 11:09am DDD (degenerative disc disease) April 30, 2025 11:09am Segmental and somatic dysfunction of [facility] racic region May 07, 2025 11:50am Thoracic neuritis May 07, 2025 11 :50am DDD (degenerative disc disease) May 07, 2025 11:50am Scoliosis May 07, 2025 11 :50am Segmental and somatic dysfunction of [place] [facility] region May 19, 2025 11:25am Thoracic neuritis May 19, 2025 1 1:25am DDD (degenerative disc disease) May 19, 2025 11:25am Segmental and somatic dysfunction of [facility] region May 27, 2025 11:23am Thoracic neuritis May 27, 2025 1 1:23am DDD (degenerative disc disease) May 27, 2025 11:23am Segmental and somatic dysfunction of [place] [facility] June 04, 2025 11:33am Thoracic neuritis June 04, 2025 1 1:33am DDD (degenerative disc disease) June 04, 2025 11:33am Family History No Family History Records Found Relationship Condition Age at Onset Recorded Date/T elaine Not Specified Epilepsy Unknown Anxiety Unknown Arthritis Unknown father Suicide Unknown mother Diabetes mellitus Unknown Obsessive-compulsive disorder Unknown Depression Unknown Bipolar disorder Unknown grandmother Diabetes mellitus Unknown uncle Disorder of intestine Unknown grandfather Malignant neoplasm of colon Unknown Advance Directives No Advanced Directives Records Found Advance Directive Response Recorded Date/ Time Advance Directives No January 02 1:13pm Living Will No January 02, 2022 1 :13pm Power of Edi Specialist No January 02, 2022 1:13pm Advance Directive Response Recorded Date/ Time Advance Directives No January 02 1:13pm Living Will No January 28, 2022 1 2:06pm Power of Edi Specialist No January 28, 2022 12:06pm Advance Directive Response Recorded Date/ Time Advance Directives No January 02 1:13pm Living Will No February 14, 2022 10:31am Power of Edi Specialist No February 14 10:31am Advance Directive Response Recorded Date/ Time Advance Directives No January 02 1:13pm Living Will No March 31, 022 6:27pm Power of Edi Specialist No March 31, 2022 6:27pm Advance Directive Response Recorded Date/ Time Advance Directives No January 02 12:13pm Living Will No March 31, 022 5:27pm Power of Edi Specialist No March 31, 2022 5:27pm Advance Directive Response Recorded Date/ Time Advance Directives No December 22 8:18am Living Will No December 22, 2022 8 :18am Power of Edi Specialist No December 22, 2022 8:18am Advance Directive Response Recorded Date/ Time Living Will No December 05, 2023 12 :55pm Do you have a Healthcare Power of Edi Specialist? No December 05, 2023 12:55pm Living Will No February 14, 2024 10:44am Do you have a Healthcare Power of Edi Specialist? No February 14, 2024 10:44am Advance Directives No December 22 9:18am Advance Directive Response Recorded Date/ Time Advance Directives No December 22 9:18am Advance Directive Response Recorded Date/ Time Advance Directives No January 08 10:03am Advance Directive Response Recorded Date/ Time Do you have a Healthcare Power of Edi Specialist? No January 06, 2025 1:43pm Advance Directives No January 08 10:03am Advance Directive Response Recorded Date/ Time Advance Directives No January 08 10:03am Do you have a Healthcare Power of Edi Specialist? No January 06, 2025 1:43pm Advance Directive Response Recorded Date/ Time Advance Directives No March 02 12:17pm Do you have a Healthcare Power of Edi Specialist? No January 06, 2025 1:43pm Advance Directive Response Recorded Date/ Time Advance Directives No March 27, 2025 12:41pm Do you have a Healthcare Power of Edi Specialist? No January 06, 2025 1:43pm Advance Directive Response Recorded Date/ Time Advance Directives No March 27, 2025 12:41pm Advance Directive Response Recorded Date/ Time Advance Directives No March 27, 2025 11:41am Summary Purpose Reason for Referral Specialty Diagnoses / Procedures Referred By Contjo ann t Referred To Contact Radiology Diagnoses Nondisplaced oblique fracture of shaft of right fibula, initial encounter for closed fracture Moderate ankle sprain, right, initial encounter Procedures MR ankle right wo IV contrast Caro Whitman, CARROT GRADER INSPECTOR-TUMBLERS SUPERVISOR [address] [facility], [place] [address] [address] Referral ID Status Reason Start Date Expiration Date Visits Requested Visits Authorized [id number] Authorized Perform Procedure 04/23/2024 04/23/2025 1 1 Specialty Diagnoses / Procedures Referred By Contjo ann t Referred To Contact Radiology Diagnoses History of fibula fracture Procedures XR tibia fibula right 2 views Caro Whitman, CARROT GRADER INSPECTOR-TUMBLERS SUPERVISOR [address] [facility], [place] [address] Referral ID Status Reason Start Date Expiration Date Visits Requested Visits Authorized [id number] Authorized Perform Procedure 2024 2025 1 1 Specialty Diagnoses / Procedures Referred By Contac t Referred To Contact Radiology Diagnoses Ankle injury, right, initial encounter Procedures XR ankle right 3+ views Caro Whitman, CARROT GRADER INSPECTOR-TUMBLERS SUPERVISOR [address] [facility], [address] [address] Referral ID Status Reason Start Date Expiration Date Visits Requested Visits Authorized [id number] Authorized Perform Procedure 04/09/2024 04/09/2025 1 1 Specialty Diagnoses / Procedures Referred By Contac t Referred To Contact Radiology Diagnoses Nondisplaced oblique fracture of shaft of right fibula, initial encounter for closed fracture Procedures XR tibia fibula right 2 views Caro Whitman, CARROT GRADER INSPECTOR-TUMBLERS SUPERVISOR [address] [facility], [address] [address] DO [address] [place] [address] Referral ID Status Reason Start Date Expiration Date Visits Requested Visits Authorized [id number] Authorized Perform Procedure 04/21/2024 04/21/2025 1 1 Specialty Diagnoses / Procedures Referred By Contac t Referred To Contact Radiology Diagnoses Ankle injury, right, initial encounter Procedures XR ankle right 2 views Caro Whitman, CARROT GRADER INSPECTOR-TUMBLERS SUPERVISOR [address] [facility], [address] [address] [address] [place] [address] Referral ID Status Reason Start Date Expiration Date Visits Requested Visits Authorized [id number] Authorized Perform Procedure 04/21/2024 04/21/2025 1 1 Referral ID Status Reason Start Date Expiration Date Visits Requested Visits Authorized [id number] Pending Review Perform Procedure 04/23/2024 04/23/2025 1 [...] Primary Care Provider, Referrin g Provider Active Real WOO PA Attending Provider Active Team Status: Active Member Role Status Dates Dr. Radha Calloway MD Primary Care Provider Active Dr. Nicola Gonsalves MD Attending Provider Active Dr. Christian Rincon MD Referring Provider Active Team Status: Inactive Member Role Status Dates Dr. Radha Calloway MD Primary Care Provider Active Real WOO PA Attending Provider, Referring Prov ider Active Team [...] Active Ed Physician Provider Emergency Provider Active Driver Retraining Instructor Relationship Specialty Start Date End Date Radha Calloway PCP - General Family Medicine 05/11/15 Team Status: Inactive Member Role Status Dates Dr. Radha Calloway MD Primary Care Provider Active Ed Physician Provider Attending Provider, Emergency Pr ovider Active Driver Retraining Instructor Relationship Specialty Start Date End Date Radha Calloway MD [address] [facility] [address] [place] [address] PCP - General Family Medicine 04/04/24 Driver Retraining Instructor Relationship Specialty Start Date End Date Radha Calloway MD [address] [facility] [address] [place] [address] PCP - General Family Medicine 04/04/24 Driver Retraining Instructor Relationship Specialty Start Date End Date Radha Calloway MD [address] [facility] [address] [place] [address] PCP - General Family Medicine 04/04/24 Driver Retraining Instructor Relationship Specialty Start Date End Date Radha Calloway MD [address] [facility] [address] [place] [address] PCP - General Family Medicine 04/04/24 Driver Retraining Instructor Relationship Specialty Start Date End Date Radha Calloway MD [address] [facility] [address] [place] [address] PCP - General Family Medicine 04/04/24 Driver Retraining Instructor Relationship Specialty Start Date End Date Radha Calloway MD [address] [facility] [address] [place] [address] PCP - General Family Medicine 04/04/24 Driver Retraining Instructor Relationship Specialty Start Date End Date Radha Calloway MD [address] [facility] [address] [place] [address] PCP - General Family Medicine 04/04/24 Driver Retraining Instructor Relationship Specialty Start Date End Date Radha Calloway MD [address] [facility] [address] [place] [address] PCP - General Family Medicine 04/04/24 Driver Retraining Instructor Relationship Specialty Start Date End Date Radha Calloway MD [address] [facility] [address] [place] [address] PCP - General Family Medicine 04/04/24 Driver Retraining Instructor Relationship Specialty Start Date End Date Radha Calloway MD [address] [facility] [address] [place] [address] PCP - General Family Medicine 04/04/24 Driver Retraining Instructor Relationship Specialty Start Date End Date Radha Calloway MD [address] [facility] [address] [place] [address] PCP - General Family Medicine 04/04/24 Driver Retraining Instructor Relationship Specialty Start Date End Date Radha Calloway MD [address] [facility] [address] [place] [address] PCP - General Family Medicine 04/04/24 Driver Retraining Instructor Relationship Specialty Start Date End Date Radha Calloway MD [address] [facility] [address] [place] [address] PCP - General Family Medicine 04/04/24 Driver Retraining Instructor Relationship Specialty Start Date End Date Radha Calloway MD [address] [facility] [address] [place] [address] PCP - General Family Medicine 04/04/24 Driver Retraining Instructor Relationship Specialty Start Date End Date Radha Calloway MD [address] [facility] [address] [place] [address] PCP - General Family Medicine 04/04/24 Driver Retraining Instructor Relationship Specialty Start Date End Date Radha Calloway MD [address] [facility] [address] [place] [address] PCP - General [facility] Medicine 04/04/24 Team Status: Inactive Member Role [...] October 23, 2024 End: October 23, 2024 Driver Retraining Instructor Relationship Specialty Start Date End Date Radha Calloway MD [address] [facility] [address] [place] [address] PCP - General Family Medicine 04/04/24 Driver Retraining Instructor Relationship Specialty Start Date End Date Radha Callwoay MD [address] [facility] [address] [place] [address] PCP - General Family Medicine 04/04/24 Team [...] Status: Inactive Member Role Status Dates Dr. aRdha Calloway MD Primary Care Provider Active Start: [...] Provider Active St art: January 09, 2025 Driver Retraining Instructor Relationship Specialty Start Date End Date Yunior Sheppard MD [address] [facility] [address] [place] [address] PCP - General Family Medicine 01/26/25 Driver Retraining Instructor Relationship Specialty Start Date End Date Yunior Sheppard MD [address] [facility] [address] [place] [address] PCP - General Family Medicine 01/26/25 Team Status: Active Member Role/Relationship Status Dates Dr. Radha Calloway MD Primary Care Provider Active Team Status: Inactive Member Role/Relationship Status Dates Dr. Radha Calloway MD Primary Care Provider Active Start: October 23, 2024 End: October 23, 2024 Dr. Radha Calloway MD Referring Provider Active Start: October 23, 2024 End: October 23, 2024 CHILO Dao Attending Provider Active Start: October 23, 2024 End: October 23, 2024 Team Status: Inactive Member Role/Relationship Status Dates Dr. Radha Calloway MD Primary Care Provider Active Start: November 20, 2024 End: November 20, 2024 Dr. Radha Calloway MD Attending Provider Active Start: November 20, 2024 End: November 20, 2024 Dr. Radha Calloway MD Referring Provider Active Start: November 20, 2024 End: November 20, 2024 Team Status: Inactive Member Role/Relationship Status Dates Dr. Radha Calloway MD Primary Care Provider Active Start: December 05, 2024 End: December 05, 2024 CHILO Dao Attending Provider Active Start: December 05, 2024 End: December 05, 2024 CHILO Dao Referring Provider Active Start: December 05, 2024 End: December 05, 2024 Team Status: Inactive Member Role/Relationship Status Dates Dr. Radha Calloway MD Primary Care Provider Active Start: January 02, 2025 End: January 02, 2025 CHILO Dao Attending Provider Active Start: January 02, 2025 End: January 02, 2025 CHILO Dao Referring Provider Active Start: January 02, 2025 End: January 02, 2025 Team Status: Inactive Member Role/Relationship Status Dates Dr. Radha Calloway MD Primary Care Provider Active Start: January 08, 2025 End: January 08, 2025 Dr. Radha Calloway MD Referring Provider Active Start: January 08, 2025 End: January 08, 2025 CHILO Dao Attending Provider Active Start: January 08, 2025 End: January 08, 2025 Team Status: Inactive Member Role/Relationship Status Dates Dr. Radha Calloway MD Primary Care Provider Active Start: January 09, 2025 End: January 09, 2025 Dr. Radha Calloway MD Referring Provider Active Start: January 09, 2025 End: January 09, 2025 Dr. Juan Alberto Rutledge DO Attending Provider Active Start: January 09, 2025 End: January 09, 2025 Team Status: Active Member Role/Relationship Status Dates Dr. Radha Calloway MD Primary Care Provider Active Start: January 09, 2025 Dr. Radha Calloway MD Referring Provider Active Start: January 09, 2025 Dr. Juan Alberto Rutledge DO Attending Provider Active Start: January 09, 2025 Dr. Juan Alberto Rutledge DO Other Provider Active St art: January 09, 2025 Team Status: Inactive Member Role/Relationship Status Dates Dr. Radha Calloway MD Primary Care Provider Active Start: February 02, 2025 End: February 02, 2025 CHILO Dao Attending Provider Active Start: February 02, 2025 End: February 02, 2025 CHILO Dao Referring Provider Active Start: February 02, 2025 End: February 02, 2025 Team Status: Inactive Member Role/Relationship Status Dates Dr. Radha Calloway MD Primary Care Provider Active Start: February 03, 2025 End: February 03, 2025 Dr. Radha Calloway MD Referring Provider Active Start: February 03, 2025 End: February 03, 2025 Dr. Natalia Gold DC Attending Provider Active S tart: February 03, 2025 End: February 03, 2025 Driver Retraining Instructor Relationship Specialty Start Date End Date Yunior Sheppard MD [address] [facility] [address] [place] [address] PCP - General Family Medicine 01/26/25 Driver Retraining Instructor Relationship Specialty Start Date End Date Yunior Sheppard MD [address] [facility] [address] [place] [address] PCP - General Family Medicine 01/26/25 Driver Retraining Instructor Relationship Specialty Start Date End Date Yunior Sheppard MD [address] [facility] [address] [place] [address] PCP - General Family Medicine 01/26/25 Team Status: Active Member Role/Relationship Status Dates Dr. Efren Hernandez MD Primary Care Provider Acti ve Team Status: Inactive Member Role/Relationship Status Dates Dr. Radha Calloway MD Primary Care Provider Active Start: November 20, 2024 End: November 20, 2024 Dr. Radha Calloway MD Attending Provider Active Start: November 20, 2024 End: November 20, 2024 Dr. Radha Calloway MD Referring Provider Active Start: November 20, 2024 End: November 20, 2024 Team Status: Inactive Member Role/Relationship Status Dates Dr. Radha Calloway MD Primary Care Provider Active Start: December 05, 2024 End: December 05, 2024 CHILO Dao Attending Provider Active Start: December 05, 2024 End: December 05, 2024 CHILO Dao Referring Provider Active Start: December 05, 2024 End: December 05, 2024 Team Status: Inactive Member Role/Relationship Status Dates Dr. Radha Calloway MD Primary Care Provider Active Start: January 02, 2025 End: January 02, 2025 CHILO Dao Attending Provider Active Start: January 02, 2025 End: January 02, 2025 CHILO Dao Referring Provider Active Start: January 02, 2025 End: January 02, 2025 Team Status: Inactive Member Role/Relationship Status Dates Dr. Radha Calloway MD Primary Care Provider Active Start: January 08, 2025 End: January 08, 2025 Dr. Radha Calloway MD Referring Provider Active Start: January 08, 2025 End: January 08, 2025 CHILO Dao Attending Provider Active Start: January 08, 2025 End: January 08, 2025 Team Status: Inactive Member Role/Relationship Status Dates Dr. Radha Calloway MD Primary Care Provider Active Start: January 09, 2025 End: January 09, 2025 Dr. Radha Calloway MD Referring Provider Active Start: January 09, 2025 End: January 09, 2025 Dr. Juan Alberto Rutledge DO Attending Provider Active Start: January 09, 2025 End: January 09, 2025 Team Status: Active Member Role/Relationship Status Dates Dr. Radha Calloway MD Primary Care Provider Active Start: January 09, 2025 Dr. Radha Calloway MD Referring Provider Active Start: January 09, 2025 Dr. Juan Alberto Rutledge DO Attending Provider Active Start: January 09, 2025 Dr. Juan Alberto Rutledge DO Other Provider Active St art: January 09, 2025 Team Status: Inactive Member Role/Relationship Status Dates Dr. Radha Calloway MD Primary Care Provider Active Start: January 27, 2025 Dr. Liz Onofre MD Attending Provider Active Start: January 27, 2025 Team Status: Inactive Member Role/Relationship Status Dates Dr. Efren Hernandez MD Primary Care Provider Acti ve Start: February 19, 2025 End: February 19, 2025 Dr. Efren Hernandez MD Attending Provider Active Start: February 19, 2025 End: February 19, 2025 Team Status: Inactive Member Role/Relationship Status Dates Dr. Efren Hernandez MD Primary Care Provider Acti ve Start: March 02, 2025 End: March 02, 2025 Dr. Cecilio Veliz MD Attending Provider Active S tart: March 02, 2025 End: March 02, 2025 Team Status: Inactive Member Role/Relationship Status Dates Dr. Radha Calloway MD Referring Provider Active Start: March 03, 2025 End: March 03, 2025 Dr. Natalia Gold DC Attending Provider Active S tart: March 03, 2025 End: March 03, 2025 Dr. Efren Hernandez MD Primary Care Provider Acti ve Start: March 03, 2025 End: March 03, 2025 Team Status: Active Member Role/Relationship Status Dates Dr. Efren Hernandez MD Primary Care Provider Acti ve Start: March 10, 2025 Dr. Natalia Gold DC Attending Provider Active S tart: March 10, 2025 Dr. Natalia Gold DC Referring Provider Active S tart: March 10, 2025 Team Status: Inactive Member Role/Relationship Status Dates Dr. Efren Hernandez MD Primary Care Provider Acti ve Start: March 12, 2025 End: March 12, 2025 Dr. Efren Hernandez MD Referring Provider Active Start: March 12, 2025 End: March 12, 2025 Dr. Natalia Gold DC Attending Provider Active S tart: March 12, 2025 End: March 12, 2025 Team Status: Inactive Member Role/Relationship Status Dates Dr. Radha Calloway MD Primary Care Provider Active Start: December 05, 2024 End: December 05, 2024 CHILO Dao Attending Provider Active Start: December 05, 2024 End: December 05, 2024 CHILO Dao Referring Provider Active Start: December 05, 2024 End: December 05, 2024 Team Status: Inactive Member Role/Relationship Status Dates Dr. Radha Calloway MD Primary Care Provider Active Start: January 02, 2025 End: January 02, 2025 CHILO Dao Attending Provider Active Start: January 02, 2025 End: January 02, 2025 CHILO Dao Referring Provider Active Start: January 02, 2025 End: January 02, 2025 Team Status: Inactive Member Role/Relationship Status Dates Dr. Radha Calloway MD Primary Care Provider Active Start: January 08, 2025 End: January 08, 2025 Dr. Radha Calloway MD Referring Provider Active Start: January 08, 2025 End: January 08, 2025 CHILO Dao Attending Provider Active Start: January 08, 2025 End: January 08, 2025 Team Status: Inactive Member Role/Relationship Status Dates Dr. Radha Calloway MD Primary Care Provider Active Start: January 09, 2025 End: January 09, 2025 Dr. Radha Calloway MD Referring Provider Active Start: January 09, 2025 End: January 09, 2025 Dr. Juan Alberto Rutledge DO Attending Provider Active Start: January 09, 2025 End: January 09, 2025 Team Status: Active Member Role/Relationship Status Dates Dr. Radha Calloway MD Primary Care Provider Active Start: January 09, 2025 Dr. Radha Calloway MD Referring Provider Active Start: January 09, 2025 Dr. Juan Alberto Rutledge DO Attending Provider Active Start: January 09, 2025 Dr. Juan Alberto Rutledge DO Other Provider Active St art: January 09, 2025 Team Status: Inactive Member Role/Relationship Status Dates Dr. Radha Calloway MD Primary Care Provider Active Start: January 27, 2025 Dr. Liz Onofre MD Attending Provider Active Start: January 27, 2025 Team Status: Inactive Member Role/Relationship Status Dates Dr. Radha Calloway MD Primary Care Provider Active Start: February 02, 2025 End: February 02, 2025 CHILO Dao Attending Provider Active Start: February 02, 2025 End: February 02, 2025 CHILO Dao Referring Provider Active Start: February 02, 2025 End: February 02, 2025 Team Status: Inactive Member Role/Relationship Status Dates Dr. Radha Calloway MD Primary Care Provider Active Start: February 03, 2025 End: February 03, 2025 Dr. Radha Calloway MD Referring Provider Active Start: February 03, 2025 End: February 03, 2025 Dr. Natalia Gold DC Attending Provider Active S tart: February 03, 2025 End: February 03, 2025 Team Status: Inactive Member Role/Relationship Status Dates Dr. Efren Hernandez MD Primary Care Provider Acti ve Start: February 19, 2025 End: February 19, 2025 Dr. Efren Hernandez MD Attending Provider Active Start: February 19, 2025 End: February 19, 2025 Team Status: Inactive Member Role/Relationship Status Dates Dr. Efren Hernandez MD Primary Care Provider Acti ve Start: March 02, 2025 End: March 02, 2025 Dr. Cecilio Veliz MD Attending Provider Active S tart: March 02, 2025 End: March 02, 2025 Team Status: Inactive Member Role/Relationship Status Dates Dr. Radha Calloway MD Referring Provider Active Start: March 03, 2025 End: March 03, 2025 Dr. Natalia Gold DC Attending Provider Active S tart: March 03, 2025 End: March 03, 2025 Dr. Efern Hernandez MD Primary Care Provider Acti ve Start: March 03, 2025 End: March 03, 2025 Team Status: Inactive Member Role/Relationship Status Dates Dr. Efren Hernandez MD Primary Care Provider Acti ve Start: March 12, 2025 End: March 12, 2025 Dr. Efren Hernandez MD Referring Provider Active Start: March 12, 2025 End: March 12, 2025 Dr. Natalia Gold DC Attending Provider Active S tart: March 12, 2025 End: March 12, 2025 Team Status: Active Member Role/Relationship Status Dates Dr. Efren Hernandez MD Primary Care Provider Acti ve Start: March 20, 2025 Dr. Natalia Gold DC Attending Provider Active S tart: March 20, 2025 Dr. Natalia Gold DC Referring Provider Active S tart: March 20, 2025 Team Status: Inactive Member Role/Relationship Status Dates Dr. Efren Hernandez MD Primary Care Provider Acti ve Start: March 23, 2025 End: March 23, 2025 Dr. Efren Hernandez MD Referring Provider Active Start: March 23, 2025 End: March 23, 2025 Dr. Natalia Gold DC Attending Provider Active S tart: March 23, 2025 End: March 23, 2025 Team Status: Inactive Member Role/Relationship Status Dates Dr. Efren Hernandez MD Primary Care Provider Acti ve Start: March 31, 2025 End: March 31, 2025 Dr. Efren Hernandez MD Referring Provider Active Start: March 31, 2025 End: March 31, 2025 CHILO Becerra Attending Provider Active Star t: March 31, 2025 End: March 31, 2025 Team Status: Active Member Role/Relationship Status Dates Dr. Efren Hernandez MD Primary care physician Act rosario Team Status: Inactive Member Role/Relationship Status Dates Dr. Radha Calloway MD Primary care physician Active Start: January 02, 2025 End: January 02, 2025 CHILO Dao Attending physician Active Start: January 02, 2025 End: January 02, 2025 CHILO Dao Referring Provider Active Start: January 02, 2025 End: January 02, 2025 Team Status: Inactive Member Role/Relationship Status Dates Dr. Radha Calloway MD Primary care physician Active Start: January 08, 2025 End: January 08, 2025 Dr. Radha Calloway MD Referring Provider Active Start: January 08, 2025 End: January 08, 2025 CHILO Dao Attending physician Active Start: January 08, 2025 End: January 08, 2025 Team Status: Inactive Member Role/Relationship Status Dates Dr. Radha Calloway MD Primary care physician Active Start: January 09, 2025 End: January 09, 2025 Dr. Radha Calloway MD Referring Provider Active Start: January 09, 2025 End: January 09, 2025 Dr. Juan Alberto Rutledge DO Attending physician Active Start: January 09, 2025 End: January 09, 2025 Team Status: Active Member Role/Relationship Status Dates Dr. Radha Calloway MD Primary care physician Active Start: January 09, 2025 Dr. Radha Calloway MD Referring Provider Active Start: January 09, 2025 Dr. Juan Alberto Rutledge DO Attending physician Active Start: January 09, 2025 Dr. Juan Alberto Rutledge DO Nurse Practitioner Active Start: January 09, 2025 Team Status: Inactive Member Role/Relationship Status Dates Dr. Radha Calloway MD Primary care physician Active Start: January 27, 2025 Dr. Liz Onofre MD Attending physician Active Start: January 27, 2025 Team Status: Inactive Member Role/Relationship Status Dates Dr. Radha Calloway MD Primary care physician Active Start: February 02, 2025 End: February 02, 2025 CHILO Dao Attending physician Active Start: February 02, 2025 End: February 02, 2025 CHILO Dao Referring Provider Active Start: February 02, 2025 End: February 02, 2025 Team Status: Inactive Member Role/Relationship Status Dates Dr. Radha Calloway MD Primary care physician Active Start: February 03, 2025 End: February 03, 2025 Dr. Radha Calloway MD Referring Provider Active Start: February 03, 2025 End: February 03, 2025 Dr. Natalia Gold DC Attending physician Active Start: February 03, 2025 End: February 03, 2025 Team Status: Inactive Member Role/Relationship Status Dates Dr. Efren Hernandez MD Primary care physician Act rosario Start: February 19, 2025 End: February 19, 2025 Dr. Efren Hernandez MD Attending physician Active Start: February 19, 2025 End: February 19, 2025 Team Status: Inactive Member Role/Relationship Status Dates Dr. Efren Hernandez MD Primary care physician Act rosario Start: March 02, 2025 End: March 02, 2025 Dr. Cecilio Veliz MD Attending physician Active Start: March 02, 2025 End: March 02, 2025 Team Status: Inactive Member Role/Relationship Status Dates Dr. Radha Calloway MD Referring Provider Active Start: March 03, 2025 End: March 03, 2025 Dr. Natalia Gold DC Attending physician Active Start: March 03, 2025 End: March 03, 2025 Dr. Efren Hernandez MD Primary care physician Act rosario Start: March 03, 2025 End: March 03, 2025 Team Status: Active Member Role/Relationship Status Dates Dr. Efren Hernandez MD Primary care physician Act rosario Start: March 04, 2025 Dr. Natalia Gold DC Attending physician Active Start: March 04, 2025 Dr. Radha Calloway MD Referring Provider Active Start: March 04, 2025 Team Status: Inactive Member Role/Relationship Status Dates Dr. Efren Hernandez MD Primary care physician Act rosario Start: March 12, 2025 End: March 12, 2025 Dr. Efren Hernandez MD Referring Provider Active Start: March 12, 2025 End: March 12, 2025 Dr. Naatlia Gold DC Attending physician Active Start: March 12, 2025 End: March 12, 2025 Team Status: Active Member Role/Relationship Status Dates Dr. Efren Hernandez MD Primary care physician Act rosario Start: March 20, 2025 Dr. Natalia Gold DC Attending physician Active Start: March 20, 2025 Dr. Natalia Gold DC Referring Provider Active S tart: March 20, 2025 Team Status: Inactive Member Role/Relationship Status Dates Dr. Efren Hernandez MD Primary care physician Act rosario Start: March 23, 2025 End: March 23, 2025 Dr. Efren Hernandez MD Referring Provider Active Start: March 23, 2025 End: March 23, 2025 Dr. Natalia Gold DC Attending physician Active Start: March 23, 2025 End: March 23, 2025 Team Status: Inactive Member Role/Relationship Status Dates Dr. Efren Hernandez MD Primary care physician Act rosario Start: March 31, 2025 End: March 31, 2025 Dr. Efren Hernandez MD Referring Provider Active Start: March 31, 2025 End: March 31, 2025 CHILO Becerra Attending physician Active Sta rt: March 31, 2025 End: March 31, 2025 Team Status: Inactive Member Role/Relationship Status Dates Dr. Efren Hernandez MD Primary care physician Act rosario Start: April 16, 2025 End: April 16, 2025 CHILO Becerra Attending physician Active Sta rt: April 16, 2025 End: April 16, 2025 CHILO Becerra Referring Provider Active Star t: April 16, 2025 End: April 16, 2025 Team Status: Inactive Member Role/Relationship Status Dates Dr. Efren Hernandez MD Primary care physician Act rosario Start: April 30, 2025 End: April 30, 2025 Dr. Efren Hernandez MD Referring Provider Active Start: April 30, 2025 End: April 30, 2025 Dr. Natalia Gold DC Attending physician Active Start: April 30, 2025 End: April 30, 2025 Team Status: Active Member Role/Relationship Status Dates Dr. Efren Hernandez MD Primary care physician Act rosario Start: April 30, 2025 Dr. Efren Hernandez MD Referring Provider Active Start: April 30, 2025 CHILO Becerra Attending physician Active Sta rt: April 30, 2025 Team Status: Inactive Member Role/Relationship Status Dates Dr. Efren Hernandez MD Primary care physician Act rosario Start: April 30, 2025 End: April 30, 2025 Dr. Efren Hernandez MD Referring Provider Active Start: April 30, 2025 End: April 30, 2025 CHILO Becerra Attending physician Active Sta rt: April 30, 2025 End: April 30, 2025 Team Status: Inactive Member Role/Relationship Status Dates Dr. Radha Calloway MD Primary care physician Active Start: January 27, 2025 Dr. Liz Onofre MD Attending physician Active Start: January 27, 2025 Team Status: Inactive Member Role/Relationship Status Dates Dr. Radha Calloway MD Primary care physician Active Start: February 02, 2025 End: February 02, 2025 CHILO Dao Attending physician Active Start: February 02, 2025 End: February 02, 2025 CHILO Dao Referring Provider Active Start: February 02, 2025 End: February 02, 2025 Team Status: Inactive Member Role/Relationship Status Dates Dr. Radha Calloway MD Primary care physician Active Start: February 03, 2025 End: February 03, 2025 Dr. Radha Calloway MD Referring Provider Active Start: February 03, 2025 End: February 03, 2025 Dr. Natalia Gold DC Attending physician Active Start: February 03, 2025 End: February 03, 2025 Team Status: Inactive Member Role/Relationship Status Dates Dr. Efren Hernandez MD Primary care physician Act rosario Start: February 19, 2025 End: February 19, 2025 Dr. Efren Hernandez MD Attending physician Active Start: February 19, 2025 End: February 19, 2025 Team Status: Inactive Member Role/Relationship Status Dates Dr. Efren Hernandez MD Primary care physician Act rosario Start: March 02, 2025 End: March 02, 2025 Dr. Cecilio Veliz MD Attending physician Active Start: March 02, 2025 End: March 02, 2025 Team Status: Inactive Member Role/Relationship Status Dates Dr. Radha Calloway MD Referring Provider Active Start: March 03, 2025 End: March 03, 2025 Dr. Natalia Gold DC Attending physician Active Start: March 03, 2025 End: March 03, 2025 Dr. Efren Hernandez MD Primary care physician Act rosario Start: March 03, 2025 End: March 03, 2025 Team Status: Active Member Role/Relationship Status Dates Dr. Efren Hernandez MD Primary care physician Act rosario Start: March 04, 2025 Dr. Natalia Gold DC Attending physician Active Start: March 04, 2025 Dr. Radha Calloway MD Referring Provider Active Start: March 04, 2025 Team Status: Inactive Member Role/Relationship Status Dates Dr. Efren Hernandez MD Primary care physician Act rosario Start: March 12, 2025 End: March 12, 2025 Dr. Efren Hernandez MD Referring Provider Active Start: March 12, 2025 End: March 12, 2025 Dr. Natalia Gold DC Attending physician Active Start: March 12, 2025 End: March 12, 2025 Team Status: Active Member Role/Relationship Status Dates Dr. Efren Hernandez MD Primary care physician Act rosario Start: March 20, 2025 Dr. Natalia Gold DC Attending physician Active Start: March 20, 2025 Dr. Natalia Gold DC Referring Provider Active S tart: March 20, 2025 Team Status: Inactive Member Role/Relationship Status Dates Dr. Efren Hernandez MD Primary care physician Act rosario Start: March 23, 2025 End: March 23, 2025 Dr. Efren Hernandez MD Referring Provider Active Start: March 23, 2025 End: March 23, 2025 Dr. Natalia Gold DC Attending physician Active Start: March 23, 2025 End: March 23, 2025 Team Status: Inactive Member Role/Relationship Status Dates Dr. Efren Hernandez MD Primary care physician Act rosario Start: March 31, 2025 End: March 31, 2025 Dr. Efren Hernandez MD Referring Provider Active Start: March 31, 2025 End: March 31, 2025 CHILO Becerra Attending physician Active Sta rt: March 31, 2025 End: March 31, 2025 Team Status: Inactive Member Role/Relationship Status Dates Dr. Efren Hernandez MD Primary care physician Act rosario Start: April 16, 2025 End: April 16, 2025 CHILO Becerra Attending physician Active Sta rt: April 16, 2025 End: April 16, 2025 CHILO Becerra Referring Provider Active Star t: April 16, 2025 End: April 16, 2025 Team Status: Inactive Member Role/Relationship Status Dates Dr. Efren Hernandez MD Primary care physician Act rosario Start: April 30, 2025 End: April 30, 2025 Dr. Efren Hernandez MD Referring Provider Active Start: April 30, 2025 End: April 30, 2025 Dr. Natalia Gold DC Attending physician Active Start: April 30, 2025 End: April 30, 2025 Team Status: Inactive Member Role/Relationship Status Dates Dr. Efren Hernandez MD Primary care physician Act rosario Start: April 30, 2025 End: April 30, 2025 Dr. Efren Hernandez MD Referring Provider Active Start: April 30, 2025 End: April 30, 2025 CHILO Becerra Attending physician Active Sta rt: April 30, 2025 End: April 30, 2025 Team Status: Inactive Member Role/Relationship Status Dates Dr. Efren Hernandez MD Primary care physician Act rosario Start: May 07, 2025 End: May 07, 2025 Dr. Efren Hernandez MD Referring Provider Active Start: May 07, 2025 End: May 07, 2025 Dr. Natalia Gold DC Attending physician Active Start: May 07, 2025 End: May 07, 2025 Team Status: Inactive Member Role/Relationship Status Dates Dr. Efren Hernandez MD Primary care physician Act rosario Start: February 19, 2025 End: February 19, 2025 Dr. Efren Hernandez MD Attending physician Active Start: February 19, 2025 End: February 19, 2025 Team Status: Inactive Member Role/Relationship Status Dates Dr. Efren Hernandez MD Primary care physician Act rosario Start: March 02, 2025 End: March 02, 2025 Dr. Cecilio Veliz MD Attending physician Active Start: March 02, 2025 End: March 02, 2025 Team Status: Inactive Member Role/Relationship Status Dates Dr. Radha Calloway MD Referring Provider Active Start: March 03, 2025 End: March 03, 2025 Dr. Natalia Gold DC Attending physician Active Start: March 03, 2025 End: March 03, 2025 Dr. Efren Hernandez MD Primary care physician Act rosario Start: March 03, 2025 End: March 03, 2025 Team Status: Active Member Role/Relationship Status Dates Dr. Efren Hernandez MD Primary care physician Act rosario Start: March 04, 2025 Dr. Natalia Gold DC Attending physician Active Start: March 04, 2025 Dr. Radha Calloway MD Referring Provider Active Start: March 04, 2025 Team Status: Inactive Member Role/Relationship Status Dates Dr. Efren Hernandez MD Primary care physician Act rosario Start: March 12, 2025 End: March 12, 2025 Dr. Efren Hernandez MD Referring Provider Active Start: March 12, 2025 End: March 12, 2025 Dr. Natalia Gold DC Attending physician Active Start: March 12, 2025 End: March 12, 2025 Team Status: Active Member Role/Relationship Status Dates Dr. Efren Hernandez MD Primary care physician Act rosario Start: March 20, 2025 Dr. Natalia Gold DC Attending physician Active Start: March 20, 2025 Dr. Natalia Gold DC Referring Provider Active S tart: March 20, 2025 Team Status: Inactive Member Role/Relationship Status Dates Dr. Efren Hernandez MD Primary care physician Act rosario Start: March 23, 2025 End: March 23, 2025 Dr. Efren Hernandez MD Referring Provider Active Start: March 23, 2025 End: March 23, 2025 Dr. Natalia Gold DC Attending physician Active Start: March 23, 2025 End: March 23, 2025 Team Status: Inactive Member Role/Relationship Status Dates Dr. Efren Hernandez MD Primary care physician Act rosario Start: March 31, 2025 End: March 31, 2025 Dr. Efren Hernandez MD Referring Provider Active Start: March 31, 2025 End: March 31, 2025 CHILO Becerra Attending physician Active Sta rt: March 31, 2025 End: March 31, 2025 Team Status: Inactive Member Role/Relationship Status Dates Dr. Efren Hernandez MD Primary care physician Act rosario Start: April 16, 2025 End: April 16, 2025 CHILO Becerra Attending physician Active Sta rt: April 16, 2025 End: April 16, 2025 CHILO Becerra Referring Provider Active Star t: April 16, 2025 End: April 16, 2025 Team Status: Inactive Member Role/Relationship Status Dates Dr. Efren Hernandez MD Primary care physician Act rosario Start: April 30, 2025 End: April 30, 2025 Dr. Efren Hernandez MD Referring Provider Active Start: April 30, 2025 End: April 30, 2025 Dr. Natalia Gold DC Attending physician Active Start: April 30, 2025 End: April 30, 2025 Team Status: Inactive Member Role/Relationship Status Dates Dr. Efren Hernandez MD Primary care physician Act rosario Start: April 30, 2025 End: April 30, 2025 Dr. Efren Hernandez MD Referring Provider Active Start: April 30, 2025 End: April 30, 2025 CHILO Becerra Attending physician Active Sta rt: April 30, 2025 End: April 30, 2025 Team Status: Inactive Member Role/Relationship Status Dates Dr. Efren Hernandez MD Primary care physician Act rosario Start: May 07, 2025 End: May 07, 2025 Dr. Efren Hernandez MD Referring Provider Active Start: May 07, 2025 End: May 07, 2025 Dr. Natalia Gold DC Attending physician Active Start: May 07, 2025 End: May 07, 2025 Team Status: Inactive Member Role/Relationship Status Dates Dr. Efren Hernandez MD Primary care physician Act rosario Start: May 19, 2025 End: May 19, 2025 Dr. Efren Hernandez MD Referring Provider Active Start: May 19, 2025 End: May 19, 2025 Dr. Natalia Gold DC Attending physician Active Start: May 19, 2025 End: May 19, 2025 Team Status: Inactive Member Role/Relationship Status Dates Dr. Efren Hernandez MD Primary care physician Act rosario Start: May 27, 2025 End: May 27, 2025 Dr. Efren Hernandez MD Referring Provider Active Start: May 27, 2025 End: May 27, 2025 Dr. Natalia Gold DC Attending physician Active Start: May 27, 2025 End: May 27, 2025 Team Status: Inactive Member Role/Relationship Status Dates Dr. Efren Hernandez MD Primary care physician Act rosario Start: June 04, 2025 End: June 04, 2025 Dr. Efren Hernandez MD Referring Provider Active Start: June 04, 2025 End: June 04, 2025 Dr. Natalia Gold DC Attending physician Active Start: June 04, 2025 End: June 04, 2025 Source Comments (unrecognize d section and content) In the event this informatio n is protected by the Federal Confidentiality of Alcohol and Drug Abuse Patient Records regulations: The Federal rules restrict any use of the information to criminally investigate or prosecute any alcohol or drug abuse patient.[facility] INFORMATION SOURCE (unrecogn ized section and content) DATE CREATED AUTHOR 06/17/2023 [facility] DATE CREATED AUTHOR AUTHOR'S ORGANIZ ATION 02/05/2025 [facility] DATE CREATED AUTHOR AUTHOR'S ORGANIZ ATION 02/15/[address] [facility] DATE CREATED AUTHOR AUTHOR'S ORGANIZ ATION 02/15/2025 [facility] DATE CREATED AUTHOR AUTHOR'S ORGANIZ ATION 06/05/2025 [facility] DATE CREATED AUTHOR AUTHOR'S ORGANIZ ATION 06/11/2025 [facility] Reason for Visit (unrecogniz ed section and content) Specialty Diagnoses / Procedures Referred By Contac t Referred To Contact Radiology Diagnoses Nondisplaced oblique fracture of shaft of right fibula, initial encounter for closed fracture Moderate ankle sprain, right, initial encounter Procedures MR ankle right wo IV contrast Caro Whitman, [employer] SUPERVISOR [address] [facility] [place], [place] [address] [place] [id number] Referral ID Status Reason Start Date Expiration Date Visits Requested Visits Authorized [id number] Authorized Perform Procedure 04/23/2024 04/23/2025 1 1 Specialty Diagnoses / Procedures Referred By Contac t Referred To Contact Radiology Diagnoses History of fibula fracture Procedures XR tibia fibula right 2 views Caro Whitman, [employer] INSPECTOR[employer]BL[employer] SUPERVISOR [address] [facility], [place] [address] Referral ID Status Reason Start Date Expiration Date Visits Requested Visits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
[2025-07-10 17:26] VITALS: BP 121/56; PULSE 65; RESP 16; TEMP 36.6; O2SAT 98
== END 2025-07-10 17:27 | disposition home or self-care (01) ==
PROVIDERS: Emergency Provider Surgery; PCP Family Medicine; Visit Provider Surgery
DX: M54.6 Pain in thoracic spine (principal); M54.50 Low back pain, unspecified; G89.29 Other chronic pain; F17.210 Nicotine dependence, cigarettes, uncomplicated
CPT/HCPCS: 96372; 99282

== ENCOUNTER → 2025-07-10 | Outpatient (CLI) | payer MEDICARE, MEDICAID, SELFPAY ==
[2025-07-10 15:04] LABS: Hematocrit 41.3 % (37-47); Hemoglobin 13.2 g/dL (12.0-15.0); Immature Granulocytes Count 0.060 X10^3/uL (0.0-0.0); Mean Corp Hgb Conc 32.0 g/dL (32-36); Mean Corpuscular Volume 87.3 fL (81-99); Mean Platelet Vol. 9.4 fl (6.2-12.0); NRBC Flagged by Analyzer 0 % (0-5); POSITIVE MORPHOLOGY YES; Platelet Count 427 K/mm3 (150-450); RBC Distribution Width CV 14.3 % (11.6-14.6); RBC Distribution Width SD 46.1 fl (35.1-43.9); Red Blood Count 4.73 M/mm3 (4.2-5.4); White Blood Count 12.0 K/mm3 (4.4-11.0)
[2025-07-10 15:42] LABS: AST(SGOT) 17 U/L (<=31); Alanine Aminotransfer ALT/SGPT 12 U/L (<=34); Albumin, Serum 3.9 g/dL (3.5-5.0); Alkaline Phosphatase 68 U/L (35-104); Anion Gap 10 (5-15); BUN 8 mg/dL (4-19); BUN/Creat Ratio 9.8 RATIO (10-20); CRP 36.50 mg/L (0.0-3.0); Calcium,Total 9.2 mg/dL (7.6-11.0); Carbon Dioxide 27.1 mmol/L (21.0-32.0); Chloride 101 mmol/L (98-108); Globulin 3.7 g/dL (2.2-4.2); Glucose 79 mg/dL (70-99); Potassium 3.9 mmol/L (3.3-5.1)
[2025-07-10 23:56] LABS: Differential Comment SCANNED; Differential Indicated SCAN CRITERIA MET
== END | disposition home or self-care (01) ==
LOC: LAB 13:39
PROVIDERS: PCP Family Medicine; Referring Provider Student in an Organized Health Care Education/Training Program; Visit Provider Student in an Organized Health Care Education/Training Program
DX: K50.90 Crohn's disease, unspecified, without complications (principal)
CPT/HCPCS: 36415; 80053; 85025; 86140

== ENCOUNTER → 2025-07-15 | Outpatient (CLI) | payer MEDICARE, MEDICAID, SELFPAY ==
--- NOTE | 2025-07-15 16:29 | RAD_ITS ---
PROCEDURE: ELBOW MIN 3 VIEWS 07/15/2025 REASON FOR EXAM: L ELBOW TECHNIQUE: Procedure Code: RADEL Modality: DX Procedure: ELBOW MIN 3 VIEWS Laterality: Left FINDINGS: No evidence of acute fracture or dislocation. The joint spaces are maintained. No elbow joint effusion. RAD/Elbow min 3 Views IMPRESSION: No acute osseous abnormalities. Reading Location: [facility]
[2025-07-18 01:07] LABS: Calprotectin, Stool 42 ug/g (0-120)
== END | disposition home or self-care (01) ==
LOC: LABSPEC 14:04 → MTRAD 16:28
PROVIDERS: Student in an Organized Health Care Education/Training Program; PCP Family Medicine; Referring Provider Family Medicine; Visit Provider Family Medicine
DX: M25.522 Pain in left elbow (principal); K50.90 Crohn's disease, unspecified, without complications
CPT/HCPCS: 73080; 83993